=== PATIENT | male | born 1950 | race Caucasian/White ===

== ENCOUNTER 2017-02-17 08:54 | Inpatient (IN) | payer MEDICARE, OTHER ==
[2017-02-17] MEDS ORDERED: HYDROcodone/ACETAMIN 5-325 MG* 1 TAB PO ONE (09:23)
[2017-02-17 09:28] LABS: Hematocrit 36 % (42-52); Hemoglobin 11.5 g/dl (14.0-18.0); Mean Corpuscular HGB Conc 32 g/dl (31-36); Mean Corpuscular Hemoglobin 27 pg (27-31); Mean Corpuscular Volume 85 fL (80-94); Mean Platelet Volume 8 um3 (7.4-10.4); Red Blood Count 4.23 10^6/ul (4.0-5.4); Red Cell Distribution Width 16 % (10.5-15); White Blood Count 6.7 10^3/ul (3.5-10.8)
[2017-02-17] MEDS ORDERED: cefTRIAXone(*) 1 GM in NS 0.9% 50 ML* 50 ML IVPB ONE (09:39)
[2017-02-17] MEDS ORDERED: NS 0.9% 1000 ML* 1,000 ML IV ONE (09:41)
[2017-02-17 09:48] LABS: Albumin 3.3 g/dL (3.2-5.2); BUN/Creatinine Ratio 15.3 (8-20); Calcium 8.6 mg/dL (8.6-10.3); EGFR African American 13.1 (>60); EGFR Non-African American 10.2 (>60); Globulin 3.8 g/dL (2-4); HDL Cholesterol 31.5 mg/dL; Total Bilirubin 0.3 mg/dL (0.2-1.0); Total Protein 7.1 g/dL (6.4-8.9)
[2017-02-17 09:49] LABS: Troponin I 0.01 ng/mL (<0.04)
[2017-02-17 10:00] LABS: Urine Bacteria Absent (Absent); Urine Bilirubin Negative (Negative); Urine Glucose Negative (Negative); Urine Nitrite Negative (Negative)
--- NOTE | 2017-02-17 10:03 | RAD ---
Indication: CVA. History of cardiac and respiratory disease. Morbid obesity. Comparison: September 06, 2016 chest radiograph and May 11, 2016 CT. Technique: Semiupright AP chest 0912 hours Report: Leftward rotation. Cardiomegaly. Moderate LEFT pleural effusion and significant atelectasis of the LEFT lung similar to the prior exams. Moderate prominence of interstitial markings in the RIGHT lung without change. No pneumothorax evident. Prominent ill-defined central pulmonary vasculature. IMPRESSION: Interstitial pulmonary edema not excluded. Chronic LEFT pleural effusion and significant atelectasis of the LEFT lung.
--- NOTE | 2017-02-17 10:46 | RAD ---
INDICATION: RIGHT flank pain, hematuria. Morbid obesity. COMPARISON: August 13, 2013 CT. TECHNIQUE: Multidetector CT images were obtained from the lung bases to the ischial tuberosities. Evaluation of the viscera is limited without IV contrast. Multiplanar reformation. REPORT: Morbid obesity limits image quality. Cardiomegaly with associated partial atelectasis of the LEFT lung without change. Small calcified granuloma at the unenhanced liver. The gallbladder is not visualized. Moderately severe fatty replacement of the pancreas. Unremarkable spleen. No CT abnormality of the upper GI or small bowel. Unremarkable infra cecal appendix. Mild colonic diverticulosis without findings of diverticulitis. Negative for ascites or free air. Laxity of the ventral abdominal wall. No discrete hernia evident. Normal adrenal glands. Postsurgical change of probable prostatectomy. Mildly prominent urinary bladder wall and surrounding fat reticulation/inflammation. Severe LEFT and moderate RIGHT hydroureter. Moderate RIGHT and moderately severe LEFT renal cortical atrophy. Negative for dilatation of the calyces. No obstructing ureteral stones. A few punctate nonobstructing LEFT renal stones. Coarse calcification at the normal volume prostate. Unremarkable seminal vesicles. Negative for lymphadenopathy. Mild peripheral atherosclerotic plaque without aneurysm of the abdominal aorta or iliac arteries. Physiologic distention of the IVC. No significant change in ring and arc pattern matrix calcification lesion at the RIGHT femoral neck to intratrochanteric region compared with the August 13, 2013 CT consistent with a benign enchondroma. Negative for suspicious focal osseous lesions. Negative for fracture. Lumbar sacral spine degenerative spondylosis and facet joint osteoarthritis. IMPRESSION: 1.Cardiomegaly with associated partial atelectasis of the LEFT lung without change. 2. Mild colonic diverticulosis without findings of diverticulitis. Normal appendix documented. 3. Mild bladder wall thickening and reticulation of the fat surrounding the urinary bladder; correlate for potential cystitis. And bilateral hydroureter without dilatation of the renal calyces. Moderate RIGHT and moderately severe LEFT renal cortical atrophy.
[2017-02-17 10:57] LABS: Potassium 4.8 mmol/L (3.5-5.0)
--- NOTE | 2017-02-17 11:06 | RAD ---
Indication: Acute RIGHT hemiplegia. Comparison: September 07, 2016 CT Technique: Noncontrast CT vertex of skull through foramen magnum. Report: Obliquity and motion artifact degrades image quality. Mild prominence of the cerebral sulci reflecting atrophy. Unremarkable ventricles and basal cisterns. Negative for romero matter white matter obscuration, intra or extra-axial hemorrhage, or mass effect. Unremarkable orbital contents. No suspicious calvarial or skull base lesion. Mucous retention cyst or polyp at the floor of the LEFT maxillary sinus. Negative for paranasal sinus fluid levels. Partial opacification of the mastoid air spaces. Cerumen in the external auditory canals. Negative for scalp hematoma. IMPRESSION: No evidence for intracranial hemorrhage or gross stigmata of ischemic infarct. Mild involutional change. Results discussed with Dr. Franco 02/17/2017 9:32 AM EDT
[2017-02-17] MEDS ORDERED: NS 0.9% 1000 ML* 1,000 ML IV SCH ×2 (11:45→13:30)
[2017-02-17] MEDS ORDERED: Heparin VIAL(*) 5000 UNITS/ML VIAL (FIVE THOUSAND) SUBCUT SCH (14:00)
[2017-02-17] MEDS ORDERED: Ipratropium 0.5MG/2.5ML NEB* 0.5 MG/2.5 ML NEB.SOLN INH SCH (14:00)
[2017-02-17] MEDS ORDERED: Albuterol 2.5 MG/3 ML NEB.SOL* (0.083%) INH SCH (14:00)
--- NOTE | 2017-02-17 15:33 | HP ---
HISTORY AND PHYSICAL: DATE OF ADMISSION: 02/17/17 CHIEF COMPLAINT: Right-sided weakness. HISTORY OF PRESENT ILLNESS: The patient is a 66-year-old gentleman who resides at [facility], who said last night his whole right side felt swollen. Then, this morning when he woke up at 7:30, he could not lift up his right leg or his right arm. He thinks he had some slurred speech as well. He denied any facial droop, but he said he had some trouble finding words. Currently, he said the symptoms have resolved. He had no associated headache or blurry vision. He does ambulate with a walker, but says he did not notice any difference in ambulation. He had no chest pain, no shortness of breath, and no palpitations. He said he noticed a week ago, he has an episode where he felt like his right arm was superglued to his chest. He also notes that his blood pressure normally runs low, but today it was 148/70, which is actually quite high for him. He had a workup for slurred speech back this August in 2015. PAST MEDICAL HISTORY: Significant for obstructive sleep apnea with noncompliance, cerebrovascular accident, atrial fibrillation, hypertension, MRSA , BPH, morbid obesity, history of congestive heart failure. PAST SURGICAL HISTORY: Significant for defibrillator/pacemaker placement and hernia repair. CURRENT MEDICATIONS: Are as follows: 1. Dulera 200/5 two puffs inhaled twice daily. 2. Furosemide 40 mg twice daily. 3. Ventolin nebulizer 2.5 mg inhaled 3 times a day. 4. Atrovent nebulizer 0.5 mg 3 times a day. 5. Cholecalciferol 2000 units daily. 6. Flomax 0.4 mg at bedtime. 7. Coumadin 3.5 mg daily. 8. Tylenol 650 mg every 6 hours as needed. ALLERGIES: He has no known drug allergies. FAMILY HISTORY: Mother and father had colon cancer. Father had lung cancer. SOCIAL HISTORY: Ex-tobacco, quit . Surrogate decision maker is his brother, David Terry. REVIEW OF SYSTEMS: A 14-point review of systems was completed with the patient. All pertinent positives and negatives are in the history of present illness, otherwise it is negative. PHYSICAL EXAMINATION GENERAL: Pleasant gentleman, lying in bed, in no acute distress. VITAL SIGNS: Temperature 97.9 degrees, heart rate 70 beats per minute, respiratory rate 20 breaths per minute, pulse ox 97%, blood pressure 125/45. HEENT: Normocephalic, atraumatic. Pupils are equal, round, and reactive to light. Moist mucous membranes. NECK: Supple. No JVD, bruits, palpable thyroid, or lymphadenopathy. CHEST: Clear to auscultation and percussion bilaterally. CARDIOVASCULAR: S1, S2 appreciated. ABDOMEN: Morbidly obese. Positive bowel sounds in all 4 quadrants except some erythema on his left side of his abdomen, but no warmth or tenderness. EXTREMITIES: No cyanosis or clubbing. He has got bilateral edema. NEURO: Alert and oriented x3. Moves all extremities. SKIN: Other than the aforementioned erythema, no other distinct rashes or abnormalities. DIAGNOSTIC STUDIES/LAB DATA: White count 6.7, hemoglobin 11.5, hematocrit 36, his platelets are 223. Sodium is 139, potassium 4.8, chloride 105, CO2 27, BUN 86, creatinine 5.61, glucose 84. His INR is 3.26. Urinalysis has +[address] was interpreted by Radiology as no evidence for intracranial hemorrhage or gross stigmata of ischemic infarct, mild involutional change. Chest x-ray was interpreted by Radiology as interstitial pulmonary edema not excluded. Chronic left pleural effusion and significant atelectasis of the left lung. Abdominal pelvic CT: Cardiomegaly with associated partial atelectasis of the left lung without change. Mild colonic diverticulosis without findings of diverticulitis. Normal appendix documented. Mild bladder wall thickening and reticulation of the fat surrounding the urinary bladder cystitis and bilateral hydroureter without dilatation of the renal calyces. Moderate right and severe left renal cortical atrophy. EKG shows V-paced rhythm. ASSESSMENT AND PLAN: 1. Transient ischemic attack. It is possible from his symptoms. I did notice on the neurologic exam, he may have a slight pronator drift, but otherwise was intact. I will order an MRI of his head and neck and a transthoracic echocardiogram with bubble study and do neurological checks q.4 hours. He is already on Coumadin and he is actually supratherapeutic, but I will add an aspirin a day to his regimen. I will check a lipid profile in the morning. I will hold off on a neurological evaluation unless he rules out for a cerebrovascular accident. 2. Acute kidney injury. Creatinine is normally elevated, but this is unusually high. He seems to be dehydrated. We will hold his furosemide and place him on IV fluids and recheck in the a.m. 3. Atrial fibrillation. Hold Coumadin with an elevated INR. He has a pacemaker and his heart rate is adequately controlled. 4. Chronic obstructive pulmonary disease. Continue inhaler. 5. Hydroureter, etc., on CT. The patient should follow up with Urology. Does not need to be seen by them through this admission. 6. Benign prostatic hyperplasia. Continue Flomax. 7. FEN. N.p.o. awaiting swallow evaluation. 8. DVT prophylaxis. He is on Coumadin. 9. The patient is a full code. TIME SPENT: Over 80 minutes was spent on this H and P, more than 45 minutes of which was spent in direct [id number] contact with the patient in evaluation, physical exam, counseling, and coordination of care. CC: Dr. Hill* [id number]/CPS #: [id number] GRETEL
[2017-02-17] MEDS: Aspirin EC Low Dose* 81 MG TAB.EC PO SCH (15:56)
[2017-02-17] MEDS ORDERED: Morphine INJ* 4 MG/ML 1 ML SYRINGE IV PRN (16:22)
[2017-02-17] MEDS: Albuterol/Ipratropium NEB.SOL* Albuterol 2.5 MG/Ipratropium 0.5 MG 3 ML INH SCH (20:21)
[2017-02-17] MEDS: Mometasone/Formoter 200/5 MDI INH SCH (20:24)
[2017-02-17] MEDS ORDERED: Furosemide TAB* 40 MG PO SCH (21:00)
[2017-02-17] MEDS: Tamsulosin CAP* 0.4 MG PO SCH (22:41)
[2017-02-18 07:13] LABS: BUN/Creatinine Ratio 15.4 (8-20); Calcium 8.3 mg/dL (8.6-10.3); EGFR African American 12.8 (>60); EGFR Non-African American 9.9 (>60); HDL Cholesterol 24.5 mg/dL; Potassium 4.3 mmol/L (3.5-5.0)
[2017-02-18] MEDS: Cholecalciferol TAB* 1000 UNITS PO SCH (08:52)
[2017-02-18] MEDS: Aspirin EC Low Dose* 81 MG TAB.EC PO SCH (08:53)
[2017-02-18] MEDS: Albuterol/Ipratropium NEB.SOL* Albuterol 2.5 MG/Ipratropium 0.5 MG 3 ML INH SCH ×3 (08:59→20:12)
[2017-02-18] MEDS: Mometasone/Formoter 200/5 MDI INH SCH ×2 (08:59→20:17)
[2017-02-18] MEDS ORDERED: Warfarin TAB(*) 5 MG PO SCH (09:00)
--- NOTE | 2017-02-18 10:35 | PN ---
Subjective Date of Service: 02/18/17 Interval History: Patient seen this morning. Says he has had recurrent symptoms over the past week or two. Says he previously had RUE weakness and could not move his arm for 1-2 minutes, this occurred 1.5 weeks ago. His current symptoms began two nights ago, feels that he is not back to baseline, still feels like he is having persistent weakness, worse than his baseline from prior CVA. Reports non- compliance with his nightly BiPAP, was not wearing it the night his symptoms began Family History: Unchanged from Admission Social History: Unchanged from Admission Past Medical History: Unchanged from Admission Objective Active Medications: Albuterol/Ipratropium (Duoneb (Albuterol 2.5 Mg/Ipratropium 0.5 Mg)) 1 neb INH TID SOLE Aspirin (Aspirin Ec Low Dose*) 81 mg PO DAILY SOLE Cholecalciferol (Vitamin D Tab*) 2,000 units PO DAILY SOLE Sodium Chloride (Ns 0.9% 1000 Ml*) 1,000 mls @ 100 mls/hr IV PER RATE SOLE Mometasone Furoate/Formoterol Fumar (Dulera 200/5 Mdi*) 2 puff INH BID SOLE Morphine Sulfate (Morphine Inj (Syringe)*) 4 mg IV Q4H PRN Pharmacy Profile Note (Coumadin Daily Reminder*) 0 note FOLLOW UP 1700 SOLE Tamsulosin HCl (Flomax Cap*) 0.4 mg PO BEDTIME SOLE Vital Signs 02/17/17 02/17/17 02/17/17 11:30 13:14 16:11 Temperature 97.9 F 97.5 F 97.7 F Pulse Rate 70 68 69 Respiratory 20 26 26 Rate Blood Pressure 125/45 131/62 122/55 (mmHg) O2 Sat by Pulse 97 93 95 Oximetry 02/17/17 02/17/17 02/18/17 19:33 20:25 00:20 Temperature 98.6 F 97.8 F Pulse Rate 71 72 72 Respiratory 22 20 Rate Blood Pressure 141/64 114/56 (mmHg) O2 Sat by Pulse 91 98 92 Oximetry 02/18/17 02/18/17 02/18/17 04:28 07:48 08:00 Temperature 97.4 F 97.5 F Pulse Rate 70 70 Respiratory 28 24 Rate Blood Pressure 104/49 116/53 (mmHg) O2 Sat by Pulse 96 90 90 Oximetry 02/18/17 09:34 Temperature Pulse Rate 79 Respiratory 18 Rate Blood Pressure (mmHg) O2 Sat by Pulse 98 Oximetry Oxygen Devices in Use Now: Nasal Cannula Appearance: Super-morbidly obese, M, laying in bed in NAD Eyes: No Scleral Icterus Ears/Nose/Mouth/Throat: Mucous Membranes Moist Neck: NL Appearance and Movements; NL JVP Respiratory: Symmetrical Chest Expansion and Respiratory Effort, Clear to Auscultation Cardiovascular: NL Sounds; No Murmurs; No JVD, - - IRIR Abdominal: - - Obese, soft, NTND, BS+ Lymphatic: No Cervical Adenopathy Extremities: No Edema Skin: No Rash or Ulcers Neurological: Alert and Oriented x 3, - - 4/5 strength in RLE, 4+/5 strength in RUE, diminished sensation on R side Result Diagrams: 02/17/17 09:20 02/18/17 05:34 Microbiology and Other Data: Microbiology 02/17/17 13:00 Nasal Screen MRSA (PCR)(DAPHNEY) - Final Nasal Mrsa Negative Assess/Plan/Problems-Billing Assessment: R sided weakness, GARRET on CKD, hydroureter in a 66 yo M with hx of CVA, AFib on coumadin, TORY, BPH, chronic systolic CHF (EF 35-40%) - Patient Problems (1) Weakness Current Visit: Yes Comment: R sided weakness. ?TIA/CVA. Has had these symptoms in the past with other medical problems, ?related to renal failure. MRI unable to be done, CTA contraindicated with renal failure. Will get carotid US. Echo pending. Continue ASA for now. LDL at goal. Coumadin supratherapeutic. Will ask Neurology to evaluate. (2) GARRET (acute kidney injury) Current Visit: Yes Comment: on CKD. BUN/Creatinine elevated, ?due to malfunctioning parekh which has been replaced. Hydroureter noted on CT scan. Patient did not get IVF overnight, will start now and monitor renal function. Get renal US. Continue flomax for BPH. Holding Lasix. (3) Atrial fibrillation Current Visit: No Comment: Heart rate adequately controlled. 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 Monitor INR (4) TORY (obstructive sleep apnea) Current Visit: No Comment: BiPAP 16/8 when asleep, needs to be more compliant at [facility] with this therapy (5) DVT prophylaxis Current Visit: No Comment: On coumadin
[2017-02-18] MEDS: NS 0.9% 1000 ML* 1,000 ML IV SCH ×2 (11:09→21:11)
[2017-02-18] MEDS ORDERED: Acetaminophen TAB* 325 MG PO PRN (11:31)
--- NOTE | 2017-02-18 13:04 | RAD ---
INDICATION: Hydroureter, follow-up. COMPARISON: Comparison is made with a prior CT of the abdomen and pelvis from February 17, 2017. TECHNIQUE: Multiple real-time images of the kidneys and urinary bladder were obtained. The exam is limited due to the patient's body habitus. FINDINGS: The left kidney was not visualized. The right kidney measured 10.8 x 5.4 x 5.6 cm. No focal abnormality or hydronephrosis is seen. The urinary bladder was not visualized. IMPRESSION: LIMITED STUDY, THE LEFT KIDNEY AND URINARY BLADDER WERE NOT VISUALIZED. THE RIGHT KIDNEY APPEARS TO BE WITHIN NORMAL LIMITS.
--- NOTE | 2017-02-18 13:55 | RAD ---
HISTORY: Stroke workup COMPARISONS: September 07, 2016 The study is limited by patient body habitus. TECHNIQUE: Multiple transverse and longitudinal ultrasound images were obtained of the carotid and vertebral arteries bilaterally, using grayscale, color Doppler, and spectral Doppler imaging. FINDINGS: Measurement of carotid stenosis is based on flow velocity parameters that correlate the residual internal carotid artery diameter with [place] Symptomatic Carotid Endarterectomy Trial (NASCET)-based stenosis levels. RIGHT: Intima: There is diffuse intimal thickening. Velocities: Right internal carotid artery maximum peak systolic velocity: 148 cm/s Right common carotid artery maximum peak systolic velocity: 138 cm/s Right internal carotid artery/common carotid artery ratio: 1.6 Waveforms: There is no spectral broadening. Right Vertebral: The right vertebral artery flow is antegrade. LEFT: Intima: There is diffuse intimal thickening. Velocities: Left internal carotid artery maximum peak systolic velocity: 139 cm/s Left common carotid artery maximum peak systolic velocity: 161 cm/s Left internal carotid artery/common carotid artery ratio: 1 Waveforms: There is no spectral broadening. Left Vertebral: The left vertebral artery flow is antegrade. OTHER FINDINGS: None. IMPRESSION: 1. LIMITED STUDY. 2. MILDLY ELEVATED PEAK SYSTOLIC VELOCITIES OF THE INTERNAL CAROTID ARTERIES BILATERALLY, CONSISTENT WITH BILATERAL INTERNAL CAROTID ARTERY STENOSIS BETWEEN 50% AND 69% BY NASCET CRITERIA. 3. GIVEN THE LIMITATIONS OF STUDY, AND THE FINDINGS OF BILATERAL INTERNAL CAROTID ARTERY STENOSIS, CONSIDER CORRELATION WITH CROSS SECTIONAL IMAGING, INCLUDING CT ANGIOGRAPHY OR MR ANGIOGRAPHY OF THE NECK CPT II Codes: 3100F
[2017-02-18] MEDS ORDERED: Perflutren Lipid Microsphere* 3 ML VIAL ONE (13:59)
[2017-02-18] MEDS ORDERED: Perflutren Lipid Microsphere* 3 ML VIAL IV ONE (14:00)
--- NOTE | 2017-02-18 16:31 | ECHO ---
Patient: JONAH RUSSELL [facility] Rec#: [id number] : 1950 Date: 02/18/2017 Age: 66y Height: 187.96 cm / 74.0 in Weight: 198.67 kg / 437.9 lbs Sex: M BSA: 3.03 Room#: 439 Admit Date#: 02/17/2017 Type: Inpatient Referring: Yonis Noriega MD Reading: Chester Do MD CC: Pippa Zepeda MD Transthoracic Echocardiogram Indication: TIA BP: 104/49 HR: 82 Rhythm: Paced Findings History: Morbid obesity,TORY with noncompliance,prior CVA,a-fib,s/p AICD ,CHF. Technical Comments: The study is technically limited due to patient body habitus. The study was technically limited due to the patient's inability to lay in the left lateral decubitus position. Left Ventricle: The left ventricle is not well visualized. There is diffuse global hypokinesis of the left ventricle. There is mildly decreased left ventricular systolic function. The estimated ejection fraction is 45-50%. Left Atrium: The left atrium is not well visualized. Right Ventricle: A pacemaker wire is visualized in the right ventricle. Right Atrium: The right atrium is not well visualized. Transesophageal echo of 2016 included an agiatated saline study which was negative. A pacemaker wire is visualized in the right atrium. Aortic Valve: The aortic valve structure is not well visualized. There is no evidence of aortic regurgitation. There is no evidence of aortic stenosis. Mitral Valve: The mitral valve leaflets are mildly thickened. There is moderate to severe mitral regurgitation. The mitral regurgitant jet is laterally directed. There is no evidence of mitral stenosis. Tricuspid Valve: The tricuspid valve structure is not well visualized. There is mild to moderate tricuspid regurgitation. There is evidence of moderate to severe pulmonary hypertension. There is no tricuspid stenosis. Pulmonic Valve: The pulmonic valve structure is not well visualized. Pericardium: A pericardial fat pad is visualized. Aorta: There is moderate dilatation of the ascending aorta. There is moderate dilatation of the aortic arch. There is moderate dilatation of the aortic root. Pulmonary Artery: The main pulmonary artery is not well visualized. Venous: The venous system is not well visualized. Contrast: Definity was used to optimize study. 6 ml. Definity used for endocardial border definition. Intravenous contrast was used to enhance endocardial border definition. Conclusions The study is technically limited due to patient body habitus. There is diffuse global hypokinesis of the left ventricle. There is mildly decreased left ventricular systolic function. The estimated ejection fraction is 45-50%. A pacemaker wire is visualized in the right atrium. The right atrium is not well visualized. Transesophageal echo of 2016 included an agiatated saline study which was negative. There is no evidence of aortic regurgitation. There is moderate to severe mitral regurgitation. The mitral regurgitant jet is laterally directed. There is mild to moderate tricuspid regurgitation. There is mild to moderate tricuspid regurgitation. There is evidence of moderate to severe pulmonary hypertension. There is moderate dilatation of the ascending aorta. Measurements Name Value Normal Range Aortic Annulus 2.7 cm (1.4 - 2.6) Ao root diameter (2D) 4 cm (2.1 - 3.5) Ascending Ao 4.2 cm (2.1 - 3.4) Aortic arch 4 cm (1.8 - 3.4) Name Value Normal Range MV E-wave Vmax 1.3 m/sec - MV deceleration time 168 msec - MV E:A ratio 1 ratio - Name Value Normal Range AV Vmax 1.4 m/sec - AV VTI 35.9 cm - AV peak gradient 7.97 mmHg - AV mean gradient 3.81 mmHg - LVOT Vmax 1 m/sec - LVOT VTI 16.8 cm - LVOT peak gradient 3.85 mmHg - LVOT mean gradient 1.77 mmHg - Name Value Normal Range MR Vmax 5.4 m/sec - MR VTI 160 cm - Name Value Normal Range TR Vmax 3.6 m/sec - TR peak gradient 52 mmHg - RAP 8 mmHg - RVSP 60 mmHg -
[2017-02-18] MEDS ORDERED: Warfarin TAB(*) 2.5 MG PO SCH (17:00)
[2017-02-18] MEDS ORDERED: Warfarin TAB(*) 1 MG PO SCH (17:00)
[2017-02-18] MEDS: Tamsulosin CAP* 0.4 MG PO SCH (21:08)
--- NOTE | 2017-02-18 22:19 | CONS ---
NEUROLOGY CONSULTATION: DATE OF CONSULTATION: 02/18/17 LOCATION: He is an inpatient in room 438. REFERRING PHYSICIAN: Dr. Juan Salomon. CHIEF COMPLAINT: Right-sided weakness. HISTORY OF PRESENT ILLNESS: Zac Terry is a 66-year-old right-handed man who presented the day of admission with recurrent right-sided weakness. He says the night before, he had some weakness in his right side and then the next morning when he woke up, he could not raise his right arm and leg. He has had at least 2 if not multiple episodes of transient right-sided weakness, which would last days to a week. He has had negative CAT scans including the last night when he came in. He does not have any difficulty with language, but feels his right arm and leg are weak and numb. He does not notice any change in his speech. He is on chronic anticoagulation for chronic atrial fibrillation and also has a pacemaker and defibrillator. His INR at presentation yesterday was 3.26. He has a history of hypertension, coronary artery disease, and severe obesity alveolar hypoventilation syndrome. PAST MEDICAL HISTORY: Notable for hospitalization for over a month in [place] , what sounds like aspiration pneumonia after surgery for defibrillator and pacer, sleep apnea with noncompliance, morbid obesity, history of congestive heart failure. MEDICATIONS: At [facility] where he was when he came in are: 1. Furosemide 40 mg p.o. b.i.d. 2. Dulera 2 puffs b.i.d. 3. Ventolin nebulizer 2.5 mg t.i.d. 4. Atrovent nebulizer 0.5 mg t.i.d. 5. Flomax 0.4 mg p.o. daily. 6. Coumadin 3.5 mg p.o. daily. ALLERGIES: He does not have any drug allergies. REVIEW OF SYSTEMS: Notable for severe leg and back pain limiting mobility. He says he uses a walker and can walk about the length of his hospital room and after that has to use a wheelchair. This apparently is chronic. He denies headaches. He had an episode of double vision late last year. He was having chest pain last year doing physical therapy, but nothing recently. No recent faints. No history of seizures. In spite of his obesity, there is no history of diabetes. No recent unusual stressors. He denies abdominal problems. PHYSICAL EXAMINATION: He is morbidly obese. Temperature 98.6 temporarily, blood pressure 127/72, heart rate 70s and regular, respiratory rate 24. Oxygen saturation is 98% on 4 L per nasal canula. Lung reveals diffuse wheezes. Head is atraumatic. Heart tones are very distant. I do not hear murmurs. The carotid pulses are not felt either, but I do not hear any bruits over loud breath sound. Oral mucosa is moist, dentition is poor, there is no oral trauma. Neurologically, pupils react equally from 3.5 to 2 mm. Funduscopic exam reveals sharp discs and silver wiring. Eye movements and visual polk are normal. There is no ptosis. Facial musculature is symmetric. Facial sensation to pin and light touch is reported as diminished on the right side. Speech is mildly dysarthric. Hearing is intact. Motor exam reveals fairly good strength on the left arm, grade 4 left hip flexor weakness. Also has great difficulty positioning in bed due to his severe obesity. He raises the right leg stiffly off the bed and holds it about 5 inches off the bed and says he cannot lift it any higher. He is able to show pretty good strength in the upper extremities bilaterally, but has a lot of myoclonus and tremor. Finger taps are clumsy bilaterally. He has bilateral upper extremity myoclonus. LABORATORY DATA: Includes a CT of the brain, which reveals a lot of artifact, but no evidence of acute or chronic infarctions. Carotid Doppler study reveals bilateral atherosclerotic disease at the carotid bifurcations with estimations of 50% to 69% internal carotid stenosis bilaterally. Laboratory data is notable for CBC notable for hemoglobin of 11.5 and otherwise unremarkable. Guaiacs are notable for INR of 3.77 this morning, it was 3.26 yesterday when he presented in the emergency room. Chemistry is notable for elevation in his creatinine up to 5.72, it was last 3.43 on 02/04/17 and so this was significant increase. BUN is also elevated at 88. IMPRESSION: Is that of a possible left hemisphere stroke. However, his exam looks somewhat functional. He clearly has severe metabolic problems in terms of his pulmonary encephalopathy and major vascular risk factors. However, he is already fully anticoagulated and he does not have carotid disease that would benefit from surgery. Aspirin has been added to his Coumadin, which I think is reasonable at least for the short term. Hopefully, he will just resolve spontaneously and the actual diagnosis will be conversion disorder and I do not recommend any other particular antiplatelet or medical interventions at this point in time as he fairly maxed out in that regard. I will follow him along with you. [id number]/CPS #: [id number] GRETEL
[2017-02-19 06:05] LABS: BUN/Creatinine Ratio 16.3 (8-20); Blood Urea Nitrogen 87 mg/dL (6-24); CO2 Carbon Dioxide 25 mmol/L (22-32); Calcium 8.3 mg/dL (8.6-10.3); Chloride 104 mmol/L (101-111); EGFR African American 13.9 (>60); EGFR Non-African American 10.8 (>60); Glucose 91 mg/dL (70-100); Sodium 135 mmol/L (133-145)
--- NOTE | 2017-02-19 08:59 | PN ---
Subjective Date of Service: 02/19/17 Interval History: Patient seen this morning. Feels maybe his RLE is a bit stronger. Says he did have some urinary retention in days leading up to admission in addition to some blood in the urine and what he reports was positive UCx. Used home BiPAP overnight. Family History: Unchanged from Admission Social History: Unchanged from Admission Past Medical History: Unchanged from Admission Objective Active Medications: Acetaminophen (Tylenol Tab*) 650 mg PO Q6H PRN Albuterol/Ipratropium (Duoneb (Albuterol 2.5 Mg/Ipratropium 0.5 Mg)) 1 neb INH TID SOLE Aspirin (Aspirin Ec Low Dose*) 81 mg PO DAILY SOLE Cholecalciferol (Vitamin D Tab*) 2,000 units PO DAILY SOLE Sodium Chloride (Ns 0.9% 1000 Ml*) 1,000 mls @ 100 mls/hr IV PER RATE SOLE Ceftriaxone Sodium 1,000 mg/ (Sodium Chloride) 50 mls @ 200 mls/hr IVPB Q24H [facility] Mometasone Furoate/Formoterol Fumar (Dulera 200/5 Mdi*) 2 puff INH BID SOLE Pharmacy Profile Note (Coumadin Daily Reminder*) 0 note FOLLOW UP 1700 [facility] Tamsulosin HCl (Flomax Cap*) 0.4 mg PO BEDTIME [facility] Vital Signs 02/18/17 02/18/17 02/18/17 13:43 15:23 19:11 Temperature 98.6 F 98.0 F Pulse Rate 78 70 72 Respiratory 18 24 24 Rate Blood Pressure 127/72 126/59 (mmHg) O2 Sat by Pulse 97 98 92 Oximetry 02/18/17 02/19/17 02/19/17 23:52 04:15 07:25 Temperature 97.6 F 97.4 F 98.1 F Pulse Rate 72 77 72 Respiratory 20 20 20 Rate Blood Pressure 124/75 96/76 113/52 (mmHg) O2 Sat by Pulse 96 93 88 Oximetry Oxygen Devices in Use Now: Nasal Cannula Appearance: Elderly, obese, M, laying in bed in NAD Eyes: No Scleral Icterus Ears/Nose/Mouth/Throat: Mucous Membranes Moist Neck: NL Appearance and Movements; NL JVP Respiratory: Symmetrical Chest Expansion and Respiratory Effort, Clear to Auscultation Cardiovascular: NL Sounds; No Murmurs; No JVD, RRR Abdominal: - - Obese, soft, NTND, BS+ Lymphatic: No Cervical Adenopathy Extremities: No Edema Skin: No Rash or Ulcers Neurological: Alert and Oriented x 3, - - Some R sided weakness, RLE>RUE Lines/Tubes/Other Access: Clean, Dry and Intact Parekh Result Diagrams: 02/17/17 09:20 02/19/17 06:40 Microbiology and Other Data: Assess/Plan/Problems-Billing Assessment: R sided weakness, GARRET on CKD, hydroureter in a 66 yo M with hx of CVA, AFib on coumadin, TORY, BPH, chronic systolic CHF (EF 35-40%) - Patient Problems (1) Weakness Current Visit: Yes Comment: Appreciate Neurology assistance. R sided weakness. ?TIA/CVA. Has had these symptoms in the past with other medical problems, ?related to renal failure, UTI, conversion. MRI unable to be done, CTA contraindicated with renal failure. Carotid US and Echo done. Continue ASA for now. LDL at goal. Coumadin supratherapeutic. (2) GARRET (acute kidney injury) Current Visit: Yes Comment: on CKD. Slight improvement from yesterday. BUN/ Creatinine elevated, ?due to UTI. With urinary retention, hematuria and now positive UCx will go ahead and treat for UTI. May be some contribution from malfunctioning parekh which has been replaced. Hydroureter noted on initial CT scan. Repeat renal US not helpful due to habitus. Continue IVF, check FeNa. Continue flomax for BPH. Holding Lasix. (3) Atrial fibrillation Current Visit: No Comment: Heart rate adequately controlled. 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 Monitor INR (4) TORY (obstructive sleep apnea) Current Visit: No Comment: BiPAP 16/ when asleep, needs to be more compliant at [facility] with this therapy (5) DVT prophylaxis Current Visit: No Comment: On coumadin Status and Disposition: Inpatient for continued IVF, renal monitoring. Potential discharge 02/20
[2017-02-19] MEDS: Cholecalciferol TAB* 1000 UNITS PO SCH (09:20)
[2017-02-19] MEDS: Aspirin EC Low Dose* 81 MG TAB.EC PO SCH (09:20)
[2017-02-19] MEDS: NS 0.9% 1000 ML* 1,000 ML IV SCH ×2 (09:22→21:17)
[2017-02-19] MEDS: Mometasone/Formoter 200/5 MDI INH SCH ×2 (09:24→20:22)
[2017-02-19] MEDS: Albuterol/Ipratropium NEB.SOL* Albuterol 2.5 MG/Ipratropium 0.5 MG 3 ML INH SCH ×3 (09:24→20:22)
[2017-02-19] MEDS: cefTRIAXone VIAL(*) 1,000 MG in NS 0.9% 50 ML* 50 ML IVPB SCH (09:28)
--- NOTE | 2017-02-19 20:06 | CONS ---
NEUROLOGY FOLLOWUP NOTE: DATE OF FOLLOWUP: 02/19/17 LOCATION: He is an inpatient in room 439. HOSPITALIST: Dr. Juan Salomon. CHIEF COMPLAINT: Right-sided weakness. INTERVAL HISTORY: Since yesterday, Mr. Terry feels there has been some improvement. He can lift his right leg up better. His right arm is still heavy , but he can move it better as well. He has not noticed any new symptoms. No headache or facial numbness or difficulty with speech. MEDICATIONS: Reviewed and he remains on Coumadin, but it is being held as his INR remains elevated. He is on: 1. Flomax 0.4 mg p.o. q.h.s. 2. Ceftriaxone 1000 mg IV q.24 hours. 3. Aspirin 81 mg p.o. q. day. PHYSICAL EXAM: He is morbidly obese. Temperature 97.6 orally, blood pressure 118/59, heart rate 70. Neurologic Exam: Facial musculature is symmetric. Eye movements are normal and visual polk are full to confrontation. He has variable strength in the right upper extremity with at least resistive strength in all muscle groups. He has a downward drift of the right arm without pronation. He can move the right leg up off the bed and offers variable resistance. He has bilateral myoclonus and asterixes in the limbs. LABORATORY DATA: Reviewed and his chemistries today notable for creatinine remaining elevated at 5.33, down slightly from yesterday when it was 5.72. BUN remains elevated at 87; it was 88 yesterday. IMPRESSION: Possible left hemisphere stroke. He shows some improvement. He is already anticoagulated and does not have surgical carotid disease. His lipid profile is excellent. His blood pressure control is acceptable. I do not recommend any changes at this point, which is continued physical therapies and re- anticoagulating him once his INR gets under 3. [id number]/[facility] #: [id number] [facility] HOSPITALMandi
[2017-02-19] MEDS: Tamsulosin CAP* 0.4 MG PO SCH (20:53)
[2017-02-20 04:58] LABS: Hematocrit 30 % (42-52); Hemoglobin 9.7 g/dl (14.0-18.0); Mean Platelet Volume 7 um3 (7.4-10.4)
[2017-02-20 05:14] LABS: BUN/Creatinine Ratio 15.4 (8-20); Calcium 8.2 mg/dL (8.6-10.3); EGFR African American 14.3 (>60); EGFR Non-African American 11.1 (>60); Potassium 4.4 mmol/L (3.5-5.0)
[2017-02-20] MEDS ORDERED: Albuterol/Ipratropium NEB.SOL* Albuterol 2.5 MG/Ipratropium 0.5 MG 3 ML INH PRN (08:41)
[2017-02-20] MEDS: Aspirin EC Low Dose* 81 MG TAB.EC PO SCH (09:01)
[2017-02-20] MEDS: Cholecalciferol TAB* 1000 UNITS PO SCH (09:01)
[2017-02-20] MEDS: cefTRIAXone VIAL(*) 1,000 MG in NS 0.9% 50 ML* 50 ML IVPB SCH (09:02)
[2017-02-20] MEDS: NS 0.9% 1000 ML* 1,000 ML IV SCH (09:02)
[2017-02-20] MEDS: Mometasone/Formoter 200/5 MDI INH SCH ×2 (09:23→20:23)
--- NOTE | 2017-02-20 15:38 | PN ---
Subjective Date of Service: 02/20/17 Interval History: HOSPITALIST PROGRESS NOTE Patient seen and examined at bedside. He offers no new complaints today. Denies chest pain, dyspnea. Feels his weakness is improving. Family History: Unchanged from Admission Social History: Unchanged from Admission Past Medical History: Unchanged from Admission Objective Active Medications: Acetaminophen (Tylenol Tab*) 650 mg PO Q6H PRN PRN Reason: PAIN Last Admin: 02/18/17 12:52 Dose: 650 mg Albuterol/Ipratropium (Duoneb (Albuterol 2.5 Mg/Ipratropium 0.5 Mg)) 1 neb INH Q4H PRN PRN Reason: SOB/WHEEZING Aspirin (Aspirin Ec Low Dose*) 81 mg PO DAILY [facility] Last Admin: 02/20/17 09:01 Dose: 81 mg Cholecalciferol (Vitamin D Tab*) 2,000 units PO DAILY [facility] Last Admin: 02/20/17 09:01 Dose: 2,000 units Sodium Chloride (Ns 0.9% 1000 Ml*) 1,000 mls @ 100 mls/hr IV PER RATE [facility] Last Admin: 02/20/17 09:02 Dose: 100 mls/hr Ceftriaxone Sodium 1,000 mg/ (Sodium Chloride) 50 mls @ 200 mls/hr IVPB Q24H [facility] Last Admin: 02/20/17 09:02 Dose: 200 mls/hr Mometasone Furoate/Formoterol Fumar (Dulera 200/5 Mdi*) 2 puff INH BID [facility] Last Admin: 02/20/17 09:23 Dose: 2 puff Tamsulosin HCl (Flomax Cap*) 0.4 mg PO BEDTIME [facility] Last Admin: 02/19/17 20:53 Dose: 0.4 mg Warfarin Sodium (Coumadin Tab(*)) 3 mg PO DAILY@1700 [facility] PRN Reason: Protocol Vital Signs 02/20/17 02/20/17 02/20/17 09:25 11:10 13:40 Temperature 97.6 F 97.8 F Pulse Rate 22 70 73 Respiratory 77 20 22 Rate Blood Pressure 109/60 121/49 (mmHg) O2 Sat by Pulse 96 96 94 Oximetry Oxygen Devices in Use Now: Nasal Cannula Appearance: Elderly morbid obese male lying in bed in NAD. Eyes: No Scleral Icterus Ears/Nose/Mouth/Throat: Mucous Membranes Moist Neck: Trachea Midline Respiratory: Symmetrical Chest Expansion and Respiratory Effort, Clear to Auscultation Cardiovascular: RRR - Normal S1 and S2 Abdominal: NL Sounds; No Tenderness; No Distention - obese Neurological: Alert and Oriented x 3, - - Mild right hemiparesis Lines/Tubes/Other Access: Clean, Dry and Intact Peripheral IV Nutrition: Taking PO's Result Diagrams: 02/20/17 04:51 02/20/17 04:51 Assess/Plan/Problems-Billing Assessment: Mr. Terry is a 66yo M with PMH of TORY (non-compliant with CPAP), prior CVA, Afib , HTN, BPH, morbid obesity with BMI 54, CHF, who presented with R sided weakness , GARRET on CKD, and hydroureter. - Patient Problems (1) Left sided cerebral hemisphere cerebrovascular accident (CVA) Comment: - Neurology input appreciated - possible left hemisphere stroke - recommended no new changes to his regimen - continue anticoagulation. - Echo and carotid doppler reviewed. - Continue Aspirin. (2) GARRET (acute kidney injury) Comment: - on CKD. - Creatinine continues to trend down. - With urinary retention, hematuria and UCx growing Proteus and decision was made to start Ceftriaxone. - May be some contribution from malfunctioning parekh which has been replaced on 02/17. - Hydroureter noted on initial CT scan. Repeat renal US not helpful due to habitus. Will repeat CT without contrast. (3) Atrial fibrillation Comment: - Heart rate adequately controlled. - Chronic AF with previous cardioembolic stroke in 09/04/2016. - Continue Warfarin and monitor INR. (4) TORY (obstructive sleep apnea) Comment: - BiPAP 05/06. (5) DVT prophylaxis Comment: - Warfarin. (6) Full code status Status and Disposition: Anticipate d/c on 02/21 if renal function continues to improve and CT shows resolution of hydro.
--- NOTE | 2017-02-20 16:44 | RAD ---
INDICATION: Hydronephrosis. COMPARISON: Comparison is made with a prior CT of the abdomen and pelvis from February 17, 2017. TECHNIQUE: A CT scan of the abdomen and pelvis was performed without intravenous or oral contrast. Contiguous axial sections were obtained from the lung bases through the symphysis pubis. Images were reconstructed in the coronal and sagittal planes. The exam is extremely limited due to the patient's body habitus. FINDINGS: There is mild dependent bilateral lower lobe subsegmental atelectasis. No pleural effusion is present. The liver and spleen are moderately enlarged without significant focal abnormality on this noncontrast study. The gallbladder and pancreas are not well-defined. The kidneys are small in size with bilateral cortical atrophy. There has been interval resolution of right hydronephrosis and interval decrease in left hydronephrosis. There is a catheter within the urinary bladder. The aorta is normal in caliber with mild calcific plaque present. No significant enlarged retroperitoneal lymph nodes are seen. The bowel is not well-defined. The stomach, small and large bowel appear nondistended. There are diverticuli scattered throughout the colon. No free intraperitoneal air or fluid is seen. No fracture is seen. IMPRESSION: 1. EXTREMELY LIMITED STUDY. 2. BILATERAL RENAL CORTICAL ATROPHY. INTERVAL RESOLUTION OF RIGHT HYDRONEPHROSIS AND INTERVAL IMPROVEMENT IN LEFT HYDRONEPHROSIS. THE RESIDUAL LEFT URETERAL DILATATION MAY REPRESENT A CHRONIC FINDING. 3. MODERATE HEPATOSPLENOMEGALY.
[2017-02-20] MEDS ORDERED: Warfarin TAB(*) 3 MG PO ONE (17:00)
[2017-02-20] MEDS ORDERED: Warfarin TAB(*) 3 MG PO SCH (17:00)
--- NOTE | 2017-02-20 18:29 | ED ---
Aniyah Laughlin Claudia, scribed for Juan Luis Franco MD on 02/17/17 at 0902 . Neurological HPI - HPI Summary HPI Summary: 66 year old male presents to the ED via EMS from [facility]. Per EMS pt has right arm weakness/numbness, facial droop, slurred speech since 0730 this am. Pt notes this am at 7:30 he had difficulty lifting his right arm and right leg as well as having impaired speech. Pt denies VILLATORO,CP, respiratory distress, numbness/tingling. Pt does note shoe clerk sensation to his right arm in comparison to the left. Pt does not that the Sx are beginning to resolve. Pt does not think he received his am medications but he is unsure. Pt also admits to right lower back pain since a week or so. He also admits to hematuria 1 week ago spontaneously resolved. No PMHx of kidney stones. PMHx of TIA - History of Current Complaint Stated Complaint: STROKE Hx Obtained From: Patient Onset/Duration: Started minutes ago - SUDDEN ONSET 7:30AM TODAY, Still Present Timing: Constant Neurological Deficit Location: RUE, RLE Character: Motor Weakness - RIGHT ARM WEAKNESS, Impaired Speech Aggravating: Nothing Alleviating: Nothing Associated Signs and Symptoms: Positive: Weakness - RIGHT ARM NUMBNESS/WEAKNESS , Impaired Speech. Negative: Headache - Additional Pertinent History Primary Care Physician: [id number] - Allergy/Home Medications Allergies/Adverse Reactions: Allergies Allergy/AdvReac Type Severity Reaction Status Date / Time No Known Allergies Allergy Verified 09/09/15 08:23 PMH/Surg Hx/FS Hx/Imm Hx Previously Healthy: Yes Cardiovascular History: Reports: Hx Congestive Heart Failure, Hx Hypertension, Hx Pacemaker/ICD Respiratory History: Reports: Hx Sleep Apnea History: Reports: Hx Benign Prostatic Hyperplasia, Hx Chronic Renal Failure, Hx Kidney Infection, Other Problems/Disorders - history MRSA in urine Musculoskeletal History: Reports: Hx Arthritis, Other Musculoskeletal History - morbid obesity Sensory History: Reports: Hx Contacts or Glasses - for reading Denies: Hx Hearing Aid Opthamlomology History: Reports: Hx Contacts or Glasses - for reading Neurological History: Reports: Hx CVA Psychiatric History: Denies: Hx Panic Disorder - Surgical History Surgery Procedure, Year, and Place: HERNIA REPAIR, AICD/PACER Hx Anesthesia Reactions: No - Immunization History Date of Tetanus Vaccine: up to date Date of Influenza Vaccine: 2016 Infectious Disease History: Reports: Hx of Known/Suspected MRSA Denies: Hx Clostridium Difficile - Family History Family History: FHx of CA. No FHx of CVA - Social History Occupation: Retired Lives: Assisted Living Alcohol Use: None Hx Substance Use: No Substance Use Type: Reports: None Hx Tobacco Use: No Smoking Status (MU): Former Smoker Type: Cigarettes Amount Used/How Often: 1 pack per week Length of Time of Smoking/Using Tobacco: 1 year Have You Smoked in the Last Year: No Review of Systems Constitutional: Negative Negative: Fever, Chills Eyes: Negative Negative: Erythema ENT: Negative Negative: Sore Throat Cardiovascular: Negative Negative: Chest Pain Respiratory: Negative Negative: Shortness Of Breath, Cough Gastrointestinal: Negative Negative: Abdominal Pain, Vomiting, Nausea Genitourinary: Negative Negative: dysuria, hematuria Musculoskeletal: Negative - NO LEG SWELLING Negative: Myalgia Skin: Negative Negative: Rash Neurological: Negative - NO DIZZINESS Psychological: Normal All Other Systems Reviewed And Are Negative: No Physical Exam - Summary Physical Exam Summary: Constitutional: Well-developed, Well-nourished, Alert. (-) Distressed Skin: Warm, Dry HENT: Eyes: Conjunctiva normal Neck: Musculoskeletal ROM normal neck. (-) JVD, (-) Stridor, (-) Tracheal deviation Cardio: Rhythm regular, rate normal, Heart sounds normal; Intact distal pulses; The pedal pulses are 2+ and symmetric. Radial pulses are 2+ and symmetric. (-) Murmur Pulmonary/Chest wall: Effort normal. (-) Respiratory distress, (-) Wheezes, (-) Rales Abd: Soft. (-) Tenderness, (-) Distension, (-) Guarding, (-) Rebound Musculoskeletal: (-) Edema Lymph: (-) Cervical adenopathy Neuro: Alert, Oriented x3, Strength normal, Cranial nerves II-XII are grossly intact. (-) Dysmetria, (-) Nystagmus, (- Ataxia by finger to nose testing, (-) Sensory deficit. 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 - Radiology CXR Xray Interpretation: No Acute Changes - SEVERE CARDIOMEGALY Radiology Interpretation Completed By: ED Physician - CT BRAIN CT CT Interpretation: No Acute Changes - NO OBVIOUS BLEED, MOTION ARTIFACT CT Interpretation Completed By: ED Physician ABD/PELVIS CT Interpretation: Positive (See Comments) - 1.Cardiomegaly with associated partial atelectasis of the LEFT lung without change. 2. Mild colonic diverticulosis without findings of diverticulitis. Normal appendix documented. 3. Mild bladder wall thickening and reticulation of the fat surrounding the urinary bladder; correlate for potential cystitis. And bilateral hydroureter without dilatation of the renal calyces. Moderate RIGHT and moderately severe LEFT renal cortical atrophy. CT Interpretation Completed By: Radiologist - EKG 10:11 Cardiac Rate: NL - 76 beats/min EKG Interpretation: Ventricular Paced Rhythm, No STEMI NIH Scale - NIH Scale Level of Consciousness: Alert/Keenly Responsive Ask Patient the Month and His/Her Age: Both Correct Ask Pt to Open/Close Eyes and Keypunch Operators Supervisor/Release Non-Paretic Hand: Both Correctly Best Gaze (Only Horizontal Eye Movement): Normal Visual Field Testing: No Visual Loss Facial Paresis-Pt to Smile & Close Eyes or Grimace Symmetry: Normal/Symmetrical Motor Function - Right Arm: Drifts LT 10 seconds Motor Function - Left Arm: No Drift-Holds 10 Seconds Motor Function - Right Leg: Effort Against Brawley Motor Function - Left Leg: No Drift-Holds 10 Seconds Limb Ataxia-Must be out of Proportion to Weakness Present: Absent Sensory (Use Pinprick to Test Arms/Legs/Trunk/Face): Normal Best Language (Describe Picture, Name Items): No Aphasia Dysarthria (Read Several Words): Slurs Some Words Extinction and Inattention: No Abnormality Total Score: 4 Course/Dx - Course Assessment/Plan: Pt will be admitted with TIA, urinary retention, renal failure and pyelonephritis. - Diagnoses Provider Diagnoses: Renal failure, Urinary retention, TIA (transient ischemic attack), Pyelonephritis During the Visit The Following Alert/Code Occurred: Code Gutierres - 8:49am - Physician Notifications Discussed Care of Patient With: Discussed care of pt with Dr. Solis. 9:15. Discussed care of pt with Dr. Noriega. Time Discussed With Above Provider: 10:29 Instructed by Provider To: Admit As Inpatient Discharge - Discharge Plan Condition: Stable Disposition: ADMITTED TO [facility] Patient Education Materials: Transient Ischemic Attack (ED), Urinary Retention in Men (ED) Referrals: Pippa Zepeda MD [Primary Care Provider] - The documentation as recorded by the Aniyah telles Claudia accurately reflects the service I personally performed and the decisions made by me, Juan Luis Franco MD.
[2017-02-20] MEDS: Tamsulosin CAP* 0.4 MG PO SCH (20:10)
[2017-02-21 05:05] LABS: Hematocrit 31 % (42-52); Hemoglobin 9.6 g/dl (14.0-18.0); Mean Corpuscular HGB Conc 32 g/dl (31-36); Mean Corpuscular Hemoglobin 27 pg (27-31); Mean Corpuscular Volume 85 fL (80-94); Mean Platelet Volume 7 um3 (7.4-10.4); Red Blood Count 3.59 10^6/ul (4.0-5.4); Red Cell Distribution Width 16 % (10.5-15); White Blood Count 6.7 10^3/ul (3.5-10.8)
[2017-02-21 05:20] LABS: BUN/Creatinine Ratio 15.4 (8-20); Calcium 8.3 mg/dL (8.6-10.3); EGFR African American 15.3 (>60); EGFR Non-African American 11.9 (>60); Potassium 4.3 mmol/L (3.5-5.0)
[2017-02-21 08:06] VITALS: BP 109/53
[2017-02-21] MEDS: Mometasone/Formoter 200/5 MDI INH SCH (08:15)
[2017-02-21] MEDS: Aspirin EC Low Dose* 81 MG TAB.EC PO SCH (09:33)
[2017-02-21] MEDS: Cholecalciferol TAB* 1000 UNITS PO SCH (09:33)
[2017-02-21] MEDS: cefTRIAXone VIAL(*) 1,000 MG in NS 0.9% 50 ML* 50 ML IVPB SCH (09:33)
--- NOTE | 2017-02-21 11:34 | DS ---
CC: Dr. Sujatha Hill, [facility] DATE OF ADMISSION: 02/17/2017. DATE OF DISCHARGE: 02/21/2017. DISCHARGE DIAGNOSES: 1. 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 2. Acute kidney injury, likely postrenal. 3. Urinary retention, likely secondary to benign prostatic hypertrophy. 4. Proteus/klebsiella urinary tract injection, not Hilario catheter related, present on admission. 5. Chronic anemia, suspect anemia of renal disease. SECONDARY DIAGNOSES: 1. Morbid obesity with a BMI of 54. 2. Obstructive sleep apnea, noncompliant with CPAP. 3. History of prior CVA. 4. Atrial fibrillation, on anticoagulation with Warfarin. 5. Hypertension. 6. History of prior MRSA infection. 7. Benign prostatic hypertrophy. 8. Diastolic congestive heart failure. MEDICATIONS: 1. Acetaminophen 650 mg p.o. q.6 hours prn pain or fever. 2. Albuterol 2.5 mg nebulized t.i.d. 3. Vitamin D 2000 units p.o. daily. 4. Atrovent 0.5 mg nebulized t.i.d. 5. Dulera 200/5 two puffs inhaled b.i.d. 6. Tamsulosin 0.4 mg p.o. at bedtime. Medication change: Warfarin dose was changed to 3 mg p.o. daily. New medications: 1. Aspirin 81 mg p.o. daily. 2. Augmentin 375 mg p.o. b.i.d. for 14 days. HOSPITAL COURSE: Mr. Terry is a 66-year-old male with a past medical history stated above who was referred from [facility] on February 17 with complaints of right side weakness. It was described that when he woke up he could not lift up his right leg or arm, and the patient also felt that he had some slurred speech. The patient was admitted under the impression of a possible transient ischemic attack for further work-up. He was also found to be in acute renal failure with a creatinine of 5.6 from a baseline around 3. For more details about his presentation, I refer you to his history and physical. An initial CT of the brain showed no evidence for intracranial hemorrhage or gross stigmata of ischemic infarct. Chest x-ray showed interstitial pulmonary edema with chronic left pleural effusion and significant atelectasis at the left lung. The patient was seen in consultation by Neurology (Dr. Hui) and his impression was that the patient had a possible left hemisphere stroke. However , he felt that his exam looked somewhat functional. The patient clearly has severe metabolic problems in terms of his major vascular risk factors; however, he is already fully anticoagulated. He felt that aspirin in addition to his Warfarin was reasonable, at least for the short term. He recommended a carotid ultrasound that showed mildly elevated peak systolic velocities of the ICA bilaterally consistent with bilateral internal carotid artery stenosis between 50 and 69 percent. This was a limited study and Radiology suggested considering CTA or MRA of the neck, but the patient's renal function precluded those studies and Dr. Hui felt that he did not have carotid disease that would benefit from surgery. Transthoracic echocardiogram was performed and it showed diffuse global hypokinesis of the left ventricle with an ejection fraction of 45 to 50 percent, pacemaker wire visualized in the right atrium, moderate to severe MR, moderate to severe pulmonary hypertension. A transesophageal echo done in 2015 included an agitated saline study which was negative. Dr. Hui felt that it was possible the patient had a left hemisphere stroke or that his symptoms could be associated with conversion disorder. I also think that maybe the patient's urinary tract infection exacerbated deficits from a prior CVA. Dr. Hui's recommendation was to continue the management with aspirin and Warfarin. The patient's lipid profile was excellent with an LDL of 63, so statins are not indicated. The patient's blood pressure control is acceptable and the final recommendation was to continue physical therapy and anticoagulation with Warfarin. The patient was found to have urinary retention. A CT of the abdomen and pelvis was performed without contrast and it showed cardiomegaly with partial left atelectasis, mild colonic diverticulosis, mild bladder wall thickening and reticulation of the fat surrounding the urinary bladder, correlate for potential cystitis. There was bilateral hydroureter without dilatation of the renal calyces. Moderate right and moderate severe left renal cortical atrophy. A Hilario catheter was placed. After the Hilario catheter was placed, the patient' s creatinine continued to trend down and on the day of discharge it is down to 4.8. Urine culture grew proteus mirabilis and klebsiella pneumoniae, and the patient was treated with IV Ceftriaxone and he is being switched to Augmentin on discharge. I believe his urinary retention is likely secondary to BPH and the patient is already on Tamsulosin. He is being discharged with the Hilario catheter, but I believe after his UTI is treated he should follow-up with Urology before having the catheter removed to decide what is going to be the next management. As it is possible he had a CVA at this time, surgical procedures are contraindicated for at least 90 days. The patient had improvement of his symptoms. He feels that his right hemiparesis is close to his baseline and he was thought to be stable for discharge. A follow- up abdomen and pelvis CT was performed. It was an extremely limited study with bilateral renal cortical atrophy, but it showed interval resolution of the right hydronephrosis and interval improvement in the left hydronephrosis. The residual left ureteral dilatation may represent a chronic finding. The patient is medically stable to be discharged back to [facility] today to continue rehabilitation with Physical Therapy and Occupational Therapy. He should have his BMP and INR checked tomorrow and then they should be monitored accordingly to his PCP routine. As stated above, he should follow-up with Urology after he completes his UTI treatment before the Hilario catheter is removed as I am afraid he can develop urinary retention again. PHYSICAL EXAMINATION: General: The patient is a morbidly obese, elderly male, lying in bed in no acute distress. Vital Signs: Temperature 98.5, heart rate 70, respiratory rate 20, oxygen saturation 97 percent on 4 liters, blood pressure 109/53. CVS: Normal S1, S2. Regular rate and rhythm. Chest: Breath sounds bilaterally decreased in bases. Abdomen: Obese, soft. Bowel sounds are present. Neuro: He is alert, awake and oriented times three with mild right hemiparesis. DIET: Heart-healthy diet. ACTIVITY: As tolerated. DISPOSITION: To home. STATUS WHILE IN THE HOSPITAL: Inpatient. Please keep in mind this is a summarized version of this patient's hospital stay. If you need more information, please feel free to call me at [phone] or please obtain the full medical records. Approximately 50 minutes were spent to complete this discharge. [id number]/CPS #: [id number] GRETEL
== END 2017-02-21 17:15 | DRG 65 ==
LOC: ED 08:54 → MEDTELE 10:37 → OBSVTOIN 02-18 11:34
PROVIDERS: ADMIT Internal Medicine; ATTEND Internal Medicine
PROC: 5A09357 Assistance with Respiratory Ventilation, Less than 24 Consecutive Hours, Continuous Positive Airway Pressure (ICD-10-PCS; principal; 2017-02-18)
DX: I63.9 Cerebral infarction, unspecified (principal); I13.0 Hypertensive heart and chronic kidney disease with heart failure and stage 1 through stage 4 chronic kidney disease, or unspecified chronic kidney disease; J90 Pleural effusion, not elsewhere classified; G81.91 Hemiplegia, unspecified affecting right dominant side; I27.2 Other secondary pulmonary hypertension; N13.30 Unspecified hydronephrosis; E66.2 Morbid (severe) obesity with alveolar hypoventilation; I50.42 Chronic combined systolic (congestive) and diastolic (congestive) heart failure; N39.0 Urinary tract infection, site not specified; Z68.43 Body mass index [BMI] 50.0-59.9, adult; J98.11 Atelectasis; N13.4 Hydroureter; R20.0 Anesthesia of skin; R29.810 Facial weakness; R47.81 Slurred speech; Z86.73 Personal history of transient ischemic attack (TIA), and cerebral infarction without residual deficits; Z95.810 Presence of automatic (implantable) cardiac defibrillator; N18.9 Chronic kidney disease, unspecified; Z86.14 Personal history of Methicillin resistant Staphylococcus aureus infection; M19.90 Unspecified osteoarthritis, unspecified site; Z80.9 Family history of malignant neoplasm, unspecified; Z87.891 Personal history of nicotine dependence; R29.704 NIHSS score 4; N40.1 Benign prostatic hyperplasia with lower urinary tract symptoms; R33.8 Other retention of urine; B96.4 Proteus (mirabilis) (morganii) as the cause of diseases classified elsewhere; B96.1 Klebsiella pneumoniae [K. pneumoniae] as the cause of diseases classified elsewhere; D63.1 Anemia in chronic kidney disease; G47.33 Obstructive sleep apnea (adult) (pediatric); Z91.14 Patient's other noncompliance with medication regimen; Z79.82 Long term (current) use of aspirin; Z79.01 Long term (current) use of anticoagulants; I65.23 Occlusion and stenosis of bilateral carotid arteries; I34.0 Nonrheumatic mitral (valve) insufficiency; K57.90 Diverticulosis of intestine, part unspecified, without perforation or abscess without bleeding; N26.1 Atrophy of kidney (terminal); I48.2 Chronic atrial fibrillation; R79.1 Abnormal coagulation profile; T45.515A Adverse effect of anticoagulants, initial encounter
CPT/HCPCS: 36415; 70450; 71010; 74176; 76770; 80048; 80053; 80061; 81003; 81015; 82570; 83605; 84300; 84484; 85014; 85018; 85025; 85049; 85610; 85730; 86803; 86850; 86900; 86901; 87077; 87086; 87186; 87641; 93005; 93306; 93880; 94640; 94660; 94760; A9270-GY; C8929; G0378; J0696; J1644; J2270

== ENCOUNTER 2017-04-10 11:20 | Inpatient (IN) | payer MEDICARE ==
[2017-04-10] MEDS ORDERED: NS 0.9% 1000 ML* 1,000 ML IV ONE (12:00)
[2017-04-10] MEDS ORDERED: Albuterol/Ipratropium NEB.SOL* Albuterol 2.5 MG/Ipratropium 0.5 MG 3 ML INH ONE (12:00)
[2017-04-10 13:11] LABS: Hematocrit 37 % (42-52); Hemoglobin 11.7 g/dl (14.0-18.0); Mean Corpuscular HGB Conc 31 g/dl (31-36); Mean Corpuscular Hemoglobin 25 pg (27-31); Mean Corpuscular Volume 81 fL (80-94); Mean Platelet Volume 8 um3 (7.4-10.4); Red Blood Count 4.62 10^6/ul (4.0-5.4); Red Cell Distribution Width 15 % (10.5-15); White Blood Count 6.5 10^3/ul (3.5-10.8)
--- NOTE | 2017-04-10 13:19 | RAD ---
Indication: Shortness of breath, pneumonia, CHF. Comparison: February 20, 2017 CT abdomen. February 17, 2017 chest radiograph. Technique: Semiupright AP portable chest 1245 hours Report: Morbid obesity and leftward rotation limits image quality. Suggestion of cardiomegaly without change. Pacemaker lead extends the level of the RIGHT ventricle. Probable associated LEFT basilar atelectasis. Prominent ill-defined central pulmonary vasculature. Diffuse prominence of the interstitial markings. Small LEFT pleural effusion not excluded. Negative for pneumothorax. IMPRESSION: Limited exam with suggestion of pulmonary vascular congestion and interstitial edema.
[2017-04-10 13:26] LABS: Troponin I 0.01 ng/mL (<0.04)
[2017-04-10 13:27] LABS: Albumin 3.4 g/dL (3.2-5.2); BUN/Creatinine Ratio 13.3 (8-20); EGFR African American 28.5 (>60); EGFR Non-African American 22.2 (>60); Globulin 3.7 g/dL (2-4); Potassium 4.2 mmol/L (3.5-5.0); Total Bilirubin 0.7 mg/dL (0.2-1.0); Total Protein 7.1 g/dL (6.4-8.9)
[2017-04-10] MEDS ORDERED: Bumetanide IV* 0.25 MG/ML 4 ML VIAL SLOW PUSH ONE (14:16)
[2017-04-10 14:24] LABS: C Reactive Protein 25.97 mg/L (< 5.00)
[2017-04-10] MEDS ORDERED: Acetaminophen TAB* 325 MG PO PRN (15:08)
[2017-04-10] MEDS ORDERED: Albuterol 2.5 MG/3 ML NEB.SOL* (0.083%) INH PRN (15:08)
[2017-04-10] MEDS ORDERED: Furosemide IV* 10 MG/ML VIAL (40 MG) IV SLOW PU ONE (15:08)
[2017-04-10] MEDS ORDERED: Ondansetron INJ* 2 MG/ML VIAL IV PRN (15:08)
--- NOTE | 2017-04-10 15:58 | ED ---
Tyler Laughlin [place], scribed for Rinku Manley MD on 04/10/17 at 1248 . Shortness of Breath - HPI Summary HPI Summary: Patient is a 66 y/o M who presents to the ED with sudden onset SOB since 0500 this morning. He reports a mild cough, but denies pedal edema, CP, fever, or chills. He states that he received two breathing treatments at his halfway [employer]. Pt states that he has a hx of SOB, A Fib, CVA, and PNA, but denies cardiomegaly or COPD. Pt takes Coumadin, and has a pacemaker and defibrillator. NKDA. - History of Current Complaint Chief Complaint: EDRespiratoryDistress Time Seen by Provider: 04/10/17 11:47 Hx Obtained From: Patient Onset/Duration: Sudden Onset, Lasting Hours, Still Present Timing: Constant Current Severity: Moderate Dyspnea At: Rest Aggrevating Factors: Nothing Alleviating Factors: Nothing Associated Signs & Symptoms: Cough (Productive) Related History: Obesity - Allergy/Home Medications Allergies/Adverse Reactions: Allergies Allergy/AdvReac Type Severity Reaction Status Date / Time No Known Allergies Allergy Verified 09/09/15 08:23 Home Medications: Home Medications Furosemide TAB* [Lasix TAB*] 20 mg PO DAILY PRN 04/10/17 [History Confirmed ] Levofloxacin TAB* [Levaquin TAB*] 500 mg PO BEDTIME 04/10/17 [History Confirmed 04/10/17] Magnesium Hydroxide LIQ* [Milk of Magnesia LIQ*] 30 ml PO DAILY PRN 04/10/17 [ History Confirmed 04/10/17] Senna/Docusate (NF) [Sennokot-S] 1 tab PO DAILY 04/10/17 [History Confirmed ] Warfarin TAB(*) [Coumadin TAB(*)] 4 mg PO 1700 04/10/17 [History Confirmed 04/10] PMH/Surg Hx/FS Hx/Imm Hx Cardiovascular History: Reports: Hx Congestive Heart Failure, Hx Hypertension, Hx Pacemaker/ICD Respiratory History: Reports: Hx Sleep Apnea Denies: Hx Asthma, Hx Chronic Obstructive Pulmonary Disease (COPD) History: Reports: Hx Benign Prostatic Hyperplasia, Hx Chronic Renal Failure, Hx Kidney Infection, Other Problems/Disorders - history MRSA in urine Musculoskeletal History: Reports: Hx Arthritis, Other Musculoskeletal History - morbid obesity Sensory History: Reports: Hx Contacts or Glasses - for reading Denies: Hx Hearing Aid Opthamlomology History: Reports: Hx Contacts or Glasses - for reading Neurological History: Reports: Hx CVA Psychiatric History: Denies: Hx Panic Disorder - Surgical History Surgery Procedure, Year, and Place: HERNIA REPAIR, AICD/PACER Hx Anesthesia Reactions: No - Immunization History Date of Tetanus Vaccine: up to date Date of Influenza Vaccine: 2016 Infectious Disease History: No Infectious Disease History: Reports: Hx of Known/Suspected MRSA Denies: Hx Clostridium Difficile, Traveled Outside the [place] in Last 30 Days - Family History Family History: FHx of CA. No FHx of CVA - Social History Alcohol Use: None Hx Substance Use: No Substance Use Type: Reports: None Hx Tobacco Use: No Smoking Status (MU): Former Smoker Type: Cigarettes Amount Used/How Often: 1 pack per week Length of Time of Smoking/Using Tobacco: 1 year Have You Smoked in the Last Year: No Review of Systems Negative: Fever, Chills Negative: Chest Pain Positive: Shortness Of Breath, Cough Negative: Edema All Other Systems Reviewed And Are Negative: Yes Physical Exam - Summary Physical Exam Summary: The patient is well-nourished and in no acute pain. Mild respiratory distress. Morbidly obese. Alert. Pleasant. The skin is warm and dry and skin color reflects adequate perfusion. Decreased skin turgor. HEENT: The head is normocephalic and atraumatic. The pupils are equal and reactive. Injection in left eye with possible drainage. DMM. Neck is supple with full range of motion and non-tender. There are no carotid bruits. There is no neck vein distension. Respiratory: Chest is non-tender. Crackles in bases and inspiratory wheezing. Cardiovascular: Hear is regular rate and rhythm. There is no murmur or rub auscultated. There is no peripheral edema and pulses are symmetrical and equal. Abdomen: The abdomen is soft and non-tender. There are normal bowel sounds heard in all four quadrants and there is no organomegaly palpated. Musculoskeletal: There is no back pain noted. Extremities are non-tender with full range of motion. There is good capillary refill. Limited mobility. Neurological: Patient is alert and oriented to person, place and time. The patient has symmetrical motor strength in all four extremities. Psychiatric: The patient has an appropriate affect and does not exhibit any anxiety or depression. Triage Information Reviewed: Yes Vital Signs On Initial Exam: Initial Vitals BP 97/29 04/10/17 11:45 Vital Signs Reviewed: Yes - [place] Coma Scale Coma Scale Total: 15 Diagnostics - Vital Signs Vital Signs Temp Pulse Resp BP Pulse Ox 04/10/17 12:28 75 18 100 04/10/17 12:14 100 04/10/17 12:00 70 18 100 04/10/17 11:53 71 19 132/68 99 04/10/17 11:46 97.6 F 70 15 132/68 100 04/10/17 11:45 97/29 - Laboratory Lab Results: Lab Results 04/10/17 04/10/17 04/10/17 Range/Units 12:58 12:58 12:58 WBC 6.5 (3.5-10.8) 10^3/ul RBC 4.62 (4.0-5.4) 10^6/ul Hgb 11.7 L (14.0-18.0) g/dl Hct 37 L (42-52) % MCV 81 (80-94) fL MCH 25 L (27-31) pg MCHC 31 (31-36) g/dl RDW 15 (10.5-15) % Plt Count 205 (150-450) 10^3/ul MPV 8 (7.4-10.4) um3 Neut % (Auto) 80.8 (38-83) % Lymph % (Auto) 11.3 L (25-47) % [place] % (Auto) 4.0 (1-9) % Eos % (Auto) 2.5 (0-6) % Baso % (Auto) 1.4 (0-2) % Absolute Neuts (auto) 5.3 (1.5-7.7) 10^3/ul Absolute Lymphs (auto) 0.7 L (1.0-4.8) 10^3/ul Absolute Monos (auto) 0.3 (0-0.8) 10^3/ul Absolute Eos (auto) 0.2 (0-0.6) 10^3/ul Absolute Basos (auto) 0.1 (0-0.2) 10^3/ul Absolute Nucleated RBC 0.02 10^3/ul Nucleated RBC % 0.3 INR (Anticoag Therapy) (0.89-1.11) Sodium 138 (133-145) mmol/L Potassium 4.2 (3.5-5.0) mmol/L Chloride 104 (101-111) mmol/L Carbon Dioxide 29 (22-32) mmol/L Anion Gap 5 (2-11) mmol/L BUN 38 H (6-24) mg/dL Creatinine 2.85 H (0.67-1.17) mg/dL Est GFR ( Amer) 28.5 (>60) Est GFR (Non-Af Amer) 22.2 (>60) BUN/Creatinine Ratio 13.3 (8-20) Glucose 90 (70-100) mg/dL Lactic Acid 1.1 (0.5-2.0) mmol/L Calcium 9.0 (8.6-10.3) mg/dL Total Bilirubin 0.70 (0.2-1.0) mg/dL AST 12 L (13-39) U/L ALT 7 (7-52) U/L Alkaline Phosphatase 87 (34-104) U/L Troponin I 0.01 (<0.04) ng/mL C-Reactive Protein 25.97 H (< 5.00) mg/L B-Natriuretic Peptide ( - 100) pg/mL Total Protein 7.1 (6.4-8.9) g/dL Albumin 3.4 (3.2-5.2) g/dL Globulin 3.7 (2-4) g/dL Albumin/Globulin Ratio 0.9 L (1-3) Procalcitonin (<0.6) ng/mL 04/10/17 04/10/17 04/10/17 Range/Units 12:58 12:58 12:58 WBC (3.5-10.8) 10^3/ul RBC (4.0-5.4) 10^6/ul Hgb (14.0-18.0) g/dl Hct (42-52) % MCV (80-94) fL MCH (27-31) pg MCHC (31-36) g/dl RDW (10.5-15) % Plt Count (150-450) 10^3/ul MPV (7.4-10.4) um3 Neut % (Auto) (38-83) % Lymph % (Auto) (25-47) % [place] % (Auto) (1-9) % Eos % (Auto) (0-6) % Baso % (Auto) (0-2) % Absolute Neuts (auto) (1.5-7.7) 10^3/ul Absolute Lymphs (auto) (1.0-4.8) 10^3/ul Absolute Monos (auto) (0-0.8) 10^3/ul Absolute Eos (auto) (0-0.6) 10^3/ul Absolute Basos (auto) (0-0.2) 10^3/ul Absolute Nucleated RBC 10^3/ul Nucleated RBC % INR (Anticoag Therapy) 3.13 H (0.89-1.11) Sodium (133-145) mmol/L Potassium (3.5-5.0) mmol/L Chloride (101-111) mmol/L Carbon Dioxide (22-32) mmol/L Anion Gap (2-11) mmol/L BUN (6-24) mg/dL Creatinine (0.67-1.17) mg/dL Est GFR ( Amer) (>60) Est GFR (Non-Af Amer) (>60) BUN/Creatinine Ratio (8-20) Glucose (70-100) mg/dL Lactic Acid (0.5-2.0) mmol/L Calcium (8.6-10.3) mg/dL Total Bilirubin (0.2-1.0) mg/dL AST (13-39) U/L ALT (7-52) U/L Alkaline Phosphatase (34-104) U/L Troponin I (<0.04) ng/mL C-Reactive Protein (< 5.00) mg/L B-Natriuretic Peptide 84 ( - 100) pg/mL Total Protein (6.4-8.9) g/dL Albumin (3.2-5.2) g/dL Globulin (2-4) g/dL Albumin/Globulin Ratio (1-3) Procalcitonin 0.1 (<0.6) ng/mL Result Diagrams: 04/10/17 12:58 04/10/17 12:58 Lab Statement: Any lab studies that have been ordered have been reviewed, and results considered in the medical decision making process. - Radiology CXR Radiology Interpretation Completed By: Radiologist - IMPRESSION: Limited exam with suggestion of pulmonary vascular congestion and interstitial edema. - EKG 1222 EKG Interpretation: Paced rhythm @ 70 bpm. Course/Dx - Course Course Of Treatment: 66 y/o M presents with sudden onset SOB since 0500 this morning. He reports a mild cough, but denies pedal edema, CP, fever, or chills. He states that he received two breathing treatments at his halfway [employer]. He received fluids and Duoneb in ED course. EKG is paced. CXR shows, per radiology , Limited exam with suggestion of pulmonary vascular congestion and interstitial edema. Discussed case with Dr. Adler. Will admit. - Diagnoses Differential Diagnosis/HQI/PQRI: Positive: Bronchitis, CHF, NH, Pneumonia, Pulmonary Edema Provider Diagnoses: CHF (congestive heart failure), Acute dyspnea, A-fib, Renal failure - Physician Notifications Discussed Care of Patient With: Blessing Adler Time Discussed With Above Provider: 14:24 Instructed by Provider To: Admit As Inpatient Admit/Transition Orders Completed By ED Provider: Yes - Critical Care Time Critical Care Time: 30-74 min - 30 minutes Discharge - Discharge Plan Condition: Stable Disposition: ADMITTED TO [facility] The documentation as recorded by the Tyler telles [place] accurately reflects the service I personally performed and the decisions made by , Rinku Manley MD.
--- NOTE | 2017-04-10 18:04 | HP ---
CC: Dr. Hill, [facility] * HISTORY AND PHYSICAL: DATE OF ADMISSION: 04/10/17 PRIMARY CARE PROVIDER: Dr. Hill. ATTENDING PHYSICIAN WHILE IN THE HOSPITAL: Dr. Lundberg * (report dictated by Alexandra Lara NP). CHIEF COMPLAINT: Shortness of breath. HISTORY OF PRESENT ILLNESS: Mr. Terry is a 66-year-old male patient who carries a history of TIA, CVA, AFib, TORY, CHF which is diastolic. The last documented EF from November of this year is noted to be 45% to 50%. He also has a history of hypertension, MRSA, and BPH. He comes in to the ER today stating that over the last week he was recently treated with pneumonia. He just finished his last dose yesterday. He was feeling better. He denied having anymore cough, fevers, or chills. He says he had an x-ray done at [facility], which was concerning for a pneumonia. I do not have that report here. He finished his Levaquin; however, today, he woke up, he took his CPAP off this morning and he felt like he could not get his air out, he said, that was making him short of breath. He denied having any chest pain. He denied having any pain with inspiration. He denied having any recent swelling of the legs or calf pain. He does state that he has gained 20 to 30 pounds in the last 2 to 3 months. He says that he cannot lie flat. He noticed that he was really short of breath first thing this morning. He alerted nursing staff at [facility]. They tried giving him 2 nebulizers with no help, and after this, because he was not improving, they sent him over to the ER to be evaluated. He denied any fevers, denied any chills. Denies having any throat pain or neck pain. Denies any recent choking. He says that he again has no calf or leg pain or leg tenderness. He was evaluated here by Dr. Manley. Chest x-ray showed possible pulmonary edema and hospitalist service was asked to evaluate for admission. He says he has been taking his medications as prescribed and he had been sticking to a low-salt diet. PAST MEDICAL HISTORY: Significant for: 1. TIA. 2. CVA. 3. AFib. 4. TORY. 5. CHF. 6. Hypertension. 7. MRSA. 8. BPH. PAST SURGICAL HISTORY: 1. He has had a defibrillator pacemaker placement. 2. He has had a hernia repair. HOME MEDICATIONS: According to the list provided include: 1. Warfarin 4 mg p.o. daily. 2. Flomax 0.4 mg p.o. at bedtime. 3. Senna 1 tablet p.o. daily. 4. Dulera 2 puffs inhaled b.i.d. 5. Milk of magnesia 30 cc p.o. daily. 6. Levaquin 500 mg at bedtime but he just finished the last dose. 7. Atrovent 0.5 mg inhaled t.i.d. 8. Lasix 20 mg daily as needed. 9. Vitamin D 2000 units p.o. daily. 10. Aspirin 81 mg daily. 11. Tylenol 650 mg every 6 hours as needed. ALLERGIES TO MEDICATIONS: Include no known drug allergies. FAMILY HISTORY: His mother had a history of colon cancer. Father had a history of lung cancer. SOCIAL HISTORY: He is a former smoker. He lives at [facility]. Surrogate decision maker is his brother. REVIEW OF SYSTEMS: There is no documented fever. He does admit to having a 20 - to 30-pound weight gain. He denies having any double vision. There was no ear discharge. He denies having any rhinorrhea. No sore throat. No thyroid enlargement. He denies having any chest pain. There was some orthopnea. No nocturnal dyspnea. No lightheadedness. No dysuria. No frequency. There was no loss of consciousness. Review of 14 systems completed, all others negative. PHYSICAL EXAMINATION GENERAL: At this time, Mr. Terry is a 66-year-old male patient. He is chronically ill appearing. He does appear to be morbidly obese. He does not appear to be in any acute respiratory distress. He is talking full sentences. He is awake and he is alert. VITAL SIGNS: Blood pressure 121/61 with a pulse of 68, respirations were noted to be 24, O2 sat was 100%. When I count the respirations now, he appears to be right around 20 breaths a minute. He was on 6 L. I did titrate him down to 4 L of oxygen, and he is satting around 100%. He normally wears between 2 and 3 L of oxygen a day, 4 L at night. HEENT: Head atraumatic. Eyes: EOMs intact. Sclerae anicteric. Throat: Oral mucosa appears to be moist. No oropharyngeal erythema. NECK: Supple. LUNGS: He did have some expiratory wheeze noted in the lower lobes bilaterally. No rhonchi or rales noted. HEART: Sounds S1, S2. Regular rate and rhythm. No murmurs, rubs, or gallops. ABDOMEN: Soft, flat, nontender. Bowel sounds present. EXTREMITIES: Pulses were 2+ throughout. He is able to move all 4 extremities with 5/5 strength. NEUROLOGIC: He is awake, he is alert, and he is oriented x3. His tongue is midline. His junior java developer are equal. He had no gross focal neurological deficits. SKIN: Intact. DIAGNOSTIC STUDIES/LAB DATA: The labs today revealed a WBC of 6.5, RBC of 4.62 , hemoglobin 11.7, hematocrit of 37, platelet count of 205. INR was 3.13. The sodium was 138, potassium was 4.2, chloride of 104, bicarb 29, BUN 38, creatinine of 2.85, glucose 90, lactic 1.1, calcium 9.0. Total bili 0.7, AST 12 , ALT 7, alk phos 87. Troponin 0.01. CRP of 25. Albumin of 3.4. He did have a chest x-ray obtained today which revealed a limited exam suggestive of pulmonary vascular congestion and interstitial edema. When I looked at the film again, to me very limited exam. I do not see any pleural effusions or infiltrates. Certainly, I do see some vascular congestion on this film possibly, it is reviewed to with a previous x-ray. Again, today's film is of poor quality. He did have an EKG obtained today which showed a ventricular paced rhythm, no other analysis at this point. Last EF from January showed an EF of 45% to 50%. Old medical records reviewed. ASSESSMENT AND PLAN: Mr. Terry is a 66-year-old male patient with multiple medical problems, coming into the ER today with complaints of shortness of breath particularly when he tries to exhale. He will be admitted under observation status for: 1. Shortness of breath: Etiology is unclear. Certainly, he does have a wheeze on exam and certainly his x-ray does point towards some interstitial edema. The BNP is the lowest it has ever been, however. My plan at this point is to go ahead and give him some Bumex to see how he responds at this point. I will get a chest CT to better define his lungs. I do not think he has any active pneumonia. Now, he is not coughing. He has no fever. The white count is stable. Likely monitor him. I am going to give him nebs around the clock. I am going to hold off on steroids. Continue Dulera as he normally takes and we will see how he responds. We will place him on telemetry. We will monitor his troponins and check daily weights. 2. History of cerebrovascular accident and transient ischemic attack: Continue with secondary prevention. He is on an aspirin. We will continue his warfarin. 3. Atrial fibrillation: Continue his warfarin and he is paced and is rate controlled. 4. Obstructive sleep apnea: I did order a CPAP. 5. History of congestive heart failure: Again, we are going to diurese him. We will check weights and monitor him closely. 6. Hypertension: Continue current medical regimen. 7. History of methicillin-resistant Staphylococcus aureus: I will order isolation and contact precautions. 8. DVT prophylaxis: INR is 3.13. So, we will skip tonight's Coumadin dose. Repeat the INR tomorrow and we will continue Coumadin when able. 9. Benign prostatic hypertrophy: Continue with current medical regimen. 10. Code status: Full code. 11. Fluids, electrolytes, and nutrition: He can have a heart healthy diet. TIME SPENT: Time spent on the admission was 60 minutes, greater than half the time was spent [id number] with the patient obtaining my history and physical, other half time spent going over the plan of care with the patient and implementing plan of care. I did discuss the plan of care with my attending, Dr. Lundberg; she is in agreement. ALEXANDRA LARA NP [id number]/[facility] #: [id number] GRETEL
[2017-04-10] MEDS: Senna TAB PO SCH (19:00)
[2017-04-10] MEDS: Docusate CAP* 100 MG PO SCH (19:00)
[2017-04-10] MEDS: Magnesium Hydroxide LIQ* 30 ML UDC PO PRN (19:00)
[2017-04-10] MEDS: Mometasone/Formoter 200/5 MDI INH SCH (19:17)
[2017-04-10] MEDS: Albuterol/Ipratropium NEB.SOL* Albuterol 2.5 MG/Ipratropium 0.5 MG 3 ML INH SCH ×2 (19:17→23:03)
[2017-04-10] MEDS: Tamsulosin CAP* 0.4 MG PO SCH (20:40)
[2017-04-11] MEDS: Albuterol/Ipratropium NEB.SOL* Albuterol 2.5 MG/Ipratropium 0.5 MG 3 ML INH SCH ×2 (03:20→09:00)
[2017-04-11 07:15] LABS: Hematocrit 34 % (42-52); Hemoglobin 10.7 g/dl (14.0-18.0); Mean Corpuscular HGB Conc 32 g/dl (31-36); Mean Corpuscular Hemoglobin 26 pg (27-31); Mean Corpuscular Volume 80 fL (80-94); Mean Platelet Volume 8 um3 (7.4-10.4); Red Blood Count 4.21 10^6/ul (4.0-5.4); Red Cell Distribution Width 15 % (10.5-15); White Blood Count 6.2 10^3/ul (3.5-10.8)
[2017-04-11 07:27] LABS: BUN/Creatinine Ratio 13.9 (8-20); Calcium 8.7 mg/dL (8.6-10.3); EGFR African American 27.5 (>60); EGFR Non-African American 21.4 (>60); Potassium 4.2 mmol/L (3.5-5.0)
[2017-04-11] MEDS ORDERED: Furosemide IV* 10 MG/ML VIAL (40 MG) IV ONE (08:15)
[2017-04-11] MEDS: Senna TAB PO SCH (08:39)
[2017-04-11] MEDS: Aspirin EC Low Dose* 81 MG TAB.EC PO SCH (08:39)
[2017-04-11] MEDS: Docusate CAP* 100 MG PO SCH (08:39)
[2017-04-11] MEDS ORDERED: Furosemide IV* 10 MG/ML VIAL (40 MG) IV SLOW PU SCH (09:00)
[2017-04-11] MEDS: Mometasone/Formoter 200/5 MDI INH SCH ×2 (09:07→20:26)
--- NOTE | 2017-04-11 12:22 | PN ---
Subjective Date of Service: 04/11/17 Interval History: pt feels a little better today. Still SOB. Objective Active Medications: Acetaminophen (Tylenol Tab*) 650 mg PO Q4H PRN PRN Reason: FEVER/PAIN Albuterol (Ventolin 2.5 Mg/3 Ml Neb.Maggie*) 2.5 mg INH Q2H PRN PRN Reason: SOB/WHEEZING Last Admin: 04/11/17 10:10 Dose: 2.5 mg Aspirin (Aspirin Ec Low Dose*) 81 mg PO DAILY [facility] Last Admin: 04/11/17 08:39 Dose: 81 mg Docusate Sodium (Colace Cap*) 100 mg PO DAILY [facility] Last Admin: 04/11/17 08:39 Dose: 100 mg Furosemide (Lasix Iv*) 40 mg IV SLOW PU 0800,1700 [facility] Magnesium Hydroxide (Milk Of Magnesia Liq*) 30 ml PO DAILY PRN PRN Reason: CONSTIPATION Last Admin: 04/10/17 19:00 Dose: 30 ml Mometasone Furoate/Formoterol Fumar (Dulera 200/5 Mdi*) 2 puff INH BID [facility] Last Admin: 04/11/17 09:07 Dose: Not Given Ondansetron HCl (Zofran Inj*) 4 mg IV Q6H PRN PRN Reason: NAUSEA Senna (Senokot Tab*) 2 tab PO DAILY [facility] Last Admin: 04/11/17 08:39 Dose: 2 tab Tamsulosin HCl (Flomax Cap*) 0.4 mg PO BEDTIME [facility] Last Admin: 04/10/17 20:40 Dose: 0.4 mg Warfarin Sodium (Coumadin Tab(*)) 4 mg PO 1700 [facility] PRN Reason: Protocol Vital Signs 04/10/17 04/10/17 04/10/17 15:00 15:30 15:46 Temperature 97.6 F Pulse Rate 70 70 76 Respiratory 19 21 18 Rate Blood Pressure 123/79 121/73 142/110 (mmHg) O2 Sat by Pulse 100 100 98 Oximetry 04/10/17 04/10/17 04/10/17 19:17 19:23 19:47 Temperature 97.8 F Pulse Rate 78 73 Respiratory 24 Rate Blood Pressure 119/61 (mmHg) O2 Sat by Pulse 96 97 97 Oximetry 04/10/17 04/10/17 04/11/17 19:50 23:35 03:09 Temperature 97.8 F 98.3 F 97.1 F Pulse Rate 73 69 69 Respiratory 24 20 20 Rate Blood Pressure 119/61 110/51 92/46 (mmHg) O2 Sat by Pulse 97 97 98 Oximetry 04/11/17 07:55 Temperature 97.8 F Pulse Rate 70 Respiratory 18 Rate Blood Pressure 106/62 (mmHg) O2 Sat by Pulse 97 Oximetry Oxygen Devices in Use Now: Nasal Cannula - at 3 L Appearance: 66 yo M in nAD, aAOx3 Eyes: No Scleral Icterus, PERRLA Ears/Nose/Mouth/Throat: NL Teeth, Lips, Gums, Mucous Membranes Moist Neck: NL Appearance and Movements; NL JVP, Trachea Midline Respiratory: Symmetrical Chest Expansion and Respiratory Effort, Clear to Auscultation Cardiovascular: NL Sounds; No Murmurs; No JVD, RRR Abdominal: NL Sounds; No Tenderness; No Distention Lymphatic: No Cervical Adenopathy Extremities: No Clubbing, Cyanosis, - - trace pedal edema b/l Skin: No Rash or Ulcers, No Nodules or Sclerosis Neurological: Alert and Oriented x 3, NL Muscle Strength and Tone Result Diagrams: 04/11/17 06:29 04/11/17 06:29 Additional Lab and Data: Lab Results 04/10/17 04/10/17 04/10/17 Range/Units 12:58 12:58 12:58 WBC 6.5 (3.5-10.8) 10^3/ul RBC 4.62 (4.0-5.4) 10^6/ul Hgb 11.7 L (14.0-18.0) g/dl Hct 37 L (42-52) % MCV 81 (80-94) fL MCH 25 L (27-31) pg MCHC 31 (31-36) g/dl RDW 15 (10.5-15) % Plt Count 205 (150-450) 10^3/ul MPV 8 (7.4-10.4) um3 Neut % (Auto) 80.8 (38-83) % Lymph % (Auto) 11.3 L (25-47) % [place] % (Auto) 4.0 (1-9) % Eos % (Auto) 2.5 (0-6) % Baso % (Auto) 1.4 (0-2) % Absolute Neuts (auto) 5.3 (1.5-7.7) 10^3/ul Absolute Lymphs (auto) 0.7 L (1.0-4.8) 10^3/ul Absolute Monos (auto) 0.3 (0-0.8) 10^3/ul Absolute Eos (auto) 0.2 (0-0.6) 10^3/ul Absolute Basos (auto) 0.1 (0-0.2) 10^3/ul Absolute Nucleated RBC 0.02 10^3/ul Nucleated RBC % 0.3 INR (Anticoag Therapy) (0.89-1.11) Sodium 138 (133-145) mmol/L Potassium 4.2 (3.5-5.0) mmol/L Chloride 104 (101-111) mmol/L Carbon Dioxide 29 (22-32) mmol/L Anion Gap 5 (2-11) mmol/L BUN 38 H (6-24) mg/dL Creatinine 2.85 H (0.67-1.17) mg/dL Est GFR ( Amer) 28.5 (>60) Est GFR (Non-Af Amer) 22.2 (>60) BUN/Creatinine Ratio 13.3 (8-20) Glucose 90 (70-100) mg/dL Lactic Acid 1.1 (0.5-2.0) mmol/L Calcium 9.0 (8.6-10.3) mg/dL Total Bilirubin 0.70 (0.2-1.0) mg/dL AST 12 L (13-39) U/L ALT 7 (7-52) U/L Alkaline Phosphatase 87 (34-104) U/L Troponin I 0.01 (<0.04) ng/mL C-Reactive Protein 25.97 H (< 5.00) mg/L B-Natriuretic Peptide ( - 100) pg/mL Total Protein 7.1 (6.4-8.9) g/dL Albumin 3.4 (3.2-5.2) g/dL Globulin 3.7 (2-4) g/dL Albumin/Globulin Ratio 0.9 L (1-3) Procalcitonin (<0.6) ng/mL 04/10/17 04/10/17 04/10/17 Range/Units 12:58 12:58 12:58 WBC (3.5-10.8) 10^3/ul RBC (4.0-5.4) 10^6/ul Hgb (14.0-18.0) g/dl Hct (42-52) % MCV (80-94) fL MCH (27-31) pg MCHC (31-36) g/dl RDW (10.5-15) % Plt Count (150-450) 10^3/ul MPV (7.4-10.4) um3 Neut % (Auto) (38-83) % Lymph % (Auto) (25-47) % [place] % (Auto) (1-9) % Eos % (Auto) (0-6) % Baso % (Auto) (0-2) % Absolute Neuts (auto) (1.5-7.7) 10^3/ul Absolute Lymphs (auto) (1.0-4.8) 10^3/ul Absolute Monos (auto) (0-0.8) 10^3/ul Absolute Eos (auto) (0-0.6) 10^3/ul Absolute Basos (auto) (0-0.2) 10^3/ul Absolute Nucleated RBC 10^3/ul Nucleated RBC % INR (Anticoag Therapy) 3.13 H (0.89-1.11) Sodium (133-145) mmol/L Potassium (3.5-5.0) mmol/L Chloride (101-111) mmol/L Carbon Dioxide (22-32) mmol/L Anion Gap (2-11) mmol/L BUN (6-24) mg/dL Creatinine (0.67-1.17) mg/dL Est GFR ( Amer) (>60) Est GFR (Non-Af Amer) (>60) BUN/Creatinine Ratio (8-20) Glucose (70-100) mg/dL Lactic Acid (0.5-2.0) mmol/L Calcium (8.6-10.3) mg/dL Total Bilirubin (0.2-1.0) mg/dL AST (13-39) U/L ALT (7-52) U/L Alkaline Phosphatase (34-104) U/L Troponin I (<0.04) ng/mL C-Reactive Protein (< 5.00) mg/L B-Natriuretic Peptide 84 ( - 100) pg/mL Total Protein (6.4-8.9) g/dL Albumin (3.2-5.2) g/dL Globulin (2-4) g/dL Albumin/Globulin Ratio (1-3) Procalcitonin 0.1 (<0.6) ng/mL Assess/Plan/Problems-Billing Assessment: 66 yo M with h/o obesity, TORY, COPD, a. fib, pacer, CVA ( on BIPAP at night, 2 L 02 Nc during the day) was tx with Cipro and then with Levaquin ( from 04/05 to 04/11), also on Lasix prn SOB,(but got only a couple of doses on ) - Patient Problems (1) Acute on chronic systolic (congestive) heart failure Comment: Echo 05/05 = EF was 45% Continue lasix Oxygen continuously (2) Chronic respiratory failure Comment: on at 2 L at NH, today still on 3 L (3) CKD (chronic kidney disease) stage 3, GFR 30-59 ml/min Comment: Creatinine stable. Continue to monitor. (4) TORY (obstructive sleep apnea) Comment: - BiPAP 05/06. (5) Atrial fibrillation Comment: Heart rate adequately controlled. In a paced rhythm on tlem Chronic AF with previous cardioembolic stroke in 09/04/2016. (6) DVT prophylaxis Comment: INR at 3.4, coumadin held on Status and Disposition: OBV placed on inpatient due to need for further diuresis
[2017-04-11] MEDS: Furosemide IV* 10 MG/ML VIAL (40 MG) IV SLOW PU SCH (16:38)
[2017-04-11] MEDS ORDERED: Warfarin TAB(*) 4 MG PO SCH (17:00)
[2017-04-11] MEDS: Magnesium Hydroxide LIQ* 30 ML UDC PO PRN (20:47)
[2017-04-11] MEDS: Tamsulosin CAP* 0.4 MG PO SCH (20:47)
[2017-04-12 05:16] LABS: BUN/Creatinine Ratio 14.3 (8-20); Calcium 8.6 mg/dL (8.6-10.3); EGFR African American 25.5 (>60); EGFR Non-African American 19.8 (>60); Potassium 3.9 mmol/L (3.5-5.0)
[2017-04-12] MEDS: Mometasone/Formoter 200/5 MDI INH SCH (07:55)
[2017-04-12] MEDS: Docusate CAP* 100 MG PO SCH (09:50)
[2017-04-12] MEDS: Furosemide IV* 10 MG/ML VIAL (40 MG) IV SLOW PU SCH (09:50)
[2017-04-12] MEDS: Aspirin EC Low Dose* 81 MG TAB.EC PO SCH (09:50)
[2017-04-12] MEDS: Senna TAB PO SCH (09:50)
[2017-04-12 11:41] VITALS: BP 137/61
--- NOTE | 2017-04-12 13:27 | DS ---
DATE OF ADMISSION: 04/10/2017. DATE OF DISCHARGE: 04/12/2017. PRIMARY DIAGNOSIS: Acute systolic heart failure exacerbation. SECONDARY DIAGNOSES: 1. History of CVA. 2. Atrial fibrillation. 3. Obstructive sleep apnea. 4. Hypertension. 5. Benign prostatic hypertrophy. 6. Recent history of urinary retention. MEDICATIONS ON DISCHARGE: 1. Milk of Magnesia 30 ml daily as needed. 2. Acetaminophen 650 mg four times daily as needed for pain or fever. 3. Senna/Docusate one tab daily. 4. Coumadin 4 mg in the evening. 5. Flomax 0.4 mg at bedtime. 6. Dulera 200/5 MDI two puffs twice daily. 7. Cholecalciferol 2000 units daily. 8. Ipratropium nebulizer inhaled three times a day as needed for shortness of breath or wheeze. 9. Aspirin 81 mg daily. 10. Potassium Chloride 20 mEq daily. 11. Furosemide 20 mEq daily. PERTINENT IMAGING PERFORMED DURING HOSPITAL STAY: Chest x-ray: Impression: Limited exam with suggestion of pulmonary vasculature congestion and interstitial edema. PERTINENT LABORATORY DATA: Creatinine on presentation 2.8, on discharge 3.1. INR on the day of discharge 2.1. HISTORY OF PRESENT ILLNESS AND HOSPITAL COURSE: This is a 66-year-old man with a past medical history as outlined in the history of present illness on the day of admission, recently hospital stay in February after a TIA or stroke, known systolic ejection fraction of 45 to 50 percent, who presented to the hospital after waking up early in the morning acutely short of breath. It sounded very similar to paroxysmal nocturnal dyspnea. He received two nebulizers at [facility] [place] and was transferred to [facility]. The patient reports he has gained 20 to 30 pounds over the course of the last two to three months. Review of weights from [facility] dating back to the end of January indicated a discharge weight of 192 kg on February 17. His presentation weight to [facility] on the 10 of April was 208 kg, however decreased to 199 on April 11. On the day of discharge he was 201.4 kg. Suspect his dry weight is around 200 kg and the 208 was an outlier. Additionally, the patient had a weight on February 17 that was 198 kg, which may indicate that 192 was also an outlier. In either case, history for CHF exacerbation with IV Lasix with vigorous diuresis. No postvoid residual checked on the day of discharge. The patient was taking Lasix prn and not taken for several prior to discharge. He will be discharged on standing Lasix 40 mg daily. On the day of discharge, he was on his home oxygen 2 liters with saturation in the high 90s, 97 to 98. He had no shortness of breath. AT FOLLOW-UP, PLEASE: 1. Follow-up BMP for continued stability of creatinine on increased dose of Lasix. 2. Follow INR as you do usually. 3. Adjust Lasix up or down based on volume status. 4. No other specific labs or vitals that need follow-up. REASONS TO RETURN TO THE HOSPITAL: Including, but not limited to recurrent or worsening symptoms, chest pain, shortness of breath, nausea, vomiting, lightheadedness, loss of consciousness, near loss of consciousness, inability to obtain or tolerate his medications, or bleeding from any source were discussed with the patient, he acknowledged understanding. Greater than 45 minutes were spent on the discharge of this patient, greater than half were spent [id number] with the patient. [id number]/[facility] #: [id number] GRETEL
== END 2017-04-12 14:46 | DRG 291 ==
LOC: ED 11:20 → MEDTELE 14:38 → OBSVTOIN 04-11 12:08
PROVIDERS: ADMIT Internal Medicine; ATTEND Internal Medicine
PROC: 5A09357 Assistance with Respiratory Ventilation, Less than 24 Consecutive Hours, Continuous Positive Airway Pressure (ICD-10-PCS; principal; 2017-04-10)
DX: I13.0 Hypertensive heart and chronic kidney disease with heart failure and stage 1 through stage 4 chronic kidney disease, or unspecified chronic kidney disease (principal); I50.43 Acute on chronic combined systolic (congestive) and diastolic (congestive) heart failure; J96.10 Chronic respiratory failure, unspecified whether with hypoxia or hypercapnia; I48.91 Unspecified atrial fibrillation; Z68.43 Body mass index [BMI] 50.0-59.9, adult; N40.0 Benign prostatic hyperplasia without lower urinary tract symptoms; E66.01 Morbid (severe) obesity due to excess calories; M19.90 Unspecified osteoarthritis, unspecified site; G47.33 Obstructive sleep apnea (adult) (pediatric); J44.9 Chronic obstructive pulmonary disease, unspecified; N18.3 Chronic kidney disease, stage 3 (moderate); Z79.82 Long term (current) use of aspirin; Z95.810 Presence of automatic (implantable) cardiac defibrillator; Z82.3 Family history of stroke; Z87.891 Personal history of nicotine dependence; Z86.14 Personal history of Methicillin resistant Staphylococcus aureus infection; Z80.0 Family history of malignant neoplasm of digestive organs; Z80.1 Family history of malignant neoplasm of trachea, bronchus and lung; Z86.73 Personal history of transient ischemic attack (TIA), and cerebral infarction without residual deficits; Z79.01 Long term (current) use of anticoagulants
CPT/HCPCS: 36415; 71010; 80048; 80053; 83605; 83880; 84145; 84484; 85025; 85610; 86140; 87040; 93005; 94640; 94660; 94760; A9270-GY; G0378; G8978-GP-CI; G8979-GP-CJ; J1940

== ENCOUNTER 2017-12-17 02:36 | Emergency (ER) | payer MEDICARE, MEDICAID ==
[2017-12-17] MEDS ORDERED: NS 0.9% 1000 ML* 1,000 ML IV ONE (02:37)
[2017-12-17] MEDS ORDERED: Piperacillin/Tazobac ADVAN(*) 3.375 GM in NS 0.9% 100 ML* 100 ML IVPB ONE (03:50)
--- NOTE | 2017-12-17 03:52 | ED ---
Erik Laughlin Rebecca, scribed for Rod Rush MD on 12/17/17 at 0302 . Neurological HPI - HPI Summary HPI Summary: Pt is a 67 y/o M BIBA who presents to ED due to R-sided weakness. EMS report that his last seen normal is unknown, as last shift change at his group home was at 2200 and he was not checked on during the change. At 0130 during rounds, staff noticed that while talking to the pt, he was not responding, prompting the EMS call. EMS report his baseline is talkative, alert, oriented, non- ambulatory and bed-bound. Per EMS, [place] [facility] able to squeeze their fingers though his right hand senior trial attorney was weaker than the left and he was unable to lift his right arm. Additionally note R-sided facial droop. Sx aggravated and alleviated by nothing. When asked, pt is unsure of onset of symptoms, though he states he has eaten in the last few hours. States his right side has been week for "a couple days." - History of Current Complaint Chief Complaint: EDNeurologicalDeficit Stated Complaint: STROKE LIKE SYMPTOMS Time Seen by Provider: 12/17/17 02:38 Hx Obtained From: Patient, EMS Hx From Patient Unobtainable Due To: Other - Decreased responsiveness Onset/Duration: Still Present Character: Weak, Responsiveness - decreased Aggravating: Nothing Alleviating: Nothing Associated Signs and Symptoms: Positive: Weakness - Additional Pertinent History Primary Care Physician: [id number] - Allergy/Home Medications Allergies/Adverse Reactions: Allergies Allergy/AdvReac Type Severity Reaction Status Date / Time No Known Allergies Allergy Verified 09/09/15 08:23 PMH/Surg Hx/FS Hx/Imm Hx Cardiovascular History: Reports: Hx Congestive Heart Failure, Hx Hypertension, Hx Pacemaker/ICD Respiratory History: Reports: Hx Sleep Apnea Denies: Hx Asthma, Hx Chronic Obstructive Pulmonary Disease (COPD) History: Reports: Hx Benign Prostatic Hyperplasia, Hx Chronic Renal Failure, Hx Kidney Infection, Other Problems/Disorders - history MRSA in urine Musculoskeletal History: Reports: Hx Arthritis, Other Musculoskeletal History - morbid obesity Sensory History: Denies: Hx Contacts or Glasses, Hx Hearing Aid Opthamlomology History: Denies: Hx Contacts or Glasses Neurological History: Reports: Hx CVA Psychiatric History: Denies: Hx Panic Disorder - Surgical History Surgery Procedure, Year, and Place: HERNIA REPAIR, AICD/PACER Hx Anesthesia Reactions: No - Immunization History Date of Tetanus Vaccine: up to date Date of Influenza Vaccine: 2016 Infectious Disease History: Reports: Hx of Known/Suspected MRSA - mrsa neg as of 02/17/17 Denies: Hx Clostridium Difficile - Family History Family History: FHx of CA. No FHx of CVA - Social History Alcohol Use: None Hx Substance Use: No Substance Use Type: Reports: None Hx Tobacco Use: No Smoking Status (MU): Former Smoker Type: Cigarettes Amount Used/How Often: 1 pack per week Length of Time of Smoking/Using Tobacco: 1 year Have You Smoked in the Last Year: No Review of Systems Positive: Other - decreased responsiveness Neurological: Other - R-sided facial droop Positive: Weakness - R-sided All Other Systems Reviewed And Are Negative: Yes Physical Exam - Summary Physical Exam Summary: VITAL SIGNS: Reviewed. GENERAL: ~Patient is a morbidly obese male who is lying comfortable in the stretcher. Patient is not in any acute respiratory distress. HEAD AND FACE: No signs of trauma. No ecchymosis, hematomas or skull depressions. No sinus tenderness. Right facial droop. EYES: PERRLA, EOMI x 2, No injected conjunctiva, no nystagmus. EARS: Hearing grossly intact. Ear canals and tympanic membranes are within normal limits. MOUTH: Oropharynx within normal limits. NECK: Supple, trachea is midline, no adenopathy, no JVD, no carotid bruit, no c- spine tenderness, neck with full ROM. CHEST: Heart sounds are distant, no tenderness at palpation LUNGS: Clear to auscultation bilaterally. No wheezing or crackles. CVS: Regular rate and rhythm, heart sounds are distant, no murmurs or gallops appreciated. ABDOMEN: Soft, non-tender. No signs of distention. No rebound no guarding, and no masses palpated. Bowel sounds are normal. EXTREMITIES: FROM in all major joints, no edema, no cyanosis or clubbing. RUE is 1/5, RLE is 1-2/5. NEURO: Alert and oriented x 3. Slurred speech. Does not remember when he last felt normal. Right facial droop. SKIN: Dry and warm GCS: 15 Triage Information Reviewed: Yes Vital Signs Reviewed: Yes Diagnostics - Laboratory Lab Statement: Any lab studies that have been ordered have been reviewed, and results considered in the medical decision making process. - Radiology CXR Xray Interpretation: Positive (See Comments) - Poor quality CXR, possible right lower lobe infiltrate Radiology Interpretation Completed By: ED Physician - CT Brain CT CT Interpretation Completed By: Radiologist - Fluid in the left mastoid air cells suggests inflammation. ED physician reviewed this radiology report. - EKG 0308 Cardiac Rate: NL - 75 bpm EKG Interpretation: Paced rhythm at 75 bpm with an underlying rhythm of A Fib NIH Scale - NIH Scale Level of Consciousness: Alert/Keenly Responsive Ask Patient the Month and His/Her Age: Both Correct Ask Pt to Open/Close Eyes and Local Telephone Operator/Release Non-Paretic Hand: Both Correctly Best Gaze (Only Horizontal Eye Movement): Normal Visual Field Testing: No Visual Loss Facial Paresis-Pt to Smile & Close Eyes or Grimace Symmetry: Complete Paralysis Motor Function - Right Arm: No Effort Against [place] Motor Function - Left Arm: No Drift-Holds 10 Seconds Motor Function - Right Leg: No Effort Against [place] Motor Function - Left Leg: No Drift-Holds 10 Seconds Limb Ataxia-Must be out of Proportion to Weakness Present: Absent Sensory (Use Pinprick to Test Arms/Legs/Trunk/Face): Normal Best Language (Describe Picture, Name Items): No Aphasia Dysarthria (Read Several Words): Slurs Some Words Extinction and Inattention: No Abnormality Total Score: 10 Course/Dx - Course Assessment/Plan: Pt is a 67 y/o M BIBA who presents to ED due to R-sided weakness. EMS report that his last seen normal is unknown, as last shift change at his group home was at 2200 and he was not checked on during the change. At 0130 during rounds, staff noticed that while talking to the pt, he was not responding, prompting the EMS call. EMS report his baseline is talkative, alert , oriented, non-ambulatory and bed-bound. Per EMS, while [place] [facility] [place] was able to squeeze their fingers though his right hand senior trial attorney was weaker than the left and he was unable to lift his right arm. Additionally note R-sided facial droop. Sx aggravated and alleviated by nothing. When asked, pt is unsure of onset of symptoms, though he states he has eaten in the last few hours. States his right side has been week for "a couple days." Code jazmín called at 0236. Brain CT reveals fluid in the left mastoid air cells suggests inflammation. EKG is paced rhythm. CXR reveals possible right lower lobe infiltrate. Discussed care with [facility], requesting to speak with the neurologist child nutrition director. Transfer center states that they will call back. Discussed with the radiologists child nutrition director at 0324, disclosing the Brain CT results.Discussed care of pt with Dr. Mar from [place] at 0335 who recommended he get to [place] ED for a possible embelectomy via helicopter if possible. Pt will be transferred to [place] with Dx of left CVA, PNA and morbid obesity. - Diagnoses Provider Diagnoses: Left-sided cerebrovascular accident (CVA), PNA (pneumonia), Morbid obesity During the Visit The Following Alert/Code Occurred: Code Jazmín - 0236 - Physician Notifications Discussed Care Of Patient With: [facility] Time Discussed With Above Provider: 03:11 Instructed by Provider To: Other - Requesting to speak with the neurologist child nutrition director. Transfer center states that they will call back. Discussed with the radiologists child nutrition director at 0324, disclosing the Brain CT results.Discussed care of pt with Dr. Mar from [place] at 0335 who recommended he get to [place] ED for a possible embelectomy a.s.a.p. - Critical Care Time Critical Care Time: 30-74 min - 45 minutes Discharge - Discharge Plan Condition: Critical Disposition: TRANS HIGHER LVL OF CARE FAC Referrals: Pippa Zepeda MD [Primary Care Provider] - The documentation as recorded by the Erik telles Rebecca accurately reflects the service I personally performed and the decisions made by , Rod Rush MD.
[2017-12-17 04:32] LABS: ABS Basophils 0.1 10^3/ul (0-0.2); ABS Eosinophils 0.2 10^3/ul (0-0.6); ABS Lymphocytes 0.7 10^3/ul (1.0-4.8); ABS Monocytes 0.4 10^3/ul (0-0.8); ABS Neutrophils 4.5 10^3/ul (1.5-7.7); ABS Nucleated RBC 0 10^3/ul; Eosinophil % 3.8 % (0-6); Hematocrit 38 % (42-52); Hemoglobin 11.7 g/dl (14.0-18.0); Lymphocyte % 11.3 % (25-47); Mean Corpuscular HGB Conc 31 g/dl (31-36); Mean Corpuscular Hemoglobin 26 pg (27-31); Mean Corpuscular Volume 82 fL (80-94); Mean Platelet Volume 8 um3 (7.4-10.4); Nucleated Red Blood Cells % 0.1; Platelet Count 177 10^3/ul (150-450); Red Blood Count 4.57 10^6/ul (4.0-5.4); Red Cell Distribution Width 16 % (10.5-15); White Blood Count 5.8 10^3/ul (3.5-10.8)
[2017-12-17 04:35] VITALS: BP 139/82
[2017-12-17 04:39] LABS: INR 2.15 (0.77-1.02)
[2017-12-17 04:42] LABS: EGFR Non-African American 29.2 (>60)
--- NOTE | 2017-12-17 07:45 | RAD ---
HISTORY: Neurological changes COMPARISONS: February 17, 2017 TECHNIQUE: Multiple contiguous axial CT scans were obtained of the head without intravenous contrast. FINDINGS: The study is technically limited secondary patient body habitus and is also limited by patient motion artifact. HEMORRHAGE/INFARCT: There is no hemorrhage or acute infarct. MASSES/SHIFT: There is no mass or shift. EXTRA-AXIAL SPACES: There are no extra-axial fluid collections. SULCI AND VENTRICLES: The sulci and ventricles are normal in size and position for the patient's stated age. CEREBRUM: There are no focal parenchymal abnormalities. BRAINSTEM: There are no focal parenchymal abnormalities. CEREBELLUM: There are no focal parenchymal abnormalities. VESSELS: The vessels are grossly normal. PARANASAL SINUSES: The paranasal sinuses are clear. There is left mastoid effusion. ORBITS: The orbits are unremarkable. BONES AND SOFT TISSUE: No bone or soft tissue abnormalities are noted. OTHER: None IMPRESSION: LIMITED STUDY. WITHIN THE LIMITATIONS OF STUDY, THERE IS NO ACUTE INTRACRANIAL PATHOLOGY. LEFT MASTOID EFFUSION. PRELIMINARY FINDINGS WERE DISCUSSED WITH DR. VALDOVINOS BY DR. AGRAWAL AT APPROXIMATELY 3:24 AM ON DECEMBER 17, 2017..
--- NOTE | 2017-12-17 07:51 | RAD ---
HISTORY: Neurological changes, code noyola COMPARISONS: April 10, 2017 VIEWS: 2: frontal portable view of the chest at 3:31 AM. The study is technically limited. The left costophrenic angle is not well visualized. The patient is obliqued to the left. FINDINGS: LINES AND TUBES: A left-sided pacemaker is noted. CARDIOMEDIASTINAL SILHOUETTE: The cardiac silhouette is enlarged. The cardiomediastinal silhouette is otherwise normal for portable technique. PLEURA: There is a moderate left pleural effusion. LUNG PARENCHYMA: There is a diffuse reticular pattern with indistinct pulmonary vessels. ABDOMEN: The upper abdomen is clear. There is no subphrenic gas. BONES AND SOFT TISSUES: No bone or soft tissue abnormalities are noted. IMPRESSION: 1. LIMITED STUDY. 2. CARDIOMEGALY. 3. PULMONARY INTERSTITIAL EDEMA. 4. LEFT PLEURAL EFFUSION.
== END 2017-12-17 04:32 | disposition short-term general hospital (02) ==
LOC: ED 02:36
DX: G81.91 Hemiplegia, unspecified affecting right dominant side (principal); I63.9 Cerebral infarction, unspecified; R29.810 Facial weakness; R47.81 Slurred speech; R29.710 NIHSS score 10; J18.9 Pneumonia, unspecified organism; E66.01 Morbid (severe) obesity due to excess calories; Z87.891 Personal history of nicotine dependence
CPT/HCPCS: 36415; 70450; 71045; 80053; 80061; 83605; 84484; 85025; 85610; 85730; 93005; 96365; 99285; J2543

== ENCOUNTER 2018-01-15 13:12 | Inpatient (IN) | payer MEDICARE, MEDICAID ==
[2018-01-15] MEDS ORDERED: Furosemide IV* 10 MG/ML 10 ML VIAL (100 MG) ONE (13:41)
[2018-01-15] MEDS ORDERED: Furosemide IV* 10 MG/ML 10 ML VIAL (100 MG) IV ONE (13:49)
--- NOTE | 2018-01-15 14:49 | RAD ---
HISTORY: Shortness of breath COMPARISONS: December 17, 2017 VIEWS: 5: frontal portable view of the chest at of the chest. Evaluation is limited secondary patient body habitus and positioning. FINDINGS: LINES AND TUBES: A left-sided pacemaker is noted. CARDIOMEDIASTINAL SILHOUETTE: The cardiac silhouette is enlarged. The cardiomediastinal silhouette is otherwise normal for portable technique. PLEURA: The costophrenic angles are sharp. No pleural abnormalities are noted. LUNG PARENCHYMA: There is a diffuse reticular pattern with indistinct pulmonary vessels. ABDOMEN: The upper abdomen is clear. There is no subphrenic gas. BONES AND SOFT TISSUES: No bone or soft tissue abnormalities are noted. IMPRESSION: 1. LIMITED STUDY. 2. CARDIOMEGALY. 3. PULMONARY INTERSTITIAL EDEMA
[2018-01-15] MEDS ORDERED: Albuterol/Ipratropium NEB.SOL* Albuterol 2.5 MG/Ipratropium 0.5 MG 3 ML INH ONE (15:11)
[2018-01-15] MEDS ORDERED: methylPREDNISolone 125 MG* 2 ML VIAL IV ONE (15:12)
[2018-01-15 16:15] LABS: ABS Basophils 0 10^3/ul (0-0.2); ABS Eosinophils 0.1 10^3/ul (0-0.6); ABS Lymphocytes 0.6 10^3/ul (1.0-4.8); ABS Monocytes 0.4 10^3/ul (0-0.8); ABS Neutrophils 6.2 10^3/ul (1.5-7.7); ABS Nucleated RBC 0 10^3/ul; Eosinophil % 1.4 % (0-6); Hematocrit 34 % (42-52); Hemoglobin 10.4 g/dl (14.0-18.0); Lymphocyte % 7.5 % (25-47); Mean Corpuscular HGB Conc 31 g/dl (31-36); Mean Corpuscular Hemoglobin 26 pg (27-31); Mean Corpuscular Volume 83 fL (80-94); Mean Platelet Volume 8.1 um3 (7.4-10.4); Nucleated Red Blood Cells % 0.3; Platelet Count 148 10^3/ul (150-450); Red Blood Count 4.06 10^6/ul (4.0-5.4); Red Cell Distribution Width 17 % (10.5-15); White Blood Count 7.3 10^3/ul (3.5-10.8)
[2018-01-15 16:27] LABS: INR 3.81 (0.77-1.02)
[2018-01-15 16:44] LABS: EGFR Non-African American 19.4 (>60)
[2018-01-15] MEDS ORDERED: Acetaminophen TAB* 325 MG PO PRN (17:43)
[2018-01-15] MEDS ORDERED: Ondansetron INJ* 2 MG/ML VIAL IV PRN (17:43)
[2018-01-15] MEDS ORDERED: Albuterol 2.5 MG/3 ML NEB.SOL* (0.083%) INH PRN (17:43)
[2018-01-15] MEDS ORDERED: FUROSEMIDE IV SCH (18:30)
[2018-01-15] MEDS ORDERED: NS 0.9% IV SCH (18:30)
[2018-01-15] MEDS ORDERED: Albuterol/Ipratropium NEB.SOL* Albuterol 2.5 MG/Ipratropium 0.5 MG 3 ML INH SCH (19:00)
[2018-01-15 19:01] LABS: Urine Appearance Cloudy; Urine Blood 3+ (Negative); Urine Color Yellow; Urine Ketones Negative (Negative); Urine Protein 2+(100 mg/dL) (Negative); Urine Specific Gravity 1.006 (1.010-1.030); Urine Urobilinogen Negative (Negative)
[2018-01-15] MEDS: Mometasone/Formoter 200/5 MDI INH SCH (19:34)
[2018-01-15 20:12] LABS: EGFR Non-African American 19.7 (>60)
[2018-01-15] MEDS ORDERED: Heparin VIAL(*) 5000 UNITS/ML VIAL (FIVE THOUSAND) SUBCUT SCH (22:00)
[2018-01-15] MEDS: Tamsulosin CAP* 0.4 MG PO SCH (22:23)
--- NOTE | 2018-01-15 23:24 | HP ---
CC: Dr. Zepeda; Dr. Brown; [facility] * HISTORY AND PHYSICAL: DATE OF ADMISSION: 01/15/18 PRIMARY CARE PROVIDER: [facility]. ATTENDING PHYSICIAN WHILE IN THE HOSPITAL: Johana Christopher DO * (report dictated by Fortunato Lara NP). CHIEF COMPLAINT: 1. Shortness of breath. 2. "My BiPAP mask won't fit." HISTORY OF PRESENT ILLNESS: Mr. Terry is a 67-year-old male patient with multiple medical problems. He has a history of TIA, CVA, AFib, TORY, CHF, hypertension, MRSA, and history of BPH. He comes into our ER today stating that the last couple of days, he has had progressive worsening shortness of breath. He has also noted that he has been having difficulty with urination, particularly having inability to relieve himself. He does admit to having progressive worsening shortness of breath. He noticed that his BiPAP was getting tighter. He noticed that over the last several days, he needed to use his BiPAP more frequently. He denies having any cough. He denies bringing up any mucopurulent type sputum. He denies having any fevers or chills. He states he has gained about 15 pounds in the last week to week and a half. He states that he has not had any chest pain or abdominal discomfort. There has been no nausea or vomiting. He denies having any recent change in his medications, but there was concern because today it was noted that he was appearing more sleepy, he was more short of breath, he was having trouble maintaining conversation according to the patient. He states that [facility] staff was concerned because they only brought him over for physical therapy, but he really was not interacting, so he came over to the hospital today, it was noted that he appeared to be in heart failure, he was requiring BiPAP and we were asked to evaluate for admission. PAST MEDICAL HISTORY: Significant for: 1. TIA. 2. CVA. 3. AFib. 4. TORY. 5. CHF. 6. Hypertension. 7. History of MRSA. 8. History of BPH. PAST SURGICAL HISTORY: 1. He has had a defibrillator pacemaker placement. 2. He has had a hernia repair. MEDICATIONS: Home meds according to [facility] notes include: 1. Oxycodone 5 mg every 6 hours as needed. 2. Atrovent 0.5 mg inhaled every 6 hours as needed. 3. Acetaminophen 650 mg every 8 hours as needed. 4. Tylenol 650 mg at bedtime. 5. Afrin 2 sprays both nares daily. 6. Flomax 0.4 mg p.o. daily. 7. Senna 1 tablet p.o. daily. 8. Advair 1 puff inhaled b.i.d. 9. Vitamin D 2000 units p.o. daily. 10. Aspirin 81 mg daily. 11. Oxycodone 5 mg daily in the morning. 12. Demadex 10 mg p.o. daily. 13. The patient was on Coumadin 4 mg p.o. daily, but this has been held in the care home, his INR today is 3.8. ALLERGIES TO MEDICATIONS: Include no known drug allergies. FAMILY HISTORY: Mother had colon cancer. Father had lung cancer. SOCIAL HISTORY: He is a former smoker. He lives at [facility]. He does not drink alcohol. Surrogate decision maker is his brother. REVIEW OF SYSTEMS: There is no documented fever. He does admit there was significant weight change. He denies having any double vision. There is no ear discharge. He denies having any rhinorrhea. There is no sore throat, no thyroid enlargement. He denied having any chest pain. He does admit to having orthopnea. He does admit to weight gain. He does admit to dyspnea. Denies having any nausea or vomiting. No dysuria. No frequency. There was no seizure. Denies having any loss of consciousness, no pruritus and no skin ulcerations. Review of 14 systems was completed, all others negative. PHYSICAL EXAMINATION GENERAL: At this time, Mr. Terry is a 67-year-old male patient. He is morbidly obese. He is sitting in the ED stretcher. He does not appear to be in any acute respiratory distress now. He says he is feeling better. VITAL SIGNS: Blood pressure 107/51, pulse 70, respirations 15, O2 saturation is 100%, temperature 97.9. HEENT: Head: Atraumatic, normocephalic. Eyes: EOMs are intact. Sclerae anicteric and not pale. Throat: Oral mucosa appears to be moist. No oropharyngeal erythema. NECK: Supple. LUNGS: He did have crackle in the bases. He had wheezing as well in the bases. He had equal diaphragmatic expansion. HEART: Sounds S1, S2. Regular rate and rhythm. ABDOMEN: Obese. It was soft, flat, nontender. Bowel sounds were present. EXTREMITIES: Pulses were 2+ throughout. He is able to move all 4 extremities with 5/5 strength. NEUROLOGIC: He is awake. He is alert. He is now oriented x3. His tongue is midline. Icing And Glaze Maker are equal. He had no gross focal deficits. SKIN: Intact. DIAGNOSTIC STUDIES/LAB DATA: WBC of 7.3, RBC of 4.06, hemoglobin 10.4, hematocrit of 34, platelet count of 148. His INR was 3.81, PTT of 44.2. PH was 7.26, repeat was 7.24; pCO2 was 83, repeat was 90. His bicarb was 31 and then it was 31 again. Sodium was 144, potassium of 4.4, chloride 103, bicarb 34 , BUN 64, his creatinine was 3.19. Looks like his previous creatinines were read around 2.3 to 2.2. His calcium is 8.3, lactate 0.5. AST was 11, ALT 13, albumin of 0.5. Alk phos 113, CK 23, CK-MB 4.2. Troponin 0.03. BNP at 286. Albumin is 3.2. The patient did have a chest x-ray obtained today, which showed limited study, cardiomegaly, pulmonary interstitial edema. He did have an EKG obtained today, which showed a ventricular paced rhythm at rate of 70. Old medical records were reviewed. ASSESSMENT AND PLAN: Mr. Terry is a 67-year-old male patient who is morbidly obese, coming into the ED today for progressive worsening shortness of breath, having a tighter fitting BiPAP mask, weight gain. We were asked to evaluate for admission. He will be admitted under inpatient status for: 1. Acute hypercarbic respiratory failure. Again I suspect this is probably from a congestive heart failure exacerbation. My plan would be to go ahead and put him on Lasix drip. We will continue BiPAP now at 18/8. We will go ahead and check weights daily, repeat the echo, cycle his troponins. I will get BMPs every 4 hours and we will continue to follow him closely in the ICU. I do note that the gas got slightly worse in the BiPAP; however, clinically he appears to be improving. He states he is feeling better. I would like to give the Lasix some time to work. This patient would be extremely difficult to intubate. In addition to this, I do not think he quite needed just that he is again mentating well. I did touch base with Dr. Brown on this, he was in agreement. We will reserve intubation when absolutely needed. 2. Urinary retention. This is probably multifactorial. I will place a consult in to Urology, but at this point there is a catheter in. When I placed the catheter, he had almost 3 L of fluid out. We will continue to follow him. 3. Acute renal failure, on chronic renal failure. This is probably secondary to urinary retention. I will send out for FENa and we will continue to monitor. His BNP is particularly in the setting of Lasix drip. 4. History of atrial fibrillation. We will continue his medications as prescribed. He is rate controlled. We will restart warfarin when his INR just below 3. 5. Obstructive sleep apnea. Continue with again on his BiPAP. 6. Hypertension. Continue with current meds. 7. History of cerebrovascular accident. Continue with secondary prevention. 8. Benign prostatic hypertrophy. Continue Flomax. 9. DVT prophylaxis: Again, INR is 3.8. We will restart Coumadin when his INR drifts back down to normal. 10. Code status: Full code. 11. Fluids, electrolytes, and nutrition. At this point, he can have a clear liquid diet only. TIME SPENT: On the admission 60 minutes, greater than half the time was spent face- to-face with the patient obtaining my history and physical, other half the time was spent going over the plan of care with the patient and implementing plan of care. I did discuss the plan of care with my attending, Dr. Christopher; she is in agreement. FORTUNATO LARA, DANI [id number]/[facility] #: [id number] GRETEL
[2018-01-15] MEDS: oxyCODONE TAB* 5 MG TAB PO PRN (23:42)
[2018-01-16 00:48] LABS: EGFR Non-African American 19.1 (>60)
[2018-01-16] MEDS: Albuterol/Ipratropium NEB.SOL* Albuterol 2.5 MG/Ipratropium 0.5 MG 3 ML INH SCH ×3 (01:54→13:27)
[2018-01-16] MEDS: oxyCODONE TAB* 5 MG TAB PO PRN ×2 (05:20→21:11)
[2018-01-16 05:44] LABS: ABS Basophils 0 10^3/ul (0-0.2); ABS Eosinophils 0 10^3/ul (0-0.6); ABS Lymphocytes 0.2 10^3/ul (1.0-4.8); ABS Monocytes 0.1 10^3/ul (0-0.8); ABS Neutrophils 4.9 10^3/ul (1.5-7.7); ABS Nucleated RBC 0 10^3/ul; Eosinophil % 0.1 % (0-6); Hematocrit 32 % (42-52); Hemoglobin 10.3 g/dl (14.0-18.0); Lymphocyte % 4.1 % (25-47); Mean Corpuscular HGB Conc 32 g/dl (31-36); Mean Corpuscular Hemoglobin 26 pg (27-31); Mean Corpuscular Volume 81 fL (80-94); Mean Platelet Volume 8.2 um3 (7.4-10.4); Nucleated Red Blood Cells % 0.2; Platelet Count 149 10^3/ul (150-450); Red Blood Count 3.96 10^6/ul (4.0-5.4); Red Cell Distribution Width 17 % (10.5-15); White Blood Count 5.2 10^3/ul (3.5-10.8)
[2018-01-16 05:52] LABS: INR 4.08 (0.77-1.02)
[2018-01-16 06:01] LABS: EGFR Non-African American 19.3 (>60)
[2018-01-16] MEDS: Mometasone/Formoter 200/5 MDI INH SCH ×2 (07:59→20:56)
[2018-01-16] MEDS ORDERED: Magnesium Oxide TAB* 400 MG PO SCH (09:00)
[2018-01-16] MEDS ORDERED: Influenza VAC *QUAD* 2017-18* 0.5 ML SYRINGE IM ONE (09:00)
[2018-01-16] MEDS: Furosemide TAB* 40 MG PO SCH (09:27)
[2018-01-16] MEDS: Aspirin EC TAB* 81 MG TAB.EC PO SCH (09:27)
--- NOTE | 2018-01-16 12:46 | PN ---
Date of Service: 01/16/18 Critical Care Services: Morbidly obese male with Hx of hypertension, CHF, Afib, cardiac pacemaker, CVA vs TIA, admitted last night with respiratory distress and worsening peripheral edema. Started on a furosemide drip and has diuresed about 9 liters since admission! No longer complains SOB Vital Signs: Temp Pulse Resp BP SpO2 FiO2 98.1 F 71 20 97/66 96 50 Physical Exam: Gen:Up in bed and breathing comfortably Lungs:BS distant. No crackles or wheezes heard. Cardiac: No murmurs Extremities: Trace edema both legs. No cyanosis/ Fluid Balance (Past 24 Hours): 01/16/18 06:59 Intake Total 1929 Output Total 6400 Balance -4471 Weight 434 lb Intake: Medicated IV 189 GEN - Furosemide/Lasix 189 Oral 1740 Output: Hilario 6400 Other: # Bowel Movements 1 Estimated Stool Amount Large Labs: 01/15/18 01/16/18 01/16/18 19:35 00:15 05:05 Sodium 144 142 145 Potassium 4.6 4.5 4.2 Chloride 103 102 101 Carbon Dioxide 33 H 33 H 35 H BUN 65 65 69 Creatinine 3.15 3.23 3.21 Est GFR (Non-Af Amer) 19.7 19.1 19.3 Glucose 110 H 218 H 132 H Calcium 8.4 L 8.2 L 8.4 L Troponin I 0.02 0.03 01/16/18 05:05 WBC 5.2 Hgb 10.3 L Hct 32 L Plt Count 149 L INR (Anticoag Therapy) 4.08 NOTE: Patient on coumadin. Studies: ECG from admission - ventricular paced beats at 70/min Nutrition: Oral diet (low sodium) Impression: Diuresis has resulted in marked clinical improvement since admission. Is overanticoagulated with coumadin, but no evidence of abnormal bleeding. Plan: 1. D/C furosemide infusion and start oral furosemide at 40 mg daily (has not been on furosemide as outpatient) 2. Cardiac ECHO 3. Monitor INR and restart coumadin when indicated. Critical Care Time: 40 minutes
[2018-01-16] MEDS ORDERED: Perflutren Lipid Microsphere* 3 ML VIAL ONE (14:59)
[2018-01-16 16:49] LABS: EGFR Non-African American 19.6 (>60)
--- NOTE | 2018-01-16 18:55 | ECHO ---
Patient: JONAH RUSSELL [facility] Rec#: [id number] : 1950 Date: 01/16/2018 Age: 67y Height: 188 cm / 74.0 in Weight: 199 kg / 438.6 lbs Sex: M BSA: 3 Room#: 438 Admit Date#: 01/15/2018 Type: Inpatient Referring: Regan Brown MD Reading: Song Brown DO Executive Compensation Analyst: Zina Wyatt RN RDCS Transthoracic Echocardiogram Indication: Edema BP: 97/66 HR: 70 Rhythm: Paced Findings History: HTN, CHF, A. fib, AICD implant, TIA/CVA, TORY, super morbid obesity Technical Comments: The study quality is poor. The study is technically limited due to poor acoustic windows. The study is technically limited due to patient body habitus. The study was technically limited due to the patient's inability to lay in the left lateral decubitus position. Left Ventricle: The left ventricular chamber size is mildly dilated. Mild concentric left ventricular hypertrophy is observed. There is mildly decreased left ventricular systolic function. The estimated ejection fraction is 45-50%. There is septal flattening of the interventricular septum consistent with right ventricular volume or pressure overload. and/or ventricular pacemaker The assessment of diastolic function is non-diagnostic. Left Atrium: The left atrium is not well visualized., it appears dilated. The left atrium is mild to moderately dilated. Right Ventricle: The right ventricle is not well visualized. The right ventricle is moderately dilated. The right ventricular global systolic function is moderately reduced. Right Atrium: The right atrium is not well visualized. A pacemaker wire is visualized in the right atrium. Aortic Valve: The aortic valve leaflets are mildly thickened. There is no evidence of aortic regurgitation. There is no evidence of aortic stenosis. Mitral Valve: The mitral valve structure is not well visualized. There is mitral annular calcification. The mitral valve leaflets are mildly thickened. Mild subvalvular thickening of the mitral valve is visualized. There is mild mitral regurgitation. Tricuspid Valve: The tricuspid valve structure is not well visualized. Pulmonic Valve: The pulmonic valve structure is not well visualized. Pericardium: There is no significant pericardial effusion. Aorta: There is mild dilatation of the ascending aorta. The aortic arch is not well visualized. There is mild dilatation of the aortic root. Pulmonary Artery: The main pulmonary artery is not well visualized. Venous: The venous system is not well visualized. The inferior vena cava is not visualized. Contrast: Definity was used to optimize study. A total of 5 ml of diluted Definity was given IV. Conclusions The left ventricular chamber size is mildly dilated. Mild concentric left ventricular hypertrophy is observed. There is mildly decreased left ventricular systolic function. The estimated ejection fraction is 45-50%. Even with use of definity wall motion is not well evaluated for. There is septal flattening of the interventricular septum consistent with right ventricular volume and/or pressure overload and/or ventricular pacemaker The left atrium is not well visualized., it appears dilated. The right ventricle is not well visualized. The right ventricle is moderately dilated. The right ventricular global systolic function is moderately reduced. The right atrium is not well visualized. A pacemaker wire is visualized in the right atrium. There is mild mitral regurgitation that may be underestimated in severity. The tricuspid valve structure is not well visualized. Unable to estimate PASP There is no significant pericardial effusion. Definity was used to optimize study although it remained a technically difficult study. Compared to prior study report from 02/2017, MR previously moderate to severe (now mild may be underestimated in severity), prior mild-mod TR with mod-severe pulm HTN now TR not well visualized. The right ventricle size and function was not previously commented on. Measurements Name Value Normal Range RVIDd (AP) 2D 4.5 cm (0.9 - 2.6) RVDdMajor (2D) 5.7 cm (2.2 - 4.4) IVSd (2D) 1.3 cm (0.6 - 1) LVPWd (2D) 1.2 cm (0.6 - 1) LVIDd (2D) 6.1 cm (3.6 - 5.4) LVIDs (2D) 4.9 cm - LV FS (2D) 21 % (25 - 45) Aortic Annulus 2.3 cm (1.4 - 2.6) Ao root diameter (2D) 3.8 cm (2.1 - 3.5) Ascending Ao 4 cm (2.1 - 3.4) LA dimension (AP) 2D 5.7 cm (2.3 - 3.8) LAd ISD 4CH 5.3 cm (2.9 - 5.3) LA ISD 4CH W 6 cm (2.5 - 4.5) Name Value Normal Range MV E-wave Vmax 0.66 m/sec - MV deceleration time 260 msec - MV A-wave Vmax 0.72 m/sec - MV E:A ratio 0.9 ratio - Name Value Normal Range AV Vmax 0.94 m/sec - AV VTI 18.8 cm - AV peak gradient 3.6 mmHg - AV mean gradient 2.1 mmHg - LVOT Vmax 0.65 m/sec - LVOT VTI 13 cm - LVOT peak gradient 1.7 mmHg - LVOT mean gradient 1.2 mmHg - Name Value Normal Range PV Vmax 0.85 m/sec -
[2018-01-16] MEDS: Tamsulosin CAP* 0.4 MG PO SCH (21:11)
[2018-01-17 07:00] LABS: INR 3.77 (0.77-1.02)
[2018-01-17 07:13] LABS: EGFR Non-African American 19.8 (>60)
[2018-01-17] MEDS: Mometasone/Formoter 200/5 MDI INH SCH (07:52)
[2018-01-17] MEDS: Aspirin EC TAB* 81 MG TAB.EC PO SCH (09:39)
[2018-01-17] MEDS: Furosemide TAB* 40 MG PO SCH (09:39)
--- NOTE | 2018-01-17 13:01 | PN ---
Progress Note - Progress Note Date of Service: 01/17/18 Note: Time spent on discharge 50 minutes.
[2018-01-17 16:01] VITALS: BP 116/64
--- NOTE | 2018-01-17 19:02 | DS ---
TRANSFER SUMMARY: DATE OF ADMISSION: 01/15/18 DATE OF TRANSFER: 01/17/18 HISTORY: This is a 67-year-old man who was transferred from [facility] for shortness of breath. He also complained his BiPAP mask would not fit; however, he told me he was using his CPAP or BiPAP every night without any problem all night long. He uses oxygen with it and as well as during the day when he uses a nasal cannula. The patient was found to be in congestive heart failure. The patient stated he had gained 15 pounds in 3 days. He could not really explain this. He said he has weighed weekly. He did not contradict me when I said I thought he probably drank quite a bit of liquids. The patient received intravenous furosemide. His fluid balance in the course of 2 days was over negative 9 L. On the day of discharge, he got furosemide 40 mg in the morning. I am going to change him to torsemide, which is the same drug he took at home, but at a higher dose of 40 mg. The patient, I think, has returned to his baseline status. He was quite comfortable. He had no pedal edema. His lungs were clear. I recommend he be weighed 3 times a week. He should have a basic metabolic profile every Saturday for the next 3 weeks. His warfarin was held while he was here. His INR seemed to not change very much overall, it was 3.77 on the day of discharge. He could have an INR done this coming January 20, as well. I would restart his warfarin when his INR is less than 3. FINAL DIAGNOSES: 1. Yffje-jz-yyrpmyj systolic congestive heart failure. 2. Morbid obesity. 3. Chronic obstructive pulmonary disease. DISCHARGE MEDICATIONS: 1. Albuterol via nebulizer 2.5 mg every 2 hours p.r.n. 2. Torsemide 40 mg daily. 3. Tamsulosin 0.4 mg h.s. 4. Acetaminophen 650 mg h.s. 5. Ipratropium 0.5 mg every 6 hours p.r.n. 6. Aspirin 81 mg daily. 7. Senna/docusate 1 tablet daily. 8. Oxycodone 5 mg every 6 hours p.r.n. 9. Miconazole 2% topical p.r.n. 10. Oxymetazoline 0.5% nasal spray, 2 sprays to both nares daily. 11. Fluticasone/salmeterol 250/50 one puff b.i.d. 12. Vitamin D 2000 units daily. 13. Oxycodone 5 mg daily. The patient is transferred and returned to [facility]. [id number]/[facility] #: [id number] MTDD
[2018-01-18] MEDS ORDERED: Torsemide TAB* 20 MG PO SCH (09:00)
--- NOTE | 2018-01-21 23:08 | ED ---
Dominick Laughlin Julia, scribed for Destin Kim on 01/15/18 at 1344 . Shortness of Breath - HPI Summary HPI Summary: This patient is a 67 year old M BIBA to [facility] with a chief complaint of SOB and chest pain beginning earlier today. Patient reports increase in fluid retention and fatigue. He is typically on 3L of 02 via nasal cannula, but EMS increased to 5L. Patient has no relief from CPAP machine. Pt has hx of CVA with residual right sided weakness. Pt does not ambulate. - History of Current Complaint Chief Complaint: EDShortnessOfBreath Time Seen by Provider: 01/15/18 13:25 Hx Obtained From: Patient, EMS Onset/Duration: Sudden Onset, Lasting Hours Timing: Constant Dyspnea At: Rest Alleviating Factors: Nothing Associated Signs & Symptoms: Edema - fluid retention and fatigue Related History: Obesity - Allergy/Home Medications Allergies/Adverse Reactions: Allergies Allergy/AdvReac Type Severity Reaction Status Date / Time No Known Allergies Allergy Verified 01/15/18 13:25 Home Medications: Home Medications Acetaminophen TAB* [Tylenol TAB*] 650 mg PO Q8HR PRN 01/15/18 [History Confirmed 01/15/18] Cholecalciferol TAB* [Vitamin D TAB*] 2,000 units PO QAM 01/15/18 [History Confirmed 01/15/18] Fluticasone-Salmeterol 250-50* [Advair Diskus 250-50*] 1 puff INH BID 01/15/18 [ History Confirmed 01/15/18] Miconazole Nitrate [Athlete's Foot] 2 % TOPICAL BID PRN 01/15/18 [History Confirmed 01/15/18] Oxymetazoline 0.05% NASAL SPR* [Afrin 0.05% NASAL SPRAY*] 2 spray BOTH NARES DAILY 01/15/18 [History Confirmed 01/15/18] oxyCODONE TAB* [Roxycodone TAB 5 mg*] 5 mg PO Q6H PRN 01/15/18 [History Confirmed 01/15/18] oxyCODONE TAB* [Roxycodone TAB 5 mg*] 5 mg PO QAM 01/15/18 [History Confirmed ] PMH/Surg Hx/FS Hx/Imm Hx Cardiovascular History: Reports: Hx Congestive Heart Failure, Hx Hypertension, Hx Pacemaker/ICD Respiratory History: Reports: Hx Sleep Apnea Denies: Hx Asthma, Hx Chronic Obstructive Pulmonary Disease (COPD) History: Reports: Hx Benign Prostatic Hyperplasia, Hx Chronic Renal Failure, Hx Kidney Infection, Other Problems/Disorders - history MRSA in urine Musculoskeletal History: Reports: Hx Arthritis, Other Musculoskeletal History - morbid obesity Sensory History: Denies: Hx Contacts or Glasses, Hx Hearing Aid Opthamlomology History: Denies: Hx Contacts or Glasses Neurological History: Reports: Hx CVA Psychiatric History: Denies: Hx Panic Disorder - Surgical History Surgery Procedure, Year, and Place: HERNIA REPAIR, AICD/PACER Hx Anesthesia Reactions: No - Immunization History Date of Tetanus Vaccine: up to date Date of Influenza Vaccine: 2015 Infectious Disease History: Yes Infectious Disease History: Reports: Hx of Known/Suspected MRSA - mrsa neg as of 02/17/17 Denies: Hx Clostridium Difficile, Traveled Outside the [place] in Last 30 Days - Family History Family History: FHx of CA. No FHx of CVA - Social History Alcohol Use: None Hx Substance Use: No Substance Use Type: Reports: None Hx Tobacco Use: No Smoking Status (MU): Former Smoker Type: Cigarettes Amount Used/How Often: 1 pack per week Length of Time of Smoking/Using Tobacco: 1 year Have You Smoked in the Last Year: No Review of Systems Positive: Fatigue Positive: Chest Pain Positive: Shortness Of Breath Positive: Edema - generalized fluid retention All Other Systems Reviewed And Are Negative: Yes Physical Exam - Summary Physical Exam Summary: Appearance: Well appearing, no pain distress, obese Skin: warm, dry, reflects adequate perfusion Head/face: normal Eyes: EOMI, KASEY ENT: normal Neck: supple, non-tender Respiratory: Mild respiratory failure, poor air entry Cardiovascular: RRR, pulses symmetrical Abdomen: non-tender, soft Bowel: present Musculoskeletal: strength/ROM intact, mild pitting edema Neuro: normal, sensory motor intact, A&Ox3 Triage Information Reviewed: Yes Vital Signs On Initial Exam: Initial Vitals Temp Pulse Resp BP Pulse Ox 98.1 F 73 36 162/121 88 01/15/18 13:19 01/15/18 13:19 01/15/18 13:19 01/15/18 13:19 01/15/18 13:19 Vital Signs Reviewed: Yes Diagnostics - Vital Signs Vital Signs Temp Pulse Resp BP Pulse Ox 01/15/18 13:19 98.1 F 73 36 162/121 88 - Laboratory Result Diagrams: 01/16/18 05:05 01/17/18 06:34 Lab Statement: Any lab studies that have been ordered have been reviewed, and results considered in the medical decision making process. - Radiology CXR Radiology Interpretation Completed By: Radiologist - 1. LIMITED STUDY. 2. CARDIOMEGALY. 3. PULMONARY INTERSTITIAL EDEMA ED Physician has reviewed this report. - EKG 1356 Cardiac Rate: NL - at 70BPM EKG Rhythm: Sinus Rhythm EKG Interpretation: paced Course/Dx - Course Course Of Treatment: Pt is brought to the ED c/o SOB and chest pain beginning earlier today. EKG is unremarkable. CXR reveal cardiomegaly and pulmonary edema. ABG reveals elevated CO2. Patient is given 60mg of Lasix prior to CXR and 100mg post CXR. Pt is given nebulizer tx and is put on BiPAP. Dr. Christopher agrees to admit pt. - Diagnoses Differential Diagnosis/HQI/PQRI: Positive: Asthma, Bronchitis, CHF, COPD Exacerbation, [place], Pneumonia, Pulmonary Edema, SARS, Other - resp failure Provider Diagnoses: COPD exacerbation, CHF (congestive heart failure), Renal failure, Respiratory failure - Physician Notifications Discussed Care of Patient With: Johana Christopher - hospitalist Time Discussed With Above Provider: 17:00 Instructed by Provider To: Admit As Inpatient - Critical Care Time Critical Care Time: 30-74 min - 60 minutes Discharge - Sign-Out/Discharge Documenting (check all that apply): Discharge - admit - Discharge Plan Condition: Improved Disposition: ADMITTED TO [facility] - Billing Disposition and Condition Condition: IMPROVED Disposition: [facility] [place] The documentation as recorded by the Dominick telles Julia accurately reflects the service I personally performed and the decisions made by , Destin Kim.
== END 2018-01-17 17:21 | DRG 291 ==
LOC: ED 13:12 → ICU 17:30 → MEDTELE 01-16 15:24
PROVIDERS: ADMIT Hospitalist; ATTEND Internal Medicine
DX: I50.23 Acute on chronic systolic (congestive) heart failure (principal); J96.02 Acute respiratory failure with hypercapnia; Z68.43 Body mass index [BMI] 50.0-59.9, adult; N17.9 Acute kidney failure, unspecified; I13.0 Hypertensive heart and chronic kidney disease with heart failure and stage 1 through stage 4 chronic kidney disease, or unspecified chronic kidney disease; J44.9 Chronic obstructive pulmonary disease, unspecified; Z99.81 Dependence on supplemental oxygen; E66.01 Morbid (severe) obesity due to excess calories; N18.9 Chronic kidney disease, unspecified; I48.91 Unspecified atrial fibrillation; R33.8 Other retention of urine; G47.33 Obstructive sleep apnea (adult) (pediatric); Z86.73 Personal history of transient ischemic attack (TIA), and cerebral infarction without residual deficits; Z95.810 Presence of automatic (implantable) cardiac defibrillator; Z79.01 Long term (current) use of anticoagulants; Z79.1 Long term (current) use of non-steroidal anti-inflammatories (NSAID); Z79.82 Long term (current) use of aspirin; Z79.891 Long term (current) use of opiate analgesic; Z79.899 Other long term (current) drug therapy; Z80.0 Family history of malignant neoplasm of digestive organs; Z80.1 Family history of malignant neoplasm of trachea, bronchus and lung; Z87.891 Personal history of nicotine dependence
CPT/HCPCS: 36415; 36600; 71045; 80048; 80053; 81003; 81015; 82550; 82553; 82570; 82803; 83605; 83880; 84300; 84484; 85025; 85610; 85730; 87040; 87086; 87502; 87641; 93005; 93306; 94002; 94640; 94660; 94760; 99285; A9270-GY; C8929; G8978-GP-CN; G8979-GP-CJ; J1940; J2930

== ENCOUNTER 2018-05-18 11:54 | Inpatient (IN) | payer MEDICARE, MEDICAID ==
[2018-05-18] MEDS ORDERED: NS 0.9% 1000 ML* 1,000 ML IV ONE (11:59)
--- NOTE | 2018-05-18 12:20 | RAD ---
INDICATION: Neurologic change. Code romero COMPARISON: CT brain December 17, 2017 TECHNIQUE: Noncontrast axial source images were acquired from the skull base to the vertex. Imaging is mildly limited due to patient cooperation and positioning FINDINGS: Ventricles/sulci: There is cortical atrophy with compensatory dilatation of the CSF spaces. Brain parenchyma: There is no acute appearing focal parenchymal finding, evidence of intracranial mass, or intracranial mass effect. Intracranial hemorrhage:None. Extra-axial spaces: There are no abnormal extra axial fluid collections or evidence of extra-axial mass. Calvarium: There is no calvarial fracture or other calvarial abnormality. Scalp: There is no evidence of scalp or extracalvarial soft tissue abnormality. Paranasal sinuses/mastoid: The paranasal sinuses and mastoid air cells are clear. Other: None. IMPRESSION: NO ACUTE INTRACRANIAL FINDINGS. Findings called to ED at 1210 hours
[2018-05-18 12:49] LABS: ABS Basophils 0 10^3/ul (0-0.2); ABS Eosinophils 0.2 10^3/ul (0-0.6); ABS Lymphocytes 0.5 10^3/ul (1.0-4.8); ABS Monocytes 0.4 10^3/ul (0-0.8); ABS Neutrophils 5.8 10^3/ul (1.5-7.7); ABS Nucleated RBC 0 10^3/ul; Eosinophil % 2.6 % (0-6); Hematocrit 38 % (42-52); Hemoglobin 12.4 g/dl (14.0-18.0); Lymphocyte % 7.2 % (25-47); Mean Corpuscular HGB Conc 33 g/dl (31-36); Mean Corpuscular Hemoglobin 26 pg (27-31); Mean Corpuscular Volume 80 fL (80-94); Mean Platelet Volume 7.7 um3 (7.4-10.4); Nucleated Red Blood Cells % 0.1; Platelet Count 199 10^3/ul (150-450); Red Blood Count 4.77 10^6/ul (4.00-5.40); Red Cell Distribution Width 16 % (10.5-15); White Blood Count 6.9 10^3/ul (3.5-10.8)
[2018-05-18 13:00] LABS: Urine Appearance Cloudy; Urine Blood 1+ (Negative); Urine Color Yellow; Urine Ketones Negative (Negative); Urine Protein 1+(30 mg/dL) (Negative); Urine Red Blood Cell 1+(3-5/hpf) (Absent); Urine Urobilinogen Negative (Negative); Urine White Blood Cell 2+(11-20/hpf) (Absent)
[2018-05-18 13:01] LABS: INR 2.18 (0.77-1.02)
[2018-05-18 13:03] LABS: EGFR Non-African American 23.2 (>60)
--- NOTE | 2018-05-18 13:19 | RAD ---
INDICATION: Neurologic change. Code romero. COMPARISON: Chest x-ray January 15, 2018 TECHNIQUE: An AP supine portable view obtained at 1250 hours is submitted. This is a very limited examination due to difficulty positioning the patient FINDINGS: Bones/Soft Tissues: There are no acute bony findings. There is left-sided cardiac pacemaker Cardiomediastinal: The cardiac silhouette is enlarged. Interstitium is prominent suggestive of interstitial edema Lungs: The right lung is grossly clear. There is infiltrate, atelectasis, pleural fluid in the left lung base. Pleura: Suspect left-sided effusion is noted above. Other: None IMPRESSION: NEGATIVE EXAMINATION. CARDIOMEGALY WITH SUSPECTED INTERSTITIAL EDEMA AND LEFT-SIDED INFILTRATE, ATELECTASIS AND/OR PLEURAL FLUID.
--- NOTE | 2018-05-18 13:44 | ED ---
Upper Extremity Pain - HPI Summary HPI Summary: This is elfego Delgado documenting for attending Dr. Juan Luis Franco MD. This patient is a 67 year old M presenting to [facility] with a chief complaint of numbness in his right arm since earlier this morning. The patient rates the pain 6/10 in severity. Patient reports slurred speech, SOB with air tube, numbness in his legs and arms, difficulty moving right arm and hand, chest tightness, weakness in right side, and increased urinary frequency (every 15 mins). Pt was feeling normal this morning before he started having symptoms. Pt tried CPAP but this made his breathing worse. Pt is always on oxygen while in bed. A parekh catheter was put in place in the [facility]. Pt was feeling better during the physical exam than he did upon initial arrival to [facility]. PMHx CVA. No PMHx dialysis. SHx lives in [place]. - History of Current Complaint Chief Complaint: EDNeurologicalDeficit Stated Complaint: POSS CVA Time Seen by Provider: 05/18/18 11:59 Hx Obtained From: Patient Mechanism Of Injury: Other - numbness Onset/Duration: Started Hours Ago - this morning Timing: Constant Severity Initially: Severe Severity Currently: Severe Pain Location: Arm - right Character: Unable to Describe - numb - Allergies/Home Medications Allergies/Adverse Reactions: Allergies Allergy/AdvReac Type Severity Reaction Status Date / Time No Known Allergies Allergy Verified 01/15/18 13:25 Home Medications: Home Medications Nitrofurantoin Macrocrystal [Nitrofurantoin] 100 mg PO BID 05/18/18 [History Confirmed 05/18/18] Spironolactone TAB* [Aldactone TAB*] 12.5 mg PO DAILY 05/18/18 [History Confirmed 05/18/18] Warfarin TAB(*) [Coumadin TAB(*)] 2.5 mg PO 1700 05/18/18 [History Confirmed ] PMH/Surg Hx/FS Hx/Imm Hx Cardiovascular History: Reports: Hx Congestive Heart Failure, Hx Hypertension, Hx Pacemaker/ICD Respiratory History: Reports: Hx Pneumonia, Hx Pulmonary Edema, Hx Sleep Apnea Denies: Hx Asthma, Hx Chronic Obstructive Pulmonary Disease (COPD) History: Reports: Hx Benign Prostatic Hyperplasia, Hx Chronic Renal Failure, Hx Kidney Infection, Other Problems/Disorders - history MRSA in urine Musculoskeletal History: Reports: Hx Arthritis - knee, Other Musculoskeletal History - morbid obesity Sensory History: Reports: Hx Hearing Problem - mild [place] Denies: Hx Contacts or Glasses, Hx Hearing Aid Opthamlomology History: Denies: Hx Contacts or Glasses Neurological History: Reports: Hx CVA Psychiatric History: Denies: Hx Panic Disorder - Surgical History Surgery Procedure, Year, and Place: HERNIA REPAIR, AICD/PACER Hx Anesthesia Reactions: No - Immunization History Date of Tetanus Vaccine: up to date Date of Influenza Vaccine: 2016 Infectious Disease History: No Infectious Disease History: Reports: 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 No FHx of CVA - Social History Alcohol Use: None Hx Substance Use: No Substance Use Type: Reports: None Hx Tobacco Use: No Smoking Status (MU): Former Smoker Type: Cigarettes Amount Used/How Often: 1 pack per week Length of Time of Smoking/Using Tobacco: 1 year Have You Smoked in the Last Year: No Review of Systems Positive: Other - Chest tightness Positive: Shortness Of Breath Positive: frequency Positive: Weakness, Numbness - right arm and leg, Slurred Speech All Other Systems Reviewed And Are Negative: Yes Physical Exam - Summary Physical Exam Summary: Constitutional: Well-developed, Well-nourished, Alert. Pt is morbidly obese. Skin: Warm, Dry HENT: Normocephalic; Atraumatic. Speech is mildly slurred. Eyes: Conjunctiva normal Neck: Musculoskeletal ROM normal neck. Cardio: Rhythm regular, rate normal, Heart sounds normal; Intact distal pulses; The pedal pulses are 2+ and symmetric. Radial pulses are 2+ and symmetric. Pulmonary/Chest wall: Effort normal. Abd: Soft. Musculoskeletal: Residency Program Coordinator is weak. Can just elevate his arm a few degrees off the bed. Cannot reach 30 degrees of arm flexion in his right shoulder. RLE effort is weak. Neuro: Alert, Oriented x3 Psych: Mood and affect Normal GCS: 15 Triage Information Reviewed: Yes Vital Signs On Initial Exam: Initial Vitals Pulse Ox 96 05/18/18 11:59 Vital Signs Reviewed: Yes Diagnostics - Vital Signs Vital Signs Temp Pulse Resp BP Pulse Ox 05/18/18 13:00 71 17 96 07/29/18 12:25 97.6 F 76 26 115/73 96 05/18/18 12:16 80 25 115/73 94 05/18/18 12:15 84 6 95 05/18/18 11:59 96 - Laboratory Lab Results: Lab Results 05/18/18 05/18/18 05/18/18 Range/Units 12:23 12:31 12:31 WBC 6.9 (3.5-10.8) 10^3/ul RBC 4.77 (4.00-5.40) 10^6/ul Hgb 12.4 L (14.0-18.0) g/dl Hct 38 L (42-52) % MCV 80 (80-94) fL MCH 26 L (27-31) pg MCHC 33 (31-36) g/dl RDW 16 H (10.5-15) % Plt Count 199 (150-450) 10^3/ul MPV 7.7 (7.4-10.4) um3 Neut % (Auto) 84.5 H (38-83) % Lymph % (Auto) 7.2 L (25-47) % [place] % (Auto) 5.1 (0-7) % Eos % (Auto) 2.6 (0-6) % Baso % (Auto) 0.6 (0-2) % Absolute Neuts (auto) 5.8 (1.5-7.7) 10^3/ul Absolute Lymphs (auto) 0.5 L (1.0-4.8) 10^3/ul Absolute Monos (auto) 0.4 (0-0.8) 10^3/ul Absolute Eos (auto) 0.2 (0-0.6) 10^3/ul Absolute Basos (auto) 0 (0-0.2) 10^3/ul Absolute Nucleated RBC 0 10^3/ul Nucleated RBC % 0.1 INR (Anticoag Therapy) 2.18 H (0.77-1.02) APTT 36.4 H (26.0-36.3) seconds Sodium (135-145) mmol/L Potassium (3.5-5.0) mmol/L Chloride (101-111) mmol/L Carbon Dioxide (22-32) mmol/L Anion Gap (2-11) mmol/L BUN (6-24) mg/dL Creatinine (0.67-1.17) mg/dL Est GFR ( Amer) (>60) Est GFR (Non-Af Amer) (>60) BUN/Creatinine Ratio (8-20) Glucose (70-100) mg/dL POC Glucose (mg/dL) 117 H (70-100) mg/dL Lactic Acid (0.5-2.0) mmol/L Calcium (8.6-10.3) mg/dL Total Bilirubin (0.2-1.0) mg/dL AST (13-39) U/L ALT (7-52) U/L Alkaline Phosphatase (34-104) U/L Troponin I (<0.04) ng/mL Total Protein (6.4-8.9) g/dL Albumin (3.2-5.2) g/dL Globulin (2-4) g/dL Albumin/Globulin Ratio (1-3) Triglycerides mg/dL Cholesterol mg/dL LDL Cholesterol mg/dL HDL Cholesterol mg/dL Urine Color Urine Appearance Urine pH (5-9) Ur Specific Olive (1.010-1.030) Urine Protein (Negative) Urine Ketones (Negative) Urine Blood (Negative) Urine Nitrate (Negative) Urine Bilirubin (Negative) Urine Urobilinogen (Negative) Ur Leukocyte Esterase (Negative) Urine WBC (Auto) (Absent) Urine RBC (Auto) (Absent) Ur Squamous Epith Cells (Absent) Urine Bacteria (Absent) Urine Glucose (Negative) Blood Type Antibody Screen 05/18/18 05/18/18 05/18/18 Range/Units 12:31 12:31 12:31 WBC (3.5-10.8) 10^3/ul RBC (4.00-5.40) 10^6/ul Hgb (14.0-18.0) g/dl Hct (42-52) % MCV (80-94) fL MCH (27-31) pg MCHC (31-36) g/dl RDW (10.5-15) % Plt Count (150-450) 10^3/ul MPV (7.4-10.4) um3 Neut % (Auto) (38-83) % Lymph % (Auto) (25-47) % [place] % (Auto) (0-7) % Eos % (Auto) (0-6) % Baso % (Auto) (0-2) % Absolute Neuts (auto) (1.5-7.7) 10^3/ul Absolute Lymphs (auto) (1.0-4.8) 10^3/ul Absolute Monos (auto) (0-0.8) 10^3/ul Absolute Eos (auto) (0-0.6) 10^3/ul Absolute Basos (auto) (0-0.2) 10^3/ul Absolute Nucleated RBC 10^3/ul Nucleated RBC % INR (Anticoag Therapy) (0.77-1.02) APTT (26.0-36.3) seconds Sodium 141 (135-145) mmol/L Potassium 4.0 (3.5-5.0) mmol/L Chloride 98 L (101-111) mmol/L Carbon Dioxide 39 H (22-32) mmol/L Anion Gap 4 (2-11) mmol/L BUN 60 H (6-24) mg/dL Creatinine 2.73 H (0.67-1.17) mg/dL Est GFR ( Amer) 28.1 (>60) Est GFR (Non-Af Amer) 23.2 (>60) BUN/Creatinine Ratio 22.0 H (8-20) Glucose 107 H (70-100) mg/dL POC Glucose (mg/dL) (70-100) mg/dL Lactic Acid 1.0 (0.5-2.0) mmol/L Calcium 8.7 (8.6-10.3) mg/dL Total Bilirubin 0.40 (0.2-1.0) mg/dL AST 9 L (13-39) U/L ALT 6 L (7-52) U/L Alkaline Phosphatase 84 (34-104) U/L Troponin I 0.01 (<0.04) ng/mL Total Protein 6.8 (6.4-8.9) g/dL Albumin 3.2 (3.2-5.2) g/dL Globulin 3.6 (2-4) g/dL Albumin/Globulin Ratio 0.9 L (1-3) Triglycerides 107 mg/dL Cholesterol 115 mg/dL LDL Cholesterol 67 mg/dL HDL Cholesterol 27.1 mg/dL Urine Color Urine Appearance Urine pH (5-9) Ur Specific [place] (1.010-1.030) Urine Protein (Negative) Urine Ketones (Negative) Urine Blood (Negative) Urine Nitrate (Negative) Urine Bilirubin (Negative) Urine Urobilinogen (Negative) Ur Leukocyte Esterase (Negative) Urine WBC (Auto) (Absent) Urine RBC (Auto) (Absent) Ur Squamous Epith Cells (Absent) Urine Bacteria (Absent) Urine Glucose (Negative) Blood Type O Negative Antibody Screen Negative 05/18/18 Range/Units 12:43 WBC (3.5-10.8) 10^3/ul RBC (4.00-5.40) 10^6/ul Hgb (14.0-18.0) g/dl Hct (42-52) % MCV (80-94) fL MCH (27-31) pg MCHC (31-36) g/dl RDW (10.5-15) % Plt Count (150-450) 10^3/ul MPV (7.4-10.4) um3 Neut % (Auto) (38-83) % Lymph % (Auto) (25-47) % [place] % (Auto) (0-7) % Eos % (Auto) (0-6) % Baso % (Auto) (0-2) % Absolute Neuts (auto) (1.5-7.7) 10^3/ul Absolute Lymphs (auto) (1.0-4.8) 10^3/ul Absolute Monos (auto) (0-0.8) 10^3/ul Absolute Eos (auto) (0-0.6) 10^3/ul Absolute Basos (auto) (0-0.2) 10^3/ul Absolute Nucleated RBC 10^3/ul Nucleated RBC % INR (Anticoag Therapy) (0.77-1.02) APTT (26.0-36.3) seconds Sodium (135-145) mmol/L Potassium (3.5-5.0) mmol/L Chloride (101-111) mmol/L Carbon Dioxide (22-32) mmol/L Anion Gap (2-11) mmol/L BUN (6-24) mg/dL Creatinine (0.67-1.17) mg/dL Est GFR ( Amer) (>60) Est GFR (Non-Af Amer) (>60) BUN/Creatinine Ratio (8-20) Glucose (70-100) mg/dL POC Glucose (mg/dL) (70-100) mg/dL Lactic Acid (0.5-2.0) mmol/L Calcium (8.6-10.3) mg/dL Total Bilirubin (0.2-1.0) mg/dL AST (13-39) U/L ALT (7-52) U/L Alkaline Phosphatase (34-104) U/L Troponin I (<0.04) ng/mL Total Protein (6.4-8.9) g/dL Albumin (3.2-5.2) g/dL Globulin (2-4) g/dL Albumin/Globulin Ratio (1-3) Triglycerides mg/dL Cholesterol mg/dL LDL Cholesterol mg/dL HDL Cholesterol mg/dL Urine Color Yellow Urine Appearance Cloudy Urine pH 7.0 (5-9) Ur Specific [place] 1.010 (1.010-1.030) Urine Protein 1+(30 mg/dl) A (Negative) Urine Ketones Negative (Negative) Urine Blood 1+ A (Negative) Urine Nitrate Negative (Negative) Urine Bilirubin Negative (Negative) Urine Urobilinogen Negative (Negative) Ur Leukocyte Esterase 2+ A (Negative) Urine WBC (Auto) 2+(11-20/hpf) A (Absent) Urine RBC (Auto) 1+(3-5/hpf) A (Absent) Ur Squamous Epith Cells Present A (Absent) Urine Bacteria Absent (Absent) Urine Glucose Negative (Negative) Blood Type Antibody Screen Result Diagrams: 05/18/18 12:31 05/18/18 12:31 Lab Statement: Any lab studies that have been ordered have been reviewed, and results considered in the medical decision making process. - Radiology CXR Radiology Interpretation Completed By: Radiologist - IMPRESSION: NEGATIVE EXAMINATION. CARDIOMEGALY WITH SUSPECTED INTERSTITIAL EDEMA AND LEFT-SIDED INFILTRATE, ATELECTASIS AND/OR PLEURAL FLUID. ER Physician has reviewed this report. - CT Brain CT Interpretation Completed By: Radiologist - IMPRESSION: NO ACUTE INTRACRANIAL FINDINGS. ER Physician reviewed this report - EKG 12:28 Cardiac Rate: NL - 74 bpm EKG Rhythm: Sinus Rhythm EKG Interpretation: Chronic ST elevation. Paced rhythm. National Institutes Of Health - NIH Scale Level of Consciousness: Alert/Keenly Responsive Ask Patient the Month and His/Her Age: Both Correct Ask Pt to Open/Close Eyes and Residency Program Coordinator/Release Non-Paretic Hand: Both Correctly Best Gaze (Only Horizontal Eye Movement): Normal Visual Field Testing: No Visual Loss Facial Paresis-Pt to Smile & Close Eyes or Grimace Symmetry: Normal/Symmetrical Motor Function - Right Arm: Effort Against [place] Motor Function - Left Arm: No Drift-Holds 10 Seconds Motor Function - Right Leg: Effort Against [place] Motor Function - Left Leg: No Drift-Holds 10 Seconds Limb Ataxia-Must be out of Proportion to Weakness Present: Absent Sensory (Use Pinprick to Test Arms/Legs/Trunk/Face): Pinprick Less on Affected Best Language (Describe Picture, Name Items): No Aphasia Dysarthria (Read Several Words): Slurs Some Words Extinction and Inattention: No Abnormality Total Score: 6 Re-Evaluation - Re-Evaluation First Eval Re-Evaluation Time: 14:35 Comment: Pt's brother reports that every time the pt has a kidney infection he ends up with stroke symptoms Course/Dx - Course Course Of Treatment: This is scribe Marito Delgado documenting for attending Dr. Juan Luis Franco MD. This patient is a 67 year old M presenting to [facility] with a chief complaint of numbness in his right arm since earlier this morning. The patient rates the pain 6/10 in severity. Patient reports slurred speech, SOB with air tube, numbness in his legs and arms, difficulty moving right arm and hand, chest tightness, weakness in right side, and increased urinary frequency ( every 15 mins). Pt was feeling normal this morning before he started having symptoms. Pt tried CPAP but this made his breathing worse. Pt is always on oxygen while in bed. A parekh catheter was put in place in the [facility]. Pt was feeling better during the physical exam than he did upon initial arrival to [facility]. PMHx CVA. No PMHx dialysis. SHx lives in [place]. An EKG reveals NSR 74 bpm , paced rhythm, chronic ST elevation. CXR reveals, per radiologist, NEGATIVE EXAMINATION. CARDIOMEGALY WITH SUSPECTED INTERSTITIAL EDEMA AND. LEFT-SIDED INFILTRATE, ATELECTASIS AND/OR PLEURAL FLUID. Brain CT reveals IMPRESSION: NO ACUTE INTRACRANIAL FINDINGS. ED physician has reviewed this radiology report. In the ED course the pt was given IV fluids, Rocephin, and a parekh catheter. We discussed patient care with Dr. Mar and they recommended no CTA due to renal insufficiency, no TPA due to anti-coagulants, and no MRI due to pacemaker. NIH 7, per Dr. Mar. We will admit him to [facility]. The patient is agreeable with this plan. - Diagnoses Provider Diagnoses: UTI (urinary tract infection), CVA (cerebral vascular accident) - Physician Notifications Discussed Care of Patient With: Juan Maunel Mar Time Discussed With Above Provider: 14:25 Instructed by Provider To: Admit As Inpatient - Reccomends no CTA due to renal failure, no TPA due to anti-coagulants, no MRI due to pacemaker. Pt is morbidly obese. NIH score of [address] Mar. Discharge - Sign-Out/Discharge Documenting (check all that apply): Patient Departure - Admit - Discharge Plan Condition: Fair Disposition: ADMITTED TO [facility] Patient Education Materials: Urinary Tract Infection in Men (ED) Referrals: Pippa Zepeda MD [Primary Care Provider] -
[2018-05-18] MEDS ORDERED: cefTRIAXone(*) 1 GM in NS 0.9% 50 ML* 50 ML IVPB ONE (14:36)
[2018-05-18] MEDS ORDERED: cefTRIAXone(*) 1 GM ADVAN/BAG ONE (14:48)
[2018-05-18] MEDS ORDERED: Ondansetron INJ* 2 MG/ML VIAL IV PRN (15:40)
[2018-05-18] MEDS ORDERED: Acetaminophen TAB* 325 MG PO PRN (15:40)
[2018-05-18] MEDS ORDERED: Albuterol 2.5 MG/3 ML NEB.SOL* (0.083%) INH PRN (15:54)
[2018-05-18] MEDS ORDERED: Ipratropium 0.5MG/2.5ML NEB* 0.5 MG/2.5 ML NEB.SOLN INH PRN (15:54)
[2018-05-18] MEDS ORDERED: oxyCODONE TAB* 5 MG TAB PO PRN (15:54)
[2018-05-18] MEDS: Furosemide IV* 10 MG/ML VIAL (40 MG) IV SLOW PU SCH (16:00)
[2018-05-18] MEDS ORDERED: LORazepam INJ* 2 MG/ML 1 ML VIAL IV PUSH ONE (16:37)
[2018-05-18] MEDS ORDERED: LORazepam INJ* 2 MG/ML 1 ML VIAL ONE (16:40)
[2018-05-18] MEDS: Warfarin TAB(*) 2.5 MG PO SCH (20:06)
[2018-05-18] MEDS: Tamsulosin CAP* 0.4 MG PO SCH (20:07)
--- NOTE | 2018-05-18 20:59 | HP ---
CC: [facility] * ADMISSION HISTORY AND PHYSICAL: DATE OF ADMISSION: 05/18/18 PRIMARY CARE PROVIDER: [facility]. MY ATTENDING WHILE IN THE HOSPITAL: Dr. Johana Christopher.* (DICTATED BY TRESSA BURCIAGA) CHIEF COMPLAINT: Right-sided weakness times several hours. HISTORY OF PRESENT ILLNESS: Mr. 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 The patient states that he was unable to abduct his right arm, which is new for him. The patient also states that he had some slurred speech. The patient was brought to the emergency department, called as a Code Garcia, and [facility] The patient was recommended against tPA due to chronic anticoagulation. The patient was deemed to have an NIH Stroke Score of 7. The patient states this is worse than it has been before; however, documentation from both previous admissions to this hospital as well as recent admission to [facility] where he had sepsis related to MRSA and VRE, he had similar complaints of dysarthria and right- sided weakness including with the upper arm, which is where he states the primary difference is. The patient also states that he has numbness in his right leg and arm, which had also been previously documented. The patient has been unable to walk for the last 7 months due to physical deconditioning. The patient has recently been having severely increased urinary frequency with a feeling of having to go every 15 minutes, pain with going and urinating only small amounts at a time. The patient also has been having a feeling of a full bladder. The patient has a history of urinary retention previously with severe obstructive uropathy. The patient is weighted frequently at [facility], [place] and states that he has been gaining a lot of weight. Per documentation, the patient has gained 25 pounds since he has been in the hospital last. The patient was diuresed over 9 L at that time. The patient does not have indwelling Hilario catheter, though he did as of December of this year. The patient is on tamsulosin. The patient does not follow up with urologist. The patient has a known history of heart failure with reduced ejection fraction, though recent transesophageal echocardiogram from [place] showed a normal ejection fraction, but transthoracic echocardiogram from this institution in December showed a reduced ejection fraction. The patient had a recent urinary culture on 05/09/18, which had no growth of clinically significant organisms. The patient has documentation from the correction that he was to be treated empirically for UTI on 05/15/18, though this was discontinued for some unknown reason. It looks as though the patient received ciprofloxacin and Bactrim at that time. The patient's lab work is all at baseline. Due to concern for urinary tract infection as well as possible new CVA, we were asked to evaluate for admission. PAST MEDICAL HISTORY: Chronic kidney disease; heart failure with reduced ejection fraction; CVA; AFib; obstructive sleep apnea; hypertension; BPH; urinary retention; anemia; morbid obesity; history of MRSA UTI and VRE bacteremia; chronic respiratory failure, on 3 L of oxygen. PAST SURGICAL HISTORY: Pacemaker implantation, hernia repair. MEDICATIONS: 1. Tamsulosin 0.4 mg p.o. at bedtime. 2. Tylenol 650 mg p.o. at bedtime. 3. Ipratropium 0.5 mg inhalation q.6 hours as needed. 4. Aspirin 81 mg p.o. daily. 5. Senna-S 1 tab p.o. q.a.m. 6. Oxycodone 5 mg p.o. q.6 hours as needed. 7. Tylenol 650 mg p.o. q.8 hours as needed. 8. Advair Diskus 1 puff inhalation b.i.d. 9. Vitamin D 2000 units p.o. q.a.m. 10. Roxicodone 5 mg p.o. q.a.m. 11. Albuterol nebulizer 2.5 mg inhalation q.2 hours as needed. 12. Torsemide 40 mg p.o. daily. 13. Warfarin 2.5 mg p.o. daily. 14. Spironolactone 12.5 mg p.o. daily. ALLERGIES: No known drug allergies. FAMILY HISTORY: The patient's mother of colon cancer. The patient's father of lung cancer. The patient has 3 brothers and 2 sisters, all of whom are healthy. SOCIAL HISTORY: The patient has a very remote history of smoking, not a large amount. The patient has no history of alcohol abuse and has a very remote history of illicit drug use. 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 The patient was never and does not have any children. REVIEW OF SYSTEMS: A 14-point review of systems was reviewed and is negative except as above. PHYSICAL EXAMINATION GENERAL: The patient is a 67-year-old male, who appears older than stated age and sitting comfortably in bed with intermittent movements, which he attributes to pain. VITAL SIGNS: At the time of evaluation, temperature 97.6, pulse rate 70, respiratory rate 27, oxygen saturation 98% on 4 L, blood pressure 122/59. HEENT: Head: Normocephalic, atraumatic. Sclerae anicteric. No conjunctival injection. Nasal mucosa moist. Oral mucosa moist. No pharyngeal erythema, discharge, or exudate. NECK: Obese, supple, nontender. No lymphadenopathy. No carotid bruits auscultated. No JVD. RESPIRATORY: Severely diminished throughout due to body habitus. No adventitious lung sounds. CARDIAC: Regular rate and rhythm. No clicks, murmurs, gallops, or rubs. Pulses are 2+ in the bilateral dorsalis pedis, posterior tibial, and radial areas. Trace bilateral lower extremity edema noted. No calf tenderness bilaterally. ABDOMEN: Obese, soft, nontender, nondistended. No hepatosplenomegaly. Again, limited by body habitus. GENITOURINARY: Suprapubic tenderness. No CVA tenderness. Hilario catheter draining orange urine with clots and cloudy material. NEURO: Cranial nerves II through XII intact. The patient has 3/5 strength with abduction, flexion, and box car loader strength in the right arm; 4/5 strength in the left arm. 3/5 strength in all muscle groups in the right lower extremity, 4 /5 strength in all muscle groups in the left lower extremity. Reflexes 1+ in bilateral biceps, patellar, and Achilles areas. Downgoing Babinski's bilaterally. Decreased sensation in the right lower extremity. Alert and oriented x3. PSYCHIATRIC: Pleasant and cooperative. SKIN: Clean, dry, intact. A yeasty rash on his groin. DIAGNOSTIC STUDIES/LAB DATA: White blood cell count 6.9, hemoglobin 14.2, hematocrit 38, platelet count 199. INR 2.18. Sodium 141, potassium 4.0, chloride 98, carbon dioxide 39, anion gap 4, BUN 60, creatinine 2.73, glucose 107, lactic acid 1.0, calcium 8.7. Bilirubin 0.4, AST 9, ALT 6, alk phos 54. Troponin I of 0.01. Protein 6.8, albumin 3.2, globulin 3.6. Triglycerides 107 , cholesterol 115, LDL cholesterol 67, HDL cholesterol 27.1. Urine shows 1+ protein, 1+ blood, 2+ leukocyte esterase, 2+ white blood cells, 1+ red blood cells, positive squamous epithelial cells, negative bacteria. Brain CT read as no acute intracranial findings. Chest x-ray read as negative examination, cardiomegaly, suspect interstitial edema, left-sided infiltrate, atelectasis, and/or pleural fluid. These are consistent with previous examination. Electrocardiogram shows paced rhythm, rate 74, right bundle branch morphology consistent with previous exam. ASSESSMENT AND PLAN/IMPRESSION: Mr. Terry is a 67-year-old male with a complex past medical history including cerebrovascular accident with multiple recurrences of right-sided weakness associated with particularly infections as well as heart failure with reduced ejection fraction, chronic respiratory failure, morbid obesity, and benign prostatic hyperplasia, who presents to the hospital with sudden onset right-sided weakness consistent with his previous deficits as well as dysphasia, which is also part of his recurrent neurologic dysfunction. The patient was not a candidate for tPA due to anticoagulation and has limited ability to have further neurologic workup. The patient's episode usually resolves on its own. The patient was found to be retaining urine over 1 L. The patient has symptoms consistent with dysuria. He will be admitted to the hospital with concern for new stroke versus recurrence or worsening of recurrent neurologic deficit and will be started on ceftriaxone and seen in consultation by Neurology and continued secondary prevention for cerebrovascular accident. 1. Weakness, previous cerebrovascular accident, concern for new cerebrovascular accident. The patient has neurologic deficits, which are consistent with multiple documented episodes of weakness usually associated with episodes of infection. The patient will be continued on warfarin, aspirin. The patient had a negative CT of the brain. The patient is unable to have a CTA or MRI due to pacemaker and chronic kidney disease respectively. We will defer to Neurology for utility of repeat carotid ultrasound. The patient will have physical therapy to help restore functional capacity. There is a chance this is related to conversion syndrome or recrudescence of previous neurological deficits. The patient was unable to pass his swallow evaluation. This will be repeated on the floor and if needed, he will be seen by Speech Therapy. 2. Urinary tract infection, urinary retention. The patient has a known history of recurrent urinary tract infection and urinary retention related to benign prostatic hyperplasia. The patient recently had a negative urine culture. This will be repeated at this time. The patient was retaining up to a liter of urine. The patient has a Hilario catheter inserted. This will be left in place. The patient should follow up outpatient with Urology as was previously recommended for urodynamic testing and consideration for therapy for his benign prostatic hyperplasia. The patient will be continued on tamsulosin and started on Proscar. The patient will be started on ceftriaxone pending culture and sensitivities. The patient has blood cultures pending. The patient is not septic. 3. Shortness of breath. The patient had quick onset of shortness of breath this morning. The patient has interstitial edema on chest x-ray. The patient has gained 25 pounds since his most recent admission. The patient will be started on increased dose of IV Lasix to facilitate diuresis and hopefully help with his shortness of breath. The patient is saturating well on his home dose of oxygen. 4. Heart failure with reduced ejection fraction. The patient will be continued on spironolactone. The patient is not on an ROMINA or an ARB. These will not be started due to the patient's borderline kidney function. The patient is also not on a beta mahad for unknown reason. Consideration for starting this medication should be made during this hospitalization after the acute phase of the patient's stroke has passed and if the patient continues to improve. 5. Chronic kidney disease. The patient's kidney disease is at baseline. We will avoid nephrotoxic medications. It is possible this may be elevated due to chronic obstruction and for this, we would recommend consideration for long- term indwelling Hilario catheter. 6. Atrial fibrillation. Continue anticoagulation. The patient has a pacemaker and is rate controlled. 7. Obstructive sleep apnea. Continue the patient's home CPAP. 8. Chronic respiratory failure. This is likely due to pulmonary hypertension related to obesity hypoventilation syndrome and obstructive sleep apnea. Continue oxygen. 9. Anemia. This is baseline, likely due to the patient's chronic kidney disease. 10. DVT prophylaxis: The patient will be continued on Coumadin. 11. FEN: The patient will be n.p.o. until he passes a swallow evaluation. The patient will not have fluids as he is fluid overloaded. 12. Code status: The patient would like to be a full code. The patient's surrogate decision maker will be his brother, David Terry. TIME SPENT: Approximately 90 minutes was spent on this admission, 45 of which was spent [id number] with the patient obtaining history and physical and discussing treatment plan. The plan was discussed with my attending, Dr. Johana Christopher, and she is in agreement. TRESSA BURCIAGA [id number]/CPS #: [id number] MTDD
[2018-05-18] MEDS: Mometasone/Formoter 200/5 MDI INH SCH (22:27)
[2018-05-19 07:01] LABS: ABS Basophils 0.1 10^3/ul (0-0.2); ABS Eosinophils 0.2 10^3/ul (0-0.6); ABS Lymphocytes 0.5 10^3/ul (1.0-4.8); ABS Monocytes 0.4 10^3/ul (0-0.8); ABS Neutrophils 6.7 10^3/ul (1.5-7.7); ABS Nucleated RBC 0 10^3/ul; Eosinophil % 2.1 % (0-6); Hematocrit 38 % (42-52); Hemoglobin 12.3 g/dl (14.0-18.0); Lymphocyte % 6.6 % (25-47); Mean Corpuscular HGB Conc 33 g/dl (31-36); Mean Corpuscular Hemoglobin 26 pg (27-31); Mean Corpuscular Volume 80 fL (80-94); Mean Platelet Volume 7.7 um3 (7.4-10.4); Nucleated Red Blood Cells % 0.1; Platelet Count 218 10^3/ul (150-450); Red Blood Count 4.76 10^6/ul (4.00-5.40); Red Cell Distribution Width 16 % (10.5-15); White Blood Count 7.8 10^3/ul (3.5-10.8)
[2018-05-19 07:05] LABS: INR 2.23 (0.77-1.02)
[2018-05-19 07:11] LABS: EGFR Non-African American 22.4 (>60)
[2018-05-19] MEDS: Cholecalciferol TAB* 1000 UNITS PO SCH (08:10)
[2018-05-19] MEDS: oxyCODONE TAB* 5 MG TAB PO SCH (08:10)
[2018-05-19] MEDS: Aspirin EC TAB* 81 MG TAB.EC PO SCH (08:11)
[2018-05-19] MEDS: Furosemide IV* 10 MG/ML VIAL (40 MG) IV SLOW PU SCH (08:11)
[2018-05-19] MEDS: Docusate CAP* 100 MG PO SCH (08:11)
[2018-05-19] MEDS: Finasteride TAB* 5 MG PO SCH (08:11)
[2018-05-19] MEDS: Senna TAB PO SCH (08:12)
[2018-05-19] MEDS ORDERED: NS 0.9% 1000 ML* 1,000 ML IV SCH (08:15)
[2018-05-19] MEDS: Mometasone/Formoter 200/5 MDI INH SCH ×2 (09:10→20:06)
[2018-05-19] MEDS ORDERED: Perflutren Lipid Microsphere* 3 ML VIAL ONE (09:34)
[2018-05-19] MEDS: Spironolactone TAB* 25 MG PO SCH (11:43)
--- NOTE | 2018-05-19 13:14 | ECHO ---
Patient: JONAH RUSSELL [facility] Rec#: [id number] : 1950 Date: 05/19/2018 Age: 67y Height: 188 cm / 74.0 in Weight: 209 kg / 460.6 lbs Sex: M BSA: 3.1 Room#: 446 Admit Date#: 05/18/2018 Type: Inpatient Referring: Ruslan Gil Reading: Chester Do MD [employer]visor [employer]: Tasha Mota RDCS,RDMS Transthoracic Echocardiogram Indication: CVA BP: 120/61 HR: 72 Rhythm: NSR Findings History: CVA, CHF, AFIB, AICD, CHF, HTN, morbid obesity Technical Comments: The study is technically difficult. The study is technically limited due to poor acoustic windows. Images poor even with Definity contrast Left Ventricle: The left ventricular chamber size is moderately dilated. Moderate concentric left ventricular hypertrophy is observed. Unable to estimate left ventricular ejection fraction. The assessment of diastolic function is non-diagnostic. Left Atrium: The left atrium is moderate to severely dilated. Right Ventricle: The right ventricular chamber size and systolic function are within normal limits. The right ventricle wall thickness is mildly increased. A pacemaker wire is visualized in the right ventricle. Right Atrium: The right atrium is not well visualized. Negative bubble study on previous Transesophageal echo (2016). Aortic Valve: The aortic valve is trileaflet. The aortic valve leaflets are mildly thickened. There is no evidence of aortic regurgitation. There is no evidence of aortic stenosis. Mitral Valve: The mitral valve structure is not well visualized. The mitral valve leaflets are mildly thickened. There is no evidence of mitral stenosis. Tricuspid Valve: The tricuspid valve structure is not well visualized. The tricuspid valve leaflets are not thickened. There is trace tricuspid regurgitation. Unable to estimate the right ventricular systolic pressure. Pulmonic Valve: There is no evidence of pulmonic valve thickening. There is no evidence of pulmonic regurgitation. Pericardium: There is no significant pericardial effusion. Aorta: There is mild dilatation of the ascending aorta. The aortic arch is not well visualized. There is mild dilatation of the aortic root. Pulmonary Artery: The main pulmonary artery is not well visualized. Venous: The inferior vena cava is not visualized. Contrast: Definity was used to optimize study. Conclusions The study is technically limited due to poor acoustic windows. Images poor even with Definity contrast Moderate concentric left ventricular hypertrophy is observed. Unable to estimate left ventricular ejection fraction. The right atrium is not well visualized. Negative bubble study on previous Transesophageal echo (2016). There is no evidence of aortic stenosis. Unable to evaluate Mitral regurgitation Unable to estimate the right ventricular systolic pressure. There is no significant pericardial effusion. Unable to compare to previous studies Measurements Name Value Normal Range RVIDd (AP) 2D 3.8 cm (0.9 - 2.6) IVSd (2D) 1.5 cm (0.6 - 1) LVPWd (2D) 1.7 cm (0.6 - 1) LVIDd (2D) 6.4 cm (3.6 - 5.4) LVIDs (2D) 4.3 cm - LV FS (2D) 33 % (25 - 45) Aortic Annulus 2.5 cm (1.4 - 2.6) Ao root diameter (2D) 3.9 cm (2.1 - 3.5) Ascending Ao 3.8 cm (2.1 - 3.4) LA dimension (AP) 2D 6.5 cm (2.3 - 3.8) Name Value Normal Range MV E-wave Vmax 0.9 m/sec - MV deceleration time 161 msec - MV A-wave Vmax 0.3 m/sec - MV E:A ratio 3.5 ratio - Name Value Normal Range AV Vmax 1 m/sec - AV VTI 16 cm - AV peak gradient 4 mmHg - AV mean gradient 2 mmHg - LVOT Vmax 0.8 m/sec - LVOT VTI 14 cm - LVOT peak gradient 2.6 mmHg - LVOT mean gradient 1 mmHg - Name Value Normal Range MV Vmax 0.9 m/sec - MV VTI 17 cm - MV peak gradient 3.2 mmHg - MV mean gradient 1 mmHg - Name Value Normal Range RAP 8 mmHg - Name Value Normal Range PV Vmax 0.8 m/sec - PV peak gradient 2.6 mmHg -
--- NOTE | 2018-05-19 13:18 | PN ---
Subjective Date of Service: 05/19/18 Interval History: HOSPITALIST PROGRESS NOTE Patient seen and examined at bedside. Care reviewed and d/w Zainab Lara RN. He offers no new complaints today. States his right side weakness is improving. Family History: Unchanged from Admission Social History: Unchanged from Admission Past Medical History: Unchanged from Admission Objective Active Medications: Acetaminophen (Tylenol Tab*) 650 mg PO Q6H PRN PRN Reason: FEVER/PAIN Albuterol (Ventolin 2.5 Mg/3 Ml Neb.Maggie*) 2.5 mg INH Q2H PRN PRN Reason: SOB/WHEEZING Aspirin (Aspirin Ec Tab*) 81 mg PO DAILY [facility] Last Admin: 05/19/18 08:11 Dose: 81 mg Cholecalciferol (Vitamin D Tab*) 2,000 units PO QAM [facility] Last Admin: 05/19/18 08:10 Dose: 2,000 units Docusate Sodium (Colace Cap*) 100 mg PO QAM [facility] Last Admin: 05/19/18 08:11 Dose: 100 mg Finasteride (Proscar Tab*) 5 mg PO DAILY [facility] Last Admin: 05/19/18 08:11 Dose: 5 mg Furosemide (Lasix Iv*) 40 mg IV SLOW PU 0800,1700 [facility] Last Admin: 05/19/18 08:11 Dose: 40 mg Ceftriaxone Sodium 1 gm/ (Sodium Chloride) 50 mls @ 200 mls/hr IVPB Q24H [facility] Sodium Chloride (Ns 0.9% 1000 Ml*) 1,000 mls @ 75 mls/hr IV PER RATE [facility] Last Admin: 05/19/18 09:08 Dose: 75 mls/hr Ipratropium [place] (Atrovent 0.5 Mg Neb.Maggie*) 0.5 mg INH Q6HR PRN PRN Reason: SHORTNESS OF BREATH Mometasone Furoate/Formoterol Fumar (Dulera 200/5 Mdi*) 2 puff INH BID [facility] Last Admin: 05/19/18 09:10 Dose: 2 puff Ondansetron HCl (Zofran Inj*) 4 mg IV Q6H PRN PRN Reason: NAUSEA Oxycodone HCl (Roxycodone Tab*) 5 mg PO Q6H PRN PRN Reason: PAIN - UNRELIEVED Oxycodone HCl (Roxycodone Tab*) 5 mg PO QAM [facility] Last Admin: 05/19/18 08:10 Dose: 5 mg Senna (Senokot Tab*) 1 tab PO QAM [facility] Last Admin: 05/19/18 08:12 Dose: 1 tab Spironolactone (Aldactone Tab*) 12.5 mg PO DAILY [facility] Last Admin: 05/19/18 11:43 Dose: Not Given Tamsulosin HCl (Flomax Cap*) 0.4 mg PO BEDTIME [facility] Last Admin: 05/18/18 20:07 Dose: 0.4 mg Warfarin Sodium (Coumadin Tab(*)) 2.5 mg PO 1700 [facility]; Protocol Last Admin: 05/18/18 20:06 Dose: 2.5 mg Vital Signs - 8 hr 05/19/18 05/19/18 05/19/18 07:51 08:10 09:15 Temperature 98.9 F Pulse Rate 76 70 Respiratory 20 20 20 Rate Blood Pressure 95/70 (mmHg) O2 Sat by Pulse 95 92 Oximetry 05/19/18 10:42 Temperature Pulse Rate Respiratory 20 Rate Blood Pressure (mmHg) O2 Sat by Pulse Oximetry Oxygen Devices in Use Now: Nasal Cannula Appearance: Elderly, super morbid obese male lying in bed in [facility]. Eyes: No Scleral Icterus Ears/Nose/Mouth/Throat: Mucous Membranes Moist Neck: Trachea Midline Respiratory: Symmetrical Chest Expansion and Respiratory Effort, Clear to Auscultation, - - Exam limited due to body habitus Cardiovascular: RRR - Normal S1 and S2 Abdominal: NL Sounds; No Tenderness; No Distention - Morbid obese Neurological: Alert and Oriented x 3, - - Right hemiparesis Result Diagrams: 05/19/18 06:34 05/19/18 06:33 Assess/Plan/Problems-Billing Assessment: Mr. Terry is a 67yo M with PMH of super morbid obesity with BMI 59, CKD stage 4 , systolic CHF with EF 45%, Afib, prior CVA with residual right sided hemiparesis, TORY, HTN, BPH, urinary retention, chronic hypoxemic respiratory failure on home O2, MRSA UTI, VRE bacteremia, SNF resident, who presented to ED with c/o worsening of baseline right sided weakness. - Patient Problems (1) UTI (urinary tract infection) Comment: - Found to have urinary retention in the ED - Hilario placed and urine described as "cloudy yellow urine with clots, mucous threads and foul smell". - UA shows 2+ LE 2+ WBC - continue Ceftriaxone and follow urine culture. (2) Urinary retention Comment: - Hilario placed in ED with drainage of 900ml. - Continue Finasteride and Tamsulosin. (3) Hemiparesis of right dominant side as late effect of cerebral infarction Comment: - D/w Neurology (Dr Hui) - his presentation is compatible with exacerbation of his chronic neurological deficits secondary to UTI. - Dr Hui doesn't feel any further testing or change in his medication is indicated at this time. - Continue Aspirin and Warfarin. (4) CKD (chronic kidney disease) stage 4, GFR 15-29 ml/min Comment: - Renal function is stable. (5) Acute on chronic systolic (congestive) heart failure Comment: - Echo was a limited study due to body habitus, unable to estimate EF. - Unclear how far he is from his baseline. - Continue Furosemide IV. (6) Atrial fibrillation Comment: - Heart rate is controlled. - Chronic AF with previous cardioembolic stroke 09/04/2016. - Continue Warfarin. (7) TORY (obstructive sleep apnea) Comment: - Continue CPAP. (8) DVT prophylaxis Comment: - Warfarin. (9) Full code status Status and Disposition: Inpatient.
[2018-05-19] MEDS: cefTRIAXone(*) 1 GM in NS 0.9% 50 ML* 50 ML IVPB SCH (13:31)
--- NOTE | 2018-05-19 16:09 | CONS ---
CC: [facility] * NEUROLOGY CONSULTATION REPORT: DATE OF CONSULT: 05/19/18 LOCATION: He is an inpatient in room 446. REFERRING PROVIDER: TRESSA Perez. CHIEF COMPLAINT: Right-sided weakness. HISTORY OF PRESENT ILLNESS: Zac Terry is a 67-year-old right-handed man, who presented to the emergency room late yesterday with worsened right-sided weakness. He said that after breakfast, he was lying in his bed and noted he could not raise his right arm up like he normally can. He has a recurrent urinary tract infections and apparently had some antibiotics for couple of days prior to admission, which were stopped. His urinalysis yesterday upon presentation revealed 2+ leukocyte esterase and 2+ white blood cells. A telestroke consultation was carried out by verbal report and because of the anticoagulation and inability to do a CT angiogram because of chronic renal insufficiency, he was not considered a t-PA or endovascular candidate. In looking through the records, this was at least his 5th if not 6th hospital presentation for right-sided weakness. Last November, he was transferred to the [facility] because of right-sided weakness for possible endovascular therapy. He was found to have a urinary tract infection and was simply treated for that. He has had multiple other emergency room presentations and hospitalizations for right-sided weakness. I saw him in February of 2017 for right-sided weakness, which I thought was chronic and perhaps slightly functional. He has had numerous CAT scans, which have not revealed a clear cerebrovascular accident and are often contaminated by movement artifact. He has not been able to get an MRI scan. I have recollection of possibly seeing him many years ago for the same thing. There is no history of epilepsy. PAST MEDICAL HISTORY: Notable for chronic kidney disease; atrial fibrillation; possible remote stroke; obstructive sleep apnea, not on CPAP; morbid obesity; recurrent urinary tract infections including vancomycin-resistant E. coli and methicillin-resistant Staph aureus; chronic respiratory failure, on oxygen; history of congestive heart failure; history of benign prostatic hypertrophy. MEDICATIONS: At his senior living include: 1. Tamsulosin. 2. Aspirin 81 mg p.o. q. day. 3. Oxycodone 5 mg p.o. q.6 hours p.r.n. 4. Roxicodone 5 mg p.o. q.a.m. 5. Torsemide 40 mg p.o. q. day. 6. Warfarin 2.5 mg p.o. q. day. 7. Spironolactone 12.5 mg p.o. q. day. ALLERGIES: He does not have any drug allergies. FAMILY HISTORY: Negative for epilepsy. Both of his parents of complications of cancer. SOCIAL HISTORY: The patient used to smoke, but not for many years. No history of alcohol abuse. He was injured in [place]. REVIEW OF SYSTEMS: Notable for recent weight gain, ongoing shortness of breath , intermittent abdominal pain. He has not been able to ambulate for more than 6 months. He denies fevers or chills. PHYSICAL EXAM: He is morbidly obese. He has been afebrile throughout his hospital stay. Most recent temperature 98.9, blood pressure 95/70, heart rate in the 70s and paced, respiratory rate is 12 and oxygen saturation is 95% on 3 L of oxygen nasal cannula. Lungs are clear anterolaterally, but poorly heard respiratory sounds. Distant heart tone and sound normal. I do not hear murmurs. I do not hear any cervical bruits and I cannot feel his cervical pulses due to his thick neck. Oral mucosa is moist and atraumatic. Dentition is poor. Neurologic Exam: Pupils react equally from 3 to 2 mm. Eye movements are normal. Facial musculature is symmetric. Facial sensation is reported as diminished to light touch in the right cheek relative to the left. Tongue protrudes in the midline and palate rises symmetrically. Motor exam reveals normal tone in the limbs. He has antigravity strength of all limbs, but feels that his right arm is heavier. He has diminished pin discrimination in the feet , but otherwise symmetrical sensation to pin and light touch. Reflexes are trace, ankle reflexes are absent, plantar responses are flexor. He is alert and oriented to person, place, and time. He is a poor historian forgetting that he has had problems with right-sided weakness or thinking it might have started 6 months ago. Language is generally fluent. DIAGNOSTIC STUDIES/LAB DATA: Includes urinalysis as mentioned above. His BUN at presentation was 60 and creatinine 2.7. Carbon dioxide elevated at 39. Glucose 107. Cholesterol 115, LDL 67. CBC on presentation unremarkable other than borderline anemia with a hematocrit of 38. He had an EEG earlier today, which revealed some mild left hemisphere slowing, but no epileptiform discharges. Multiple CTs of the brain reviewed going back several years. There is usually artifact present, but there are no focal abnormalities. IMPRESSION AND PLAN: Impression is that of multiple episodes of recurrent right -sided weakness. He may have had a remote stroke, but there is no good documentation of it. He is not able to get an MRI scan and he is already anticoagulated for atrial fibrillation. His carotid ultrasound from last year did not reveal significant stenosis. I suspect there may be a functional component or perhaps just worsening of chronic right-sided weakness when he gets an infection. I do not see need for further cerebrovascular workup. He cannot get an MRI scan or receive contrast. I do not think he needs repeat carotid ultrasound as it was unremarkable a year ago as it was 2 years prior to that. [id number]/[facility] #: [id number] GRETEL
[2018-05-19] MEDS: Warfarin TAB(*) 2.5 MG PO SCH (19:24)
[2018-05-19] MEDS: Tamsulosin CAP* 0.4 MG PO SCH (21:29)
[2018-05-20 05:57] LABS: INR 2.36 (0.77-1.02)
[2018-05-20] MEDS: Mometasone/Formoter 200/5 MDI INH SCH ×2 (08:55→20:36)
--- NOTE | 2018-05-20 09:39 | EEG ---
ELECTROENCEPHALOGRAM REPORT: DATE OF STUDY: 05/19/18. REFERRING PROVIDER: TRESSA Perez. LOCATION: He is an inpatient, in room 446. CLINICAL PROBLEM: Transient episode of right-sided weakness for several hours the day prior to this recording. The patient has a prior history of a stroke affecting his right side. MEDICATIONS: Include: 1. Tamsulosin. 2. Warfarin. 3. Ceftriaxone. 4. Oxycodone. 5. Dulera. 6. Furosemide. REPORT: This 16-channel EEG is remarkable for background rhythms at the onset of the tracing consisting of a borderline alpha rhythm in the occipital derivations on the right at about 7 to 7.5 cycles per second. Slower rhythms are seen from the left posterior hemisphere in the theta and delta range. The patient is drowsy and intermittently sleeps through portions of the recording with vertex slowing and sleep spindles seen parasagittally. Slow rhythms continued to predominate from the left hemisphere. There is an occasional movement artifact and one episode of arm jerking, which only resulted in movement artifact. Activation procedures are not attempted. There are no focal or epileptiform abnormalities. CLINICAL IMPRESSION: Abnormal EEG due to diffuse slowing in the left hemisphere consistent with focal pathology in that distribution. There are no epileptiform discharges during this recording. [id number]/[facility] #: [id number] [facility]
[2018-05-20] MEDS: Docusate CAP* 100 MG PO SCH (10:05)
[2018-05-20] MEDS: Spironolactone TAB* 25 MG PO SCH (10:05)
[2018-05-20] MEDS: Aspirin EC TAB* 81 MG TAB.EC PO SCH (10:06)
[2018-05-20] MEDS: Senna TAB PO SCH (10:06)
[2018-05-20] MEDS: oxyCODONE TAB* 5 MG TAB PO SCH (10:06)
[2018-05-20] MEDS: Finasteride TAB* 5 MG PO SCH (10:07)
[2018-05-20] MEDS: Cholecalciferol TAB* 1000 UNITS PO SCH (10:07)
[2018-05-20] MEDS: Furosemide IV* 10 MG/ML VIAL (40 MG) IV SLOW PU SCH (10:10)
[2018-05-20] MEDS: cefTRIAXone(*) 1 GM in NS 0.9% 50 ML* 50 ML IVPB SCH (14:58)
--- NOTE | 2018-05-20 17:09 | PN ---
Subjective Date of Service: 05/20/18 Interval History: No overnight events. He feels okay today but is unsure if he is still short of breath. His right arm is getting better. No pain. Urine is still cloudy and he says he sometimes gets the urge to pee even though the parekh is in place. Family History: Unchanged from Admission Social History: Unchanged from Admission Past Medical History: Unchanged from Admission Objective Active Medications: Acetaminophen (Tylenol Tab*) 650 mg PO Q6H PRN PRN Reason: FEVER/PAIN Albuterol (Ventolin 2.5 Mg/3 Ml Neb.Maggie*) 2.5 mg INH Q2H PRN PRN Reason: SOB/WHEEZING Aspirin (Aspirin Ec Tab*) 81 mg PO DAILY [facility] Last Admin: 05/20/18 10:06 Dose: 81 mg Cholecalciferol (Vitamin D Tab*) 2,000 units PO QAM [facility] Last Admin: 05/20/18 10:07 Dose: 2,000 units Docusate Sodium (Colace Cap*) 100 mg PO QAM [facility] Last Admin: 05/20/18 10:05 Dose: 100 mg Finasteride (Proscar Tab*) 5 mg PO DAILY [facility] Last Admin: 05/20/18 10:07 Dose: 5 mg Furosemide (Lasix Iv*) 40 mg IV SLOW PU DAILY [facility] Last Admin: 05/20/18 10:10 Dose: 40 mg Ceftriaxone Sodium 1 gm/ (Sodium Chloride) 50 mls @ 200 mls/hr IVPB Q24H [facility] Last Admin: 05/20/18 14:58 Dose: 200 mls/hr Ipratropium Bowen (Atrovent 0.5 Mg Neb.Maggie*) 0.5 mg INH Q6HR PRN PRN Reason: SHORTNESS OF BREATH Mometasone Furoate/Formoterol Fumar (Dulera 200/5 Mdi*) 2 puff INH BID [facility] Last Admin: 05/20/18 08:55 Dose: 2 puff Ondansetron HCl (Zofran Inj*) 4 mg IV Q6H PRN PRN Reason: NAUSEA Oxycodone HCl (Roxycodone Tab*) 5 mg PO Q6H PRN PRN Reason: PAIN - UNRELIEVED Oxycodone HCl (Roxycodone Tab*) 5 mg PO QAM [facility] Last Admin: 05/20/18 10:06 Dose: 5 mg Senna (Senokot Tab*) 1 tab PO QAM [facility] Last Admin: 05/20/18 10:06 Dose: 1 tab Spironolactone (Aldactone Tab*) 12.5 mg PO DAILY [facility] Last Admin: 05/20/18 10:05 Dose: 12.5 mg Tamsulosin HCl (Flomax Cap*) 0.4 mg PO BEDTIME [facility] Last Admin: 05/19/18 21:29 Dose: 0.4 mg Warfarin Sodium (Coumadin Tab(*)) 2.5 mg PO 1700 [facility]; Protocol Last Admin: 05/19/18 19:24 Dose: 2.5 mg Vital Signs - 8 hr 05/20/18 05/20/18 05/20/18 10:06 15:31 15:42 Temperature 98.0 F Pulse Rate 71 Respiratory 20 18 20 Rate Blood Pressure 108/52 (mmHg) O2 Sat by Pulse 97 Oximetry Oxygen Devices in Use Now: Nasal Cannula Appearance: morbidly obese man lying in bed in no distress, slightly tachypneic with talking Eyes: No Scleral Icterus Ears/Nose/Mouth/Throat: NL Teeth, Lips, Gums Neck: - - I cannot see his jugular vein Respiratory: Symmetrical Chest Expansion and Respiratory Effort Cardiovascular: RRR Abdominal: NL Sounds; No Tenderness; No Distention, - Lymphatic: No Cervical Adenopathy Extremities: No Edema Skin: No Rash or Ulcers Neurological: - - right upper extremity 4/5 Result Diagrams: 05/19/18 06:34 05/19/18 06:33 Additional Lab and Data: Lab Results 05/18/18 05/18/18 05/18/18 Range/Units 12:23 12:31 12:31 WBC 6.9 (3.5-10.8) 10^3/ul RBC 4.77 (4.00-5.40) 10^6/ul Hgb 12.4 L (14.0-18.0) g/dl Hct 38 L (42-52) % MCV 80 (80-94) fL MCH 26 L (27-31) pg MCHC 33 (31-36) g/dl RDW 16 H (10.5-15) % Plt Count 199 (150-450) 10^3/ul MPV 7.7 (7.4-10.4) um3 Neut % (Auto) 84.5 H (38-83) % Lymph % (Auto) 7.2 L (25-47) % [place] % (Auto) 5.1 (0-7) % Eos % (Auto) 2.6 (0-6) % Baso % (Auto) 0.6 (0-2) % Absolute Neuts (auto) 5.8 (1.5-7.7) 10^3/ul Absolute Lymphs (auto) 0.5 L (1.0-4.8) 10^3/ul Absolute Monos (auto) 0.4 (0-0.8) 10^3/ul Absolute Eos (auto) 0.2 (0-0.6) 10^3/ul Absolute Basos (auto) 0 (0-0.2) 10^3/ul Absolute Nucleated RBC 0 10^3/ul Nucleated RBC % 0.1 INR (Anticoag Therapy) 2.18 H (0.77-1.02) APTT 36.4 H (26.0-36.3) seconds Sodium (135-145) mmol/L Potassium (3.5-5.0) mmol/L Chloride (101-111) mmol/L Carbon Dioxide (22-32) mmol/L Anion Gap (2-11) mmol/L BUN (6-24) mg/dL Creatinine (0.67-1.17) mg/dL Est GFR ( Amer) (>60) Est GFR (Non-Af Amer) (>60) BUN/Creatinine Ratio (8-20) Glucose (70-100) mg/dL POC Glucose (mg/dL) 117 H (70-100) mg/dL Lactic Acid (0.5-2.0) mmol/L Calcium (8.6-10.3) mg/dL Total Bilirubin (0.2-1.0) mg/dL AST (13-39) U/L ALT (7-52) U/L Alkaline Phosphatase (34-104) U/L Troponin I (<0.04) ng/mL Total Protein (6.4-8.9) g/dL Albumin (3.2-5.2) g/dL Globulin (2-4) g/dL Albumin/Globulin Ratio (1-3) Triglycerides mg/dL Cholesterol mg/dL LDL Cholesterol mg/dL HDL Cholesterol mg/dL Urine Color Urine Appearance Urine pH (5-9) Ur Specific [place] (1.010-1.030) Urine Protein (Negative) Urine Ketones (Negative) Urine Blood (Negative) Urine Nitrate (Negative) Urine Bilirubin (Negative) Urine Urobilinogen (Negative) Ur Leukocyte Esterase (Negative) Urine WBC (Auto) (Absent) Urine RBC (Auto) (Absent) Ur Squamous Epith Cells (Absent) Urine Bacteria (Absent) Urine Glucose (Negative) Blood Type Antibody Screen 05/18/18 05/18/18 05/18/18 Range/Units 12:31 12:31 12:31 WBC (3.5-10.8) 10^3/ul RBC (4.00-5.40) 10^6/ul Hgb (14.0-18.0) g/dl Hct (42-52) % MCV (80-94) fL MCH (27-31) pg MCHC (31-36) g/dl RDW (10.5-15) % Plt Count (150-450) 10^3/ul MPV (7.4-10.4) um3 Neut % (Auto) (38-83) % Lymph % (Auto) (25-47) % [place] % (Auto) (0-7) % Eos % (Auto) (0-6) % Baso % (Auto) (0-2) % Absolute Neuts (auto) (1.5-7.7) 10^3/ul Absolute Lymphs (auto) (1.0-4.8) 10^3/ul Absolute Monos (auto) (0-0.8) 10^3/ul Absolute Eos (auto) (0-0.6) 10^3/ul Absolute Basos (auto) (0-0.2) 10^3/ul Absolute Nucleated RBC 10^3/ul Nucleated RBC % INR (Anticoag Therapy) (0.77-1.02) APTT (26.0-36.3) seconds Sodium 141 (135-145) mmol/L Potassium 4.0 (3.5-5.0) mmol/L Chloride 98 L (101-111) mmol/L Carbon Dioxide 39 H (22-32) mmol/L Anion Gap 4 (2-11) mmol/L BUN 60 H (6-24) mg/dL Creatinine 2.73 H (0.67-1.17) mg/dL Est GFR ( Amer) 28.1 (>60) Est GFR (Non-Af Amer) 23.2 (>60) BUN/Creatinine Ratio 22.0 H (8-20) Glucose 107 H (70-100) mg/dL POC Glucose (mg/dL) (70-100) mg/dL Lactic Acid 1.0 (0.5-2.0) mmol/L Calcium 8.7 (8.6-10.3) mg/dL Total Bilirubin 0.40 (0.2-1.0) mg/dL AST 9 L (13-39) U/L ALT 6 L (7-52) U/L Alkaline Phosphatase 84 (34-104) U/L Troponin I 0.01 (<0.04) ng/mL Total Protein 6.8 (6.4-8.9) g/dL Albumin 3.2 (3.2-5.2) g/dL Globulin 3.6 (2-4) g/dL Albumin/Globulin Ratio 0.9 L (1-3) Triglycerides 107 mg/dL Cholesterol 115 mg/dL LDL Cholesterol 67 mg/dL HDL Cholesterol 27.1 mg/dL Urine Color Urine Appearance Urine pH (5-9) Ur Specific [place] (1.010-1.030) Urine Protein (Negative) Urine Ketones (Negative) Urine Blood (Negative) Urine Nitrate (Negative) Urine Bilirubin (Negative) Urine Urobilinogen (Negative) Ur Leukocyte Esterase (Negative) Urine WBC (Auto) (Absent) Urine RBC (Auto) (Absent) Ur Squamous Epith Cells (Absent) Urine Bacteria (Absent) Urine Glucose (Negative) Blood Type O Negative Antibody Screen Negative 05/18/18 Range/Units 12:43 WBC (3.5-10.8) 10^3/ul RBC (4.00-5.40) 10^6/ul Hgb (14.0-18.0) g/dl Hct (42-52) % MCV (80-94) fL MCH (27-31) pg MCHC (31-36) g/dl RDW (10.5-15) % Plt Count (150-450) 10^3/ul MPV (7.4-10.4) um3 Neut % (Auto) (38-83) % Lymph % (Auto) (25-47) % [place] % (Auto) (0-7) % Eos % (Auto) (0-6) % Baso % (Auto) (0-2) % Absolute Neuts (auto) (1.5-7.7) 10^3/ul Absolute Lymphs (auto) (1.0-4.8) 10^3/ul Absolute Monos (auto) (0-0.8) 10^3/ul Absolute Eos (auto) (0-0.6) 10^3/ul Absolute Basos (auto) (0-0.2) 10^3/ul Absolute Nucleated RBC 10^3/ul Nucleated RBC % INR (Anticoag Therapy) (0.77-1.02) APTT (26.0-36.3) seconds Sodium (135-145) mmol/L Potassium (3.5-5.0) mmol/L Chloride (101-111) mmol/L Carbon Dioxide (22-32) mmol/L Anion Gap (2-11) mmol/L BUN (6-24) mg/dL Creatinine (0.67-1.17) mg/dL Est GFR ( Amer) (>60) Est GFR (Non-Af Amer) (>60) BUN/Creatinine Ratio (8-20) Glucose (70-100) mg/dL POC Glucose (mg/dL) (70-100) mg/dL Lactic Acid (0.5-2.0) mmol/L Calcium (8.6-10.3) mg/dL Total Bilirubin (0.2-1.0) mg/dL AST (13-39) U/L ALT (7-52) U/L Alkaline Phosphatase (34-104) U/L Troponin I (<0.04) ng/mL Total Protein (6.4-8.9) g/dL Albumin (3.2-5.2) g/dL Globulin (2-4) g/dL Albumin/Globulin Ratio (1-3) Triglycerides mg/dL Cholesterol mg/dL LDL Cholesterol mg/dL HDL Cholesterol mg/dL Urine Color Yellow Urine Appearance Cloudy Urine pH 7.0 (5-9) Ur Specific [place] 1.010 (1.010-1.030) Urine Protein 1+(30 mg/dl) A (Negative) Urine Ketones Negative (Negative) Urine Blood 1+ A (Negative) Urine Nitrate Negative (Negative) Urine Bilirubin Negative (Negative) Urine Urobilinogen Negative (Negative) Ur Leukocyte Esterase 2+ A (Negative) Urine WBC (Auto) 2+(11-20/hpf) A (Absent) Urine RBC (Auto) 1+(3-5/hpf) A (Absent) Ur Squamous Epith Cells Present A (Absent) Urine Bacteria Absent (Absent) Urine Glucose Negative (Negative) Blood Type Antibody Screen Microbiology and Other Data: Microbiology 05/18/18 16:34 Aerobic Blood Culture - Preliminary Blood Venous No Growth Day 2 Anaerobic Blood Culture - Preliminary No Growth Day 2 05/18/18 12:43 Urine Culture - Final Urine 05/19/18 11:09 Nasal Screen MRSA (PCR) - Final Nasal Mrsa Not Detected Assess/Plan/Problems-Billing Assessment: Mr. Terry is a 67yo M with PMH of super morbid obesity with BMI 59, CKD stage 4 , systolic CHF with EF 45%, Afib, prior CVA with residual right sided hemiparesis, TORY, HTN, BPH, urinary retention, chronic hypoxemic respiratory failure on home O2, MRSA UTI, VRE bacteremia, SNF resident, who presented to ED with c/o worsening of baseline right sided weakness. - Patient Problems (1) Acute on chronic systolic (congestive) heart failure Current Visit: Yes Status: Acute Priority: Medium Code(s): I50.23 - ACUTE ON CHRONIC SYSTOLIC (CONGESTIVE) HEART FAILURE SNOMED Code(s): 601508868 Comment: - Echo was a limited study due to body habitus, unable to estimate EF. - Continue Furosemide IV today for goal >1L negative today. (2) Atrial fibrillation Current Visit: Yes Status: Acute Priority: Medium Code(s): I48.91 - UNSPECIFIED ATRIAL FIBRILLATION SNOMED Code(s): 54606477 Comment: rate controlled history of cardioembolic stroke 09/04/2016 Continue Warfarin, therapeutic (3) CKD (chronic kidney disease) stage 4, GFR 15-29 ml/min Current Visit: Yes Status: Acute Code(s): N18.4 - CHRONIC KIDNEY DISEASE, STAGE 4 (SEVERE) SNOMED Code(s): 481035395 Comment: at baseline (4) Hemiparesis of right dominant side as late effect of cerebral infarction Current Visit: Yes Status: Acute Code(s): I69.351 - HEMIPLGA FOLLOWING CEREBRAL INFRC AFF RIGHT DOMINANT SIDE SNOMED Code(s): 061654586 Comment: improving likely recrudescence of prior CVA in setting of UTI Continue Aspirin and Warfarin. (5) TORY (obstructive sleep apnea) Current Visit: Yes Status: Acute Priority: Medium Code(s): G47.33 - OBSTRUCTIVE SLEEP APNEA (ADULT) (PEDIATRIC) SNOMED Code(s): 11504174 Comment: - Continue CPAP. (6) Obesity hypoventilation syndrome Current Visit: Yes Status: Acute Priority: High Code(s): E66.2 - MORBID ( SEVERE) OBESITY WITH ALVEOLAR HYPOVENTILATION SNOMED Code(s): 509102271 Comment: BiPAP restrictive lung disease (7) Urinary tract infection with hematuria Current Visit: No Status: Acute Priority: High Code(s): N39.0 - URINARY TRACT INFECTION, SITE NOT SPECIFIED; R31.9 - HEMATURIA, UNSPECIFIED SNOMED Code(s): 50868618 Comment: urine culture showed no growth repeat (8) BPH (benign prostatic hyperplasia) Current Visit: No Status: Chronic Priority: Medium Code(s): N40.0 - BENIGN PROSTATIC HYPERPLASIA WITHOUT LOWER URINRY TRACT SYMP SNOMED Code(s): 978123641 Comment: Continue tamsulosin (9) Acute urinary retention Current Visit: Yes Status: Acute Code(s): R33.8 - OTHER RETENTION OF URINE SNOMED Code(s): 795939400 Comment: will need to be discharged with a parekh continue flomax and will arrange urology follow up Status and Disposition: Inpatient.
[2018-05-20] MEDS: Warfarin TAB(*) 2.5 MG PO SCH (17:26)
[2018-05-20] MEDS: Tamsulosin CAP* 0.4 MG PO SCH (21:41)
[2018-05-21 06:25] LABS: INR 1.98 (0.77-1.02)
[2018-05-21] MEDS: oxyCODONE TAB* 5 MG TAB PO SCH (07:43)
[2018-05-21] MEDS: Senna TAB PO SCH (07:43)
[2018-05-21] MEDS: Furosemide IV* 10 MG/ML VIAL (40 MG) IV SLOW PU SCH (07:43)
[2018-05-21] MEDS: Aspirin EC TAB* 81 MG TAB.EC PO SCH (07:44)
[2018-05-21] MEDS: Spironolactone TAB* 25 MG PO SCH (07:44)
[2018-05-21] MEDS: Cholecalciferol TAB* 1000 UNITS PO SCH (07:44)
[2018-05-21] MEDS: Docusate CAP* 100 MG PO SCH (07:44)
[2018-05-21] MEDS: Finasteride TAB* 5 MG PO SCH (07:44)
[2018-05-21] MEDS: Mometasone/Formoter 200/5 MDI INH SCH ×2 (08:19→20:56)
[2018-05-21] MEDS: cefTRIAXone(*) 1 GM in NS 0.9% 50 ML* 50 ML IVPB SCH (14:03)
--- NOTE | 2018-05-21 15:21 | PN ---
Subjective Date of Service: 05/21/18 Interval History: Patient seen and examined at bedside. Denies fever, chills, shortness of breath , chest discomfort, N/V/D. Pt states that feeling like he has to urinate with the parekh has resolved. He also feels like the weakness in his right arm is improving. He reports right shoulder pain for a few weeks. He states that he is on oxygen at home and is on his baseline level. Pt states that according to [facility] he has gained 30 pounds in the last week prior to admission. Tele: Paced, rate 70's Family History: Unchanged from Admission Social History: Unchanged from Admission Past Medical History: Unchanged from Admission Objective Active Medications: Acetaminophen (Tylenol Tab*) 650 mg PO Q6H PRN Reason: FEVER/PAIN Albuterol (Ventolin 2.5 Mg/3 Ml Neb.Maggie*) 2.5 mg INH Q2H PRN Reason: SOB/ WHEEZING Aspirin (Aspirin Ec Tab*) 81 mg PO DAILY [facility] Cholecalciferol (Vitamin D Tab*) 2,000 units PO QAM [facility] Docusate Sodium (Colace Cap*) 100 mg PO QAM SOLE Finasteride (Proscar Tab*) 5 mg PO DAILY [facility]LE Furosemide (Lasix Iv*) 40 mg IV SLOW PU DAILY [facility] Ceftriaxone Sodium 1 gm/ (Sodium Chloride) 50 mls @ 200 mls/hr IVPB Q24H SOLE Ipratropium [place] (Atrovent 0.5 Mg Neb.Maggie*) 0.5 mg INH Q6HR PRN Reason: SHORTNESS OF BREATH Mometasone Furoate/Formoterol Fumar (Dulera 200/5 Mdi*) 2 puff INH BID SOLE Ondansetron HCl (Zofran Inj*) 4 mg IV Q6H PRN Reason: NAUSEA Oxycodone HCl (Roxycodone Tab*) 5 mg PO Q6H PRN Reason: PAIN - UNRELIEVED Oxycodone HCl (Roxycodone Tab*) 5 mg PO QAM [facility] Senna (Senokot Tab*) 1 tab PO QAM [facility] Spironolactone (Aldactone Tab*) 12.5 mg PO DAILY [facility] Tamsulosin HCl (Flomax Cap*) 0.4 mg PO BEDTIME [facility] Warfarin Sodium (Coumadin Tab(*)) 2.5 mg PO 1700 SOLE; Protocol Vital Signs - 8 hr 08/01/18 08/01/18 08/01/18 07:43 08:01 08:16 Temperature 98.5 F Pulse Rate 74 Respiratory 20 20 20 Rate Blood Pressure 123/45 (mmHg) O2 Sat by Pulse 96 Oximetry 05/21/18 08:21 Temperature Pulse Rate 78 Respiratory 19 Rate Blood Pressure (mmHg) O2 Sat by Pulse 96 Oximetry Oxygen Devices in Use Now: Nasal Cannula - 3L Appearance: NAD, laying in bed Ears/Nose/Mouth/Throat: Mucous Membranes Moist Respiratory: Symmetrical Chest Expansion and Respiratory Effort, Clear to Auscultation Cardiovascular: NL Sounds; No Murmurs; No JVD, RRR Abdominal: NL Sounds; No Tenderness; No Distention - , Abdomen large Extremities: No Edema Skin: No Rash or Ulcers Neurological: Alert and Oriented x 3, NL Muscle Strength and Tone Lines/Tubes/Other Access: Clean, Dry and Intact Peripheral IV - site benign Nutrition: Taking PO's Result Diagrams: 05/19/18 06:34 05/19/18 06:33 Additional Lab and Data: . Microbiology and Other Data: Microbiology 05/18/18 16:34 Aerobic Blood Culture - Preliminary Blood Venous No Growth Day 2 Anaerobic Blood Culture - Preliminary No Growth Day 2 05/18/18 12:43 Urine Culture - Final Urine 05/19/18 11:09 Nasal Screen MRSA (PCR) - Final Nasal Mrsa Not Detected Assess/Plan/Problems-Billing Assessment: Mr. Terry is a 67yo M with PMH of super morbid obesity with BMI 59, CKD stage 4 , systolic CHF with EF 45%, Afib, prior CVA with residual right sided hemiparesis, TORY, HTN, BPH, urinary retention, chronic hypoxemic respiratory failure on home O2, MRSA UTI, VRE bacteremia, SNF resident, who presented to ED with c/o worsening of baseline right sided weakness. - Patient Problems (1) Acute on chronic systolic (congestive) heart failure Code(s): I50.23 - ACUTE ON CHRONIC SYSTOLIC (CONGESTIVE) HEART FAILURE SNOMED Code(s): 138913144 Comment: - Echo was a limited study due to body habitus, unable to estimate EF - Last EF in 2017 was 45% - Continue strict I+O's and daily weight - Continue Furosemide IV, may be able to change to PO Lasix in the AM (2) Acute urinary retention Code(s): R33.8 - OTHER RETENTION OF URINE SNOMED Code(s): 667258807 Comment: - Plan to discharge with a parekh - Continue flomax - Will need urology follow up at discharge (3) Urinary tract infection with hematuria Code(s): N39.0 - URINARY TRACT INFECTION, SITE NOT SPECIFIED; R31.9 - HEMATURIA , UNSPECIFIED SNOMED Code(s): 29800493 Comment: - No leukocytosis and afebrile - Urine culture showed no growth - Will discontinue ceftriaxone (4) Atrial fibrillation Code(s): I48.91 - UNSPECIFIED ATRIAL FIBRILLATION SNOMED Code(s): 52981502 Comment: - Rate controlled - History of cardioembolic stroke 08/2016 - Continue Warfarin, therapeutic (5) CKD (chronic kidney disease) stage 4, GFR 15-29 ml/min Code(s): N18.4 - CHRONIC KIDNEY DISEASE, STAGE 4 (SEVERE) SNOMED Code(s): 520000994 Comment: - At baseline (6) Hemiparesis of right dominant side as late effect of cerebral infarction Code(s): I69.351 - HEMIPLGA FOLLOWING CEREBRAL INFRC AFF RIGHT DOMINANT SIDE SNOMED Code(s): 677938022 Comment: - Improving - Likely recrudescence of prior CVA in setting of UTI - Neurology consult, input appreciated - Continue Aspirin and Warfarin (7) TORY (obstructive sleep apnea) Code(s): G47.33 - OBSTRUCTIVE SLEEP APNEA (ADULT) (PEDIATRIC) SNOMED Code(s): 66921446 Comment: - Continue CPAP (8) Obesity hypoventilation syndrome Code(s): E66.2 - MORBID (SEVERE) OBESITY WITH ALVEOLAR HYPOVENTILATION SNOMED Code(s): 205432640 Comment: - Restrictive lung disease - CPAP (9) BPH (benign prostatic hyperplasia) Code(s): N40.0 - BENIGN PROSTATIC HYPERPLASIA WITHOUT LOWER URINRY TRACT SYMP SNOMED Code(s): 300542445 Comment: - Continue tamsulosin (10) DVT prophylaxis Code(s): LCU5414 - SNOMED Code(s): 216528268 Comment: - Warfarin (11) Full code status Code(s): Z78.9 - OTHER SPECIFIED HEALTH STATUS SNOMED Code(s): 602615954 Status and Disposition: Inpatient. Discharge to [facility] [place] when medically stable. Attending: Johana Christopher
[2018-05-21] MEDS: Warfarin TAB(*) 2.5 MG PO SCH (17:17)
[2018-05-21] MEDS: Tamsulosin CAP* 0.4 MG PO SCH (21:54)
[2018-05-22] MEDS: Aspirin EC TAB* 81 MG TAB.EC PO SCH (09:00)
[2018-05-22] MEDS: oxyCODONE TAB* 5 MG TAB PO SCH (09:00)
[2018-05-22] MEDS: Spironolactone TAB* 25 MG PO SCH (09:01)
[2018-05-22] MEDS: Cholecalciferol TAB* 1000 UNITS PO SCH (09:02)
[2018-05-22] MEDS: Docusate CAP* 100 MG PO SCH (09:02)
[2018-05-22] MEDS: Finasteride TAB* 5 MG PO SCH (09:02)
[2018-05-22] MEDS: Furosemide IV* 10 MG/ML VIAL (40 MG) IV SLOW PU SCH (09:02)
[2018-05-22] MEDS: Senna TAB PO SCH (09:02)
[2018-05-22] MEDS: Mometasone/Formoter 200/5 MDI INH SCH (09:39)
--- NOTE | 2018-05-22 10:38 | PN ---
Subjective Date of Service: 05/22/18 Interval History: Mr. Terry denies complaint this morning and is eager for discharge back to [facility]. He does have some continued pain in his right shoulder but he reports this has been a problem for a while and has planned follow up outpatient. He reports that the weakness in his right shoulder has improved. He denies chest pain, SOB, nausea, or abdominal pain. Family History: Unchanged from Admission Social History: Unchanged from Admission Past Medical History: Unchanged from Admission Objective Active Medications: Acetaminophen (Tylenol Tab*) 650 mg PO Q6H PRN Albuterol (Ventolin 2.5 Mg/3 Ml Neb.Maggie*) 2.5 mg INH Q2H PRN Aspirin (Aspirin Ec Tab*) 81 mg PO DAILY SOLE Cholecalciferol (Vitamin D Tab*) 2,000 units PO QAM SOLE Docusate Sodium (Colace Cap*) 100 mg PO QAM SOLE Finasteride (Proscar Tab*) 5 mg PO DAILY SOLE Furosemide (Lasix Iv*) 40 mg IV SLOW PU DAILY SOLE Ipratropium [place] (Atrovent 0.5 Mg Neb.Maggie*) 0.5 mg INH Q6HR PRN Mometasone Furoate/Formoterol Fumar (Dulera 200/5 Mdi*) 2 puff INH BID SOLE Ondansetron HCl (Zofran Inj*) 4 mg IV Q6H PRN Oxycodone HCl (Roxycodone Tab*) 5 mg PO Q6H PRN Oxycodone HCl (Roxycodone Tab*) 5 mg PO QAM [facility] Senna (Senokot Tab*) 1 tab PO QAM [facility] Spironolactone (Aldactone Tab*) 12.5 mg PO DAILY SOLE Tamsulosin HCl (Flomax Cap*) 0.4 mg PO BEDTIME SOLE Warfarin Sodium (Coumadin Tab(*)) 2.5 mg PO 1700 SOLE; Protocol Vital Signs: Temp Pulse Resp BP Pulse Ox 98.1 F 70 14 97/52 95 05/22/18 07:17 05/22/18 09:40 05/22/18 09:40 05/22/18 07:17 05/22/18 09:40 Oxygen Devices in Use Now: Nasal Cannula Appearance: Male lying in bed in NAD Eyes: No Scleral Icterus Ears/Nose/Mouth/Throat: Mucous Membranes Moist Neck: Trachea Midline Respiratory: Symmetrical Chest Expansion and Respiratory Effort, Clear to Auscultation Cardiovascular: NL Sounds; No Murmurs; No JVD, No Edema Abdominal: NL Sounds; No Tenderness; No Distention Lymphatic: No Cervical Adenopathy Extremities: No Edema Skin: No Rash or Ulcers Neurological: Alert and Oriented x 3, - - Decreased ROM at right shoulder, otherwise +4 strength Nutrition: Taking PO's Result Diagrams: 05/19/18 06:34 05/19/18 06:33 Assess/Plan/Problems-Billing Assessment: Mr. Terry is a 67yo M with PMH of super morbid obesity with BMI 59, CKD stage 4 , systolic CHF with EF 45%, Afib, prior CVA with residual right sided hemiparesis, TORY, HTN, BPH, urinary retention, chronic hypoxemic respiratory failure on home O2, MRSA UTI, VRE bacteremia, and SNF resident who presented to ED with c/o worsening of baseline right sided weakness. - Patient Problems (1) Hemiparesis of right dominant side as late effect of cerebral infarction Comment: - Improving - Likely recrudescence of prior CVA in setting of UTI - Neurology consult, input appreciated - Continue Aspirin and Warfarin (2) Acute on chronic systolic (congestive) heart failure Comment: - Currently on 3 L NC, at baseline. - Echo was a limited study due to body habitus, unable to estimate EF - Last EF in 2017 was 45% - Switch back to home torsemide. (3) Acute urinary retention Comment: - Plan to discharge with a parekh - Continue flomax - Will need urology follow up at discharge (4) Urinary tract infection with hematuria Comment: - Patient on treatment outpatient for UTI which may skew results of culture. He had yulia urinary retention in ED, with copious foul urine. - Despite, urine culture showing no growth will continue antibiotic treatment with 3rd generation cephalosporin based on review of previous urine micro results. (5) CKD (chronic kidney disease) stage 4, GFR 15-29 ml/min Comment: - At baseline (6) TORY (obstructive sleep apnea) Comment: - With chronic hypoxic/hypercarbic respiratory failure, on 3L O2 routinely. - With obesity hypoventilation syndrome. - Continue CPAP (7) Hypertension Comment: - BP 90-100. - Continue spironolactone and torsemide. (8) Afib Comment: - Pacemaker for tachy-bea syndrome. - Hx of cardioembolix stroke, 2016. - Continue coumdin. (9) DVT prophylaxis Comment: - Warfarin, INR 1.98 (10) Full code status Comment: Status and Disposition: Discharge to [facility].
[2018-05-22 11:58] VITALS: BP 127/48
--- NOTE | 2018-05-22 12:32 | DS ---
CC: Corey * DATE OF ADMISSION: 05/18/2018. DATE OF DISCHARGE: 05/22/2018. ATTENDING PHYSICIAN: Dr. Jules Swanson * (dictation provided by Hope Ervin NP ). PRIMARY DIAGNOSES: 1. Urinary tract infection with associated urinary retention, now with Hilario catheter. 2. Right upper extremity weakness, likely reflective of recrudescence of prior CVA in the setting of UTI. 3. Acute on chronic systolic congestive heart failure, resolved. SECONDARY DIAGNOSES: 1. Chronic kidney disease, stage 4. 2. Chronic systolic congestive heart failure. 3. CVA. 4. A-fib. 5. Obstructive sleep apnea. 6. Obesity hypoventilation syndrome. 7. Hypertension. 8. BPH. 9. History of urinary retention. 10. Anemia. 11. Morbid obesity. 12. History of MRSA UTI and VRE bacteremia. 13. Chronic hypoxic respiratory failure on 3 liters oxygen. MEDICATIONS: 1. Warfarin 2.5 mg p.o. daily. 2. Spironolactone 12.5 mg p.o. daily. 3. Oxycodone 5 mg p.o. q.6 hours prn. 4. Albuterol 2.5 mg inhaled q.2 hours prn. 5. Ipratropium 0.5 mg inhaled q.6 hours prn. 6. Tylenol 650 mg p.o. q.8 hours prn. 7. Advair 250/50 one puff inhaled b.i.d. 8. Tamsulosin 0.4 mg p.o. at bedtime. 9. Senna with Docusate one tab p.o. q.a.m. 10. Aspirin 81 mg p.o. daily. 11. Tylenol 650 mg p.o. at bedtime. 12. Oxycodone 5 mg p.o. q.a.m. 13. Torsemide 40 mg p.o. daily. 14. Cholecalciferol 2,000 units p.o. q.a.m. 15. Finasteride 5 mg p.o. daily. 16. Cefpodoxime 200 mg p.o. q.12 hours times 10 days. HOSPITAL COURSE: Mr. Terry is a 67-year-old male with a past medical history as outlined above who presented to the emergency room on 05/18/2018 with concern for right-sided weakness. Please see the dictated history and physical from TRESSA Perez for complete details. In brief, the patient had a history of a previous CVA with residual deficit of right-sided weakness. The patient intermittently had worsening of his right-sided weakness in the setting of infectious or stress. The patient had noted worsening of the right upper arm weakness and therefore came to the emergency room for evaluation. The patient was not deemed to be a TPA candidate in consultation with the Tel[facility] provider from [place]. In the emergency room, the patient was found to have urinary retention and a Hilario was placed for 700 ml of foul smelling purulent urine. The patient had been on Nitrofurantoin outpatient for suspected urinary tract infection. The urine culture showed no growth, but I will note that this was in the setting of outpatient treatment with antibiotics. The patient has a history of frequent previous urinary tract infections. The remainder of Mr. Velarde work-up was negative. He was seen in consultation by Dr. Hui from Neurology for his worsening right-sided weakness in the setting of infection. The patient was not able to obtain an MRI due to his body habitus and he is already anticoagulated for his atrial fibrillation, so any further work-up was not required. He had a CT brain which was read as "no acute intracranial finding." He did have a chest x-ray was read as follows: "Negative examination, cardiomegaly with suspected interstitial edema and left sided infiltrate versus atelectasis versus pleural fluid. He also had a transthoracic echocardiogram which was technically limited due to poor acoustic windows and therefore was unable to provide any meaningful results. He had an EEG which showed an "abnormal EEG due to diffuse slowing in the left hemisphere consistent with focal pathology in that distribution, there are no epileptiform discharges during the recording." Mr. Velarde treatment included Ceftriaxone for treatment of urinary tract infection. I am switching him over to Vantin 200 p.o. b.i.d. times ten days for treatment of a complicated urinary tract infection causing urinary retention. If the patient is interested, he can consider follow-up with Urology, although his chronic medical conditions make intervention difficult. The patient was treated for the concern of pulmonary edema on his chest x-ray with Lasix IV. Now he is currently on this 3 liters baseline oxygen and his vitals are stable. He is now being transitioned back over the home Torsemide. The patient's weakness in his right arm is resolved. He does have weakness and pain in his right shoulder which [facility] is aware of and with plans for a follow-up. It appears from the record that this was considered follow-up for a possible hematology/oncology. I question whether follow- up with Orthopedics may be more valuable. Mr. Terry is medically stable for discharge back to [facility]. He will complete a course of antibiotics for UTI and consider follow-up as per above. DISPOSITION: To [facility]. DIET: Low fat, low salt. ACTIVITY: As tolerated. FOLLOW-UP: 1. Please consider follow-up with Urology based on patient's preference for urinary retention and BPH. 2. Please consider follow-up with Orthopedics regarding right shoulder pain. Approximately 60 minutes were spent in the discharge of this patient, more than half that time was spent with the patient at the bedside reviewing the events leading up to this hospitalization, performing the physical examination, and reviewing my plan of care. HOPE ERVIN NP [id number]/CPS #: [id number] GRETEL
[2018-05-23] MEDS ORDERED: Torsemide TAB* 20 MG PO SCH (09:00)
== END 2018-05-22 14:25 | DRG 291 ==
LOC: ED 11:54 → MEDTELE 15:40 → OBSVTOIN 05-19 13:46
PROVIDERS: ADMIT Hospitalist; ATTEND Internal Medicine
PROC: 0T9B70Z Drainage of Bladder with Drainage Device, Via Natural or Artificial Opening (ICD-10-PCS; principal; 2018-05-19)
PROC: 5A09357 Assistance with Respiratory Ventilation, Less than 24 Consecutive Hours, Continuous Positive Airway Pressure (ICD-10-PCS; 2018-05-19)
PROC: 4A10X4Z Monitoring of Central Nervous Electrical Activity, External Approach (ICD-10-PCS; 2018-05-19)
DX: I13.0 Hypertensive heart and chronic kidney disease with heart failure and stage 1 through stage 4 chronic kidney disease, or unspecified chronic kidney disease (principal); I50.23 Acute on chronic systolic (congestive) heart failure; N39.0 Urinary tract infection, site not specified; N18.4 Chronic kidney disease, stage 4 (severe); E66.2 Morbid (severe) obesity with alveolar hypoventilation; J96.12 Chronic respiratory failure with hypercapnia; J96.11 Chronic respiratory failure with hypoxia; Z68.43 Body mass index [BMI] 50.0-59.9, adult; I69.351 Hemiplegia and hemiparesis following cerebral infarction affecting right dominant side; R33.9 Retention of urine, unspecified; R31.9 Hematuria, unspecified; D63.1 Anemia in chronic kidney disease; M17.10 Unilateral primary osteoarthritis, unspecified knee; M25.511 Pain in right shoulder; H91.90 Unspecified hearing loss, unspecified ear; R29.706 NIHSS score 6; N40.0 Benign prostatic hyperplasia without lower urinary tract symptoms; R47.81 Slurred speech; R20.0 Anesthesia of skin; I48.91 Unspecified atrial fibrillation; Z99.81 Dependence on supplemental oxygen; Z80.0 Family history of malignant neoplasm of digestive organs; Z80.1 Family history of malignant neoplasm of trachea, bronchus and lung; I69.321 Dysphasia following cerebral infarction; Z95.0 Presence of cardiac pacemaker; Z87.01 Personal history of pneumonia (recurrent); Z86.14 Personal history of Methicillin resistant Staphylococcus aureus infection; Z82.3 Family history of stroke; Z87.891 Personal history of nicotine dependence; Z87.440 Personal history of urinary (tract) infections; Z79.01 Long term (current) use of anticoagulants; Z79.82 Long term (current) use of aspirin
CPT/HCPCS: 36415; 70450; 71045; 80048; 80053; 80061; 81003; 81015; 83605; 83735; 84484; 85025; 85610; 85730; 86850; 86900; 86901; 87040; 87086; 87641; 93005; 93306; 94640; 94660; 95819; 99283; A9270-GY; C8929; G8978-GP-CM; G8979-GP-CM; G8980-GP-CM; G8987-GO-CM; G8988-GO-CM; G8989-GO-CM; J0696; J1940; J2060

== ENCOUNTER 2018-07-22 21:11 | Inpatient (IN) | payer MEDICARE, MEDICAID ==
--- NOTE | 2018-07-22 21:21 | ED ---
Shortness of Breath - HPI Summary HPI Summary: This patient is a 67 year old M BIBA to [facility] from [facility] for respiratory distress and what they call lethargy. Pt is non responsive and only grunts intermittently. Level 5 caveat due to AMS. Hx CHF - History of Current Complaint Onset/Duration: Still Present Current Severity: Severe Dyspnea At: Rest - Allergy/Home Medications Allergies/Adverse Reactions: Allergies Allergy/AdvReac Type Severity Reaction Status Date / Time No Known Allergies Allergy Verified 01/15/18 13:25 PMH/Surg Hx/FS Hx/Imm Hx Cardiovascular History: Reports: Hx Congestive Heart Failure, Hx Hypertension, Hx Pacemaker/ICD Respiratory History: Reports: Hx Pneumonia, Hx Pulmonary Edema, Hx Sleep Apnea Denies: Hx Asthma, Hx Chronic Obstructive Pulmonary Disease (COPD) History: Reports: Hx Benign Prostatic Hyperplasia, Hx Chronic Renal Failure, Hx Kidney Infection, Other Problems/Disorders - history MRSA in urine Musculoskeletal History: Reports: Hx Arthritis - knee, Other Musculoskeletal History - morbid obesity Sensory History: Reports: Hx Hearing Problem - mild TOGIAK Denies: Hx Contacts or Glasses, Hx Hearing Aid Opthamlomology History: Denies: Hx Contacts or Glasses Neurological History: Reports: Hx CVA Psychiatric History: Denies: Hx Panic Disorder - Surgical History Surgery Procedure, Year, and Place: HERNIA REPAIR, AICD/PACER Hx Anesthesia Reactions: No - Immunization History Date of Tetanus Vaccine: up to date Date of Influenza Vaccine: 2015 Infectious Disease History: Reports: Hx of Known/Suspected MRSA - mrsa neg as of 02/17/17 Denies: Hx Clostridium Difficile - Family History Known Family History: Positive: Other - Stroke Family History: FHx of CA. No FHx of CVA - Social History Alcohol Use: None Hx Substance Use: No Substance Use Type: Reports: None Hx Tobacco Use: No Smoking Status (MU): Former Smoker Type: Cigarettes Amount Used/How Often: 1 pack per week Length of Time of Smoking/Using Tobacco: 1 year Have You Smoked in the Last Year: No Review of Systems - ROS Summary Review of Systems Summary: Level 5 caveat due to AMS. Positive: Other - "lethargic" Positive: Shortness Of Breath Positive: Other - AMS All Other Systems Reviewed And Are Negative: No - Comments Additional Review of Systems Comments: Level 5 caveat due to AMS. Physical Exam - Summary Physical Exam Summary: Appearance: obese lethargic male who is in moderate respiratory distress Skin: Warm, dry, no obvious rash Eyes: sclera anicteric, no conjunctival pallor ENT: mucous membranes moist, pharynx appears normal Neck: Supple, nontender Respiratory: unable to auscultate due to the patients habitus Cardiovascular: Normal Abdomen: Soft, obese Musculoskeletal: Normal, Neurological: AMS, patient does not follow commands and only grunts to questions Triage Information Reviewed: Yes Vital Signs Reviewed: Yes Completion Of Physical Exam Limited Due To: Level 5 Diagnostics - Laboratory Result Diagrams: 07/24/18 04:25 07/24/18 04:25 Lab Statement: Any lab studies that have been ordered have been reviewed, and results considered in the medical decision making process. Re-Evaluation - Re-Evaluation First Eval Re-Evaluation Time: 21:21 Change: Unchanged Comment: Patients family arrived in the ED and states the pt has a hx UTI that has caused similar sx in the past. He states thats why he recently had a catheter placed. Course/Dx - Course Assessment/Plan: This patient is a 67 year old M BIBA to [facility] from [facility] for respiratory distress and what they call lethargy. Pt is non responsive and only grunts intermittently. Level 5 caveat due to AMS. Hx CHF. Patients family arrived in the ED and states the pt has a hx UTI that has caused similar sx in the past. He states thats why he recently had a catheter placed. The patient will be signed out to Dr. Rush awaiting CXR and admission - Diagnoses Provider Diagnoses: Acute respiratory failure, PNA (pneumonia), UTI (urinary tract infection) - Physician Notifications Discussed Care of Patient With: Meme Faulkner Time Discussed With Above Provider: 21:53 Instructed by Provider To: Other - I discussed patient care with Dr. Faulkner and I informed her of the patients case. Discharge - Sign-Out/Discharge Documenting (check all that apply): Sign-Out Patient Signing out patient TO: Rod Rush Receiving patient FROM: Rodrigo Diamond - Discharge Plan Condition: Guarded Disposition: ADMITTED TO [facility] - Billing Disposition and Condition Condition: GUARDED Disposition: Admitted to [facility] - Attestation Statements Document Initiated by Scribe: Yes Documenting Scribe: Eliud Aggarwal Provider For Whom Scribe is Documenting (Include Credential): Rodrigo Diamond MD Scribe Attestation: I, Eliud Aggarwal , scribed for Rodrigo Diamond MD on 07/24/18 at 1436. Scribe Documentation Reviewed: Yes Provider Attestation: The documentation as recorded by the friedaibeEliud accurately reflects the service I personally performed and the decisions made by me, Rodrigo Diamond MD
[2018-07-22] MEDS: Nitroglycerin 2% OINT* 1 GM PAK TOPICAL ONE ×2 (21:56→22:26)
[2018-07-22 22:16] LABS: ABS Basophils 0 10^3/ul (0-0.2); ABS Eosinophils 0.1 10^3/ul (0-0.6); ABS Lymphocytes 0.4 10^3/ul (1.0-4.8); ABS Monocytes 0.5 10^3/ul (0-0.8); ABS Neutrophils 11.3 10^3/ul (1.5-7.7); ABS Nucleated RBC 0 10^3/ul; Eosinophil % 0.5 % (0-6); Hematocrit 39 % (42-52); Hemoglobin 11.8 g/dl (14.0-18.0); Lymphocyte % 3.2 % (25-47); Mean Corpuscular HGB Conc 31 g/dl (31-36); Mean Corpuscular Hemoglobin 25 pg (27-31); Mean Corpuscular Volume 82 fL (80-94); Mean Platelet Volume 7.7 um3 (7.4-10.4); Nucleated Red Blood Cells % 0.2; Platelet Count 242 10^3/ul (150-450); Red Cell Distribution Width 17 % (10.5-15); White Blood Count 12.3 10^3/ul (3.5-10.8)
[2018-07-22] MEDS ORDERED: cefTRIAXone(*) 1 GM in NS 0.9% 50 ML* 50 ML IVPB ONE (22:21)
[2018-07-22] MEDS ORDERED: NS 0.9% 1000 ML* 2,000 ML IV ONE (22:21)
[2018-07-22] MEDS ORDERED: NS 0.9% 1000 ML* 1,000 ML IV ONE ×2 (22:22→22:57)
[2018-07-22 22:31] LABS: EGFR Non-African American 17.3 (>60)
[2018-07-22] MEDS ORDERED: Etomidate* 2 MG/ML 20 ML VIAL (40 MG) ONE (22:34)
[2018-07-22] MEDS ORDERED: Albuterol/Ipratropium NEB.SOL* Albuterol 2.5 MG/Ipratropium 0.5 MG 3 ML INH PRN (22:54)
[2018-07-22] MEDS ORDERED: Albuterol 2.5 MG/3 ML NEB.SOL* (0.083%) INH PRN (22:54)
[2018-07-22] MEDS ORDERED: Midazolam* 1 MG/ML 5 ML VIAL (5 MG) ONE (22:54)
[2018-07-22] MEDS ORDERED: fentaNYL* 50 MCG/ML 2 ML VIAL (100 MCG VIAL) ONE (22:54)
--- NOTE | 2018-07-22 22:54 | ED ---
Progress - Results/Orders Results/Orders: CXR post-intubation: Poor quality. ET tube 4 cm above gabriella, OG tube in stomach. Left lung is opaque and there is diffuse infiltrate in the right. Re-Evaluation - Re-Evaluation First Eval Re-Evaluation Time: 21:21 Change: Unchanged Comment: Patients family arrived in the ED and states the pt has a hx UTI that has caused similar sx in the past. He states thats why he recently had a catheter placed. Course/Dx - Course Course Of Treatment: Pt intubated. ABG pH 7.18. ABG pCO2 104. A CXR s/p intubation was of poor quality, and revealed ET 4 cm above gabriella, OG tube in stomach. Left lung is opaque and there is diffuse infiltrate in the right. Pt moved to room 14 due to extreme sx and diagnostics. - Diagnoses Provider Diagnoses: Acute respiratory failure, PNA (pneumonia), UTI (urinary tract infection) - Provider Notifications Discussed Care Of Patient With: Meme Faulkner Time Discussed With Above Provider: 21:53 Instructed by Provider To: Other - I discussed patient care with Dr. Faulkner and I informed her of the patients case. She accepts admission. - Critical Care Time Critical Care Time: 30-74 min - 50 Discharge - Sign-Out/Discharge Documenting (check all that apply): Patient Departure - admit, Receiving Sign- Out Receiving patient FROM: Rodrigo Diamond - Discharge Plan Condition: Guarded Disposition: ADMITTED TO [facility] Referrals: Pippa Zepeda MD [Primary Care Provider] - - Attestation Statements Document Initiated by Scribe: Yes Documenting Scribe: Marin Clinton Provider For Whom Scribe is Documenting (Include Credential): Dr. Rod Rush MD Scribe Attestation: Marin Laughlin, scribed for Dr. Rod Ruhs MD on 07/22/18 at 0210. Procedures - Intubation Time of Intubation: 22:45 Tube Size (cm): 7.5 Post Intubation Xray: Yes
[2018-07-22] MEDS ORDERED: Vancomycin(*) 1,000 MG in NS 0.9% 250 ML* 250 ML IVPB ONE (22:56)
[2018-07-22] MEDS ORDERED: Midazolam* 1 MG/ML 10 ML VIAL (10 MG) ONE (22:58)
[2018-07-22] MEDS ORDERED: Fentanyl PCA (Continuous Infusion)* 20 ML PCA SCH (23:00)
[2018-07-22] MEDS ORDERED: Midazolam DRIP 100 MG (1 mg/ml)* - ED ONCE IV SCH ×2 (23:00)
[2018-07-22] MEDS ORDERED: Docusate CAP* 100 MG PO PRN (23:17)
[2018-07-22] MEDS ORDERED: NS 0.9% 250 ML* 250 ML ONE (23:17)
[2018-07-22] MEDS ORDERED: Al Hydrox/Mg Hydrox/Simet LIQ* 30 ML UDC PO PRN (23:17)
[2018-07-22] MEDS ORDERED: Senna TAB PO PRN (23:17)
[2018-07-22] MEDS ORDERED: Ondansetron INJ* 2 MG/ML VIAL IV PRN (23:17)
[2018-07-22] MEDS ORDERED: LORazepam INJ* 2 MG/ML 1 ML VIAL IV PUSH PRN (23:21)
[2018-07-23] MEDS ORDERED: LORazepam INJ* 2 MG/ML 1 ML VIAL ONE (00:36)
[2018-07-23] MEDS ORDERED: Propofol* 100 ML ONE (00:51)
[2018-07-23] MEDS: Propofol* 100 ML IV SCH ×8 (01:00→21:59)
[2018-07-23] MEDS ORDERED: Cefepime 2 GM in Dextrose(*) 2 GM/50 ML BAG IV SCH (01:15)
[2018-07-23] MEDS ORDERED: NS 0.9% 500 ML* 500 ML IV ONE (01:24)
[2018-07-23 02:00] LABS: Urine Appearance Turbid; Urine Blood 2+ (Negative); Urine Color Yellow; Urine Ketones Negative (Negative); Urine Protein 2+(100 mg/dL) (Negative); Urine Red Blood Cell 2+(6-10/hpf) (Absent); Urine Specific Gravity 1.011 (1.010-1.030); Urine Urobilinogen Negative (Negative); Urine White Blood Cell 3+(>20/hpf) (Absent)
[2018-07-23] MEDS ORDERED: Warfarin TAB(*) 2.5 MG G TUBE ONE (02:00)
[2018-07-23 02:07] LABS: INR 1.74 (0.77-1.02)
[2018-07-23] MEDS ORDERED: Vancomycin(*) 1,000 MG in NS 0.9% 250 ML* 250 ML IVPB ONE (02:30)
[2018-07-23] MEDS: Chlorhexidine MOUTHWASH 0.12%* 15 ML UDC TOPICAL SCH ×7 (03:04→23:06)
[2018-07-23] MEDS ORDERED: Vancomycin per Pharmacy* NOTE FOLLOW UP PRN (04:11)
[2018-07-23] MEDS ORDERED: NS 0.9% 1000 ML* 1,000 ML IV SCH (04:15)
--- NOTE | 2018-07-23 05:37 | HP ---
CC: [facility] HISTORY AND PHYSICAL: DATE OF ADMISSION: 07/22/18 TIME OF EVALUATION: 2300. PRIMARY CARE PROVIDER: [facility]. CHIEF COMPLAINT: Altered mental status, respiratory distress. HISTORY OF PRESENT ILLNESS: History was obtained by the medical records and the staff as patient is intubated and sedated. Per [facility] notes patient has been lying in bed for the past 7 days. Today appeared to be complaining of shortness of breath. He was hypoxic that improved with a nebulizer treatment. He was also noted to have gained weight and an extra torsemide was given. This evening he was found somnolent and in respiratory distress. The patient was brought to the ER via EMS for respiratory distress and altered mental status. He was found to be in hypercapnic respiratory failure and promptly intubated and sedated. The patient recently had an indwelling Hilario catheter placed. He is morbidly obese and appears to be bedbound due to CVA with hemiplegia. In the emergency room, the patient had labs, imaging. He was given a liter of fluid, ceftriaxone, vancomycin and referred to the hospitalist service for further evaluation. PAST MEDICAL HISTORY: 1. Chronic atrial fibrillation, on anticoagulation. 2. Urinary retention now with indwelling Hilario. 3. Morbid obesity with alveolar hypoventilation. 4. Cardiomegaly. 5. Chronic systolic congestive heart failure. 6. Constipation. 7. Dysarthria following nontraumatic intracranial hemorrhage. 8. Chronic kidney disease. 9. 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 10. COPD on continuous oxygen. 11. History of MRSA. 12. Hypertension. 13. BPH with indwelling Hilario catheter. 14. History of VRE bacteremia. 15. Obstructive sleep apnea, on BiPAP. 16. History of pacemaker/AICD placement MEDICATIONS: 1. Spironolactone 12.5 mg p.o. daily. 2. Advair 250/50 one puff b.i.d. 3. Flomax 0.4 mg daily. 4. Aspirin 81 mg daily. 5. Tylenol 325 two tabs at bedtime. 6. Oxycodone 5 mg as needed. 7. Torsemide 20 mg daily. It appears patient was given additional torsemide 40 mg. 8. Cholecalciferol 2000 units daily. 9. Finasteride 5 mg daily. 10. Senna docusate 2 tabs daily in the a.m. 11. Warfarin 2.5 mg daily. 12. Oxycodone 5 mg q. 6 hours as needed. 13. Albuterol nebulizer as needed. 14. DuoNeb as needed. ALLERGIES: No known drug allergies. FAMILY HISTORY: Mother from colon cancer. Father from lung cancer. SOCIAL HISTORY: The patient resides at [facility]. He appears to be bedbound. His brother, David Terry, is his healthcare proxy who is here in the waiting room, did confirm that he is a full code. Very remote history of smoking. No history of alcohol abuse. Retired . He has never been . No children. Confirmed that he remains full code with trial intubation. REVIEW OF SYSTEMS: Unable to obtain due to patient's intubation and sedation. PHYSICAL EXAMINATION GENERAL: The patient is intubated and sedated. He is morbidly obese with limited exam due to his obesity. VITAL SIGNS: Temp is 96.3, pulse rate is 71, respiratory rate is 17, oxygen saturation is 98% on mechanical ventilation, blood pressure is 78/48. HEENT: Head, normocephalic. Pupils are pinpoint and sluggish. His conjunctivae are injected. Mouth, he has an ET tube in place. NECK: Supple. RESPIRATORY: Diminished breath sounds, unable to appreciate any adventitious lung sounds. CARDIAC: Distant heart sounds, tachycardic. ABDOMEN: Morbidly obese. EXTREMITIES: Trace, +1 pretibial edema. Distant pulses. NEUROLOGIC: The patient is sedated. DERM: He has various skin tears on his left and right lower extremities. LABORATORY DATA: White count 12.3, hemoglobin 11.8, hematocrit 39, platelets 242. Blood gases: PH 7.18, pCO2 of 104, O2 is 202. Sodium 137, potassium pending, chloride 97, bicarb 33, BUN 78, creatinine 3.53, glucose 150. Lactic acid 0.5. BNP 356. Troponin 0.02. RADIOGRAPHIC DATA: Chest x-ray is limited visualization of underexposed film likely secondary to his morbid obesity. EKG shows left ventricular paced rhythm. ASSESSMENT: This is a 67-year-old male who is morbidly obese, weighing 490 pounds with past medical history of obesity hypoventilation syndrome, cerebrovascular accident with hemiparesis, chronic kidney disease, chronic indwelling Hilario who presented from a [facility] with altered mental status and respiratory distress. 1. Respiratory distress. Assessment: The patient with acute hypercapnic respiratory failure requiring intubation. I suspect this is secondary to his sepsis. It is hard to determine volume overload due to his poor film due to his morbid obesity. He did have an echo in April which was unable to visualize very much at all. Plan: He will remain intubated and sedated with fentanyl drip, p.r.n. Ativan. We will repeat a blood gas to show correction of his acidosis. Continue his inhaler regimen and follow up with the manager wellness in the morning. 2. Acute on chronic kidney injury. Assessment: I suspect this is secondary to his sepsis. Plan: I am going to hold his diuretics, renally dose his meds. Repeat his labs in the morning. 3. Sepsis. Assessment: The patient with high white count. He is hypothermic. I suspect he has a urinary tract infection as a source. Plan: We will obtain blood cultures. Check urine change on his Hilario bag. He has a history of MRSA in his urine in the past, but his repeat MRSA cultures have been negative. Plan: We will start him on cefepime and continue him on the vancomycin and followup his cultures. 4. Chronic medical problems: We will place an OG and resume his home medication with the exception of his diuretics as he needs volume replacement in the setting of his sepsis. 5. FEN: Keep him n.p.o. We will continue to fluid resuscitate him. 6. DVT prophylaxis: The patient scores high risk. He is on Coumadin. We will check an INR. 7. Code status: Confirmed he is a full code. TIME SPENT: Greater than 60 minutes spent doing history and physical, more than half time spent in direct patient contact and critical care time. I did sign out to Dr. Carlos. He is notified of the admission. [id number]/CPS #: [id number] [facility]ITAL[facility]
[2018-07-23 06:19] LABS: ABS Basophils 0.1 10^3/ul (0-0.2); ABS Eosinophils 0.1 10^3/ul (0-0.6); ABS Lymphocytes 0.6 10^3/ul (1.0-4.8); ABS Monocytes 0.4 10^3/ul (0-0.8); ABS Neutrophils 6.5 10^3/ul (1.5-7.7); ABS Nucleated RBC 0 10^3/ul; Eosinophil % 1.1 % (0-6); Hematocrit 32 % (42-52); Lymphocyte % 8.2 % (25-47); Mean Corpuscular HGB Conc 32 g/dl (31-36); Mean Corpuscular Hemoglobin 26 pg (27-31); Mean Corpuscular Volume 81 fL (80-94); Mean Platelet Volume 7.8 um3 (7.4-10.4); Nucleated Red Blood Cells % 0.2; Platelet Count 202 10^3/ul (150-450); Red Blood Count 3.91 10^6/ul (4.00-5.40); Red Cell Distribution Width 17 % (10.5-15); White Blood Count 7.6 10^3/ul (3.5-10.8)
[2018-07-23 06:28] LABS: INR 1.72 (0.77-1.02)
[2018-07-23] MEDS: Mometasone/Formoter 200/5 MDI INH SCH ×2 (07:02→19:23)
--- NOTE | 2018-07-23 07:54 | RAD ---
HISTORY: sob COMPARISONS: June 03, 2018 VIEWS: 2 : frontal AP view of the chest at 9:55 PM. The patient is obliqued to the left. The study is markedly technically limited. FINDINGS: LINES AND TUBES: A left-sided AICD is noted. CARDIOMEDIASTINAL SILHOUETTE: The cardiac silhouette is enlarged. The cardiomediastinal silhouette is otherwise normal for portable technique. PLEURA: There is a probable left pleural effusion. LUNG PARENCHYMA: There is a diffuse reticular pattern with indistinct pulmonary vessels. Evaluation of the left lower lobe is limited. ABDOMEN: The upper abdomen is clear. There is no subphrenic gas. BONES AND SOFT TISSUES: No bone or soft tissue abnormalities are noted. IMPRESSION: 1. TECHNICALLY LIMITED STUDY. 2. CARDIOMEGALY. 3. PULMONARY INTERSTITIAL EDEMA. 4. PROBABLE LEFT PLEURAL EFFUSION R1
--- NOTE | 2018-07-23 07:55 | RAD ---
HISTORY: post intubation COMPARISONS: July 22, 2018 at 9:48 PM VIEWS: 2 : frontal AP view of the chest at 11:43 PM. The patient is obliqued to the left. The study is markedly technically limited. FINDINGS: LINES AND TUBES: An endotracheal tube is noted with the tip overlying the trachea at the level of the clavicles.. A gastric tube is noted. The tip is is not well visualized of the current examination secondary to technique, but is below the diaphragm. An AICD is noted. CARDIOMEDIASTINAL SILHOUETTE: The cardiac silhouette is enlarged. The cardiomediastinal silhouette is otherwise normal for portable technique. PLEURA: There is a probable left pleural effusion. There is a small right pleural effusion. LUNG PARENCHYMA: There is a diffuse reticular pattern with indistinct pulmonary vessels. ABDOMEN: The upper abdomen is clear. There is no subphrenic gas. BONES AND SOFT TISSUES: No bone or soft tissue abnormalities are noted. IMPRESSION: 1. LIMITED STUDY. 2. LINES AND TUBES ABOVE. 3. CARDIOMEGALY 4. PULMONARY INTERSTITIAL EDEMA. 5. PROBABLE LEFT PLEURAL EFFUSION WITH SMALL RIGHT PLEURAL EFFUSION. R1
[2018-07-23] MEDS ORDERED: Piperacillin/Tazobac ADVAN(*) 3.375 GM in NS 0.9% 100 ML* 100 ML IVPB ONE (08:24)
--- NOTE | 2018-07-23 08:49 | RAD ---
HISTORY: centeral line placement in Right side of neck COMPARISONS: July 22, 2018 at 11:18 PM VIEWS: 1: frontal AP view of the chest at 8:19 AM. The patient is obliqued to the left. The study is technically limited. FINDINGS: LINES AND TUBES: An endotracheal tube is noted with the tip overlying the trachea between the clavicles and the ryan. A gastric tube is noted, with the tip in the left upper quadrant in a prepyloric position.. A left-sided AICD is noted. A right internal jugular venous catheter is noted with the tip overlying the expected location of the superior vena cava. CARDIOMEDIASTINAL SILHOUETTE: The cardiomediastinal silhouette is obscured. PLEURA: There is a probable large left pleural effusion. There is a small left pleural effusion. LUNG PARENCHYMA: There is a diffuse reticular pattern with indistinct pulmonary vessels. There has been interval development of complete opacification of the left hemithorax. ABDOMEN: The upper abdomen is clear. There is no subphrenic gas. BONES AND SOFT TISSUES: No bone or soft tissue abnormalities are noted. IMPRESSION: 1. LIMITED STUDY. 2. LINES AND TUBES ABOVE. 3. THERE HAS BEEN INTERVAL DEVELOPMENT OF COMPLETE OPACIFICATION OF LEFT HEMITHORAX WHICH LIKELY REPRESENTS COMBINATION OF LARGE LEFT PLEURAL EFFUSION AND LEFT LUNG ATELECTASIS VERSUS CONSOLIDATION. 4. PULMONARY INTERSTITIAL EDEMA.
[2018-07-23] MEDS ORDERED: Zosyn per Pharmacy* NOTE FOLLOW UP SCH (09:00)
[2018-07-23 09:02] LABS: EGFR Non-African American 18.7 (>60)
--- NOTE | 2018-07-23 09:30 | OP ---
Operative Report - Blank - Operative Report Date of Operation: 07/23/18 Note: Central Venous Catheter (CVC, Central Line) Placement Date: 07/23/18 Time: 8:30am Indication: Hemodynamic monitoring/Intravenous access Attending: Breanna Segura time-out was completed verifying correct patient, procedure, site, positioning , and special equipment if applicable. The patient was placed in a dependent position appropriate for central line placement based on the vein to be cannulated. The patients right neck was prepped and draped in sterile fashion. 1% Lidocaine was used to anesthetize the surrounding skin area. A triple lumen 7 -[place] catheter was introduced into the internal jugular vein using the Seldinger technique and under ultrasound guidance. The catheter was threaded smoothly over the guide wire and appropriate blood return was obtained. Each lumen of the catheter was evacuated of air and flushed with sterile saline. The catheter was then sutured in place to the skin and a sterile dressing applied. Perfusion to the extremity distal to the point of catheter insertion was checked and found to be adequate. \ Estimated Blood Loss: None The patient tolerated the procedure well and there were no complications.
[2018-07-23] MEDS: Vancomycin(*) 1,250 MG in NS 0.9% 250 ML* 250 ML IVPB SCH ×2 (09:33→20:45)
[2018-07-23] MEDS ORDERED: Acetylcysteine INHALATION SOL* 200 MG/ML NEB.SOLN 10 ML INH PRN (09:35)
[2018-07-23] MEDS: Finasteride TAB* 5 MG PO SCH (09:36)
[2018-07-23] MEDS: Aspirin 81 mg CHEW TAB* 81 MG TAB.CHEW PO SCH (09:36)
--- NOTE | 2018-07-23 09:36 | PN ---
Date of Service: 07/23/18 Critical Care Services: 67M with htn, chf, afib s/p ppm on coumadin, ckd, bud/ohs, h/o cva, recurrent uti, bph, morbid obesity presents with AMS and dyspnea. Intubated for hypercapnic respiratory failure. Septic Shock 2/2 uti. 07/23: TLC placed. Levophed ordered. CXR with complete white of left lung. Family called for consent for bronchoscopy. Vital Signs: Temp Pulse Resp BP SpO2 FiO2 97.5 F 73 16 88/61 94 65 07/23/18 08:31 07/23/18 08:31 07/23/18 08:00 07/23/18 08:31 07/23/18 08:31 07/23 08:25 Physical Exam: Gen - intubated and sedated. morbidly obese Heent - ncat, perrl neck - +rij tlc cv - s1/s2, distant heart sounds lungs - dec bs bilaterally abd - soft, nt, nd ext - trace edema neuro - unresponsive Fluid Balance (Past 24 Hours): I= O= Net Intake & Output 07/21/18 07/22/18 07/23/18 07/24/18 06:59 06:59 06:59 06:59 Intake Total 1622 0 Output Total 465 950 Balance 1157 -950 Weight 267.846 kg Intake: IV Fluids 665 NS (0.9%) 665 IVPB 791 ABX - CEFEPIME 50 ABX - VANCOMYCIN 499 NS (0.9%) 242 Medicated IV 166 CC - Propofol/Diprivan 166 Oral 0 Output: Hilario 465 950 Labs: Laboratory Results - last 24 hr 07/22/18 07/22/18 07/22/18 22:00 22:00 22:00 WBC 12.3 H RBC 4.70 Hgb 11.8 L Hct 39 L MCV 82 MCH 25 L MCHC 31 RDW 17 H Plt Count 242 MPV 7.7 Neut % (Auto) 92.2 H Lymph % (Auto) 3.2 L Phelps % (Auto) 3.8 Eos % (Auto) 0.5 Baso % (Auto) 0.3 Absolute Neuts (auto) 11.3 H Absolute Lymphs (auto) 0.4 L Absolute Monos (auto) 0.5 Absolute Eos (auto) 0.1 Absolute Basos (auto) 0 Absolute Nucleated RBC 0 Nucleated RBC % 0.2 INR (Anticoag Therapy) Patient Temperature ABG pH ABG pH (Temp Correct) ABG pCO2 ABG pCO2 (Temp Corrct ABG pO2 ABG pO2 (Temp Correct ABG HCO3 ABG O2 Saturation ABG Base Excess Respiration Rate O2 Delivery Device Ventilator Type Vent Mode FiO2 Inspiratory Time PEEP Pressure Support Pressure Control EPAP IPAP BiPAP Sodium 137 Potassium 4.4 Chloride 97 L Carbon Dioxide 33 H Anion Gap 7 BUN 78 H Creatinine 3.53 H Est GFR ( Amer) 20.9 Est GFR (Non-Af Amer) 17.3 BUN/Creatinine Ratio 22.1 H Glucose 150 H Lactic Acid 0.5 Calcium 8.6 Total Bilirubin 0.30 AST 16 ALT 21 Alkaline Phosphatase 134 H Troponin I 0.02 B-Natriuretic Peptide Total Protein 6.7 Albumin 3.2 Globulin 3.5 Albumin/Globulin Ratio 0.9 L Urine Color Urine Appearance Urine pH Ur Specific Beryl Urine Protein Urine Ketones Urine Blood Urine Nitrate Urine Bilirubin Urine Urobilinogen Ur Leukocyte Esterase Urine WBC (Auto) Urine RBC (Auto) Urine Bacteria Urine Glucose 07/22/18 07/22/18 07/23/18 22:00 22:18 00:50 WBC RBC Hgb Hct MCV MCH MCHC RDW Plt Count MPV Neut % (Auto) Lymph % (Auto) Phelps % (Auto) Eos % (Auto) Baso % (Auto) Absolute Neuts (auto) Absolute Lymphs (auto) Absolute Monos (auto) Absolute Eos (auto) Absolute Basos (auto) Absolute Nucleated RBC Nucleated RBC % INR (Anticoag Therapy) Patient Temperature Not Reportable ABG pH 7.18 L* 7.25 L ABG pH (Temp Correct) Not Reportable ABG pCO2 104 H* 78 H* ABG pCO2 (Temp Corrct Not Reportable ABG pO2 202 H 208 H ABG pO2 (Temp Correct Not Reportable ABG HCO3 30.4 28.6 ABG O2 Saturation 99.3 H 98.7 H ABG Base Excess 7.1 H 4.8 H Respiration Rate 16 O2 Delivery Device ventilator Ventilator Type 600 Vent Mode cmv FiO2 100 Inspiratory Time 1.0 PEEP 5 Pressure Support Not Reportable Pressure Control Not Reportable EPAP Not Reportable IPAP Not Reportable BiPAP Not Reportable Sodium Potassium Chloride Carbon Dioxide Anion Gap BUN Creatinine Est GFR ( Amer) Est GFR (Non-Af Amer) BUN/Creatinine Ratio Glucose Lactic Acid Calcium Total Bilirubin AST ALT Alkaline Phosphatase Troponin I B-Natriuretic Peptide 356 H Total Protein Albumin Globulin Albumin/Globulin Ratio Urine Color Urine Appearance Urine pH Ur Specific Beryl Urine Protein Urine Ketones Urine Blood Urine Nitrate Urine Bilirubin Urine Urobilinogen Ur Leukocyte Esterase Urine WBC (Auto) Urine RBC (Auto) Urine Bacteria Urine Glucose 07/23/18 07/23/18 07/23/18 01:37 01:50 01:50 WBC RBC Hgb Hct MCV MCH MCHC RDW Plt Count MPV Neut % (Auto) Lymph % (Auto) Phelps % (Auto) Eos % (Auto) Baso % (Auto) Absolute Neuts (auto) Absolute Lymphs (auto) Absolute Monos (auto) Absolute Eos (auto) Absolute Basos (auto) Absolute Nucleated RBC Nucleated RBC % INR (Anticoag Therapy) 1.74 H Patient Temperature ABG pH ABG pH (Temp Correct) ABG pCO2 ABG pCO2 (Temp Corrct ABG pO2 ABG pO2 (Temp Correct ABG HCO3 ABG O2 Saturation ABG Base Excess Respiration Rate O2 Delivery Device Ventilator Type Vent Mode FiO2 Inspiratory Time PEEP Pressure Support Pressure Control EPAP IPAP BiPAP Sodium Potassium Chloride Carbon Dioxide Anion Gap BUN Creatinine Est GFR ( Amer) Est GFR (Non-Af Amer) BUN/Creatinine Ratio Glucose Lactic Acid Calcium Total Bilirubin AST ALT Alkaline Phosphatase Troponin I 0.02 B-Natriuretic Peptide Total Protein Albumin Globulin Albumin/Globulin Ratio Urine Color Yellow Urine Appearance Turbid Urine pH 8.0 Ur Specific Beryl 1.011 Urine Protein 2+(100 mg/dl) A Urine Ketones Negative Urine Blood 2+ A Urine Nitrate Negative Urine Bilirubin Negative Urine Urobilinogen Negative Ur Leukocyte Esterase 2+ A Urine WBC (Auto) 3+(>20/hpf) A Urine RBC (Auto) 2+(6-10/hpf) A Urine Bacteria Absent Urine Glucose Negative 07/23/18 07/23/18 07/23/18 05:55 05:55 05:55 WBC 7.6 RBC 3.91 L Hgb 10.0 L Hct 32 L MCV 81 MCH 26 L MCHC 32 RDW 17 H Plt Count 202 MPV 7.8 Neut % (Auto) 84.9 H Lymph % (Auto) 8.2 L Phelps % (Auto) 4.9 Eos % (Auto) 1.1 Baso % (Auto) 0.9 Absolute Neuts (auto) 6.5 Absolute Lymphs (auto) 0.6 L Absolute Monos (auto) 0.4 Absolute Eos (auto) 0.1 Absolute Basos (auto) 0.1 Absolute Nucleated RBC 0 Nucleated RBC % 0.2 INR (Anticoag Therapy) 1.72 H Patient Temperature ABG pH ABG pH (Temp Correct) ABG pCO2 ABG pCO2 (Temp Corrct ABG pO2 ABG pO2 (Temp Correct ABG HCO3 ABG O2 Saturation ABG Base Excess Respiration Rate O2 Delivery Device Ventilator Type Vent Mode FiO2 Inspiratory Time PEEP Pressure Support Pressure Control EPAP IPAP BiPAP Sodium 140 Potassium 4.2 Chloride 102 Carbon Dioxide 27 Anion Gap 11 BUN 78 H Creatinine 3.29 H Est GFR ( Amer) 22.7 Est GFR (Non-Af Amer) 18.7 BUN/Creatinine Ratio 23.7 H Glucose 82 Lactic Acid Calcium 7.9 L Total Bilirubin 0.30 AST 15 ALT 16 Alkaline Phosphatase 108 H Troponin I B-Natriuretic Peptide Total Protein 5.6 L Albumin 2.7 L Globulin 2.9 Albumin/Globulin Ratio 0.9 L Urine Color Urine Appearance Urine pH Ur Specific Beryl Urine Protein Urine Ketones Urine Blood Urine Nitrate Urine Bilirubin Urine Urobilinogen Ur Leukocyte Esterase Urine WBC (Auto) Urine RBC (Auto) Urine Bacteria Urine Glucose Studies: CXR 07/23 1. LIMITED STUDY. 2. LINES AND TUBES ABOVE. 3. THERE HAS BEEN INTERVAL DEVELOPMENT OF COMPLETE OPACIFICATION OF LEFT HEMITHORAX WHICH LIKELY REPRESENTS COMBINATION OF LARGE LEFT PLEURAL EFFUSION AND LEFT LUNG ATELECTASIS VERSUS CONSOLIDATION. 4. PULMONARY INTERSTITIAL EDEMA. Impression: 67M with htn, chf, afib s/p ppm on coumadin, ckd, bud/ohs, h/o cva, recurrent uti, bph, morbid obesity presents with AMS and dyspnea. Intubated for hypercapnic respiratory failure. Septic Shock 2/2 uti. Plan: Neuro - AMS - 2/2 hypercapnea and sepsis CV - htn, afib, chf, shock - shock 2/2 sepsis - levophed for bp support - hold antihypertensives - prior tte with poor windows - monitor on tele - c/w coumadin for ac Pulm - hypercapnic respiratory failure, mucus plug - 2/2 bud/ohs - plan for bronchoscopy today - wean vent as tolerated - allow for higher PEEP given body habitus ID - septic shock - 2/2 uti vs pna - empiric vanc/zosyn - f/u cultures - serial lactates GI - tube feeds Renal - ckd - monitor i/o - monitor lytes Heme - monitor cbc Endo - check fs, niss Lines - RIJ TLC (07/23/18) PPx - gi/dvt Full Code Critical Care Time: 90 mins
--- NOTE | 2018-07-23 10:15 | OP ---
Operative Report - Blank - Operative Report Date of Operation: 07/23/18 Note: Bronchoscopy Report Date: 07/23/18 Time: 945AM Indication: Mucus plug Consent: obtained from brother Description: Bronchoscope was introduced via the ETT and advanced into the trachea. The ryan was visualized and was sharp. The scope was passed into the left mainstem, left upper lobe, linguala, and left lower lobe bronchi. BAL was performed in the Lingula. The scope was then passed to the right mainstem bronchus, then to the RUL, RML, and RLL. There was a moderate amount of mucus through out both lungs. No endobronchial lesions were visualized. The patient tolerated the procedure well will out immediate complications.
--- NOTE | 2018-07-23 10:52 | RAD ---
HISTORY: s/p bronchoscopy eval for pnx COMPARISONS: July 23, 2018 at 8:05 AM VIEWS: 1: frontal AP view of the chest at 10:30 AM . The study is markedly technically limited. FINDINGS: LINES AND TUBES: An endotracheal tube is noted with the tip overlying the trachea between the clavicles and the ryan. A gastric tube is noted. The tip is not visualized secondary to limitations of technique. A right internal jugular venous catheter is noted with the tip overlying the expected location of the superior vena cava. A left-sided AICD is noted. CARDIOMEDIASTINAL SILHOUETTE: The cardiac silhouette is enlarged. The cardiomediastinal silhouette is otherwise normal for portable technique. PLEURA: There is moderate left pleural effusion. There is no appreciable pneumothorax. LUNG PARENCHYMA: There is a diffuse reticular pattern with indistinct pulmonary vessels. There is persistent opacification of the left mid and lower lung reina, with improved aeration of the left lung apex. ABDOMEN: The upper abdomen is clear. There is no subphrenic gas. BONES AND SOFT TISSUES: No bone or soft tissue abnormalities are noted. IMPRESSION: 1. MARKEDLY LIMITED STUDY. WITHIN THE LIMITATIONS OF STUDY: 2. CARDIOMEGALY. 3. PULMONARY EDEMA. 4. IMPROVED AERATION OF THE LEFT LUNG APEX WITH PERSISTENT AIRSPACE DISEASE OF THE LEFT MID AND LOWER LUNG REINA. 5. NO APPRECIABLE PNEUMOTHORAX. 6. LINES AND TUBES ABOVE.
--- NOTE | 2018-07-23 11:37 | PN ---
Sepsis Event Evaluation Date of Evaluation: 07/23/18 Current Stage of Sepsis: Septic Shock Vital Signs - Last 12 Hours: Vital Signs - 12 hr Temp Pulse Resp BP Pulse Ox 07/23/18 11:19 16 07/23/18 11:00 97.5 F 70 16 133/76 97 07/23/18 10:45 97.5 F 70 126/81 96 07/23/18 10:31 97.5 F 74 114/80 94 07/23/18 10:15 97.5 F 70 86/63 96 07/23/18 10:01 97.5 F 80/57 07/23/18 10:00 97.5 F 70 16 95 07/23/18 09:45 97.5 F 70 92/59 96 07/23/18 09:31 97.5 F 69 87/57 97 07/23/18 09:15 97.5 F 76 102/67 97 07/23/18 09:00 97.5 F 70 16 85/61 96 07/23/18 08:45 97.5 F 63 86/62 94 07/23/18 08:31 97.5 F 73 88/61 94 07/23/18 08:16 97.5 F 69 101/60 98 07/23/18 08:00 97.3 F 69 16 106/57 98 07/23/18 07:46 97.3 F 70 91/61 98 07/23/18 07:31 97.2 F 64 99/59 100 07/23/18 07:15 97.0 F 70 117/81 99 07/23/18 07:00 97.2 F 69 16 99/63 99 07/23/18 06:45 97.2 F 70 101/65 99 07/23/18 06:31 97.0 F 70 105/63 100 07/23/18 06:15 97.0 F 69 102/61 100 07/23/18 06:00 97.0 F 74 96/53 100 07/23/18 05:55 16 07/23/18 05:46 96.8 F 92 94/70 99 07/23/18 05:31 96.8 F 70 95/62 99 07/23/18 05:15 96.8 F 70 98/68 100 07/23/18 05:00 96.6 F 70 16 90/70 100 07/23/18 04:46 96.6 F 70 101/63 98 07/23/18 04:31 96.6 F 70 98/58 99 07/23/18 04:16 96.6 F 70 98/52 100 07/23/18 04:01 96.6 F 70 87/64 99 07/23/18 04:00 96.6 F 70 16 100 07/23/18 03:46 96.4 F 70 88/61 99 07/23/18 03:31 96.4 F 70 90/65 99 07/23/18 03:16 96.4 F 70 95/68 100 07/23/18 03:01 96.3 F 70 95/56 100 07/23/18 03:00 96.3 F 70 16 99 07/23/18 02:54 96.3 F 70 109/57 99 07/23/18 02:46 96.4 F 71 100 07/23/18 02:31 96.4 F 70 82/65 99 07/23/18 02:16 96.4 F 71 87/62 100 07/23/18 02:05 96.4 F 71 94/57 98 07/23/18 02:01 96.4 F 72 82/61 99 07/23/18 02:00 96.4 F 73 16 100 07/23/18 01:46 96.4 F 71 88/58 100 07/23/18 01:31 96.4 F 74 84/65 99 07/23/18 01:26 96.4 F 72 85/54 100 07/23/18 01:16 96.4 F 70 76/51 100 07/23/18 01:01 96.4 F 70 116/78 100 07/23/18 01:00 96.4 F 70 16 98 07/23/18 00:44 95.9 F 70 139/89 100 07/23/18 00:39 97.2 F 71 16 118/68 100 07/23/18 00:37 16 07/23/18 00:35 94.6 F 81 200/136 98 07/23/18 00:15 16 07/23/18 00:09 71 118/68 100 07/23/18 00:00 97.2 F 14 07/22/18 23:40 97.9 F 72 20 105/59 100 Lactic Acid: 10/02/18 22:00 Lactic Acid 0.5 - Cardiopulmonary Exam Capillary Refill: < or = to 5 seconds Respiratory: Symmetrical Chest Expansion and Respiratory Effort, Clear to Auscultation Cardiovascular: NL Sounds; No Murmurs; No JVD - Peripheral Pulse Exam Radial Pulses: Bilateral Normal Pedal Pulses: Bilateral Normal Posterior Tibial Pulse: Bilateral Normal Femoral Pulses: Bilateral Normal Popliteal Pulses: Bilateral Normal - Skin Exam Skin Exam: Pallor - [place] Coma Scale Best Eye Response: 1 - None Best Motor Response: 4 - Withdraws Best Verbal Response: 1 - Intubated Coma Scale Total: 6.0 Assess/Plan/Problems-Billing Assessment:
[2018-07-23] MEDS: ZOSYN 3.375 GM Q8H per EXTENDED INFUSION IVPB SCH ×6 (16:15→23:43)
[2018-07-23] MEDS ORDERED: Warfarin TAB(*) 3 MG PO ONE (17:00)
[2018-07-23] MEDS: Tamsulosin CAP* 0.4 MG PO SCH (20:45)
[2018-07-23] MEDS: Norepinephrine 16MCG/ML IVPRE* 4,000 MCG/250 ML BAG IV SCH (23:47)
[2018-07-24] MEDS: Propofol* 100 ML IV SCH ×10 (01:10→22:18)
[2018-07-24] MEDS: Chlorhexidine MOUTHWASH 0.12%* 15 ML UDC TOPICAL SCH ×6 (03:08→23:41)
[2018-07-24 04:38] LABS: Hematocrit 35 % (42-52); Hemoglobin 10.9 g/dl (14.0-18.0)
[2018-07-24 04:40] LABS: INR 2.93 (0.77-1.02)
[2018-07-24 04:50] LABS: EGFR Non-African American 19.6 (>60)
[2018-07-24] MEDS: ZOSYN 3.375 GM Q8H per EXTENDED INFUSION IVPB SCH ×8 (06:10→23:41)
[2018-07-24] MEDS ORDERED: Vancomycin Trough Check NOTE FOLLOW UP ONE (09:00)
[2018-07-24] MEDS ORDERED: Furosemide IV* 10 MG/ML VIAL (40 MG) IV SLOW PU ONE (09:15)
--- NOTE | 2018-07-24 09:21 | PN ---
Date of Service: 07/24/18 Critical Care Services: 67M with htn, chf, afib s/p ppm on coumadin, ckd, bud/ohs, h/o cva, recurrent uti, bph, morbid obesity presents with AMS and dyspnea. Intubated for hypercapnic respiratory failure. Septic Shock 2/2 uti. 07/23: TLC placed. Levophed ordered. CXR with complete white of left lung. Family called for consent for bronchoscopy. 07/24: s/p bronch yesterday with moderate amount of secretions. vent weaned to 40 % fio2. Failed SBT this am. UCx with proteus and e faecalis. Vital Signs: Temp Pulse Resp BP SpO2 FiO2 98.2 F 70 18 106/51 98 55 07/24/18 08:15 07/24/18 08:15 07/24/18 08:00 07/24/18 08:15 07/24/18 08:15 07/24 08:00 Physical Exam: Gen - intubated and sedated. morbidly obese Heent - ncat, perrl neck - +rij tlc cv - s1/s2, distant heart sounds lungs - dec bs bilaterally abd - soft, nt, nd ext - trace edema neuro - unresponsive Fluid Balance (Past 24 Hours): I= O= Net Intake & Output 07/22/18 07/23/18 07/24/18 07/25/18 06:59 06:59 06:59 06:59 Intake Total 1622 2373 Output Total 665 4165 255 Balance 957 -1792 -255 Weight 267.846 kg 264.898 kg Intake: IV Fluids 665 909 ABX - VANCOMYCIN 250 NS (0.9%) 665 659 IVPB 791 511 ABX - CEFEPIME 50 ABX - VANCOMYCIN 499 290 ABX - ZOSYN 221 NS (0.9%) 242 Medicated IV 166 793 CC - Norepinephrine/ 292 Levophed CC - Propofol/Diprivan 166 501 Oral 0 Tube Feeding Flush Amount 60 NG Tube Irrigate Amount 100 Output: NG Tube Drainage Amount 200 550 Hilario 465 0255 255 Labs: Laboratory Results - last 24 hr 07/23/18 07/24/18 07/24/18 10:35 04:25 04:25 Hgb 10.9 L Hct 35 L INR (Anticoag Therapy) VBG pH 7.32 L VBG pCO2 68 H VBG pO2 43 VBG HCO3 30.0 H VBG O2 Saturation 82.1 H VBG Base Excess 7.0 H Sodium 141 Potassium 4.0 Chloride 101 Carbon Dioxide 34 H Anion Gap 6 BUN 75 H Creatinine 3.16 H Est GFR ( Amer) 23.8 Est GFR (Non-Af Amer) 19.6 BUN/Creatinine Ratio 23.7 H Glucose 113 H Calcium 8.4 L Phosphorus 4.1 Magnesium 2.6 07/24/18 04:25 Hgb Hct INR (Anticoag Therapy) 2.93 H VBG pH VBG pCO2 VBG pO2 VBG HCO3 VBG O2 Saturation VBG Base Excess Sodium Potassium Chloride Carbon Dioxide Anion Gap BUN Creatinine Est GFR ( Amer) Est GFR (Non-Af Amer) BUN/Creatinine Ratio Glucose Calcium Phosphorus Magnesium Studies: CXR 07/23 1. LIMITED STUDY. 2. LINES AND TUBES ABOVE. 3. THERE HAS BEEN INTERVAL DEVELOPMENT OF COMPLETE OPACIFICATION OF LEFT HEMITHORAX WHICH LIKELY REPRESENTS COMBINATION OF LARGE LEFT PLEURAL EFFUSION AND LEFT LUNG ATELECTASIS VERSUS CONSOLIDATION. 4. PULMONARY INTERSTITIAL EDEMA. Bronchoscopy 07/23 Description: Bronchoscope was introduced via the ETT and advanced into the trachea. The ryan was visualized and was sharp. The scope was passed into the left mainstem, left upper lobe, linguala, and left lower lobe bronchi. BAL was performed in the Lingula. The scope was then passed to the right mainstem bronchus, then to the RUL, RML, and RLL. There was a moderate amount of mucus through out both lungs. No endobronchial lesions were visualized. The patient tolerated the procedure well will out immediate complications. Impression: 67M with htn, chf, afib s/p ppm on coumadin, ckd, bud/ohs, h/o cva, recurrent uti, bph, morbid obesity presents with AMS and dyspnea. Intubated for hypercapnic respiratory failure. Septic Shock 2/2 uti. Plan: Neuro - AMS - 2/2 hypercapnea and sepsis CV - htn, afib, chf, shock - shock 2/2 sepsis - levophed for bp support - hold antihypertensives - prior tte with poor windows - monitor on tele - c/w coumadin for ac - lasix x 1 today Pulm - hypercapnic respiratory failure, mucus plug - 2/2 bud/ohs - wean vent as tolerated - allow for higher PEEP given body habitus - bronch with moderate amount of secretions ID - septic shock - 2/2 uti vs pna - empiric vanc/zosyn - UCx with proteus and e faecalis - serial lactates GI - tube feeds Renal - ckd - monitor i/o - monitor lytes Heme - monitor cbc Endo - check fs, niss Lines - RIJ TLC (07/23/18) PPx - gi/dvt Full Code Critical Care Time: 60 mins
[2018-07-24] MEDS: Finasteride TAB* 5 MG PO SCH (09:26)
[2018-07-24] MEDS: Aspirin 81 mg CHEW TAB* 81 MG TAB.CHEW PO SCH (09:26)
[2018-07-24 09:29] LABS: Mean Corpuscular HGB Conc 32 g/dl (31-36); Mean Corpuscular Hemoglobin 25 pg (27-31); Mean Corpuscular Volume 80 fL (80-94); Platelet Count 237 10^3/ul (150-450); Red Blood Count 4.36 10^6/ul (4.00-5.40); Red Cell Distribution Width 17 % (10.5-15); White Blood Count 10.8 10^3/ul (3.5-10.8)
[2018-07-24] MEDS: Vancomycin(*) 1,250 MG in NS 0.9% 250 ML* 250 ML IVPB SCH (10:41)
[2018-07-24] MEDS: Mometasone/Formoter 200/5 MDI INH SCH ×2 (10:41→19:53)
[2018-07-24] MEDS: Norepinephrine 16MCG/ML IVPRE* 4,000 MCG/250 ML BAG IV SCH ×2 (11:16→23:42)
--- NOTE | 2018-07-24 13:05 | RAD ---
HISTORY: respiratory failure COMPARISONS: July 23, 2018 VIEWS: 2 : frontal AP view of the chest at 12:30 PM. The patient is obliqued to the left. This study is technically limited. FINDINGS: LINES AND TUBES: An endotracheal tube is noted with the tip overlying the trachea between the clavicles and the ryan. A gastric tube is noted. The tip is is not well visualized secondary to technique. A right internal jugular venous catheter is noted over the expected location of the superior vena cava. An AICD is noted.. CARDIOMEDIASTINAL SILHOUETTE: The cardiac silhouette is enlarged. The cardiomediastinal silhouette is otherwise normal for portable technique. PLEURA: There are small bilateral pleural effusions. LUNG PARENCHYMA: There is a diffuse reticular pattern with indistinct pulmonary vessels. There is confluent alveolar opacification of the retrocardiac left lower lung, with improved aeration compared to the previous examination. ABDOMEN: The upper abdomen is clear. There is no subphrenic gas. BONES AND SOFT TISSUES: No bone or soft tissue abnormalities are noted. IMPRESSION: 1. LIMITED STUDY. 2. LINES AND TUBES ABOVE. 3. CARDIOMEGALY. 4. PULMONARY INTERSTITIAL EDEMA. 5. BILATERAL PLEURAL EFFUSIONS. 6. LEFT LOWER LUNG CONSOLIDATION, WITH IMPROVED AERATION COMPARED TO July 23, 2018
[2018-07-24] MEDS: Tamsulosin CAP* 0.4 MG PO SCH (20:29)
[2018-07-25] MEDS: Propofol* 100 ML IV SCH ×8 (01:07→22:24)
[2018-07-25] MEDS: Chlorhexidine MOUTHWASH 0.12%* 15 ML UDC TOPICAL SCH ×6 (02:35→23:33)
[2018-07-25] MEDS: fentaNYL* 50 MCG/ML 2 ML VIAL (100 MCG VIAL) IV SLOW PU PRN ×3 (04:34→14:28)
[2018-07-25 04:37] LABS: ABS Basophils 0.1 10^3/ul (0-0.2); ABS Eosinophils 0.2 10^3/ul (0-0.6); ABS Lymphocytes 0.6 10^3/ul (1.0-4.8); ABS Monocytes 0.6 10^3/ul (0-0.8); ABS Neutrophils 8.7 10^3/ul (1.5-7.7); ABS Nucleated RBC 0 10^3/ul; Eosinophil % 1.9 % (0-6); Hematocrit 34 % (42-52); Lymphocyte % 5.9 % (25-47); Mean Corpuscular HGB Conc 32 g/dl (31-36); Mean Corpuscular Hemoglobin 26 pg (27-31); Mean Corpuscular Volume 79 fL (80-94); Mean Platelet Volume 7.7 um3 (7.4-10.4); Nucleated Red Blood Cells % 0.1; Platelet Count 261 10^3/ul (150-450); Red Blood Count 4.32 10^6/ul (4.00-5.40); Red Cell Distribution Width 17 % (10.5-15); White Blood Count 10.1 10^3/ul (3.5-10.8)
[2018-07-25 04:44] LABS: INR 3.5 (0.77-1.02)
[2018-07-25 04:52] LABS: EGFR Non-African American 19.2 (>60)
[2018-07-25] MEDS ORDERED: Omeprazole CAP* 20 MG PO SCH (06:00)
[2018-07-25] MEDS: ZOSYN 3.375 GM Q8H per EXTENDED INFUSION IVPB SCH ×4 (08:05→16:16)
[2018-07-25] MEDS: Aspirin 81 mg CHEW TAB* 81 MG TAB.CHEW PO SCH (08:57)
[2018-07-25] MEDS: Finasteride TAB* 5 MG PO SCH (08:57)
[2018-07-25] MEDS: Lansoprazole susp Kit 3 MG/ML (30 MG = 10 ML) G TUBE SCH (08:58)
[2018-07-25] MEDS: Mometasone/Formoter 200/5 MDI INH SCH ×2 (09:20→20:18)
--- NOTE | 2018-07-25 12:19 | PN ---
Date of Service: 07/25/18 Critical Care Services: 67M with htn, chf, afib s/p ppm on coumadin, ckd, bud/ohs, h/o cva, recurrent uti, bph, morbid obesity presents with AMS and dyspnea. Intubated for hypercapnic respiratory failure. Septic Shock 2/2 uti. 07/23: TLC placed. Levophed ordered. CXR with complete white of left lung. Family called for consent for bronchoscopy. 07/24: s/p bronch yesterday with moderate amount of secretions. vent weaned to 40 % fio2. Failed SBT this am. UCx with proteus and e faecalis. 07/25: proteus/enterococcus both sensitive to ampicillin. Tolerated SBT for short period today. Vital Signs: Temp Pulse Resp BP SpO2 FiO2 98.6 F 70 19 87/47 96 40 07/25/18 10:00 07/25/18 10:00 07/25/18 10:00 07/25/18 10:00 07/25/18 10:00 07/25 08:00 Physical Exam: Gen - intubated and sedated. morbidly obese Heent - ncat, perrl neck - +rij tlc cv - s1/s2, distant heart sounds lungs - dec bs bilaterally abd - soft, nt, nd ext - trace edema neuro - unresponsive Fluid Balance (Past 24 Hours): I= O= Net Intake & Output 07/23/18 07/24/18 07/25/18 07/26/18 06:59 06:59 06:59 06:59 Intake Total 1622 2373 2210 0 Output Total 661 4165 3622 240 Balance 957 -1792 -1412 -240 Weight 267.846 kg 264.898 kg 266.304 kg Intake: IV Fluids 665 909 98 ABX - VANCOMYCIN 250 NS (0.9%) 665 659 98 IVPB 791 511 312 ABX - CEFEPIME 50 ABX - VANCOMYCIN 499 290 ABX - ZOSYN 221 312 NS (0.9%) 242 Medicated IV 618 995 9490 CC - Norepinephrine/ 292 472 Levophed CC - Propofol/Diprivan 166 501 822 Oral 0 0 0 Tube Feeding 286 Tube Feeding Flush Amount 60 100 NG Tube Irrigate Amount 100 120 Output: NG Tube Drainage Amount 200 550 100 G Tube 400 Urine 0 Hilario 465 3615 3122 240 Labs: Laboratory Results - last 24 hr 07/25/18 07/25/18 07/25/18 04:15 04:15 04:15 WBC 10.1 RBC 4.32 Hgb 11.0 L Hct 34 L MCV 79 L MCH 26 L MCHC 32 RDW 17 H Plt Count 261 MPV 7.7 Neut % (Auto) 85.6 H Lymph % (Auto) 5.9 L [place] % (Auto) 5.5 Eos % (Auto) 1.9 Baso % (Auto) 1.1 Absolute Neuts (auto) 8.7 H Absolute Lymphs (auto) 0.6 L Absolute Monos (auto) 0.6 Absolute Eos (auto) 0.2 Absolute Basos (auto) 0.1 Absolute Nucleated RBC 0 Nucleated RBC % 0.1 INR (Anticoag Therapy) 3.50 H Sodium 144 Potassium 3.7 Chloride 103 Carbon Dioxide 35 H Anion Gap 6 BUN 76 H Creatinine 3.22 H Est GFR ( Amer) 23.3 Est GFR (Non-Af Amer) 19.2 BUN/Creatinine Ratio 23.6 H Glucose 131 H Calcium 8.4 L Phosphorus 4.2 Magnesium 2.7 Random Vancomycin 07/25/18 09:22 WBC RBC Hgb Hct MCV MCH MCHC RDW Plt Count MPV Neut % (Auto) Lymph % (Auto) [place] % (Auto) Eos % (Auto) Baso % (Auto) Absolute Neuts (auto) Absolute Lymphs (auto) Absolute Monos (auto) Absolute Eos (auto) Absolute Basos (auto) Absolute Nucleated RBC Nucleated RBC % INR (Anticoag Therapy) Sodium Potassium Chloride Carbon Dioxide Anion Gap BUN Creatinine Est GFR ( Amer) Est GFR (Non-Af Amer) BUN/Creatinine Ratio Glucose Calcium Phosphorus Magnesium Random Vancomycin 20.6 Studies: CXR 07/23 1. LIMITED STUDY. 2. LINES AND TUBES ABOVE. 3. THERE HAS BEEN INTERVAL DEVELOPMENT OF COMPLETE OPACIFICATION OF LEFT HEMITHORAX WHICH LIKELY REPRESENTS COMBINATION OF LARGE LEFT PLEURAL EFFUSION AND LEFT LUNG ATELECTASIS VERSUS CONSOLIDATION. 4. PULMONARY INTERSTITIAL EDEMA. Bronchoscopy 07/23 Description: Bronchoscope was introduced via the ETT and advanced into the trachea. The ryan was visualized and was sharp. The scope was passed into the left mainstem, left upper lobe, linguala, and left lower lobe bronchi. BAL was performed in the Lingula. The scope was then passed to the right mainstem bronchus, then to the RUL, RML, and RLL. There was a moderate amount of mucus through out both lungs. No endobronchial lesions were visualized. The patient tolerated the procedure well will out immediate complications. Impression: 67M with htn, chf, afib s/p ppm on coumadin, ckd, bud/ohs, h/o cva, recurrent uti, bph, morbid obesity presents with AMS and dyspnea. Intubated for hypercapnic respiratory failure. Septic Shock 2/2 uti. Plan: Neuro - AMS - 2/2 hypercapnea and sepsis CV - htn, afib, chf, shock - shock 2/2 sepsis - levophed for bp support - hold antihypertensives - prior tte with poor windows - monitor on tele - c/w coumadin for ac Pulm - hypercapnic respiratory failure, mucus plug - 2/2 bud/ohs - wean vent as tolerated - allow for higher PEEP given body habitus - bronch with moderate amount of secretions - toelrated SBT for short period today - repeat SBT tomorrow ID - septic shock - 2/2 uti - UCx with proteus and e faecalis - switch abx to ampicillin GI - tube feeds Renal - ckd - monitor i/o - monitor lytes Heme - monitor cbc Endo - check fs, niss Lines - RIJ TLC (07/23/18) PPx - gi/dvt Full Code Critical Care Time: 70 mins
[2018-07-25] MEDS: Norepinephrine 16MCG/ML IVPRE* 4,000 MCG/250 ML BAG IV SCH (14:00)
[2018-07-25] MEDS: Ampicillin ADVAN(*) 1 GM in NS 0.9% 50 ML* 50 ML IVPB SCH ×2 (14:00→19:54)
[2018-07-25] MEDS: Tamsulosin CAP* 0.4 MG PO SCH (19:54)
[2018-07-26] MEDS: Propofol* 100 ML IV SCH ×4 (00:40→07:25)
[2018-07-26] MEDS: ZOSYN 3.375 GM Q8H per EXTENDED INFUSION IVPB SCH ×6 (02:44→15:11)
[2018-07-26] MEDS: Ampicillin ADVAN(*) 1 GM in NS 0.9% 50 ML* 50 ML IVPB SCH ×4 (02:44→18:17)
[2018-07-26] MEDS: Chlorhexidine MOUTHWASH 0.12%* 15 ML UDC TOPICAL SCH ×2 (04:45→07:37)
[2018-07-26 05:10] LABS: ABS Basophils 0.1 10^3/ul (0-0.2); ABS Eosinophils 0.2 10^3/ul (0-0.6); ABS Lymphocytes 0.5 10^3/ul (1.0-4.8); ABS Monocytes 0.4 10^3/ul (0-0.8); ABS Neutrophils 5.9 10^3/ul (1.5-7.7); ABS Nucleated RBC 0 10^3/ul; Eosinophil % 2.4 % (0-6); Hematocrit 33 % (42-52); Hemoglobin 10.4 g/dl (14.0-18.0); Lymphocyte % 6.8 % (25-47); Mean Corpuscular HGB Conc 32 g/dl (31-36); Mean Corpuscular Hemoglobin 25 pg (27-31); Mean Corpuscular Volume 79 fL (80-94); Mean Platelet Volume 7.4 um3 (7.4-10.4); Nucleated Red Blood Cells % 0; Platelet Count 228 10^3/ul (150-450); Red Blood Count 4.18 10^6/ul (4.00-5.40); Red Cell Distribution Width 17 % (10.5-15)
[2018-07-26] MEDS: Lansoprazole susp Kit 3 MG/ML (30 MG = 10 ML) G TUBE SCH (05:14)
[2018-07-26 05:18] LABS: INR 3.7 (0.77-1.02)
[2018-07-26 05:28] LABS: EGFR Non-African American 21.2 (>60)
[2018-07-26] MEDS: Finasteride TAB* 5 MG PO SCH (07:37)
[2018-07-26] MEDS: Aspirin 81 mg CHEW TAB* 81 MG TAB.CHEW PO SCH (07:37)
[2018-07-26] MEDS: fentaNYL* 50 MCG/ML 2 ML VIAL (100 MCG VIAL) IV SLOW PU PRN (08:12)
--- NOTE | 2018-07-26 09:10 | PN ---
Date of Service: 07/26/18 Critical Care Services: 67M with htn, chf, afib s/p ppm on coumadin, ckd, bud/ohs, h/o cva, recurrent uti, bph, morbid obesity presents with AMS and dyspnea. Intubated for hypercapnic respiratory failure. Septic Shock 2/2 uti. 07/23: TLC placed. Levophed ordered. CXR with complete white of left lung. Family called for consent for bronchoscopy. 07/24: s/p bronch yesterday with moderate amount of secretions. vent weaned to 40 % fio2. Failed SBT this am. UCx with proteus and e faecalis. 07/25: proteus/enterococcus both sensitive to ampicillin. Tolerated SBT for short period today. 07/26: Doing well on spontaenous. Plan for extubation when family arrives. Vital Signs: Temp Pulse Resp BP SpO2 FiO2 97.5 F 70 26 91/54 95 40 07/26/18 08:00 07/26/18 09:01 07/26/18 09:00 07/26/18 09:01 07/26/18 09:01 07/26 08:37 Physical Exam: Gen - intubated. morbidly obese Heent - ncat, perrl neck - +rij tlc cv - s1/s2, distant heart sounds lungs - dec bs bilaterally abd - soft, nt, nd ext - trace edema neuro - awake. following commands. Fluid Balance (Past 24 Hours): I= O= Net Intake & Output 07/24/18 07/25/18 07/26/18 07/27/18 06:59 06:59 06:59 06:59 Intake Total 2373 2210 1822 Output Total 4165 3622 1640 314 Balance -1792 -1412 182 -314 Weight 264.898 kg 266.304 kg 223.6 kg Intake: IV Fluids 909 98 338 ABX - VANCOMYCIN 250 NS (0.9%) 659 98 338 IVPB 511 312 111 ABX - VANCOMYCIN 290 ABX - ZOSYN 221 312 NS (0.9%) 111 Medicated IV 793 1294 723 CC - Norepinephrine/ 292 472 195 Levophed CC - Propofol/Diprivan 501 822 528 Oral 0 0 0 Tube Feeding 286 650 Tube Feeding Flush Amount 60 100 NG Tube Irrigate Amount 100 120 Output: NG Tube Drainage Amount 550 100 G Tube 400 Urine 0 Hilario 3615 3122 1640 314 Labs: Laboratory Results - last 24 hr 07/25/18 07/26/18 07/26/18 09:22 04:55 04:55 WBC 7.0 RBC 4.18 Hgb 10.4 L Hct 33 L MCV 79 L MCH 25 L MCHC 32 RDW 17 H Plt Count 228 MPV 7.4 Neut % (Auto) 83.9 H Lymph % (Auto) 6.8 L [place] % (Auto) 6.1 Eos % (Auto) 2.4 Baso % (Auto) 0.8 Absolute Neuts (auto) 5.9 Absolute Lymphs (auto) 0.5 L Absolute Monos (auto) 0.4 Absolute Eos (auto) 0.2 Absolute Basos (auto) 0.1 Absolute Nucleated RBC 0 Nucleated RBC % 0 INR (Anticoag Therapy) Sodium 146 H Potassium 3.8 Chloride 105 Carbon Dioxide 36 H Anion Gap 5 BUN 74 H Creatinine 2.96 H Est GFR ( Amer) 25.6 Est GFR (Non-Af Amer) 21.2 BUN/Creatinine Ratio 25.0 H Glucose 101 H Calcium 8.4 L Magnesium 2.8 H Total Bilirubin 0.60 AST 48 H ALT 21 Alkaline Phosphatase 130 H Total Protein 5.8 L Albumin 2.6 L Globulin 3.2 Albumin/Globulin Ratio 0.8 L Random Vancomycin 20.6 07/26/18 04:55 WBC RBC Hgb Hct MCV MCH MCHC RDW Plt Count MPV Neut % (Auto) Lymph % (Auto) [place] % (Auto) Eos % (Auto) Baso % (Auto) Absolute Neuts (auto) Absolute Lymphs (auto) Absolute Monos (auto) Absolute Eos (auto) Absolute Basos (auto) Absolute Nucleated RBC Nucleated RBC % INR (Anticoag Therapy) 3.70 H Sodium Potassium Chloride Carbon Dioxide Anion Gap BUN Creatinine Est GFR ( Amer) Est GFR (Non-Af Amer) BUN/Creatinine Ratio Glucose Calcium Magnesium Total Bilirubin AST ALT Alkaline Phosphatase Total Protein Albumin Globulin Albumin/Globulin Ratio Random Vancomycin Studies: CXR 07/23 1. LIMITED STUDY. 2. LINES AND TUBES ABOVE. 3. THERE HAS BEEN INTERVAL DEVELOPMENT OF COMPLETE OPACIFICATION OF LEFT HEMITHORAX WHICH LIKELY REPRESENTS COMBINATION OF LARGE LEFT PLEURAL EFFUSION AND LEFT LUNG ATELECTASIS VERSUS CONSOLIDATION. 4. PULMONARY INTERSTITIAL EDEMA. Bronchoscopy 07/23 Description: Bronchoscope was introduced via the ETT and advanced into the trachea. The ryan was visualized and was sharp. The scope was passed into the left mainstem, left upper lobe, linguala, and left lower lobe bronchi. BAL was performed in the Lingula. The scope was then passed to the right mainstem bronchus, then to the RUL, RML, and RLL. There was a moderate amount of mucus through out both lungs. No endobronchial lesions were visualized. The patient tolerated the procedure well will out immediate complications. Impression: 67M with htn, chf, afib s/p ppm on coumadin, ckd, bud/ohs, h/o cva, recurrent uti, bph, morbid obesity presents with AMS and dyspnea. Intubated for hypercapnic respiratory failure. Septic Shock 2/2 uti. Plan: Neuro - AMS - 2/2 hypercapnea and sepsis CV - htn, afib, chf, shock - shock 2/2 sepsis - improved - off levophed - hold antihypertensives - prior tte with poor windows - monitor on tele - c/w coumadin for ac Pulm - hypercapnic respiratory failure, mucus plug - 2/2 bud/ohs - tolerating sbt today - plan for extubation to bipap when family arrives ID - septic shock - 2/2 uti - improving - UCx with proteus and e faecalis - switch abx to ampicillin GI - hold tube feeds for extubation Renal - ckd - monitor i/o - monitor lytes Heme - monitor cbc Endo - check fs, niss Lines - RIJ TLC (07/23/18) PPx - gi/dvt Full Code Critical Care Time: 60 mins
[2018-07-26] MEDS: Mometasone/Formoter 200/5 MDI INH SCH ×2 (09:30→19:21)
[2018-07-26] MEDS: Tamsulosin CAP* 0.4 MG PO SCH (19:23)
[2018-07-27] MEDS: ZOSYN 3.375 GM Q8H per EXTENDED INFUSION IVPB SCH ×4 (00:43→08:07)
[2018-07-27] MEDS: Ampicillin ADVAN(*) 1 GM in NS 0.9% 50 ML* 50 ML IVPB SCH ×4 (00:43→21:32)
[2018-07-27 05:07] LABS: INR 3.38 (0.77-1.02)
[2018-07-27 05:09] LABS: ABS Basophils 0.1 10^3/ul (0-0.2); ABS Eosinophils 0.2 10^3/ul (0-0.6); ABS Lymphocytes 0.6 10^3/ul (1.0-4.8); ABS Monocytes 0.4 10^3/ul (0-0.8); ABS Neutrophils 5.5 10^3/ul (1.5-7.7); ABS Nucleated RBC 0 10^3/ul; Eosinophil % 3.2 % (0-6); Hematocrit 32 % (42-52); Hemoglobin 10.1 g/dl (14.0-18.0); Lymphocyte % 9.2 % (25-47); Mean Corpuscular HGB Conc 32 g/dl (31-36); Mean Corpuscular Hemoglobin 25 pg (27-31); Mean Corpuscular Volume 80 fL (80-94); Mean Platelet Volume 7.4 um3 (7.4-10.4); Nucleated Red Blood Cells % 0.1; Platelet Count 204 10^3/ul (150-450); Red Blood Count 4.03 10^6/ul (4.00-5.40); Red Cell Distribution Width 17 % (10.5-15); White Blood Count 6.8 10^3/ul (3.5-10.8)
[2018-07-27 05:18] LABS: EGFR Non-African American 20.9 (>60)
[2018-07-27] MEDS: Lansoprazole susp Kit 3 MG/ML (30 MG = 10 ML) G TUBE SCH (05:25)
[2018-07-27] MEDS: Mometasone/Formoter 200/5 MDI INH SCH ×2 (07:34→20:04)
[2018-07-27] MEDS: Finasteride TAB* 5 MG PO SCH (08:08)
[2018-07-27] MEDS: Aspirin 81 mg CHEW TAB* 81 MG TAB.CHEW PO SCH (08:08)
--- NOTE | 2018-07-27 09:28 | PN ---
Date of Service: 07/27/18 Critical Care Services: 67M with htn, chf, afib s/p ppm on coumadin, ckd, bud/ohs, h/o cva, recurrent uti, bph, morbid obesity presents with AMS and dyspnea. Intubated for hypercapnic respiratory failure. Septic Shock 2/2 uti. 07/23: TLC placed. Levophed ordered. CXR with complete white of left lung. Family called for consent for bronchoscopy. 07/24: s/p bronch yesterday with moderate amount of secretions. vent weaned to 40 % fio2. Failed SBT this am. UCx with proteus and e faecalis. 07/25: proteus/enterococcus both sensitive to ampicillin. Tolerated SBT for short period today. 07/26: Doing well on spontaenous. Plan for extubation when family arrives. 07/27: Extubated yesterday. Doing well. Becoming hypernatremic. Vital Signs: Temp Pulse Resp BP SpO2 FiO2 97.2 F 70 21 100/51 98 0.40 07/27/18 07:35 07/27/18 08:01 07/27/18 08:01 07/27/18 08:01 07/27/18 08:01 07/27 04:00 Physical Exam: Gen - morbidly obese Heent - ncat, perrl neck - +rij tlc cv - s1/s2, distant heart sounds lungs - dec bs bilaterally abd - soft, nt, nd ext - trace edema neuro - awake. following commands. Fluid Balance (Past 24 Hours): I= O= Net Intake & Output 07/25/18 07/26/18 07/27/18 07/28/18 06:59 06:59 06:59 06:59 Intake Total 2210 1822 1799 240 Output Total 3622 1640 2169 600 Balance -1412 182 -370 -360 Weight 266.304 kg 223.6 kg 229.2 kg Intake: IV Fluids 98 338 771 Ampicillin 100 KVO 224 NS (0.9%) 98 338 447 IVPB 312 111 100 ABX - ZOSYN 312 100 NS (0.9%) 111 Medicated IV 1294 723 138 CC - Norepinephrine/ 472 195 Levophed CC - Propofol/Diprivan 822 528 138 Oral 0 0 790 240 Tube Feeding 286 650 Tube Feeding Flush Amount 100 NG Tube Irrigate Amount 120 Output: NG Tube Drainage Amount 100 G Tube 400 Urine 0 150 250 Hilario 3122 1640 2018 Labs: Laboratory Results - last 24 hr 07/27/18 07/27/18 07/27/18 04:50 04:50 04:50 WBC 6.8 RBC 4.03 Hgb 10.1 L Hct 32 L MCV 80 MCH 25 L MCHC 32 RDW 17 H Plt Count 204 MPV 7.4 Neut % (Auto) 81.1 Lymph % (Auto) 9.2 L [place] % (Auto) 5.3 Eos % (Auto) 3.2 Baso % (Auto) 1.2 Absolute Neuts (auto) 5.5 Absolute Lymphs (auto) 0.6 L Absolute Monos (auto) 0.4 Absolute Eos (auto) 0.2 Absolute Basos (auto) 0.1 Absolute Nucleated RBC 0 Nucleated RBC % 0.1 INR (Anticoag Therapy) 3.38 H Sodium 152 H Potassium 4.4 Chloride 109 Carbon Dioxide 36 H Anion Gap 7 BUN 73 H Creatinine 3.00 H Est GFR ( Amer) 25.2 Est GFR (Non-Af Amer) 20.9 BUN/Creatinine Ratio 24.3 H Glucose 96 Calcium 8.2 L Magnesium 2.9 H Studies: CXR 07/23 1. LIMITED STUDY. 2. LINES AND TUBES ABOVE. 3. THERE HAS BEEN INTERVAL DEVELOPMENT OF COMPLETE OPACIFICATION OF LEFT HEMITHORAX WHICH LIKELY REPRESENTS COMBINATION OF LARGE LEFT PLEURAL EFFUSION AND LEFT LUNG ATELECTASIS VERSUS CONSOLIDATION. 4. PULMONARY INTERSTITIAL EDEMA. Bronchoscopy 07/23 Description: Bronchoscope was introduced via the ETT and advanced into the trachea. The ryan was visualized and was sharp. The scope was passed into the left mainstem, left upper lobe, linguala, and left lower lobe bronchi. BAL was performed in the Lingula. The scope was then passed to the right mainstem bronchus, then to the RUL, RML, and RLL. There was a moderate amount of mucus through out both lungs. No endobronchial lesions were visualized. The patient tolerated the procedure well will out immediate complications. Impression: 67M with htn, chf, afib s/p ppm on coumadin, ckd, bud/ohs, h/o cva, recurrent uti, bph, morbid obesity presents with AMS and dyspnea. Intubated for hypercapnic respiratory failure. Septic Shock 2/2 uti. Plan: Neuro - AMS - 2/2 hypercapnea and sepsis - resolved CV - htn, afib, chf, shock - shock 2/2 sepsis - resolved - off levophed - hold antihypertensives - prior tte with poor windows - monitor on tele - c/w coumadin for ac Pulm - hypercapnic respiratory failure, mucus plug - 2/2 bud/ohs - extubated yesterday - bipap qhs ID - septic shock - 2/2 uti - resolved - UCx with proteus and e faecalis - switch abx to ampicillin GI - diet as tolerated Renal - ckd, hypernatremia - monitor i/o - monitor lytes - 1L d5 1/2NS at 100/hr Heme - monitor cbc Endo - check fs, niss Lines - RIJ TLC (07/23/18) PPx - gi/dvt Full Code Stable for transfer to floor Critical Care Time: 55 mins
[2018-07-27] MEDS ORDERED: D5W 1/2 NS 1000 ML BAG* 1,000 ML IV SCH (10:00)
[2018-07-27] MEDS: Tamsulosin CAP* 0.4 MG PO SCH (21:31)
[2018-07-27] MEDS: fentaNYL* 50 MCG/ML 2 ML VIAL (100 MCG VIAL) IV SLOW PU PRN (21:33)
[2018-07-28] MEDS: Ampicillin ADVAN(*) 1 GM in NS 0.9% 50 ML* 50 ML IVPB SCH ×4 (03:05→18:49)
[2018-07-28] MEDS: Omeprazole CAP* 20 MG PO SCH (06:10)
[2018-07-28] MEDS: fentaNYL* 50 MCG/ML 2 ML VIAL (100 MCG VIAL) IV SLOW PU PRN ×2 (06:10→21:10)
[2018-07-28 06:21] LABS: INR 3.23 (0.77-1.02)
[2018-07-28 06:25] LABS: ABS Basophils 0.1 10^3/ul (0-0.2); ABS Eosinophils 0.3 10^3/ul (0-0.6); ABS Lymphocytes 0.6 10^3/ul (1.0-4.8); ABS Monocytes 0.4 10^3/ul (0-0.8); ABS Neutrophils 5.8 10^3/ul (1.5-7.7); ABS Nucleated RBC 0 10^3/ul; Eosinophil % 3.5 % (0-6); Hematocrit 34 % (42-52); Hemoglobin 10.4 g/dl (14.0-18.0); Lymphocyte % 9.1 % (25-47); Mean Corpuscular HGB Conc 31 g/dl (31-36); Mean Corpuscular Hemoglobin 25 pg (27-31); Mean Corpuscular Volume 79 fL (80-94); Mean Platelet Volume 7.5 um3 (7.4-10.4); Nucleated Red Blood Cells % 0.2; Platelet Count 205 10^3/ul (150-450); Red Blood Count 4.22 10^6/ul (4.00-5.40); Red Cell Distribution Width 17 % (10.5-15); White Blood Count 7.1 10^3/ul (3.5-10.8)
[2018-07-28 06:34] LABS: EGFR Non-African American 21.8 (>60)
[2018-07-28] MEDS: Mometasone/Formoter 200/5 MDI INH SCH ×2 (08:11→20:32)
[2018-07-28] MEDS ORDERED: Iron Sucrose* 200 MG in NS 0.9% 100 ML* 100 ML IVPB ONE (08:30)
[2018-07-28] MEDS ORDERED: NS 0.9% 100 ML* 100 ML ONE (11:18)
[2018-07-28] MEDS: Aspirin 81 mg CHEW TAB* 81 MG TAB.CHEW PO SCH (11:28)
[2018-07-28] MEDS: Finasteride TAB* 5 MG PO SCH (11:28)
--- NOTE | 2018-07-28 16:23 | PN ---
Subjective Date of Service: 07/28/18 Interval History: Patient is feeling well today. Patient is mainly concerned about the use of his right arm which has been weak since his admission. Patient denies F/C, N/V, abdominal pain, diarrhea, dizziness, or other pain. Family History: Unchanged from Admission Social History: Unchanged from Admission Past Medical History: Unchanged from Admission Objective Active Medications: Acetaminophen (Tylenol Tab*) 650 mg PO Q4H PRN PRN Reason: FEVER/PAIN Albuterol/Ipratropium (Duoneb (Albuterol 2.5 Mg/Ipratropium 0.5 Mg)) 1 neb INH Q4H PRN PRN Reason: SOB/WHEEZING Aspirin (Aspirin 81 Mg Chew Tab*) 81 mg PO DAILY [facility] Last Admin: 07/28/18 11:28 Dose: 81 mg Docusate Sodium (Colace Cap*) 100 mg PO BID PRN PRN Reason: CONSTIPATION Fentanyl Citrate (Fentanyl*) 50 mcg IV SLOW PU Q2HR PRN PRN Reason: PAIN Last Admin: 07/28/18 06:10 Dose: 50 mcg Finasteride (Proscar Tab*) 5 mg PO DAILY [facility] Last Admin: 07/28/18 11:28 Dose: 5 mg Ampicillin Sodium 1 gm/ Sodium (Chloride) 50 mls @ 200 mls/hr IVPB Q6H [facility] Stop: 08/01/18 23:59 Last Admin: 07/28/18 13:20 Dose: 200 mls/hr Mometasone Furoate/Formoterol Fumar (Dulera 200/5 Mdi*) 2 puff INH BID [facility] Last Admin: 07/28/18 08:11 Dose: 2 puff Omeprazole (Prilosec Cap*) 20 mg PO DAILY@0600 [facility] Last Admin: 07/28/18 06:10 Dose: 20 mg Ondansetron HCl (Zofran Inj*) 4 mg IV Q4H PRN PRN Reason: NAUSEA/VOMITING Pharmacy Profile Note (Coumadin Per Pharmacy*) 1 note FOLLOW UP .PER PHARMACY PROTOC [facility]; Protocol Senna (Senokot Tab*) 1 tab PO BID PRN PRN Reason: CONSTIPATION Tamsulosin HCl (Flomax Cap*) 0.4 mg PO BEDTIME [facility] Last Admin: 07/27/18 21:31 Dose: 0.4 mg Warfarin Sodium (Coumadin Tab(*)) 0.5 mg PO ONCE ONE Stop: 07/28/18 17:01 Vital Signs - 8 hr 07/28/18 11:40 Temperature 98.3 F Pulse Rate 69 Respiratory 20 Rate Blood Pressure 109/41 (mmHg) O2 Sat by Pulse 95 Oximetry Oxygen Devices in Use Now: Nasal Cannula Appearance: Patient is a 67yo male who appears stated age and is sitting in the bed in [facility]. Eyes: No Scleral Icterus, PERRLA Ears/Nose/Mouth/Throat: NL Teeth, Lips, Gums, Clear Oropharnyx, Mucous Membranes Moist Neck: NL Appearance and Movements; NL JVP, Trachea Midline Respiratory: Symmetrical Chest Expansion and Respiratory Effort, Clear to Auscultation, - - Diminished throughout. Cardiovascular: NL Sounds; No Murmurs; No JVD, RRR, - - Trace B/L LE edema. Abdominal: NL Sounds; No Tenderness; No Distention, No Hepatosplenomegaly Lymphatic: No Cervical Adenopathy Extremities: No Clubbing, Cyanosis Skin: No Rash or Ulcers, No Nodules or Sclerosis Neurological: Alert and Oriented x 3, NL Sensation, - - Right sided upper and lower extremity weakness. Result Diagrams: 07/28/18 06:00 07/28/18 06:00 Microbiology and Other Data: Microbiology 07/24/18 10:05 Aerobic Blood Culture - Preliminary Blood Venous No Growth Day 4 Anaerobic Blood Culture - Preliminary No Growth Day 4 07/24/18 10:00 Aerobic Blood Culture - Preliminary Blood Venous No Growth Day 4 Anaerobic Blood Culture - Preliminary No Growth Day 4 07/23/18 05:53 Aerobic Blood Culture - Final Blood Venous Not Reportable Anaerobic Blood Culture - Final Not Reportable Blood Culture - Final No Growth Day 5 07/23/18 10:05 Gram Stain - Final Sputum Sputum Culture - Final Normal Tina 07/23/18 01:37 Urine Culture - Final Urine Proteus Mirabilis Enterococcus Faecalis 07/23/18 00:10 Nasal Screen MRSA (PCR) - Final Nasal Mrsa Not Detected Assess/Plan/Problems-Billing Assessment: Patient is a 67yo male with a PMH for CKD, CVA, morbid obesity, COPD, Afib, urinary retention, CHF, Obesity-Hypoventilation who was admitted for acute hypercarbic respiratory failure with intubation and consolidation of the lung along with UTI who is improving slowly on antibiotics and has been transferred out of the ICU. - Patient Problems (1) Acute respiratory failure with hypoxia and hypercarbia Current Visit: No Status: Acute Priority: High Code(s): J96.01 - ACUTE RESPIRATORY FAILURE WITH HYPOXIA; J96.02 - ACUTE RESPIRATORY FAILURE WITH HYPERCAPNIA SNOMED Code(s): 060245897 Comment: - Improving, able to be extubated. Severely increase pCO2 on admission - Possible pneumonia with infiltrate on CXR - Restrictive and obstructive pattern of respiratory failure noted likely due to obesity hypoventilation syndrome and COPD (2) Urinary tract infection with hematuria Current Visit: No Status: Acute Priority: High Code(s): N39.0 - URINARY TRACT INFECTION, SITE NOT SPECIFIED; R31.9 - HEMATURIA, UNSPECIFIED SNOMED Code(s): 57094077 Comment: - Recurrent, Enterococcus and Proteus - Continue Ampicillin for this and Possible pneumonia due to improvement - Will change parekh (3) Hemiparesis of right dominant side as late effect of cerebral infarction Current Visit: No Status: Acute Code(s): I69.351 - HEMIPLGA FOLLOWING CEREBRAL INFRC AFF RIGHT DOMINANT SIDE SNOMED Code(s): 634819039 Comment: - Stable consistent with previous fluctuating deficits - Likely recrudescence of prior CVA in setting of UTI - Continue Aspirin and Warfarin when indicated (4) Afib Current Visit: No Status: Chronic Priority: Medium Code(s): I48.91 - UNSPECIFIED ATRIAL FIBRILLATION SNOMED Code(s): 80827058 Comment: - Pacemaker for tachy-bea syndrome. - History of cardioembolic stroke, 2016. - Continue coumdin PRN, supratherapeutic INR. (5) BPH (benign prostatic hyperplasia) Current Visit: No Status: Chronic Priority: Medium Code(s): N40.0 - BENIGN PROSTATIC HYPERPLASIA WITHOUT LOWER URINRY TRACT SYMP SNOMED Code(s): 857737767 Comment: - Continue tamsulosin - Chronic parekh for urinary retention - Recent change of parekh per patient. - Will change parekh again. (6) TORY (obstructive sleep apnea) Current Visit: No Status: Chronic Priority: Medium Code(s): G47.33 - OBSTRUCTIVE SLEEP APNEA (ADULT) (PEDIATRIC) SNOMED Code(s): 77910059 Comment: - With chronic hypoxic/hypercarbic respiratory failure, on 3L O2 routinely. - With obesity hypoventilation syndrome. - Continue CPAP (7) Obesity hypoventilation syndrome Current Visit: No Status: Chronic Priority: High Code(s): E66.2 - MORBID ( SEVERE) OBESITY WITH ALVEOLAR HYPOVENTILATION SNOMED Code(s): 265718542 Comment: - Restrictive lung disease with chronic hypercarbia - CPAP (8) DVT prophylaxis Current Visit: No Status: Acute Priority: Medium Code(s): JNB1219 - SNOMED Code(s): 830599883 Comment: - Warfarin, INR supratherapeutic (9) Full code status Current Visit: No Status: Acute Code(s): Z78.9 - OTHER SPECIFIED HEALTH STATUS SNOMED Code(s): 362238164 Comment: Status and Disposition: Inpatient, [facility] at discharge
[2018-07-28] MEDS ORDERED: Warfarin TAB(*) 1 MG PO ONE (17:00)
[2018-07-28] MEDS: Tamsulosin CAP* 0.4 MG PO SCH (21:10)
[2018-07-29] MEDS: Ampicillin ADVAN(*) 1 GM in NS 0.9% 50 ML* 50 ML IVPB SCH ×4 (00:49→19:37)
[2018-07-29] MEDS: Omeprazole CAP* 20 MG PO SCH (05:11)
[2018-07-29 05:40] LABS: INR 2.89 (0.77-1.02)
[2018-07-29 05:42] LABS: ABS Basophils 0.1 10^3/ul (0-0.2); ABS Eosinophils 0.2 10^3/ul (0-0.6); ABS Lymphocytes 0.7 10^3/ul (1.0-4.8); ABS Monocytes 0.4 10^3/ul (0-0.8); ABS Neutrophils 5.7 10^3/ul (1.5-7.7); ABS Nucleated RBC 0 10^3/ul; Eosinophil % 3.3 % (0-6); Hematocrit 33 % (42-52); Hemoglobin 10.1 g/dl (14.0-18.0); Mean Corpuscular HGB Conc 31 g/dl (31-36); Mean Corpuscular Hemoglobin 25 pg (27-31); Mean Corpuscular Volume 79 fL (80-94); Mean Platelet Volume 7.6 um3 (7.4-10.4); Nucleated Red Blood Cells % 0.1; Platelet Count 211 10^3/ul (150-450); Red Blood Count 4.13 10^6/ul (4.00-5.40); Red Cell Distribution Width 17 % (10.5-15)
[2018-07-29 05:57] LABS: EGFR Non-African American 23.9 (>60)
[2018-07-29] MEDS: Mometasone/Formoter 200/5 MDI INH SCH ×2 (08:11→20:32)
[2018-07-29] MEDS: Aspirin 81 mg CHEW TAB* 81 MG TAB.CHEW PO SCH (08:19)
[2018-07-29] MEDS: Finasteride TAB* 5 MG PO SCH (08:19)
--- NOTE | 2018-07-29 16:45 | PN ---
Subjective Date of Service: 07/29/18 Interval History: . Patient reports he feels better today. He denies SOB. Occasional cough. No sputum production. No fever or chills. Reports good appetite. Family History: Unchanged from Admission Social History: Unchanged from Admission Past Medical History: Unchanged from Admission Objective Active Medications: Acetaminophen (Tylenol Tab*) 650 mg PO Q4H PRN PRN Reason: FEVER/PAIN Albuterol/Ipratropium (Duoneb (Albuterol 2.5 Mg/Ipratropium 0.5 Mg)) 1 neb INH Q4H PRN PRN Reason: SOB/WHEEZING Aspirin (Aspirin 81 Mg Chew Tab*) 81 mg PO DAILY [facility] Last Admin: 07/29/18 08:19 Dose: 81 mg Docusate Sodium (Colace Cap*) 100 mg PO BID PRN PRN Reason: CONSTIPATION Fentanyl Citrate (Fentanyl*) 50 mcg IV SLOW PU Q2HR PRN PRN Reason: PAIN Last Admin: 07/28/18 21:10 Dose: 50 mcg Finasteride (Proscar Tab*) 5 mg PO DAILY [facility] Last Admin: 07/29/18 08:19 Dose: 5 mg Ampicillin Sodium 1 gm/ Sodium (Chloride) 50 mls @ 200 mls/hr IVPB Q6H [facility] Stop: 08/01/18 23:59 Last Admin: 07/29/18 13:01 Dose: 200 mls/hr Mometasone Furoate/Formoterol Fumar (Dulera 200/5 Mdi*) 2 puff INH BID [facility] Last Admin: 07/29/18 08:11 Dose: 2 puff Omeprazole (Prilosec Cap*) 20 mg PO DAILY@0600 [facility] Last Admin: 07/29/18 05:11 Dose: 20 mg Ondansetron HCl (Zofran Inj*) 4 mg IV Q4H PRN PRN Reason: NAUSEA/VOMITING Pharmacy Profile Note (Coumadin Per Pharmacy*) 1 note FOLLOW UP .PER PHARMACY PROTOC [facility]; Protocol Senna (Senokot Tab*) 1 tab PO BID PRN PRN Reason: CONSTIPATION Tamsulosin HCl (Flomax Cap*) 0.4 mg PO BEDTIME [facility] Last Admin: 07/28/18 21:10 Dose: 0.4 mg Warfarin Sodium (Coumadin Tab(*)) 1 mg PO 1700 [facility] Stop: 07/29/18 17:01 Vital Signs - 8 hr 07/29/18 11:13 Temperature 98.3 F Pulse Rate 72 Respiratory 26 Rate Blood Pressure 144/61 (mmHg) O2 Sat by Pulse 96 Oximetry Oxygen Devices in Use Now: Nasal Cannula Appearance: 67 super morbid obese male A+O x3 in NAD Eyes: No Scleral Icterus, PERRLA Ears/Nose/Mouth/Throat: NL Teeth, Lips, Gums, Mucous Membranes Moist Neck: NL Appearance and Movements; NL JVP Respiratory: Symmetrical Chest Expansion and Respiratory Effort, Clear to Auscultation Cardiovascular: NL Sounds; No Murmurs; No JVD, RRR Abdominal: NL Sounds; No Tenderness; No Distention, - - morbid obese - diffuclt to asculate BS Neurological: Alert and Oriented x 3, - - right arm/leg weaker than right Lines/Tubes/Other Access: Clean, Dry and Intact Peripheral IV Nutrition: Taking PO's Result Diagrams: 07/29/18 05:21 07/29/18 05:21 Microbiology and Other Data: Microbiology 07/24/18 10:05 Aerobic Blood Culture - Preliminary Blood Venous No Growth Day 4 Anaerobic Blood Culture - Preliminary No Growth Day 4 07/24/18 10:00 Aerobic Blood Culture - Preliminary Blood Venous No Growth Day 4 Anaerobic Blood Culture - Preliminary No Growth Day 4 07/23/18 05:53 Aerobic Blood Culture - Final Blood Venous Not Reportable Anaerobic Blood Culture - Final Not Reportable Blood Culture - Final No Growth Day 5 07/23/18 10:05 Gram Stain - Final Sputum Sputum Culture - Final Normal Tina 07/23/18 01:37 Urine Culture - Final Urine Proteus Mirabilis Enterococcus Faecalis 07/23/18 00:10 Nasal Screen MRSA (PCR) - Final Nasal Mrsa Not Detected Assess/Plan/Problems-Billing Assessment: Patient is a 67yo male with a PMH for CKD, CVA, morbid obesity, COPD, Afib, urinary retention, CHF, Obesity-Hypoventilation who was admitted for acute hypercarbic respiratory failure with intubation and consolidation of the lung along with UTI who is improving slowly on antibiotics and has been transferred out of the ICU. - Patient Problems (1) Acute respiratory failure with hypoxia and hypercarbia Comment: - Improving. Severely increase pCO2 on admission - Possible pneumonia with infiltrate on CXR - Restrictive and obstructive pattern of respiratory failure noted likely due to obesity hypoventilation syndrome and COPD (2) Urinary tract infection with hematuria Comment: - Recurrent, Enterococcus and Proteus - Continue Ampicillin for this and Possible pneumonia - parekh changed (3) Hemiparesis of right dominant side as late effect of cerebral infarction Comment: - Stable consistent with previous fluctuating deficits - Likely recrudescence of prior CVA in setting of UTI - Continue Aspirin and Warfarin (4) Afib Comment: - Pacemaker for tachy-bea syndrome. - History of cardioembolic stroke, 2016. - Continue coumdin, therapeutic INR. (5) BPH (benign prostatic hyperplasia) Comment: - Continue tamsulosin - Chronic parekh for urinary retention (6) CKD (chronic kidney disease) stage 4, GFR 15-29 ml/min Comment: - At baseline (7) TORY (obstructive sleep apnea) Comment: - With chronic hypoxic/hypercarbic respiratory failure, on 3L O2 routinely. - With obesity hypoventilation syndrome. - Continue CPAP (8) Obesity hypoventilation syndrome Comment: - Restrictive lung disease with chronic hypercarbia - CPAP (9) Full code status Comment: (10) DVT prophylaxis Comment: - Warfarin, INR therapeutic Status and Disposition: Inpatient, [facility] at discharge
[2018-07-29] MEDS ORDERED: Warfarin TAB(*) 1 MG PO ONE (17:00)
[2018-07-29] MEDS: Tamsulosin CAP* 0.4 MG PO SCH (22:24)
[2018-07-30] MEDS: Ampicillin ADVAN(*) 1 GM in NS 0.9% 50 ML* 50 ML IVPB SCH ×4 (01:30→19:22)
[2018-07-30] MEDS: fentaNYL* 50 MCG/ML 2 ML VIAL (100 MCG VIAL) IV SLOW PU PRN (02:10)
[2018-07-30 06:56] LABS: ABS Basophils 0.1 10^3/ul (0-0.2); ABS Eosinophils 0.2 10^3/ul (0-0.6); ABS Lymphocytes 0.8 10^3/ul (1.0-4.8); ABS Monocytes 0.3 10^3/ul (0-0.8); ABS Neutrophils 6.2 10^3/ul (1.5-7.7); ABS Nucleated RBC 0 10^3/ul; Eosinophil % 3.1 % (0-6); Hematocrit 32 % (42-52); Hemoglobin 10.1 g/dl (14.0-18.0); Lymphocyte % 9.9 % (25-47); Mean Corpuscular HGB Conc 31 g/dl (31-36); Mean Corpuscular Hemoglobin 25 pg (27-31); Mean Corpuscular Volume 80 fL (80-94); Mean Platelet Volume 7.4 um3 (7.4-10.4); Nucleated Red Blood Cells % 0.1; Platelet Count 201 10^3/ul (150-450); Red Blood Count 4.05 10^6/ul (4.00-5.40); Red Cell Distribution Width 17 % (10.5-15); White Blood Count 7.6 10^3/ul (3.5-10.8)
[2018-07-30 07:01] LABS: INR 1.78 (0.77-1.02)
[2018-07-30] MEDS: Omeprazole CAP* 20 MG PO SCH (07:18)
[2018-07-30] MEDS: Finasteride TAB* 5 MG PO SCH (07:52)
[2018-07-30] MEDS: Aspirin 81 mg CHEW TAB* 81 MG TAB.CHEW PO SCH (07:52)
[2018-07-30] MEDS: Mometasone/Formoter 200/5 MDI INH SCH ×2 (08:30→20:19)
--- NOTE | 2018-07-30 12:18 | PN ---
Subjective Date of Service: 07/30/18 Interval History: Patient seen and evaluated at his bedside for complaint of right foot loss of feeling and is unable to flex or extend foot. He is not sure if this started this morning or possibly yesterday or before, he reports "I am not totally clear if this was a problem after I woke up from being intubated but I dont think so". He states he was having increased neuropathy "zaps" in his right foot the last several days which now he hasnt experienced today and now he has "no feeling in my foot". Prior to hospitalization he had full ROM and sensation in his foot. He reports R sided weakness is slightly weaker than his baseline prior to hospitalization. Denies VILLATORO, speech or swallowing changes. He denies back pain or sacral/gluteal pain Family History: Unchanged from Admission Social History: Unchanged from Admission Past Medical History: Unchanged from Admission Objective Active Medications: Acetaminophen (Tylenol Tab*) 650 mg PO Q4H PRN PRN Reason: FEVER/PAIN Albuterol/Ipratropium (Duoneb (Albuterol 2.5 Mg/Ipratropium 0.5 Mg)) 1 neb INH Q4H PRN PRN Reason: SOB/WHEEZING Aspirin (Aspirin 81 Mg Chew Tab*) 81 mg PO DAILY [facility] Last Admin: 07/30/18 07:52 Dose: 81 mg Docusate Sodium (Colace Cap*) 100 mg PO BID PRN PRN Reason: CONSTIPATION Fentanyl Citrate (Fentanyl*) 50 mcg IV SLOW PU Q2HR PRN PRN Reason: PAIN Last Admin: 07/30/18 02:10 Dose: 50 mcg Finasteride (Proscar Tab*) 5 mg PO DAILY [facility] Last Admin: 07/30/18 07:52 Dose: 5 mg Ampicillin Sodium 1 gm/ Sodium (Chloride) 50 mls @ 200 mls/hr IVPB Q6H [facility] Stop: 08/01/18 23:59 Last Admin: 07/30/18 07:52 Dose: 200 mls/hr Mometasone Furoate/Formoterol Fumar (Dulera 200/5 Mdi*) 2 puff INH BID [facility] Last Admin: 07/30/18 08:30 Dose: 2 puff Omeprazole (Prilosec Cap*) 20 mg PO DAILY@0600 [facility] Last Admin: 07/30/18 07:18 Dose: 20 mg Ondansetron HCl (Zofran Inj*) 4 mg IV Q4H PRN PRN Reason: NAUSEA/VOMITING Pharmacy Profile Note (Coumadin Per Pharmacy*) 1 note FOLLOW UP .PER PHARMACY PROTOC [facility]; Protocol Senna (Senokot Tab*) 1 tab PO BID PRN PRN Reason: CONSTIPATION Tamsulosin HCl (Flomax Cap*) 0.4 mg PO BEDTIME [facility] Last Admin: 07/29/18 22:24 Dose: 0.4 mg Warfarin Sodium (Coumadin Tab(*)) 2.5 mg PO ONCE ONE Stop: 07/30/18 17:01 Vital Signs - 8 hr 07/30/18 07/30/18 07/30/18 07:31 08:00 08:32 Temperature 98.0 F Pulse Rate 69 72 Respiratory 22 20 22 Rate Blood Pressure 95/45 (mmHg) O2 Sat by Pulse 94 97 Oximetry Oxygen Devices in Use Now: Nasal Cannula Appearance: super morbid obese male laying in bed in NAD, A+O x3 Eyes: No Scleral Icterus, PERRLA Ears/Nose/Mouth/Throat: - - dry MM Respiratory: Symmetrical Chest Expansion and Respiratory Effort, Clear to Auscultation Cardiovascular: NL Sounds; No Murmurs; No JVD, RRR, No Edema Abdominal: NL Sounds; No Tenderness; No Distention, - - obese - unable to ascultate BS 2nd to obesity - no tenderness on exam Neurological: Alert and Oriented x 3, - - 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 Right foot weakness noted - is able to dorsi flex and plantar flex - note dto be weak. Left foot cannot dorsi flex or plantar flex - he can move hir right leg using hip/knee. No sensation just above ankle through foot - no sensation to pressure or light touch. speech is garbled which is baseline. Lines/Tubes/Other Access: Clean, Dry and Intact Peripheral IV Nutrition: Taking PO's Result Diagrams: 07/30/18 06:30 07/30/18 06:30 Microbiology and Other Data: Microbiology 07/24/18 10:05 Aerobic Blood Culture - Preliminary Blood Venous No Growth Day 4 Anaerobic Blood Culture - Preliminary No Growth Day 4 07/24/18 10:00 Aerobic Blood Culture - Preliminary Blood Venous No Growth Day 4 Anaerobic Blood Culture - Preliminary No Growth Day 4 07/23/18 05:53 Aerobic Blood Culture - Final Blood Venous Not Reportable Anaerobic Blood Culture - Final Not Reportable Blood Culture - Final No Growth Day 5 07/23/18 10:05 Gram Stain - Final Sputum Sputum Culture - Final Normal Tina 07/23/18 01:37 Urine Culture - Final Urine Proteus Mirabilis Enterococcus Faecalis 07/23/18 00:10 Nasal Screen MRSA (PCR) - Final Nasal Mrsa Not Detected Assess/Plan/Problems-Billing Assessment: Patient is a 67yo male with a PMH for CKD, CVA, morbid obesity, COPD, Afib, urinary retention, CHF, Obesity-Hypoventilation who was admitted for acute hypercarbic respiratory failure with intubation and consolidation of the lung along with UTI who is improving slowly on antibiotics and has been transferred out of the ICU. - Patient Problems (1) Paresthesia of left foot Comment: - new onset? difficult to know when he developed this as he is not able to report exact time. Appreciate neurology consult. Concern for CVA with his inability to not be able to plantar or dorsi flex. Extremity is warm and well perfused with + pulses. -CT brain negative. Carotid us pending. Pt cannot undergo an MRI due to weight. check fasting lipids in am and start statin if indicated. Neuro checks. Discussed with neurology low SBP 90's - the patient appears to be trending low. He appears dry on exam. Currently his torsemide and spironlactone is being held - plan to repeat Chest xray - he may need gentle IVFs but will check xray first d/t hx of CHF (2) Acute respiratory failure with hypoxia and hypercarbia Comment: - Improving. Severely increase pCO2 on admission - Possible pneumonia with infiltrate on CXR - continue Ampicillin for 7 day course - Restrictive and obstructive pattern of respiratory failure noted likely due to obesity hypoventilation syndrome and COPD (3) Urinary tract infection with hematuria Comment: - Recurrent, Enterococcus and Proteus - Continue Ampicillin for this and Possible pneumonia - parekh changed (4) Hemiparesis of right dominant side as late effect of cerebral infarction Comment: - Stable consistent with previous fluctuating deficits - Likely recrudescence of prior CVA in setting of illness - Continue Aspirin and Warfarin (5) Afib Comment: - Pacemaker for tachy-bea syndrome. - History of cardioembolic stroke, 2016. - Continue coumdin, therapeutic INR. (6) BPH (benign prostatic hyperplasia) Comment: - Continue tamsulosin - Chronic parekh for urinary retention (7) CKD (chronic kidney disease) stage 4, GFR 15-29 ml/min Comment: - At baseline (8) TORY (obstructive sleep apnea) Comment: - With chronic hypoxic/hypercarbic respiratory failure, on 3L O2 routinely. - With obesity hypoventilation syndrome. - Continue CPAP (9) Obesity hypoventilation syndrome Comment: - Restrictive lung disease with chronic hypercarbia - CPAP (10) Full code status Comment: (11) DVT prophylaxis Comment: - Warfarin, Status and Disposition: Inpatient, [facility] at discharge
--- NOTE | 2018-07-30 14:00 | RAD ---
HISTORY: left foot paralysis - concern for CVA COMPARISONS: May 18, 2018 TECHNIQUE: Multiple contiguous axial CT scans were obtained of the head without intravenous contrast. FINDINGS: Evaluation is limited by positioning and patient motion . HEMORRHAGE/INFARCT: There is no hemorrhage or acute infarct. MASSES/SHIFT: There is no mass or shift. EXTRA-AXIAL SPACES: There are no extra-axial fluid collections. SULCI AND VENTRICLES: There is diffuse and proportional enlargement of the sulci and ventricles. CEREBRUM: There are no focal parenchymal abnormalities. BRAINSTEM: There are no focal parenchymal abnormalities. CEREBELLUM: There are no focal parenchymal abnormalities. VESSELS: The vessels are grossly normal. PARANASAL SINUSES: The paranasal sinuses are clear. ORBITS: The orbits are unremarkable. BONES AND SOFT TISSUE: No bone or soft tissue abnormalities are noted. OTHER: None IMPRESSION: NO ACUTE INTRACRANIAL PATHOLOGY.
--- NOTE | 2018-07-30 14:50 | RAD ---
HISTORY: concern for CVA COMPARISONS: September 09, 2015 TECHNIQUE: Multiple transverse and longitudinal ultrasound images were obtained of the carotid and vertebral arteries bilaterally, using grayscale, color Doppler, and spectral Doppler imaging. FINDINGS: The study is limited by patient body habitus. Measurement of carotid stenosis is based on flow velocity parameters that correlate the residual internal carotid artery diameter with [place] Symptomatic Carotid Endarterectomy Trial (NASCET)-based stenosis levels. RIGHT: Intima: There is mild diffuse intimal thickening. Velocities: Right internal carotid artery maximum peak systolic velocity: 98 cm/s Right common carotid artery maximum peak systolic velocity: 80 cm/s Right internal carotid artery/common carotid artery ratio: 1.4 Waveforms: There is no spectral broadening. Right Vertebral: The right vertebral artery flow is antegrade. LEFT: Intima: There is mild diffuse intimal thickening. Velocities: The left vertebral and internal carotid arteries were not visible secondary to patient body habitus and position. OTHER FINDINGS: None. IMPRESSION: 1. NO RIGHT INTERNAL CAROTID ARTERY STENOSIS BY NASCET CRITERIA. 2. THE LEFT INTERNAL CAROTID ARTERY AND VERTEBRAL ARTERY WERE NOT ABLE TO BE EVALUATED SECONDARY CPT II Codes: 3100F
--- NOTE | 2018-07-30 15:36 | RAD ---
HISTORY: pneumonia COMPARISONS: July 24, 2018 VIEWS: 2 : frontal AP view of the chest at at 3:11 PM. The patient is obliqued to the left. The study is markedly technically limited. FINDINGS: LINES AND TUBES: A left-sided pacemaker is noted. A right internal jugular venous catheter is noted. The tip position is likely of the superior vena cava but is indeterminate on the given projections. CARDIOMEDIASTINAL SILHOUETTE: Enlarged PLEURA: There is a probable moderate left pleural effusion. LUNG PARENCHYMA: There is a diffuse reticular pattern with indistinct pulmonary vessels. ABDOMEN: The upper abdomen is clear. There is no subphrenic gas. BONES AND SOFT TISSUES: No bone or soft tissue abnormalities are noted. IMPRESSION: 1. MARKEDLY LIMITED STUDY. 2. CARDIOMEGALY. 3. PULMONARY INTERSTITIAL EDEMA. 4. PROBABLE LEFT PLEURAL EFFUSION.
[2018-07-30] MEDS ORDERED: NS 0.9% 500 ML* 500 ML IV SCH (16:00)
[2018-07-30] MEDS ORDERED: NS 0.9% 500 ML* 500 ML IV ONE (16:53)
[2018-07-30] MEDS ORDERED: Warfarin TAB(*) 2.5 MG PO ONE (17:00)
--- NOTE | 2018-07-30 18:32 | CONS ---
CONSULTATION REPORT: DATE OF CONSULT: 07/30/18 PATIENT OF: Dr. Luna Renner. PRIMARY CARE PROVIDER: [facility]. HISTORY OF PRESENT ILLNESS: This is a 67-year-old man who I am asked to evaluate for possible stroke. He presented on 07/22/18 with respiratory distress and altered mental status and was in the ICU for several days. He most recently has been doing better. He has noted some numbness in his left foot in the past a day or so with some shooting pain that began recently. Today , for the first time, he noticed that he could not move his left foot either to plantarflex or dorsiflex. He thinks that this is new as of at least yesterday afternoon and morning, but he is not sure he does not walk and he is morbidly obese and so he does not have the cause to move his foot often. Of note, he has had a prior stroke that is left him with a right hemiparesis, which has been a static issue for him. He has had some back pain as well, which is chronic, it is unclear whether it is actually worse or not, he was not sure. 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 He has a history of obstructive sleep apnea, on BiPAP. He has pacemaker and ICD placement. MEDICATIONS: Currently are: 1. Tylenol p.r.n. 2. DuoNeb p.r.n. wheezing. 3. Ampicillin 1 g q.6 hours. 4. Aspirin 81 mg daily. 5. Fentanyl p.r.n. pain. 6. Proscar 5 mg daily. 7. Dulera 2 puffs b.i.d. 8. Prilosec 20 mg daily. 9. Zofran 4 mg p.r.n. nausea. 10. Coumadin 2.5 daily. ALLERGIES: He has no known drug allergies. FAMILY HISTORY: His mother of colon cancer. Father of lung cancer. SOCIAL HISTORY: He has no history of alcohol abuse. He has never been . He is bedbound. REVIEW OF SYSTEMS: Negative in all 14 spheres other than HPI. PHYSICAL EXAM: Temperature 98, pulse 72, respiratory rate 22, blood pressure 95 /45. He is alert and oriented x3. He had some mild dysarthria, but he says this is chronic. He has 5-/5 strength on his right side. His left side is strong other than he had left 0/5 plantarflexion and dorsiflexion of that leg and numbness from his ankle down down. Reflexes were trace and equal. Toes were mute to downgoing on the left, upgoing on the right. Chest: Clear. Cardiovascular: Regular rate and rhythm. He is morbidly obese. DIAGNOSTIC STUDIES/LAB DATA: His CT scan I reviewed has not been read officially yet, but I reviewed and this is of poor quality, but no acute bleed or other changes were noted. Labs include normal CBC other than crit of 32, platelets of 201. INR was 1.78. Normal BNP other than BUN of 51, creatinine 2.56, glucose 116. Vitamin D is 16. IMPRESSION AND PLAN: Zac is hard to evaluate. It is possible with this new finding of left weakness in plantar-flexion and dorsiflexion could be a stroke or it could be more than 1 lumbar nerve root or lumbar stenosis. We have limited access and we cannot get an MRI scan of his brain because of his weight and his pacemaker. Similarly, we cannot get an MRI scan of his lumbar spine to see if there is significant pinched nerve there. In terms of therapeutic options, he is on anticoagulation. He is not a t-PA candidate and he is well outside the t-PA window or even a clot retrieval window since his last known well for his left foot was sometime yesterday. I do not want to do a CTA given his kidney function. He is unlikely to be a candidate for clot retrieval given his timeframe, but we are checking carotid Doppler now. He should have physical therapy for the foot. We could get a CT of his lumbar spine to see if we can see disk disease. With his weight, it is likely he will have findings, but it is likely that even if he found something, we would not be sure what is the cause of this foot drop is and operation has more risks than benefits for him. If the weakness persists, this is something that we can do. Further his INR is a little lower than it had been and I will discuss this with Dr. Renner. The other issue is his blood pressure and he has been a little on the low side. If he has had a stoke, we can liberalize his medicines and make sure his fluid status is optimized. Thank you for sharing his case. [id number]/[facility] #: [id number] GRETEL
[2018-07-30] MEDS: Tamsulosin CAP* 0.4 MG PO SCH (21:19)
[2018-07-30] MEDS: Acetaminophen TAB* 325 MG PO PRN (21:20)
[2018-07-31] MEDS: Ampicillin ADVAN(*) 1 GM in NS 0.9% 50 ML* 50 ML IVPB SCH ×4 (01:12→19:25)
[2018-07-31] MEDS: Acetaminophen TAB* 325 MG PO PRN ×2 (02:50→11:05)
[2018-07-31] MEDS ORDERED: Gabapentin CAP(*) 300 MG PO ONE (04:00)
[2018-07-31 05:22] LABS: ABS Basophils 0.1 10^3/ul (0-0.2); ABS Eosinophils 0.2 10^3/ul (0-0.6); ABS Lymphocytes 0.7 10^3/ul (1.0-4.8); ABS Monocytes 0.3 10^3/ul (0-0.8); ABS Nucleated RBC 0 10^3/ul; Eosinophil % 3.2 % (0-6); Hematocrit 32 % (42-52); Lymphocyte % 9.1 % (25-47); Mean Corpuscular HGB Conc 32 g/dl (31-36); Mean Corpuscular Hemoglobin 25 pg (27-31); Mean Corpuscular Volume 80 fL (80-94); Mean Platelet Volume 7.1 um3 (7.4-10.4); Nucleated Red Blood Cells % 0.1; Platelet Count 207 10^3/ul (150-450); Red Blood Count 3.95 10^6/ul (4.00-5.40); Red Cell Distribution Width 16 % (10.5-15); White Blood Count 7.4 10^3/ul (3.5-10.8)
[2018-07-31 05:25] LABS: INR 1.79 (0.77-1.02)
[2018-07-31 05:41] LABS: EGFR Non-African American 27.5 (>60)
[2018-07-31] MEDS: Omeprazole CAP* 20 MG PO SCH (06:18)
[2018-07-31] MEDS: Mometasone/Formoter 200/5 MDI INH SCH ×2 (07:42→19:44)
[2018-07-31] MEDS: Cholecalciferol TAB* 1000 UNITS PO SCH (09:33)
[2018-07-31] MEDS: Aspirin 81 mg CHEW TAB* 81 MG TAB.CHEW PO SCH (09:33)
[2018-07-31] MEDS: Finasteride TAB* 5 MG PO SCH (09:34)
[2018-07-31] MEDS ORDERED: Gabapentin CAP(*) 100 MG PO ONE (12:52)
[2018-07-31] MEDS ORDERED: Warfarin TAB(*) 2.5 MG PO ONE (17:00)
--- NOTE | 2018-07-31 17:36 | PN ---
Subjective Date of Service: 07/31/18 Interval History: Patient reports his right foot is "still numb" - he reports he is experiencing tingling painful sensation in his right foot. He still reports he can not flex or extend. He denies a lumbar CT. Denies any new symptoms. He reports that he feels that his breathing is improving. Denies cough/SOB. Denies fever/chills. Family History: Unchanged from Admission Social History: Unchanged from Admission Past Medical History: Unchanged from Admission Objective Active Medications: Acetaminophen (Tylenol Tab*) 650 mg PO Q4H PRN PRN Reason: FEVER/PAIN Last Admin: 07/31/18 11:05 Dose: 650 mg Albuterol/Ipratropium (Duoneb (Albuterol 2.5 Mg/Ipratropium 0.5 Mg)) 1 neb INH Q4H PRN PRN Reason: SOB/WHEEZING Aspirin (Aspirin 81 Mg Chew Tab*) 81 mg PO DAILY [facility] Last Admin: 07/31/18 09:33 Dose: 81 mg Atorvastatin Calcium (Lipitor*) 20 mg PO 2100 [facility] Cholecalciferol (Vitamin D Tab*) 2,000 units PO DAILY [facility] Last Admin: 07/31/18 09:33 Dose: 2,000 units Docusate Sodium (Colace Cap*) 100 mg PO BID PRN PRN Reason: CONSTIPATION Finasteride (Proscar Tab*) 5 mg PO DAILY [facility] Last Admin: 07/31/18 09:34 Dose: 5 mg Ampicillin Sodium 1 gm/ Sodium (Chloride) 50 mls @ 200 mls/hr IVPB Q6H [facility] Stop: 08/01/18 23:59 Last Admin: 07/31/18 13:19 Dose: 200 mls/hr Mometasone Furoate/Formoterol Fumar (Dulera 200/5 Mdi*) 2 puff INH BID [facility] Last Admin: 07/31/18 07:42 Dose: 2 puff Omeprazole (Prilosec Cap*) 20 mg PO DAILY@0600 [facility] Last Admin: 07/31/18 06:18 Dose: 20 mg Ondansetron HCl (Zofran Inj*) 4 mg IV Q4H PRN PRN Reason: NAUSEA/VOMITING Pharmacy Profile Note (Coumadin Per Pharmacy*) 1 note FOLLOW UP .PER PHARMACY PROTOC [facility]; Protocol Senna (Senokot Tab*) 1 tab PO BID PRN PRN Reason: CONSTIPATION Tamsulosin HCl (Flomax Cap*) 0.4 mg PO BEDTIME [facility] Last Admin: 07/30/18 21:19 Dose: 0.4 mg Vital Signs - 8 hr 07/31/18 07/31/18 07/31/18 11:15 13:11 14:49 Temperature 98.4 F 99.0 F Pulse Rate 69 69 Respiratory 24 17 22 Rate Blood Pressure 129/62 112/54 (mmHg) O2 Sat by Pulse 91 94 Oximetry Oxygen Devices in Use Now: Nasal Cannula Appearance: super morbid obese male A+O x3 in NAD Eyes: No Scleral Icterus, PERRLA Ears/Nose/Mouth/Throat: NL Teeth, Lips, Gums, Mucous Membranes Moist Neck: NL Appearance and Movements; NL JVP Respiratory: Symmetrical Chest Expansion and Respiratory Effort, Clear to Auscultation Cardiovascular: NL Sounds; No Murmurs; No JVD, RRR, No Edema Abdominal: NL Sounds; No Tenderness; No Distention Extremities: No Edema, No Clubbing, Cyanosis Skin: No Rash or Ulcers, No Nodules or Sclerosis Neurological: Alert and Oriented x 3, - - right hemiparesis. Left foot parasthesia - unable to dorsi or plantar flex , warm to touch Lines/Tubes/Other Access: Clean, Dry and Intact Peripheral IV Nutrition: Taking PO's Result Diagrams: 07/31/18 05:05 07/31/18 05:05 Microbiology and Other Data: Microbiology 07/24/18 10:05 Aerobic Blood Culture - Preliminary Blood Venous No Growth Day 4 Anaerobic Blood Culture - Preliminary No Growth Day 4 07/24/18 10:00 Aerobic Blood Culture - Preliminary Blood Venous No Growth Day 4 Anaerobic Blood Culture - Preliminary No Growth Day 4 07/23/18 05:53 Aerobic Blood Culture - Final Blood Venous Not Reportable Anaerobic Blood Culture - Final Not Reportable Blood Culture - Final No Growth Day 5 07/23/18 10:05 Gram Stain - Final Sputum Sputum Culture - Final Normal Tina 07/23/18 01:37 Urine Culture - Final Urine Proteus Mirabilis Enterococcus Faecalis 07/23/18 00:10 Nasal Screen MRSA (PCR) - Final Nasal Mrsa Not Detected Assess/Plan/Problems-Billing Assessment: Patient is a 67yo male with a PMH for CKD, CVA, morbid obesity, COPD, Afib, urinary retention, CHF, Obesity-Hypoventilation who was admitted for acute hypercarbic respiratory failure with intubation and consolidation of the lung along with UTI who is improving slowly on antibiotics and has been transferred out of the ICU. - Patient Problems (1) Paresthesia of left foot Comment: - Appreciate neurology consult - suspect possible CVA. Pt cannot under go MRI d/ t weight. Lipid profile LDL 90 - recommends starting atorvastatin. Repeat CT brain in am. Continue ASA, coumadin - Differential is pinch nerve? He is not having any back pain. Patient does not want a lumbar CT and is refusing at this time (2) Acute respiratory failure with hypoxia and hypercarbia Comment: - Improving. Severely increase pCO2 on admission - Possible pneumonia with infiltrate on CXR - continue Ampicillin for 7 day course - last day 08/01 - Restrictive and obstructive pattern of respiratory failure noted likely due to obesity hypoventilation syndrome and COPD - continue CPAP (3) Urinary tract infection with hematuria Comment: - Recurrent, Enterococcus and Proteus - Continue Ampicillin for this and Possible pneumonia - parekh changed (4) Hemiparesis of right dominant side as late effect of cerebral infarction Comment: - Stable consistent with previous fluctuating deficits - Likely recrudescence of prior CVA in setting of illness - Continue Aspirin and Warfarin (5) Afib Comment: - Pacemaker for tachy-bea syndrome. - History of cardioembolic stroke, 2016. - Continue coumdin, therapeutic INR. (6) BPH (benign prostatic hyperplasia) Comment: - Continue tamsulosin - Chronic parekh for urinary retention (7) CKD (chronic kidney disease) stage 4, GFR 15-29 ml/min Comment: - At baseline (8) TORY (obstructive sleep apnea) Comment: - With chronic hypoxic/hypercarbic respiratory failure, on 3L O2 routinely. - With obesity hypoventilation syndrome. - Continue CPAP (9) Obesity hypoventilation syndrome Comment: - Restrictive lung disease with chronic hypercarbia - CPAP (10) Full code status Comment: (11) DVT prophylaxis Comment: - Warfarin, Status and Disposition: Inpatient, [facility] at discharge
[2018-07-31] MEDS: Atorvastatin* 20 MG TAB PO SCH (20:08)
[2018-07-31] MEDS: Tamsulosin CAP* 0.4 MG PO SCH (20:08)
[2018-08-01] MEDS: Ampicillin ADVAN(*) 1 GM in NS 0.9% 50 ML* 50 ML IVPB SCH ×4 (02:13→20:16)
[2018-08-01] MEDS: traMADol TAB* 50 MG PO PRN ×2 (04:38→16:15)
[2018-08-01] MEDS: Omeprazole CAP* 20 MG PO SCH (05:31)
[2018-08-01 07:17] LABS: ABS Basophils 0.1 10^3/ul (0-0.2); ABS Eosinophils 0.2 10^3/ul (0-0.6); ABS Lymphocytes 0.6 10^3/ul (1.0-4.8); ABS Monocytes 0.5 10^3/ul (0-0.8); ABS Neutrophils 7.6 10^3/ul (1.5-7.7); ABS Nucleated RBC 0 10^3/ul; Hematocrit 32 % (42-52); Hemoglobin 10.3 g/dl (14.0-18.0); Lymphocyte % 6.7 % (25-47); Mean Corpuscular HGB Conc 32 g/dl (31-36); Mean Corpuscular Hemoglobin 25 pg (27-31); Mean Corpuscular Volume 80 fL (80-94); Mean Platelet Volume 7.5 um3 (7.4-10.4); Nucleated Red Blood Cells % 0.1; Platelet Count 226 10^3/ul (150-450); Red Blood Count 4.04 10^6/ul (4.00-5.40); Red Cell Distribution Width 17 % (10.5-15)
[2018-08-01 07:31] LABS: EGFR Non-African American 26.6 (>60)
[2018-08-01 07:38] LABS: INR 1.49 (0.77-1.02)
[2018-08-01] MEDS: Mometasone/Formoter 200/5 MDI INH SCH ×2 (07:43→19:41)
[2018-08-01] MEDS: Finasteride TAB* 5 MG PO SCH (08:11)
[2018-08-01] MEDS: Aspirin 81 mg CHEW TAB* 81 MG TAB.CHEW PO SCH (08:11)
[2018-08-01] MEDS: Cholecalciferol TAB* 1000 UNITS PO SCH (08:11)
--- NOTE | 2018-08-01 08:58 | PN ---
PROGRESS NOTE: DATE OF VISIT: 07/31/2018. PATIENT OF: Darlin Renner NP HISTORY: Mr. Terry still notes left foot weakness. He occasionally has shooting pains in that left foot but he has no other complaints relevant to his left-sided symptoms. He is on his aspirin 81 mg a day as well as his inhalers, ampicillin, docusate, Proscar, Dulera, Prilosec, Flomax 0.4 mg daily and one dose of Coumadin. PHYSICAL EXAM: Temperature 99, pulse 69, respirations 22, blood pressure 112/ 54. He is alert and oriented with normal speech and comprehension. Cranial nerves II through XII are intact. Motor Exam: He is strong, 5/5 in all extremities other than limited by his morbid obesity other than his left foot. He still cannot plantarflex or dorsiflex but when he brings it up, there appears to be a flicker of movement with dorsiflexion. LABORATORY DATA/DIAGNOSTIC DATA: His CT was read as no acute intracranial pathology , I had looked at it and dictated my note before that was back yesterday, he had no right internal carotid stenosis. His LDL was 90. IMPRESSION: I discussed with Zac that his symptoms in his foot were either from more than 1 pinched nerve in his low back or from a stroke. He cannot get a MRI scan due to his pacemaker and his size. We could check a CT scan of his lumbar spine, which may well be abnormal. It would be hard to prove that the findings we saw on his CT scan related to his footdrop but it is possible the therapeutic outcome would be to have surgery since he is completely bedbound and does not walk. He does not want to pursue surgery for this and therefore, is declining the CT scan of his back. We are going to repeat a CT scan of his head since it is possible that a better quality scan done a couple of days after the acute onset of his symptoms may be able to document a stroke. For now , he should continue on his aspirin. His right carotid is normal, so there is no need for surgical intervention there and I will continue his platelet therapy. It would be reasonable to check a cardiac echo to make sure that he does not have a source of clot that could have caused these symptoms and I have taken the liberty of ordering that as well as the CT scan. Please call me if there are any questions about the results of these tests. Thank you for sharing his case. [id number]/[facility] #: [id number] GRETEL
--- NOTE | 2018-08-01 12:48 | RAD ---
HISTORY: hemiparesis COMPARISONS: July 30, 2018 TECHNIQUE: Multiple contiguous axial CT scans were obtained of the head without intravenous contrast. FINDINGS: The study is markedly limited by positioning and body habitus. HEMORRHAGE/INFARCT: There is no hemorrhage or acute infarct. MASSES/SHIFT: There is no mass or shift. EXTRA-AXIAL SPACES: There are no extra-axial fluid collections. SULCI AND VENTRICLES: The sulci and ventricles are normal in size and position for the patient's stated age. CEREBRUM: There are no focal parenchymal abnormalities. BRAINSTEM: There are no focal parenchymal abnormalities. CEREBELLUM: There are no focal parenchymal abnormalities. VESSELS: The vessels are grossly normal. PARANASAL SINUSES: The paranasal sinuses are clear. ORBITS: The orbits are unremarkable. BONES AND SOFT TISSUE: No bone or soft tissue abnormalities are noted. OTHER: None IMPRESSION: 1. LIMITED STUDY. 2. WITHIN THE LIMITATIONS OF THE STUDY, THERE IS NO ACUTE INTRACRANIAL PATHOLOGY
--- NOTE | 2018-08-01 15:46 | PN ---
Subjective Date of Service: 08/01/18 Interval History: Patient continues to have right foot numbness w/o feeling and or the ability to dorsi or plantar flex. he reports he continues to have sensations of "shooting pins and needles" in his R foot. He denies SOB. No cough. He feels that his breathing has much improved. Denies fever or chills Family History: Unchanged from Admission Social History: Unchanged from Admission Past Medical History: Unchanged from Admission Objective Active Medications: Acetaminophen (Tylenol Tab*) 650 mg PO Q4H PRN PRN Reason: FEVER/PAIN Last Admin: 07/31/18 11:05 Dose: 650 mg Albuterol/Ipratropium (Duoneb (Albuterol 2.5 Mg/Ipratropium 0.5 Mg)) 1 neb INH Q4H PRN PRN Reason: SOB/WHEEZING Aspirin (Aspirin 81 Mg Chew Tab*) 81 mg PO DAILY [facility] Last Admin: 08/01/18 08:11 Dose: 81 mg Atorvastatin Calcium (Lipitor*) 20 mg PO 2100 [facility] Last Admin: 07/31/18 20:08 Dose: 20 mg Cholecalciferol (Vitamin D Tab*) 2,000 units PO DAILY [facility] Last Admin: 08/01/18 08:11 Dose: 2,000 units Docusate Sodium (Colace Cap*) 100 mg PO BID PRN PRN Reason: CONSTIPATION Finasteride (Proscar Tab*) 5 mg PO DAILY [facility] Last Admin: 08/01/18 08:11 Dose: 5 mg Ampicillin Sodium 1 gm/ Sodium (Chloride) 50 mls @ 200 mls/hr IVPB Q6H [facility] Stop: 08/01/18 23:59 Last Admin: 08/01/18 12:12 Dose: 200 mls/hr Mometasone Furoate/Formoterol Fumar (Dulera 200/5 Mdi*) 2 puff INH BID [facility] Last Admin: 08/01/18 07:43 Dose: 2 puff Omeprazole (Prilosec Cap*) 20 mg PO DAILY@0600 [facility] Last Admin: 08/01/18 05:31 Dose: 20 mg Ondansetron HCl (Zofran Inj*) 4 mg IV Q4H PRN PRN Reason: NAUSEA/VOMITING Pharmacy Profile Note (Coumadin Per Pharmacy*) 1 note FOLLOW UP .PER PHARMACY PROTOC [facility]; Protocol Freddie (Farshad Tab*) 1 tab PO BID PRN PRN Reason: CONSTIPATION Tamsulosin HCl (Flomax Cap*) 0.4 mg PO BEDTIME SOLE Last Admin: 07/31/18 20:08 Dose: 0.4 mg Tramadol HCl (Ultram*) 50 mg PO Q12H PRN PRN Reason: PAIN Last Admin: 08/01/18 04:38 Dose: 50 mg Warfarin Sodium (Coumadin Tab(*)) 3 mg PO ONCE ONE Stop: 08/01/18 17:01 Vital Signs - 8 hr 08/01/18 08/01/18 08/01/18 07:43 08:00 08:07 Temperature 97.5 F Pulse Rate 72 72 Respiratory 20 18 20 Rate Blood Pressure 105/57 (mmHg) O2 Sat by Pulse 92 95 Oximetry 08/01/18 08/01/18 08:08 11:30 Temperature 97.5 F Pulse Rate 72 Respiratory 18 20 Rate Blood Pressure 110/50 (mmHg) O2 Sat by Pulse 99 Oximetry Oxygen Devices in Use Now: Nasal Cannula Appearance: super morbid obese male A+O x3 in nad Eyes: No Scleral Icterus, PERRLA Ears/Nose/Mouth/Throat: NL Teeth, Lips, Gums, Mucous Membranes Moist Neck: NL Appearance and Movements; NL JVP Respiratory: Symmetrical Chest Expansion and Respiratory Effort Cardiovascular: RRR, No Edema Abdominal: - - obese - difficult to ascultate d/t obesity Neurological: Alert and Oriented x 3 Lines/Tubes/Other Access: Clean, Dry and Intact Peripheral IV Nutrition: Taking PO's Result Diagrams: 08/01/18 06:55 08/01/18 06:55 Microbiology and Other Data: Microbiology 07/24/18 10:05 Aerobic Blood Culture - Preliminary Blood Venous No Growth Day 4 Anaerobic Blood Culture - Preliminary No Growth Day 4 07/24/18 10:00 Aerobic Blood Culture - Preliminary Blood Venous No Growth Day 4 Anaerobic Blood Culture - Preliminary No Growth Day 4 07/23/18 05:53 Aerobic Blood Culture - Final Blood Venous Not Reportable Anaerobic Blood Culture - Final Not Reportable Blood Culture - Final No Growth Day 5 07/23/18 10:05 Gram Stain - Final Sputum Sputum Culture - Final Normal Tina 07/23/18 01:37 Urine Culture - Final Urine Proteus Mirabilis Enterococcus Faecalis 07/23/18 00:10 Nasal Screen MRSA (PCR) - Final Nasal Mrsa Not Detected Assess/Plan/Problems-Billing Assessment: Patient is a 67yo male with a PMH for CKD, CVA, morbid obesity, COPD, Afib, urinary retention, CHF, Obesity-Hypoventilation who was admitted for acute hypercarbic respiratory failure with intubation and consolidation of the lung along with UTI who is improving slowly on antibiotics and has been transferred out of the ICU. - Patient Problems (1) Paresthesia of left foot Comment: - Appreciate neurology consult - suspect possible CVA. Pt cannot under go MRI d/ t weight. Lipid profile LDL 90 - recommends starting atorvastatin. Repeat CT brain in am. Continue ASA, coumadin - Differential is pinch nerve? He is not having any back pain. Patient does not want a lumbar CT and is refusing at this time (2) Acute respiratory failure with hypoxia and hypercarbia Comment: - Improving. Severely increase pCO2 on admission - Possible pneumonia with infiltrate on CXR - continue Ampicillin for 7 day course - last day 08/01 - Restrictive and obstructive pattern of respiratory failure noted likely due to obesity hypoventilation syndrome and COPD - continue CPAP (3) Urinary tract infection with hematuria Comment: - resolved (4) Hemiparesis of right dominant side as late effect of cerebral infarction Comment: - Stable consistent with previous fluctuating deficits - Likely recrudescence of prior CVA in setting of illness - Continue Aspirin and Warfarin (5) Afib Comment: - Pacemaker for tachy-bea syndrome. - History of cardioembolic stroke, 2016. - Continue coumdin, therapeutic INR. (6) BPH (benign prostatic hyperplasia) Comment: - Continue tamsulosin - Chronic parekh for urinary retention (7) CKD (chronic kidney disease) stage 4, GFR 15-29 ml/min Comment: - At baseline (8) TORY (obstructive sleep apnea) Comment: - With chronic hypoxic/hypercarbic respiratory failure, on 3L O2 routinely. - With obesity hypoventilation syndrome. - Continue CPAP (9) Obesity hypoventilation syndrome Comment: - Restrictive lung disease with chronic hypercarbia - CPAP (10) Full code status Comment: (11) DVT prophylaxis Comment: - Warfarin, Status and Disposition: Inpatient, [facility] at discharge
--- NOTE | 2018-08-01 16:39 | ECHO ---
Patient: JONAH RUSSELL [facility] Rec#: [id number] : 1950 Date: 08/01/2018 Age: 67y Height: 183 cm / 72.0 in Weight: 249.2 kg / 549.2 lbs Sex: M BSA: 3.3 Room#: [facility] Admit Date#: 07/22/2018 Type: Inpatient Referring: Dread Palafox MD Reading: Armando Ramos MD Customs Entry Clerk: Zina Wyatt RN RDCS CC: Pippa Zepeda MD Transthoracic Echocardiogram Indication: CVA BP: 106/49 HR: 70 Rhythm: NSR Findings Technical Comments: The study quality is poor. The study is technically limited due to poor acoustic windows. Definity was used for the study on 05/19/2018 and did not improve image quality. Apical windows were not obtainable today. Left Ventricle: The left ventricle is not well visualized. The left ventricular chamber size is mildly dilated. Moderate concentric left ventricular hypertrophy is observed. Unable to estimate left ventricular ejection fraction. The assessment of diastolic function is non-diagnostic. Left Atrium: The left atrium is not well visualized. Right Ventricle: The right ventricle is not well visualized. Right Atrium: The right atrium is not well visualized. Aortic Valve: The aortic valve structure is not well visualized. Mitral Valve: The mitral valve structure is not well visualized. Tricuspid Valve: The tricuspid valve structure is not well visualized. Pulmonic Valve: The pulmonic valve structure is not well visualized. There is no evidence of pulmonic regurgitation. There is no pulmonic stenosis. Pericardium: There is no significant pericardial effusion. Aorta: The aorta is not well visualized. The ascending aorta is not well visualized. The aortic arch is not well visualized. There is moderate dilatation of the aortic root. Pulmonary Artery: The main pulmonary artery is not well visualized. Venous: The venous system is not well visualized. The inferior vena cava is not visualized. Conclusions This echo study quality is poor and essentially inconclusive. There is moderate dilatation of the aortic root. Compared to the prior echocardiogram completed 05/19/18, prior study essentially inconclusive as well (despite use of echo enhancement agent). Aortic root reported mildly dilated prior. Measurements Name Value Normal Range RVIDd (AP) 2D 4.2 cm (0.9 - 2.6) IVSd (2D) 1.5 cm (0.6 - 1) LVPWd (2D) 1.5 cm (0.6 - 1) LVIDd (2D) 5.8 cm (3.6 - 5.4) Aortic Annulus 2.9 cm (1.4 - 2.6) Ao root diameter (2D) 4.4 cm (2.1 - 3.5) Name Value Normal Range MV E-wave Vmax 0.93 m/sec - MV deceleration time 229 msec - MV A-wave Vmax 0.53 m/sec - MV E:A ratio 1.8 ratio - Name Value Normal Range PV Vmax 0.74 m/sec -
[2018-08-01] MEDS ORDERED: Warfarin TAB(*) 3 MG PO ONE (17:00)
[2018-08-01] MEDS: Atorvastatin* 20 MG TAB PO SCH (20:18)
[2018-08-01] MEDS: Tamsulosin CAP* 0.4 MG PO SCH (20:18)
[2018-08-02] MEDS: Omeprazole CAP* 20 MG PO SCH (04:33)
[2018-08-02] MEDS: traMADol TAB* 50 MG PO PRN ×2 (04:33→21:47)
[2018-08-02 05:00] LABS: INR 1.38 (0.77-1.02)
[2018-08-02 05:01] LABS: ABS Basophils 0 10^3/ul (0-0.2); ABS Eosinophils 0.2 10^3/ul (0-0.6); ABS Lymphocytes 0.6 10^3/ul (1.0-4.8); ABS Monocytes 0.4 10^3/ul (0-0.8); ABS Neutrophils 5.8 10^3/ul (1.5-7.7); ABS Nucleated RBC 0 10^3/ul; Eosinophil % 2.5 % (0-6); Hematocrit 32 % (42-52); Hemoglobin 10.1 g/dl (14.0-18.0); Lymphocyte % 8.6 % (25-47); Mean Corpuscular HGB Conc 32 g/dl (31-36); Mean Corpuscular Hemoglobin 25 pg (27-31); Mean Corpuscular Volume 80 fL (80-94); Mean Platelet Volume 7.4 um3 (7.4-10.4); Nucleated Red Blood Cells % 0.1; Platelet Count 211 10^3/ul (150-450); Red Blood Count 3.99 10^6/ul (4.00-5.40); Red Cell Distribution Width 17 % (10.5-15)
[2018-08-02 05:10] LABS: EGFR Non-African American 27.4 (>60)
--- NOTE | 2018-08-02 05:39 | PN ---
PROGRESS NOTE: DATE OF VISIT: 08/01/2018. PATIENT OF: Luna PopeDANI larkin HISTORY: He has no new complaints. He still notes that his left foot does not dorsiflex or plantarflex. His medications remain unchanged including his p.r.n. medicines, his Flomax, his warfarin for his AFib, his Prilosec, his Proscar, Lipitor, and aspirin. PHYSICAL EXAMINATION: Temperature 97.5, pulse 72, respiration 20, blood pressure 110/50. Moves all extremities with power, but in his left foot he still has just trace strength in his plantar flexion and dorsiflexion of that foot. He still has numbness there. DIAGNOSTIC STUDIES/LAB DATA: I reviewed his CT scan, which is a limited study, but does not show any clear stroke. IMPRESSION AND PLAN: I discussed with him that there is no CT evidence for a stroke that might have been able to be seen on MRI scan, but cannot have it because of both his pacer and his weight. He is on baby aspirin and is on Coumadin now. I would maintain his anticoagulation in a therapeutic range, it is a little bit low as of today, so may need to be adjusted. Physical Therapy should see him. He is on a little bit of a statin for his mildly elevated cholesterol. I have no further recommendations. Thank you for sharing his case. [id number]/[facility] #: [id number] GRETEL
[2018-08-02] MEDS: Mometasone/Formoter 200/5 MDI INH SCH ×2 (08:03→19:14)
[2018-08-02] MEDS: Cholecalciferol TAB* 1000 UNITS PO SCH (08:57)
[2018-08-02] MEDS: Finasteride TAB* 5 MG PO SCH (08:57)
[2018-08-02] MEDS: Aspirin 81 mg CHEW TAB* 81 MG TAB.CHEW PO SCH (08:57)
--- NOTE | 2018-08-02 16:16 | PN ---
Subjective Date of Service: 08/02/18 Interval History: Patient reports he continues to feel better everyday. Denies sob/cough. No fever or chills. Continues to have left foot numbness and unable to move foot independently. Family History: Unchanged from Admission Social History: Unchanged from Admission Past Medical History: Unchanged from Admission Objective Active Medications: Acetaminophen (Tylenol Tab*) 650 mg PO Q4H PRN PRN Reason: FEVER/PAIN Last Admin: 07/31/18 11:05 Dose: 650 mg Albuterol/Ipratropium (Duoneb (Albuterol 2.5 Mg/Ipratropium 0.5 Mg)) 1 neb INH Q4H PRN PRN Reason: SOB/WHEEZING Aspirin (Aspirin 81 Mg Chew Tab*) 81 mg PO DAILY [facility] Last Admin: 08/02/18 08:57 Dose: 81 mg Atorvastatin Calcium (Lipitor*) 20 mg PO 2100 [facility] Last Admin: 08/01/18 20:18 Dose: 20 mg Cholecalciferol (Vitamin D Tab*) 2,000 units PO DAILY [facility] Last Admin: 08/02/18 08:57 Dose: 2,000 units Docusate Sodium (Colace Cap*) 100 mg PO BID PRN PRN Reason: CONSTIPATION Finasteride (Proscar Tab*) 5 mg PO DAILY [facility] Last Admin: 08/02/18 08:57 Dose: 5 mg Mometasone Furoate/Formoterol Fumar (Dulera 200/5 Mdi*) 2 puff INH BID [facility] Last Admin: 08/02/18 08:03 Dose: 2 puff Omeprazole (Prilosec Cap*) 20 mg PO DAILY@0600 [facility] Last Admin: 08/02/18 04:33 Dose: 20 mg Ondansetron HCl (Zofran Inj*) 4 mg IV Q4H PRN PRN Reason: NAUSEA/VOMITING Pharmacy Profile Note (Coumadin Per Pharmacy*) 1 note FOLLOW UP .PER PHARMACY PROTOC [facility]; Protocol Senna (Senokot Tab*) 1 tab PO BID PRN PRN Reason: CONSTIPATION Tamsulosin HCl (Flomax Cap*) 0.4 mg PO BEDTIME [facility] Last Admin: 08/01/18 20:18 Dose: 0.4 mg Tramadol HCl (Ultram*) 50 mg PO Q12H PRN PRN Reason: PAIN Last Admin: 08/02/18 04:33 Dose: 50 mg Warfarin Sodium (Coumadin Tab(*)) 3 mg PO ONCE ONE Stop: 08/02/18 17:01 Vital Signs - 8 hr 08/02/18 08/02/18 11:27 15:46 Temperature 97.7 F 97.7 F Pulse Rate 68 70 Respiratory 16 24 Rate Blood Pressure 100/50 100/48 (mmHg) O2 Sat by Pulse 100 99 Oximetry Oxygen Devices in Use Now: Nasal Cannula Appearance: super morbid obese male laying in bed A+O x3 Eyes: No Scleral Icterus, PERRLA Ears/Nose/Mouth/Throat: NL Teeth, Lips, Gums, Mucous Membranes Moist Neck: NL Appearance and Movements; NL JVP Respiratory: Symmetrical Chest Expansion and Respiratory Effort Cardiovascular: NL Sounds; No Murmurs; No JVD, RRR, No Edema Abdominal: - - obese, soft, nt, Extremities: No Edema, No Clubbing, Cyanosis Skin: No Rash or Ulcers, No Nodules or Sclerosis Neurological: Alert and Oriented x 3, NL Muscle Strength and Tone Lines/Tubes/Other Access: Clean, Dry and Intact Peripheral IV Nutrition: Taking PO's Result Diagrams: 08/02/18 04:42 08/02/18 04:42 Microbiology and Other Data: Microbiology 07/24/18 10:05 Aerobic Blood Culture - Preliminary Blood Venous No Growth Day 4 Anaerobic Blood Culture - Preliminary No Growth Day 4 07/24/18 10:00 Aerobic Blood Culture - Preliminary Blood Venous No Growth Day 4 Anaerobic Blood Culture - Preliminary No Growth Day 4 07/23/18 05:53 Aerobic Blood Culture - Final Blood Venous Not Reportable Anaerobic Blood Culture - Final Not Reportable Blood Culture - Final No Growth Day 5 07/23/18 10:05 Gram Stain - Final Sputum Sputum Culture - Final Normal Tina 07/23/18 01:37 Urine Culture - Final Urine Proteus Mirabilis Enterococcus Faecalis 07/23/18 00:10 Nasal Screen MRSA (PCR) - Final Nasal Mrsa Not Detected Assess/Plan/Problems-Billing Assessment: Patient is a 67yo male with a PMH for CKD, CVA, morbid obesity, COPD, Afib, urinary retention, CHF, Obesity-Hypoventilation who was admitted for acute hypercarbic respiratory failure with intubation and consolidation of the lung along with UTI who is improving slowly on antibiotics and has been transferred out of the ICU. - Patient Problems (1) Paresthesia of left foot Comment: - Appreciate neurology consult - suspect possible CVA. Pt cannot under go MRI d/ t weight. Lipid profile LDL 90 - recommends starting atorvastatin. Repeat CT brain NGT. Continue ASA, coumadin - Differential is pinch nerve? He is not having any back pain. Patient does not want a lumbar CT and is refusing at this time. (2) Acute respiratory failure with hypoxia and hypercarbia Comment: - Resolved. Severely increase pCO2 on admission, required intubation. - Possible pneumonia with infiltrate on CXR - Ampicillin 7 day course - last day 08/02 - Restrictive and obstructive pattern of respiratory failure noted likely due to obesity hypoventilation syndrome and COPD - continue CPAP (3) Urinary tract infection with hematuria Comment: - treated - chronic parekh - changed on admission (4) CHF (congestive heart failure) Comment: Restart Torsemide 20 mg daily (home dose 40 mg) - Hold Spironlactone d/t soft BPs - Daily weights (5) Hemiparesis of right dominant side as late effect of cerebral infarction Comment: - Stable consistent with previous fluctuating deficits - Likely recrudescence of prior CVA in setting of illness - Continue Aspirin and Warfarin (6) Afib Comment: - Pacemaker (tachy-bea syndrome) - History of cardioembolic stroke, 2016. - Continue coumadin (7) BPH (benign prostatic hyperplasia) Comment: - Continue tamsulosin - Chronic parekh for urinary retention (8) CKD (chronic kidney disease) stage 4, GFR 15-29 ml/min Comment: - At baseline (9) TORY (obstructive sleep apnea) Comment: - With chronic hypoxic/hypercarbic respiratory failure, on 3L O2 routinely. - With obesity hypoventilation syndrome. - Continue CPAP (10) Obesity hypoventilation syndrome Comment: - Restrictive lung disease with chronic hypercarbia - CPAP (11) Full code status Comment: (12) DVT prophylaxis Comment: - Warfarin (adjust dose d/t low INR) Status and Disposition: Inpatient, [facility] at discharge - potential DC tomorrow if facility will take him Saturday. Will remove chest wall IV but leave IJ until it is decided when he will be DC back to [facility] d/t difficult access. Patient will require rehab at [facility]. I also recommend a motorized wheelchair as previously patient was able to get around in a wheelchair and scoot himself with his left LE now that is not possible d/t this new left foot paresthesia.
[2018-08-02] MEDS ORDERED: Warfarin TAB(*) 3 MG PO ONE (17:00)
[2018-08-02] MEDS ORDERED: Fluticasone-Salmeterol 250-50* DISKUS INH SCH (21:00)
[2018-08-02] MEDS: Atorvastatin* 20 MG TAB PO SCH (21:47)
[2018-08-02] MEDS: Tamsulosin CAP* 0.4 MG PO SCH (21:47)
[2018-08-03] MEDS: Omeprazole CAP* 20 MG PO SCH (05:07)
[2018-08-03 05:08] LABS: INR 1.47 (0.77-1.02)
[2018-08-03] MEDS: Mometasone/Formoter 200/5 MDI INH SCH ×2 (07:24→19:25)
[2018-08-03] MEDS: Finasteride TAB* 5 MG PO SCH (09:37)
[2018-08-03] MEDS: traMADol TAB* 50 MG PO PRN (09:37)
[2018-08-03] MEDS: Cholecalciferol TAB* 1000 UNITS PO SCH (09:37)
[2018-08-03] MEDS: Aspirin 81 mg CHEW TAB* 81 MG TAB.CHEW PO SCH (09:38)
[2018-08-03] MEDS ORDERED: Furosemide IV* 10 MG/ML VIAL (40 MG) IV ONE (11:45)
--- NOTE | 2018-08-03 15:30 | PN ---
Subjective Date of Service: 08/03/18 Interval History: Mr. Terry reports feeling well this morning. He continues to c/o left foot numbness. He is unable to move his left foot or toes, but is able to bend his knee. He is concerned about his ability to get around in a WC he will be unable to pull himself along with his left foot. He denies SOB. Using 3L NC. Nursing reports intertriginous rashes. No CP, N/V/D, dizziness. Reports he feels at about his baseline. Family History: Unchanged from Admission Social History: Unchanged from Admission Past Medical History: Unchanged from Admission Objective Active Medications: Acetaminophen (Tylenol Tab*) 650 mg PO Q4H PRN Albuterol/Ipratropium (Duoneb (Albuterol 2.5 Mg/Ipratropium 0.5 Mg)) 1 neb INH Q4H PRN Aspirin (Aspirin 81 Mg Chew Tab*) 81 mg PO DAILY [facility] Atorvastatin Calcium (Lipitor*) 20 mg PO 2100 [facility] Cholecalciferol (Vitamin D Tab*) 2,000 units PO DAILY [facility] Docusate Sodium (Colace Cap*) 100 mg PO BID PRN Finasteride (Proscar Tab*) 5 mg PO DAILY [facility] Mometasone Furoate/Formoterol Fumar (Dulera 200/5 Mdi*) 2 puff INH BID [facility] Nystatin (Nystatin Top Powder*) 1 applic TOPICAL TID [facility] Omeprazole (Prilosec Cap*) 20 mg PO DAILY@0600 [facility] Ondansetron HCl (Zofran Inj*) 4 mg IV Q4H PRN Pharmacy Profile Note (Coumadin Per Pharmacy*) 1 note FOLLOW UP .PER PHARMACY PROTOC [facility]; Protocol Senna (Senokot Tab*) 1 tab PO BID PRN Tamsulosin HCl (Flomax Cap*) 0.4 mg PO BEDTIME [facility] Tramadol HCl (Ultram*) 50 mg PO Q12H PRN Warfarin Sodium (Coumadin Tab(*)) 3 mg PO ONCE@1700 [facility] Vital Signs - 8 hr 08/03/18 08/03/18 08/03/18 07:47 08:00 09:37 Temperature 97.6 F Pulse Rate 69 Respiratory 16 20 20 Rate Blood Pressure 111/39 (mmHg) O2 Sat by Pulse 94 Oximetry 08/03/18 08/03/18 08/03/18 11:15 11:16 12:33 Temperature 97.6 F 97.6 F Pulse Rate 59 70 Respiratory 18 16 Rate Blood Pressure 100/46 (mmHg) O2 Sat by Pulse 97 89 97 Oximetry Oxygen Devices in Use Now: Nasal Cannula - 3L NC Appearance: Elderly obses male laying in bed in NAD Eyes: No Scleral Icterus, PERRLA Ears/Nose/Mouth/Throat: NL Teeth, Lips, Gums, Mucous Membranes Moist Neck: NL Appearance and Movements; NL JVP, Trachea Midline Respiratory: Symmetrical Chest Expansion and Respiratory Effort, Clear to Auscultation Cardiovascular: NL Sounds; No Murmurs; No JVD, RRR, No Edema Abdominal: NL Sounds; No Tenderness; No Distention, No Hepatosplenomegaly Extremities: No Edema Skin: - - Intertriginous rashes Neurological: Alert and Oriented x 3, - - No sensation or active ROM to left foot Lines/Tubes/Other Access: Clean, Dry and Intact Central Line Nutrition: Taking PO's Result Diagrams: 08/02/18 04:42 08/02/18 04:42 Assess/Plan/Problems-Billing Assessment: Patient is a 67yo male with a PMH for CKD, CVA, morbid obesity, COPD, Afib, urinary retention, CHF, Obesity-Hypoventilation who was admitted for acute hypercarbic respiratory failure with intubation and consolidation of the lung along with UTI who is improving slowly on antibiotics and has been transferred out of the ICU. - Patient Problems (1) Acute respiratory failure with hypoxia and hypercarbia Current Visit: Yes Status: Acute Priority: High Code(s): J96.01 - ACUTE RESPIRATORY FAILURE WITH HYPOXIA; J96.02 - ACUTE RESPIRATORY FAILURE WITH HYPERCAPNIA SNOMED Code(s): 786662376 Comment: - Resolved, severely increased pCO2 on admission, required intubation - Restrictive and obstructive pattern of respiratory failure noted likely due to obesity hypoventilation syndrome and COPD, possible CHF exacerbation - Continue CPAP at HS (2) CHF (congestive heart failure) Current Visit: Yes Status: Acute Priority: High Code(s): I50.9 - HEART FAILURE, UNSPECIFIED SNOMED Code(s): 90312682 Comment: - ? if a CHF exacerbation contributed to respiratory failure on admission - 40mg lasix IV x1 today - Restart torsemide and spironlactone with hold parameters - Daily weights (3) Paresthesia of left foot Current Visit: Yes Status: Acute Priority: High Code(s): R20.2 - PARESTHESIA OF SKIN SNOMED Code(s): 395938537 Comment: - Appreciate neurology consult - suspect possible CVA. - Cannot under go MRI d/t weight and pacer, repeat CT negative - Continue ASA, coumadin, atorvastatin - Differential is pinched nerve? he is not having any back pain, does not want a lumbar CT (4) Urinary tract infection with hematuria Current Visit: Yes Status: Acute Priority: High Code(s): N39.0 - URINARY TRACT INFECTION, SITE NOT SPECIFIED; R31.9 - HEMATURIA, UNSPECIFIED SNOMED Code(s): 94631798 Comment: - Completed course of abx - Chronic parekh changed on admission (5) Pneumonia Current Visit: Yes Status: Acute Priority: High Code(s): J18.9 - PNEUMONIA , UNSPECIFIED ORGANISM SNOMED Code(s): 214627518 Comment: - Possible pneumonia with infiltrate on CXR - Completed ampicillin 7 day course (6) Obesity hypoventilation syndrome Current Visit: Yes Status: Chronic Priority: High Code(s): E66.2 - MORBID (SEVERE) OBESITY WITH ALVEOLAR HYPOVENTILATION SNOMED Code(s): 382567451 Comment: - Restrictive lung disease with chronic hypercarbia - CPAP (7) Afib Current Visit: Yes Status: Chronic Priority: Medium Code(s): I48.91 - UNSPECIFIED ATRIAL FIBRILLATION SNOMED Code(s): 28140498 Comment: - Pacemaker (tachy-bea syndrome) - History of cardioembolic stroke in 2016 - Continue coumadin (8) TORY (obstructive sleep apnea) Current Visit: Yes Status: Chronic Priority: Medium Code(s): G47.33 - OBSTRUCTIVE SLEEP APNEA (ADULT) (PEDIATRIC) SNOMED Code(s): 68375072 Comment: - With chronic hypoxic/hypercarbic respiratory failure, on 3L O2 at baseline - With obesity hypoventilation syndrome - Continue CPAP (9) Hemiparesis of right dominant side as late effect of cerebral infarction Current Visit: Yes Status: Chronic Priority: Medium Code(s): I69.351 - HEMIPLGA FOLLOWING CEREBRAL INFRC AFF RIGHT DOMINANT SIDE SNOMED Code(s): 854813968 Comment: - Stable consistent with previous fluctuating deficits - Likely recrudescence of prior CVA in setting of illness - Continue Aspirin and Warfarin (10) CKD (chronic kidney disease) stage 4, GFR 15-29 ml/min Current Visit: Yes Status: Chronic Code(s): N18.4 - CHRONIC KIDNEY DISEASE, STAGE 4 (SEVERE) SNOMED Code(s): 371239382 Comment: - At baseline (11) BPH (benign prostatic hyperplasia) Current Visit: Yes Status: Chronic Priority: Medium Code(s): N40.0 - BENIGN PROSTATIC HYPERPLASIA WITHOUT LOWER URINRY TRACT SYMP SNOMED Code(s): 870721344 Comment: - Continue tamsulosin - Chronic parekh for urinary retention (12) Morbid obesity with body mass index of 70 and over in adult Current Visit: Yes Status: Chronic Priority: Medium Code(s): E66.01 - MORBID (SEVERE) OBESITY DUE TO EXCESS CALORIES; Z68.45 - BODY MASS INDEX (BMI) 70 OR GREATER, ADULT SNOMED Code(s): 843188526 Comment: - Supportive care (13) Full code status Current Visit: Yes Status: Acute Priority: High Code(s): Z78.9 - OTHER SPECIFIED HEALTH STATUS SNOMED Code(s): 000001855 (14) DVT prophylaxis Current Visit: Yes Status: Acute Priority: High Code(s): DSN3261 - SNOMED Code(s): 102002625 Comment: - Warfarin, goal INR 2-3 Status and Disposition: Inpatient. [facility] at discharge. Patient will require rehab at [facility]. I also recommend a motorized wheelchair as previously patient was able to get around in a wheelchair and scoot himself with his left LE now that is not possible d/t this new left foot paresthesia.
[2018-08-03] MEDS ORDERED: Warfarin TAB(*) 3 MG PO ONE (17:00)
[2018-08-03] MEDS: Nystatin TOP POWDER* 15 GM BTL TOPICAL SCH ×2 (17:20→21:19)
[2018-08-03] MEDS: Torsemide TAB* 20 MG PO SCH (17:22)
[2018-08-03] MEDS ORDERED: Torsemide TAB* 20 MG PO SCH ×2 (18:00)
[2018-08-03] MEDS: Tamsulosin CAP* 0.4 MG PO SCH (21:07)
[2018-08-03] MEDS: Atorvastatin* 20 MG TAB PO SCH (21:08)
--- NOTE | 2018-08-04 01:23 | PN ---
Hospitalist Progress Note Date of Service: 08/04/18 HOSPITALIST ADDENDUM Called by RN because patient had more numbness on his LLE and more weaknes on RUE. Evaluated at bedside. VSS FS 114 Has proximal RUE weakness, RN is unclear when it started. Complex case with multiple comorbs, prior CVA, on Warfarin, but INR not therapeutic. Code Garcia called - awaiting CT brain and labs.
[2018-08-04 01:31] LABS: ABS Basophils 0 10^3/ul (0-0.2); ABS Eosinophils 0.1 10^3/ul (0-0.6); ABS Lymphocytes 0.5 10^3/ul (1.0-4.8); ABS Monocytes 0.3 10^3/ul (0-0.8); ABS Neutrophils 5.2 10^3/ul (1.5-7.7); ABS Nucleated RBC 0 10^3/ul; Eosinophil % 2.2 % (0-6); Hematocrit 31 % (42-52); Hemoglobin 9.8 g/dl (14.0-18.0); Lymphocyte % 8.4 % (25-47); Mean Corpuscular HGB Conc 32 g/dl (31-36); Mean Corpuscular Hemoglobin 25 pg (27-31); Mean Corpuscular Volume 80 fL (80-94); Mean Platelet Volume 7.6 um3 (7.4-10.4); Nucleated Red Blood Cells % 0.1; Platelet Count 214 10^3/ul (150-450); Red Blood Count 3.85 10^6/ul (4.00-5.40); Red Cell Distribution Width 17 % (10.5-15); White Blood Count 6.2 10^3/ul (3.5-10.8)
[2018-08-04 01:36] LABS: INR 1.54 (0.77-1.02)
--- NOTE | 2018-08-04 01:42 | RAD ---
EXAM: CT Head Without Intravenous Contrast EXAM DATE/TIME: 08/04/2018 1:33 AM CLINICAL HISTORY: 67 years old, male; Signs and symptoms; Weakness, extremity; Right; Additional info: Rue weakness R/O CVA TECHNIQUE: Axial computed tomography images of the head/brain without intravenous contrast. All CT scans at this facility use at least one of these dose optimization techniques: automated exposure control; mA and/or kV adjustment per patient size (includes targeted exams where dose is matched to clinical indication); or iterative reconstruction. COMPARISON: BRAIN WO CT BRAIN WO 08/01/2018 9:17 AM FINDINGS: Brain: Mild periventricular and subcortical low attenuation without adjacent mass effect. No acute ischemic changes, extra axial fluid collections, intraparenchymal hemorrhage, or midline shift. Ventricles: The ventricles and extraventricular CSF spaces are widened although symmetrically positioned along the midline. Bones/joints: Normal. No acute fracture. Sinuses: Normal as visualized. No acute sinusitis. Mastoid air cells: Opacified left mastoid air cells. Associated left middle ear fluid. Right mastoid air cells are clear. Soft tissues: Normal. Vasculature: The vasculature demonstrates diffuse mild atherosclerotic calcification. IMPRESSION: 1. No acute intracranial abnormality. ASPECT = 10. 2. Age-related atrophy and mild chronic small vessel ischemic disease. To contact [facility] with a general question: [facility] - [phone] For direct physician to physician contact: Physician Hotline - [phone] [facility] ([facility] Facility ID #[id number])
[2018-08-04 01:47] LABS: EGFR Non-African American 25.9 (>60)
[2018-08-04] MEDS: traMADol TAB* 50 MG PO PRN ×2 (02:18→18:48)
[2018-08-04] MEDS: Omeprazole CAP* 20 MG PO SCH (05:54)
[2018-08-04 06:32] LABS: INR 1.5 (0.77-1.02)
[2018-08-04] MEDS ORDERED: Furosemide IV* 10 MG/ML VIAL (40 MG) IV ONE (07:26)
[2018-08-04] MEDS: Mometasone/Formoter 200/5 MDI INH SCH ×2 (08:11→20:24)
[2018-08-04] MEDS: Finasteride TAB* 5 MG PO SCH (08:20)
[2018-08-04] MEDS: Aspirin 81 mg CHEW TAB* 81 MG TAB.CHEW PO SCH (08:20)
[2018-08-04] MEDS: Nystatin TOP POWDER* 15 GM BTL TOPICAL SCH ×3 (08:21→22:51)
[2018-08-04] MEDS: Spironolactone TAB* 25 MG PO SCH (08:21)
[2018-08-04] MEDS: Cholecalciferol TAB* 1000 UNITS PO SCH (08:21)
[2018-08-04] MEDS ORDERED: Spironolactone TAB* 25 MG PO SCH (09:00)
--- NOTE | 2018-08-04 12:07 | CONS ---
NEUROLOGY FOLLOWUP NOTE: DATE OF FOLLOWUP: 08/04/18 LOCATION: He is in room 446. HOSPITALIST: Dr. Lundberg. CHIEF COMPLAINT: Weakness. INTERVAL HISTORY: Zac developed some new weakness of his right upper extremity. He has had recurrent episodes of right-sided weakness, which resolved in the past. It was not clear if it was due to his rotator cuff problems or cerebrovascular disease. He had a CAT scan of the brain again last night, which was technically limited due to movement but did not reveal any evidence of hemorrhage or infarction. His INR is 1.5. It was decided not to change his medical regimen. He has been felt not to be a CTA candidate because of his chronic renal insufficiency. He also has a pacemaker and so between his weight and the pacemaker, he is not able to get MRI scan. Today, he feels that his right side is the way it usually is. He has numbness of his left foot, which he says has been since last Saturday. Dr. Palafox saw him for that on 07/30/18. He states he has noticed it since he came out of the intensive care unit. Extensive medication list is reviewed. There have been no changes since yesterday. LABORATORY STUDIES: From today notable for BUN of 53 which is at his historical norms, creatinine 2.49. His CBC is unchanged today. PHYSICAL EXAMINATION: On exam, he is morbidly obese. Temperature 98.4, blood pressure 120/53, heart rate in the 70s. Heart tones are extremely distant but I do not hear any murmurs. He has multiple ecchymoses on his limbs. Facial musculature is symmetric. Eye movements are normal. He has limited range of motion about the right shoulder but good strength distally in the upper extremities and at the proximal left upper extremity. He reports absent discrimination to pin and vibration in the foot from the ankle down including absent vibration at the ankle. He has diminished pin discrimination in the right leg to just above the ankle. He is areflexic. Plantar responses are equivocal on the right, flexor on the left. He is not able to dorsiflex or plantarflex the left foot. He does move it spontaneously but not when asked to formally move it. He seems to have reasonable proximal strength in the left leg at least in terms of being able to flex it and extend it fully. IMPRESSION: High risk for cerebrovascular disease with multiple medical comorbidities. He is already on warfarin, which is still subtherapeutic. He is also on aspirin, which he came in on. He has had numerous episodes of right- sided weakness, which resolve over time. I do not recommend adding any further antiplatelet agents. He is not a candidate for MRI imaging. He did have a carotid ultrasound this admission, which revealed no extracranial carotid stenosis. There are no further interventions likely to be of benefit in terms of further lowering his risk of cerebrovascular disease. His last cholesterol was 128 with an LDL of 90. He is on atorvastatin 20 mg. His blood pressure is adequate. I do not have any additional recommendations at this point in time. [id number]/[facility] #: [id number] GRETEL
--- NOTE | 2018-08-04 12:30 | RAD ---
INDICATION: Congestive heart failure. COMPARISON: Comparison is made with a prior study from July 30, 2018. TECHNIQUE: 3 portable films of the chest were obtained. The exam is significantly limited by the patient's body habitus. FINDINGS: The heart is moderately enlarged and unchanged. There is a transvenous pacemaker present. There are diffuse prominence of the interstitial markings and a small left pleural effusion. The right lung base is cut off on the film further limiting the study. IMPRESSION: 1. LIMITED STUDY. 2. FINDINGS SUGGESTIVE OF CONGESTIVE HEART FAILURE.
--- NOTE | 2018-08-04 14:33 | PN ---
Subjective Date of Service: 08/04/18 Interval History: Mr. Terry feels overall at his baseline this morning. He remembers the episode overnight where there was concern for a CVA. He states that he has had right rotator cuff problems, so there is typically some degree of weakness in his RUE , but he feels slightly weaker than usual. No further slurred speech, though he does remember having slurred speech. Left foot numbness remains the same. He denies CP, SOB, dizziness, N/V/D. Family History: Unchanged from Admission Social History: Unchanged from Admission Past Medical History: Unchanged from Admission Objective Active Medications: Acetaminophen (Tylenol Tab*) 650 mg PO Q4H PRN Albuterol/Ipratropium (Duoneb (Albuterol 2.5 Mg/Ipratropium 0.5 Mg)) 1 neb INH Q4H PRN Aspirin (Aspirin 81 Mg Chew Tab*) 81 mg PO DAILY SOLE Atorvastatin Calcium (Lipitor*) 20 mg PO 2100 SOLE Cholecalciferol (Vitamin D Tab*) 2,000 units PO DAILY SOLE Docusate Sodium (Colace Cap*) 100 mg PO BID PRN Finasteride (Proscar Tab*) 5 mg PO DAILY COUNT INCLUDES THE [facility] Mometasone Furoate/Formoterol Fumar (Dulera 200/5 Mdi*) 2 puff INH BID SOLE Nystatin (Nystatin Top Powder*) 1 applic TOPICAL TID SOLE Omeprazole (Prilosec Cap*) 20 mg PO DAILY@0600 COUNT INCLUDES THE [facility] Ondansetron HCl (Zofran Inj*) 4 mg IV Q4H PRN Pharmacy Profile Note (Coumadin Per Pharmacy*) 1 note FOLLOW UP .PER PHARMACY PROTOC COUNT INCLUDES THE [facility]; Protocol Senna (Senokot Tab*) 1 tab PO BID PRN Spironolactone (Aldactone Tab*) 12.5 mg PO DAILY SOLE Tamsulosin HCl (Flomax Cap*) 0.4 mg PO BEDTIME SOLE Torsemide (Demadex*) 20 mg PO QPM SOLE Tramadol HCl (Ultram*) 50 mg PO Q12H PRN Warfarin Sodium (Coumadin Tab(*)) 6 mg PO ONCE@1700 COUNT INCLUDES THE [facility]; Protocol Vital Signs - 8 hr 08/04/18 08/04/18 08/04/18 08:00 08:03 08:07 Temperature 97.4 F Pulse Rate 69 70 Respiratory 20 16 24 Rate Blood Pressure 104/42 (mmHg) O2 Sat by Pulse 92 98 Oximetry 08/04/18 11:02 Temperature 97.7 F Pulse Rate 70 Respiratory 16 Rate Blood Pressure 100/30 (mmHg) O2 Sat by Pulse 99 Oximetry Oxygen Devices in Use Now: Nasal Cannula - 3L NC Appearance: Elderly obese male laying in bed in NAD Eyes: No Scleral Icterus, PERRLA Ears/Nose/Mouth/Throat: NL Teeth, Lips, Gums, Mucous Membranes Moist Neck: NL Appearance and Movements; NL JVP, Trachea Midline Respiratory: Symmetrical Chest Expansion and Respiratory Effort, Clear to Auscultation Cardiovascular: NL Sounds; No Murmurs; No JVD, RRR, No Edema Abdominal: NL Sounds; No Tenderness; No Distention, No Hepatosplenomegaly Extremities: No Clubbing, Cyanosis Skin: - - Multiple scattered rashes and skin tears to BUE; open wounds to sacrum ; intertriginous rashes Neurological: Alert and Oriented x 3, - - Absent sensation to left foot Lines/Tubes/Other Access: Clean, Dry and Intact Central Line Nutrition: Taking PO's Result Diagrams: 08/04/18 01:19 08/04/18 01:19 Assess/Plan/Problems-Billing Assessment: Patient is a 67yo male with a PMH for CKD, CVA, morbid obesity, COPD, Afib, urinary retention, CHF, Obesity-Hypoventilation who was admitted for acute hypercarbic respiratory failure with intubation and consolidation of the lung along with UTI who is improving slowly on antibiotics and has been transferred out of the ICU. - Patient Problems (1) Acute on chronic respiratory failure with hypoxia and hypercapnia Current Visit: Yes Status: Acute Priority: High Code(s): J96.21 - ACUTE AND CHRONIC RESPIRATORY FAILURE WITH HYPOXIA; J96.22 - ACUTE AND CHRONIC RESPIRATORY FAILURE WITH HYPERCAPNIA SNOMED Code(s): 81100399 Comment: - Resolved, severely increased pCO2 on admission, required intubation - Restrictive and obstructive pattern of respiratory failure noted likely due to obesity hypoventilation syndrome and COPD, possible CHF exacerbation - Continue CPAP at HS (2) Chronic systolic congestive heart failure Current Visit: Yes Status: Chronic Priority: High Code(s): I50.22 - CHRONIC SYSTOLIC (CONGESTIVE) HEART FAILURE SNOMED Code(s): 200973902 Comment: - ? if CHF exacerbation contributed to respiratory failure on admission - Repeat CXR today shows findings suggestive of CHF - 40mg lasix IV x1 today - Continue torsemide and spironlactone with hold parameters - Daily weights (3) Paresthesia of left foot Current Visit: Yes Status: Acute Priority: High Code(s): R20.2 - PARESTHESIA OF SKIN SNOMED Code(s): 899002089 Comment: - Appreciate neurology consult - suspect possible CVA/TIA - Cannot under go MRI d/t weight and pacer, repeat CT negative - Continue ASA, coumadin, atorvastatin - Differential is lumbar origin, patient refusing further imaging (4) Pneumonia Current Visit: Yes Status: Acute Priority: High Code(s): J18.9 - PNEUMONIA , UNSPECIFIED ORGANISM SNOMED Code(s): 383841132 Comment: - Possible pneumonia with infiltrate on CXR - Likely cause of sepsis and subequent need for intubation - Completed ampicillin 7 day course (5) Urinary tract infection with hematuria Current Visit: Yes Status: Acute Priority: High Code(s): N39.0 - URINARY TRACT INFECTION, SITE NOT SPECIFIED; R31.9 - HEMATURIA, UNSPECIFIED SNOMED Code(s): 16489499 Comment: - Catheter related, present on admission - Completed course of abx - Chronic parekh changed on admission (6) Hemiparesis of right dominant side as late effect of cerebral infarction Current Visit: Yes Status: Acute Priority: High Code(s): I69.351 - HEMIPLGA FOLLOWING CEREBRAL INFRC AFF RIGHT DOMINANT SIDE SNOMED Code(s): 947676740 Comment: - Stable consistent with previous fluctuating deficits - Likely recrudescence of prior CVA in setting of illness - Increased RUE weakness overnight likely combination of prior CVA and previous rotator cuff injury, but cannot rule out TIA as etiology - Continue Aspirin and Warfarin (7) Obesity hypoventilation syndrome Current Visit: Yes Status: Chronic Priority: High Code(s): E66.2 - MORBID (SEVERE) OBESITY WITH ALVEOLAR HYPOVENTILATION SNOMED Code(s): 206105070 Comment: - Restrictive lung disease with chronic hypercarbia (8) Afib Current Visit: Yes Status: Chronic Priority: Medium Code(s): I48.91 - UNSPECIFIED ATRIAL FIBRILLATION SNOMED Code(s): 36241523 Comment: - Pacemaker (tachy-bea syndrome) - History of cardioembolic stroke in 2016 - Continue coumadin, goal INR 2-3 (9) TORY (obstructive sleep apnea) Current Visit: Yes Status: Chronic Priority: Medium Code(s): G47.33 - OBSTRUCTIVE SLEEP APNEA (ADULT) (PEDIATRIC) SNOMED Code(s): 51752038 Comment: - With chronic hypoxic/hypercarbic respiratory failure, on 3L O2 at baseline - With obesity hypoventilation syndrome - Continue CPAP (10) CKD (chronic kidney disease) stage 4, GFR 15-29 ml/min Current Visit: Yes Status: Chronic Code(s): N18.4 - CHRONIC KIDNEY DISEASE, STAGE 4 (SEVERE) SNOMED Code(s): 326739656 Comment: - At baseline (11) BPH (benign prostatic hyperplasia) Current Visit: Yes Status: Chronic Priority: Medium Code(s): N40.0 - BENIGN PROSTATIC HYPERPLASIA WITHOUT LOWER URINRY TRACT SYMP SNOMED Code(s): 291499329 Comment: - Continue tamsulosin - Chronic parekh for urinary retention (12) Morbid obesity with body mass index of 70 and over in adult Current Visit: Yes Status: Chronic Priority: Medium Code(s): E66.01 - MORBID (SEVERE) OBESITY DUE TO EXCESS CALORIES; Z68.45 - BODY MASS INDEX (BMI) 70 OR GREATER, ADULT SNOMED Code(s): 737130773 Comment: - Supportive care (13) Full code status Current Visit: Yes Status: Acute Priority: High Code(s): Z78.9 - OTHER SPECIFIED HEALTH STATUS SNOMED Code(s): 545148532 (14) DVT prophylaxis Current Visit: Yes Status: Acute Priority: High Code(s): [id number] - SNOMED Code(s): 711647340 Comment: - Warfarin, goal INR 2-3 Status and Disposition: Inpatient for continued diuresis and to reach therapeutic INR d/t possibility of recurrent TIAs. Patient will require rehab at [facility]. I also recommend a motorized wheelchair as previously patient was able to get around in a wheelchair and scoot himself with his left LE now that is not possible d/t this new left foot paresthesia.
[2018-08-04] MEDS ORDERED: Warfarin TAB(*) 6 MG PO SCH (17:00)
[2018-08-04] MEDS: Torsemide TAB* 20 MG PO SCH (17:08)
[2018-08-04] MEDS: Atorvastatin* 20 MG TAB PO SCH (21:49)
[2018-08-04] MEDS: Tamsulosin CAP* 0.4 MG PO SCH (21:49)
[2018-08-05] MEDS: Acetaminophen TAB* 325 MG PO PRN ×2 (05:46→21:06)
[2018-08-05] MEDS: traMADol TAB* 50 MG PO PRN ×2 (05:46→18:15)
[2018-08-05] MEDS: Omeprazole CAP* 20 MG PO SCH (05:46)
[2018-08-05 06:43] LABS: EGFR Non-African American 24.2 (>60)
[2018-08-05 07:11] LABS: INR 1.52 (0.77-1.02)
[2018-08-05] MEDS: Mometasone/Formoter 200/5 MDI INH SCH ×2 (08:08→20:29)
[2018-08-05] MEDS ORDERED: Furosemide IV* 10 MG/ML VIAL (40 MG) IV ONE (09:07)
[2018-08-05] MEDS: Finasteride TAB* 5 MG PO SCH (09:42)
[2018-08-05] MEDS: Cholecalciferol TAB* 1000 UNITS PO SCH (09:42)
--- NOTE | 2018-08-05 09:42 | PN ---
Subjective Date of Service: 08/05/18 Interval History: Mr. Terry has no complaints this morning. He denies pain. Right arm weakness is improved since yesterday and he was noted to be eating with his right hand without difficulty. Left foot weakness remains the same. No changes in breathing. Denies CP, SOB, N/V/D, dizziness. Chronic parekh with good output. There is some weight discrepancies which I discussed with nursing. Different scales have been used, though yesterday he was 553lbs and today 530lbs both using the bed scale. It is still unclear if this is accurate. Family History: Unchanged from Admission Social History: Unchanged from Admission Past Medical History: Unchanged from Admission Objective Active Medications: Acetaminophen (Tylenol Tab*) 650 mg PO Q4H PRN Albuterol/Ipratropium (Duoneb (Albuterol 2.5 Mg/Ipratropium 0.5 Mg)) 1 neb INH Q4H PRN Aspirin (Aspirin 81 Mg Chew Tab*) 81 mg PO DAILY SOLE Atorvastatin Calcium (Lipitor*) 20 mg PO 2100 SOLE Cholecalciferol (Vitamin D Tab*) 2,000 units PO DAILY [facility] Docusate Sodium (Colace Cap*) 100 mg PO BID PRN Finasteride (Proscar Tab*) 5 mg PO DAILY [facility] Mometasone Furoate/Formoterol Fumar (Dulera 200/5 Mdi*) 2 puff INH BID SOLE Nystatin (Nystatin Top Powder*) 1 applic TOPICAL TID SOLE Omeprazole (Prilosec Cap*) 20 mg PO DAILY@0600 [facility] Ondansetron HCl (Zofran Inj*) 4 mg IV Q4H PRN Pharmacy Profile Note (Coumadin Daily Reminder*) 0 note FOLLOW UP 1700 [facility]; Protocol Senna (Senokot Tab*) 1 tab PO BID PRN Spironolactone (Aldactone Tab*) 12.5 mg PO DAILY SOLE Tamsulosin HCl (Flomax Cap*) 0.4 mg PO BEDTIME SOLE Torsemide (Demadex*) 20 mg PO QPM SOLE Tramadol HCl (Ultram*) 50 mg PO Q12H PRN Vital Signs - 8 hr 08/05/18 08/05/18 08/05/18 05:46 07:12 07:25 Temperature 97.8 F Pulse Rate 70 70 Respiratory 24 16 Rate Blood Pressure 110/50 (mmHg) O2 Sat by Pulse 95 Oximetry 08/05/18 08/05/18 08:11 08:13 Temperature Pulse Rate 67 Respiratory 20 20 Rate Blood Pressure (mmHg) O2 Sat by Pulse 93 Oximetry Oxygen Devices in Use Now: Nasal Cannula - 3L NC Appearance: Elderly obese male laying in bed in NAD Eyes: No Scleral Icterus Ears/Nose/Mouth/Throat: NL Teeth, Lips, Gums, Mucous Membranes Moist Neck: NL Appearance and Movements; NL JVP, Trachea Midline Respiratory: Symmetrical Chest Expansion and Respiratory Effort, Clear to Auscultation Cardiovascular: NL Sounds; No Murmurs; No JVD, RRR, - - +1 pitting edema to thighs and buttocks Abdominal: NL Sounds; No Tenderness; No Distention, No Hepatosplenomegaly Extremities: No Clubbing, Cyanosis Skin: - - Multiple ruptured blisters on BUE, wound to sacrum resulting from ruptured blister, melipex dressings in place Neurological: Alert and Oriented x 3, - - Absent sensation to left foot Lines/Tubes/Other Access: Clean, Dry and Intact Central Line Nutrition: Taking PO's Result Diagrams: 08/04/18 01:19 08/05/18 06:10 Assess/Plan/Problems-Billing Assessment: Patient is a 67yo male with a PMH for CKD, CVA, morbid obesity, COPD, Afib, urinary retention, CHF, Obesity-Hypoventilation who was admitted for acute hypercarbic respiratory failure with intubation and consolidation of the lung along with UTI who is improving slowly on antibiotics and has been transferred out of the ICU, now being diuresed. - Patient Problems (1) Chronic systolic congestive heart failure Current Visit: Yes Status: Chronic Priority: High Code(s): I50.22 - CHRONIC SYSTOLIC (CONGESTIVE) HEART FAILURE SNOMED Code(s): 282505784 Comment: - ? if CHF exacerbation contributed to respiratory failure on admission - Repeat CXR today shows findings suggestive of CHF - 40mg lasix IV x1 again today - Continue torsemide and spironlactone with hold parameters - Daily weights (2) Paresthesia of left foot Current Visit: Yes Status: Acute Priority: High Code(s): R20.2 - PARESTHESIA OF SKIN SNOMED Code(s): 630515199 Comment: - Appreciate neurology consult - suspect possible CVA/TIA - Cannot under go MRI d/t weight and pacer, repeat CT negative - Continue ASA, coumadin, atorvastatin - Differential is lumbar origin, patient refusing further imaging (3) Hemiparesis of right dominant side as late effect of cerebral infarction Current Visit: Yes Status: Acute Priority: High Code(s): I69.351 - HEMIPLGA FOLLOWING CEREBRAL INFRC AFF RIGHT DOMINANT SIDE SNOMED Code(s): 096897812 Comment: - Stable consistent with previous fluctuating deficits - Likely recrudescence of prior CVA in setting of illness - Increased RUE weakness likely combination of prior CVA and previous rotator cuff injury, but cannot rule out TIA as etiology - Continue Aspirin and Warfarin; needs to have therapeutic INR at d/c (4) Friction blisters of the skin Current Visit: Yes Status: Acute Priority: High Code(s): T14.8XXA - OTHER INJURY OF UNSPECIFIED BODY REGION, INITIAL ENCOUNTER SNOMED Code(s): 18747128 Comment: - Multiple ruptured blisters on BUE and sacrum d/t friction and moisture - Appreciate wound consult - Triple abx and optilock to sacrum per recommendation from Dr. Johnson - Mepilex to BUE (5) Acute on chronic respiratory failure with hypoxia and hypercapnia Current Visit: Yes Status: Acute Priority: High Code(s): J96.21 - ACUTE AND CHRONIC RESPIRATORY FAILURE WITH HYPOXIA; J96.22 - ACUTE AND CHRONIC RESPIRATORY FAILURE WITH HYPERCAPNIA SNOMED Code(s): 33131780 Comment: - Resolved, severely increased pCO2 on admission, required intubation - Restrictive and obstructive pattern of respiratory failure noted likely due to obesity hypoventilation syndrome and COPD, possible CHF exacerbation - Continue CPAP at HS (6) Pneumonia Current Visit: Yes Status: Acute Priority: High Code(s): J18.9 - PNEUMONIA , UNSPECIFIED ORGANISM SNOMED Code(s): 376157932 Comment: - Possible pneumonia with infiltrate on CXR - Likely cause of sepsis and subequent need for intubation - Completed ampicillin 7 day course (7) Urinary tract infection with hematuria Current Visit: Yes Status: Acute Priority: High Code(s): N39.0 - URINARY TRACT INFECTION, SITE NOT SPECIFIED; R31.9 - HEMATURIA, UNSPECIFIED SNOMED Code(s): 23206882 Comment: - Catheter related, present on admission - Completed course of abx - Chronic parekh changed on admission (8) Obesity hypoventilation syndrome Current Visit: Yes Status: Chronic Priority: High Code(s): E66.2 - MORBID (SEVERE) OBESITY WITH ALVEOLAR HYPOVENTILATION SNOMED Code(s): 677762448 Comment: - Restrictive lung disease with chronic hypercarbia (9) Afib Current Visit: Yes Status: Chronic Priority: Medium Code(s): I48.91 - UNSPECIFIED ATRIAL FIBRILLATION SNOMED Code(s): 07277920 Comment: - Pacemaker (tachy-bea syndrome) - History of cardioembolic stroke in 2016 - Continue coumadin, goal INR 2-3 (10) TORY (obstructive sleep apnea) Current Visit: Yes Status: Chronic Priority: Medium Code(s): G47.33 - OBSTRUCTIVE SLEEP APNEA (ADULT) (PEDIATRIC) SNOMED Code(s): 05320042 Comment: - With chronic hypoxic/hypercarbic respiratory failure, on 3L O2 at baseline - With obesity hypoventilation syndrome - Continue CPAP (11) CKD (chronic kidney disease) stage 4, GFR 15-29 ml/min Current Visit: Yes Status: Chronic Code(s): N18.4 - CHRONIC KIDNEY DISEASE, STAGE 4 (SEVERE) SNOMED Code(s): 380437707 Comment: - At baseline (12) BPH (benign prostatic hyperplasia) Current Visit: Yes Status: Chronic Priority: Medium Code(s): N40.0 - BENIGN PROSTATIC HYPERPLASIA WITHOUT LOWER URINRY TRACT SYMP SNOMED Code(s): 063943024 Comment: - Continue tamsulosin - Chronic parekh for urinary retention (13) Morbid obesity with body mass index of 70 and over in adult Current Visit: Yes Status: Chronic Priority: Medium Code(s): E66.01 - MORBID (SEVERE) OBESITY DUE TO EXCESS CALORIES; Z68.45 - BODY MASS INDEX (BMI) 70 OR GREATER, ADULT SNOMED Code(s): 537176274 Comment: - Supportive care (14) Full code status Current Visit: Yes Status: Acute Priority: High Code(s): Z78.9 - OTHER SPECIFIED HEALTH STATUS SNOMED Code(s): 808195637 (15) DVT prophylaxis Current Visit: Yes Status: Acute Priority: High Code(s): [id number] - SNOMED Code(s): 224455589 Comment: - Warfarin, goal INR 2-3 Status and Disposition: Inpatient for continued diuresis and to reach therapeutic INR d/t possibility of recurrent TIAs. Patient will require rehab at [facility]. I also recommend a motorized wheelchair as previously patient was able to get around in a wheelchair and scoot himself with his left LE now that is not possible d/t this new left foot paresthesia.
[2018-08-05] MEDS: Aspirin 81 mg CHEW TAB* 81 MG TAB.CHEW PO SCH (09:43)
[2018-08-05] MEDS: Nystatin TOP POWDER* 15 GM BTL TOPICAL SCH ×3 (09:43→21:08)
[2018-08-05] MEDS: Spironolactone TAB* 25 MG PO SCH (09:44)
[2018-08-05] MEDS ORDERED: Warfarin TAB(*) 6 MG PO SCH (17:00)
[2018-08-05] MEDS: Torsemide TAB* 20 MG PO SCH (18:15)
[2018-08-05] MEDS: Tamsulosin CAP* 0.4 MG PO SCH (21:06)
[2018-08-05] MEDS: Atorvastatin* 20 MG TAB PO SCH (21:06)
[2018-08-06] MEDS: Acetaminophen TAB* 325 MG PO PRN (06:22)
[2018-08-06] MEDS: Omeprazole CAP* 20 MG PO SCH (06:22)
[2018-08-06] MEDS: traMADol TAB* 50 MG PO PRN (06:22)
[2018-08-06 07:11] LABS: EGFR Non-African American 25.3 (>60)
[2018-08-06 07:57] VITALS: BP 102/45
[2018-08-06] MEDS: Mometasone/Formoter 200/5 MDI INH SCH (08:18)
[2018-08-06] MEDS: Aspirin 81 mg CHEW TAB* 81 MG TAB.CHEW PO SCH (08:25)
[2018-08-06] MEDS: Finasteride TAB* 5 MG PO SCH (08:25)
[2018-08-06] MEDS: Spironolactone TAB* 25 MG PO SCH (08:25)
[2018-08-06] MEDS: Nystatin TOP POWDER* 15 GM BTL TOPICAL SCH (08:25)
[2018-08-06] MEDS: Cholecalciferol TAB* 1000 UNITS PO SCH (08:25)
--- NOTE | 2018-08-06 12:30 | DS ---
AMENDED REPORT NOW INCLUDES DESIGNATED COSIGNER - ESIGNED BEFORE ADJUSTMENT CC: [facility] * DISCHARGE SUMMARY DATE OF ADMISSION: 07/22/18 DATE OF DISCHARGE: 08/06/18 PRIMARY CARE PROVIDER: [facility] ATTENDING PHYSICIAN: Dr. Johana Christopher * (dictated by Rosmery Knox NP) PRIMARY DIAGNOSES: 1. Acute on chronic respiratory failure with hypoxia and hypercapnia. 2. Pneumonia. 3. Urinary tract infection with hematuria, catheter related. 4. Systolic congestive heart failure. 5. Obesity hypoventilation syndrome. 6. Obstructive sleep apnea. 7. Right-sided hemiparesis as a result of previous cerebrovascular accident. 8. Left foot paresthesia. 9. Friction blisters of the skin. SECONDARY DIAGNOSES: 1. Atrial fibrillation. 2. Chronic kidney disease, stage 4. 3. Benign prostatic hypertrophy. 4. Morbid obesity. 5. History of pacemaker/AICD placement. STUDIES WHILE IN THE HOSPITAL: 1. Chest x-ray on 07/22/18 reads as technically limited study. Cardiomegaly. Pulmonary interstitial edema. Probable left pleural effusion. 2. Chest x-ray on 07/22/18 reads limited study. An endotracheal tube is noted with the tip overlying the trachea at the level of the left clavicle. A gastric is noted. Cardiomegaly. Pulmonary interstitial edema. Probable left pleural effusion with small right pleural effusion. 3. Chest x-ray on 07/23/18 reads as limited study. An endotracheal tube is noted with the tip overlying the trachea between the clavicles and the ryan. A gastric tube is noted with the tip in the left upper quadrant. A right internal jugular venous catheter is noted with the tip overlying the expected location of the superior vena cava. There has been interval development of complete opacification of the left hemithorax which likely presents combination of left pleural effusion and left lung atelectasis. Pulmonary interstitial edema. 4. Chest x-ray on 07/23/18 reads as markedly limited study. Cardiomegaly, pulmonary edema, improved aeration of the left lung apex with persistent air space disease of the left mid and lower lung polk. No appreciable pneumothorax. Again, noted are an endotracheal tube, a gastric tube and a right internal jugular venous catheter, as well as a left-sided AICD. 5. Chest x-ray on 07/24/18 reads as limited study. Lines and tubes as previously noted. Cardiomegaly. Pulmonary interstitial edema. Bilateral pleural effusions. Left lower lung consolidation with improved aeration compared to 01/05. 6. Brain CT on 07/30/18 reads as no acute intracranial pathology. 7. Carotid Doppler study on 07/30/18 reads as no right internal carotid artery stenosis by NASCET criteria. The left internal carotid artery and vertebral artery were not able to be evaluated. 8. Chest x-ray on 07/30/18 reads as markedly limited study. Cardiomegaly, pulmonary interstitial edema, probably left pleural effusion. 9. Transthoracic echocardiogram on 07/31/18 reads as the echo study quality is poor and essentially inconclusive. There is moderate dilation of the aortic root compared to the prior echocardiogram completed 05/19/18. Prior study essentially inconclusive as well despite use of echo enhancement agent. Aortic root reportedly mildly dilated prior. 10. Brain CT on 08/01/18 reads as limited study. Within the limitations of the study there is no acute intracranial pathology. 11. Brain CT on 08/04/18 reads as no acute intracranial abnormality. ASPECTS score is 10. Age related atrophy and mild chronic small vessel ischemic disease. 12. Chest x-ray on 08/04/18 reads as limited study. Findings suggestive of congestive heart failure. PROCEDURES WHILE IN THE HOSPITAL: 1. On 07/22/18 the patient was intubated in the emergency room. 2. On 07/23/18 a central venous catheter was placed for hemodynamic monitoring and intravenous access by Dr. Carlos. CONSULTATIONS WHILE IN THE HOSPITAL: 1. Patient was seen in consultation by Dr. Palafox from Neurology on 07/30/18 for questionable stroke. At that point he noted that patient was not a candidate for tPA. He was out of the time window. He was not a candidate for an MRI due to presence of a pacemaker. He felt that the new findings of left foot weakness could be a stroke, or lumbar nerve root, or lumbar stenosis. He recommended continuing Coumadin. He saw the patient the next day on 07/31/18 at which time he recommended a CT scan for further evaluation. On 08/01/18 he saw the patient again and recommended continuing baby aspirin and Coumadin. He had no further recommendations. 2. Patient was seen in consultation by Dr. Hui from Neurology 08/04/18 at which he noted the patient was high risk for cerebrovascular disease. He did not recommend adding any other antiplatelet agents. He recommended continuing his current medication regimen and had no further recommendations at that time. DISCHARGE MEDICATIONS: New medications: 1. Atorvastatin 20 mg p.o. daily. 2. Nystatin powder 1 application topical t.i.d. Changed home medications: 1. Coumadin 5 mg p.o. daily (previously was 2.5 mg p.o. daily). Continued home medications: 1. Finasteride 5 mg p.o. daily. 2. Spironolactone 12.5 mg p.o. daily. 3. Tamsulosin 0.4 mg p.o. daily. 4. Torsemide 40 mg p.o. daily. 5. Acetaminophen 600 mg p.o. daily at bedtime. 6. Acetaminophen 600 mg p.o. every 8 hours p.r.n. fever or pain. 7. Albuterol nebulizer 2.5 mg inhalation every 2 hours p.r.n. 8. Aspirin 81 mg p.o. daily. 9. Dulcolax suppository 10 mg p.r. p.r.n. 10. Vitamin D 2000 units p.o. daily. 11. Advair Diskus 250-50 one puff b.i.d. 12. Atrovent nebulizer 0.5 mg inhalation every 6 hours p.r.n. 13. Milk of Magnesia 30 mL p.o. daily p.r.n. 14. Oxycodone 5 mg p.o. every 6 hours p.r.n. 15. Oxycodone 5 mg p.o. daily. 16. Senokot S 1 tab p.o. daily. 17. Fleet enema 1 enema p.r. daily p.r.n. constipation. Discontinued home medications: None. HISTORY OF PRESENT ILLNESS AND HOSPITAL COURSE: Mr. Terry is a 67-year-old male with a past medical history of chronic atrial fibrillation on anticoagulation, urinary retention with chronic indwelling Hilario, morbid obesity with hypoventilation syndrome, cardiomegaly, chronic systolic congestive heart failure, CKD stage 4, right-sided hemiparesis secondary to previous CVA, COPD on 3 liters nasal cannula at baseline, obstructive sleep apnea and status post pacemaker/AICD placement, who presented [place] [facility] [place] 07/22/18 from [facility] for altered mental status and respiratory distress. Please see the history and physical by Dr. Meme Faulkner for a complete summary of the events leading up to this hospitalization, but in short, the patient was noted to be short of breath and hypoxic at [facility]. It was also noted he had recently gained weight. In the emergency room he was found to be in hypercapnic respiratory failure and was promptly intubated. He was admitted to the ICU and sedated with a fentanyl drip and Ativan p.r.n. He was also noted to have acute on chronic kidney injury on arrival likely related to sepsis. He presented with a high white count and hypothermia, and was found to have a urinary tract infection, as well as pneumonia. He was started on cefepime and vancomycin. He was admitted and placed under the care of the [facility]. On the patient was placed on Levophed for septic shock. On 07/23/18 the patient also had a bronchoscopy. On 07/24/18 urine cultures resulted with Proteus mirabilis and Enterococcus faecalis. On 07/25/18 the patient was placed on ampicillin after sensitivities were obtained. The patient was ultimately extubated on 07/27/18 and was transferred up to the Telemetry Unit. The patient completed a course of ampicillin which treated both his urinary tract infection and his pneumonia. It was determined that his acute on chronic respiratory failure was likely related to obesity hypoventilation syndrome, COPD, pneumonia and a possible CHF exacerbation. His Hilario catheter was changed on admission. He was diuresed with Lasix from 07/24 through 08/05. It is not clear if his daily weights in the hospital have been accurate due to changes in scales, although on 08/03/18 the patient was noted to be 559 pounds on the bed scale, and as of 08/06/18 he is noted to be 519 pounds on the bed scale. During this hospitalization after being transferred out of the ICU patient also began to experience paresthesias of the left foot. He was evaluated by Neurology as noted above. It is possible that this is related to a new CVA, though we are unable to do an MRI for definitive diagnosis. It was recommended that he continue aspirin, Coumadin and a statin. On the overnight of 08/04/18 there was concern for a CVA due to dysarthria and increased right arm weakness. Imaging was negative as noted above. Again, it is unclear if the patient is having recurrent TIAs or CVA, although Neurology continues to recommend continuing his current medication regimen. During this hospitalization it was also noted that the patient has friction blisters of the skin on the upper extremities, as well as the sacrum. These blisters subsequently ruptured and a Wound Clinic consult was ordered. Recommendation is for triple antibiotic and OptiLock to sacrum and Mepilex to bilateral upper arms as needed. As of the day of discharge the patient has a therapeutic INR of 2.00. He appears to be fully diuresed and denies any shortness of breath or cough. He is at his baseline oxygen requirement of 3 liters. Mr. Terry is stable for discharge today. Vital signs are as follows: Temp 97.8, heart rate 74, respiratory rate 20, oxygen saturation 94% on 3 liters nasal cannula. Blood pressure 102/45. DISCHARGE PLAN: Mr. Terry will be discharged back to [facility]. It is recommended that he receive rehab while there. Activity is as tolerated. Note at this point because of the new onset of left foot weakness, along with his history of hemiparesis of the right side, it is recommended that the patient get a motorized wheelchair as it is unlikely he will be able to roll himself around in a wheelchair as he had been previously. Diet will be heart healthy, no caffeine. Daily weights should be obtained to ensure the patient is not retaining fluid due to his CHF. Per the Wound Clinic it is recommended that the patient receive triple antibiotic and OptiLock to the sacrum, as well as Mepilex to bilateral upper extremity lesions as necessary. It appears as though the ruptured blisters are all healing well at this time and he may only require barrier cream going forward. He should be seen in followup at [facility]. The patient should return to the emergency room or nearest hospital for any worsening of symptoms shortness of breath, lightheadedness, dizziness, chest discomfort, high fevers, chills, night sweats, loss of consciousness or any other worrisome signs or symptoms. This is a summarized report of a very complex medical history and lengthy hospital stay. For further details, please see the entire medical record. TIME SPENT: Approximately 60 minutes were spent on this discharge. Greater than half of that time was spent [id number] with the patient discussing discharge plans and instructions. ROSMERY KNOX, DANI [id number]/[facility] #: [id number] GRETEL
== END 2018-08-06 13:28 | DRG 987 ==
LOC: ED 21:11 → ICU 23:17 → MEDTELE 07-27 12:37
PROVIDERS: ADMIT Pediatrics; ATTEND Hospitalist
PROC: 0B9H8ZX Drainage of Lung Lingula, Via Natural or Artificial Opening Endoscopic, Diagnostic (ICD-10-PCS; principal; 2018-07-23)
PROC: 05HM33Z Insertion of Infusion Device into Right Internal Jugular Vein, Percutaneous Approach (ICD-10-PCS; 2018-07-23)
PROC: B543ZZA Ultrasonography of Right Jugular Veins, Guidance (ICD-10-PCS; 2018-07-23)
PROC: 5A09457 Assistance with Respiratory Ventilation, 24-96 Consecutive Hours, Continuous Positive Airway Pressure (ICD-10-PCS; 2018-07-23)
PROC: 5A1955Z Respiratory Ventilation, Greater than 96 Consecutive Hours (ICD-10-PCS; 2018-07-23)
PROC: 0BH17EZ Insertion of Endotracheal Airway into Trachea, Via Natural or Artificial Opening (ICD-10-PCS; 2018-07-23)
PROC: 0T2BX0Z Change Drainage Device in Bladder, External Approach (ICD-10-PCS; 2018-07-23)
PROC: 3E033XZ Introduction of Vasopressor into Peripheral Vein, Percutaneous Approach (ICD-10-PCS; 2018-07-24)
PROC: 0BP1XDZ Removal of Intraluminal Device from Trachea, External Approach (ICD-10-PCS; 2018-07-27)
DX: T83.511A Infection and inflammatory reaction due to indwelling urethral catheter, initial encounter (principal); A41.9 Sepsis, unspecified organism; J96.22 Acute and chronic respiratory failure with hypercapnia; J18.9 Pneumonia, unspecified organism; R65.21 Severe sepsis with septic shock; J96.21 Acute and chronic respiratory failure with hypoxia; R40.2344 Coma scale, best motor response, flexion withdrawal, 24 hours or more after hospital admission; R40.2114 Coma scale, eyes open, never, 24 hours or more after hospital admission; R40.2214 Coma scale, best verbal response, none, 24 hours or more after hospital admission; I63.9 Cerebral infarction, unspecified; Z68.45 Body mass index [BMI] 70 or greater, adult; I50.22 Chronic systolic (congestive) heart failure; N17.9 Acute kidney failure, unspecified; J44.0 Chronic obstructive pulmonary disease with (acute) lower respiratory infection; I69.951 Hemiplegia and hemiparesis following unspecified cerebrovascular disease affecting right dominant side; N99.820 Postprocedural hemorrhage of a genitourinary system organ or structure following a genitourinary system procedure; E66.2 Morbid (severe) obesity with alveolar hypoventilation; N18.4 Chronic kidney disease, stage 4 (severe); E87.0 Hyperosmolality and hypernatremia; I13.0 Hypertensive heart and chronic kidney disease with heart failure and stage 1 through stage 4 chronic kidney disease, or unspecified chronic kidney disease; N39.0 Urinary tract infection, site not specified; I48.2 Chronic atrial fibrillation; K59.00 Constipation, unspecified; R20.2 Paresthesia of skin; R23.8 Other skin changes; H91.90 Unspecified hearing loss, unspecified ear; R31.9 Hematuria, unspecified; B95.2 Enterococcus as the cause of diseases classified elsewhere; N40.1 Benign prostatic hyperplasia with lower urinary tract symptoms; R33.8 Other retention of urine; R68.0 Hypothermia, not associated with low environmental temperature; M17.10 Unilateral primary osteoarthritis, unspecified knee; Y73.1 Therapeutic (nonsurgical) and rehabilitative gastroenterology and urology devices associated with adverse incidents; Y92.9 Unspecified place or not applicable; B96.4 Proteus (mirabilis) (morganii) as the cause of diseases classified elsewhere; Z79.01 Long term (current) use of anticoagulants; Z99.81 Dependence on supplemental oxygen; Z86.14 Personal history of Methicillin resistant Staphylococcus aureus infection; Z80.0 Family history of malignant neoplasm of digestive organs; Z80.1 Family history of malignant neoplasm of trachea, bronchus and lung; Z87.440 Personal history of urinary (tract) infections; Z82.3 Family history of stroke; Z87.891 Personal history of nicotine dependence; Z23 Encounter for immunization; Z79.82 Long term (current) use of aspirin; Z74.01 Bed confinement status; I69.222 Dysarthria following other nontraumatic intracranial hemorrhage; Z95.0 Presence of cardiac pacemaker
CPT/HCPCS: 31624; 36415; 36600; 70450; 71045; 80048; 80053; 80061; 80202; 81003; 81015; 82306; 82607; 82803; 83605; 83735; 83880; 84100; 84484; 85025; 85027; 85610; 87040; 87070; 87077; 87086; 87186; 87205; 87641; 90686; 93005; 93306; 93880; 94003; 94640; 94660; 99285; A9270-GY; G8978-GP-CM; G8979-GP-CM; G8980-GP-CM; J0692; J0696; J1756; J1940; J2060; J2250; J2405; J2543; J2704; J3010; J3370

== ENCOUNTER 2018-09-02 20:50 | Inpatient (IN) | payer MEDICARE, MEDICAID ==
[2018-09-02] MEDS ORDERED: Propofol* 0 ML ONE (20:53)
--- NOTE | 2018-09-02 20:58 | ED ---
Shortness of Breath - HPI Summary HPI Summary: This patient is a 67 year old M presenting to [facility] from [facility] with a chief complaint of respiratory distress since 1999. Pt was found unresponsive (baseline a/o) by senior care staff, one hour after he was checked on and well-appearing. Pt was found lying on his left side, drooling, and gasping for air. Pt O2 sat at 94 % on non-rebreather mask. Pt is unresponsive, even with sternal rub. PMHx pacemaker, CHF, morbid obesity. Level 5 caveat: Full HPI unobtainable secondary to pt extremis. - History of Current Complaint Hx Obtained From: EMS Hx From Patient Unobtainable Due To: Extremis Onset/Duration: Still Present Timing: Constant Current Severity: Severe Dyspnea At: Rest Aggrevating Factors: Nothing Alleviating Factors: Oxygen Related History: Obesity, Healthcare Acquired Pneumonia: [place] - Allergy/Home Medications Allergies/Adverse Reactions: Allergies Allergy/AdvReac Type Severity Reaction Status Date / Time No Known Allergies Allergy Verified 01/15/18 13:25 PMH/Surg Hx/FS Hx/Imm Hx Endocrine/Hematology History: Denies: Hx Sickle Cell Disease Cardiovascular History: Reports: Hx Congestive Heart Failure, Hx Hypertension, Hx Pacemaker/ICD Respiratory History: Reports: Hx Pneumonia, Hx Pulmonary Edema, Hx Sleep Apnea, Other Respiratory Problems/Disorders - BRONCHOSCOPY 07/23/18. Denies: Hx Asthma, Hx Chronic Obstructive Pulmonary Disease (COPD) History: Reports: Hx Benign Prostatic Hyperplasia, Hx Chronic Renal Failure, Hx Kidney Infection, Other Problems/Disorders - history MRSA in urine Musculoskeletal History: Reports: Hx Arthritis - knee, Other Musculoskeletal History - morbid obesity Sensory History: Reports: Hx Hearing Problem - mild [place] Denies: Hx Contacts or Glasses, Hx Hearing Aid Opthamlomology History: Denies: Hx Contacts or Glasses Neurological History: Reports: Hx CVA Psychiatric History: Denies: Hx Panic Disorder - Surgical History Surgery Procedure, Year, and Place: HERNIA REPAIR, AICD/PACER Hx Anesthesia Reactions: No - Immunization History Date of Tetanus Vaccine: up to date Date of Influenza Vaccine: 2015 Infectious Disease History: Reports: Hx of Known/Suspected MRSA - mrsa neg as of 02/17/17 Denies: Hx Clostridium Difficile - Family History Known Family History: Positive: Other - Stroke Family History: FHx of [place]. No FHx of CVA - Social History Occupation: Disabled Alcohol Use: None Hx Substance Use: No Substance Use Type: Reports: None Hx Tobacco Use: No Smoking Status (MU): Former Smoker Type: Cigarettes Amount Used/How Often: 1 pack per week Length of Time of Smoking/Using Tobacco: 1 year Have You Smoked in the Last Year: No Review of Systems - ROS Summary Review of Systems Summary: Level 5 caveat: Full ROS limited secondary to pt's extremis. Negative: Fever Positive: Shortness Of Breath Positive: no symptoms reported Neurological: Other - unresponsive All Other Systems Reviewed And Are Negative: No Physical Exam - Summary Physical Exam Summary: VITAL SIGNS: Reviewed. GENERAL: Patient is a morbidly obese male who is lying comfortable in the stretcher. Pt is drooling, unresponsive. HEAD AND FACE: No signs of trauma. No ecchymosis, hematomas or skull depressions. No sinus tenderness. EYES: PERRLA, EOMI x 2, No injected conjunctiva, no nystagmus. EARS: Ear canals and tympanic membranes are within normal limits. MOUTH: Oropharynx within normal limits. NECK: Unable to obtain pulses or see veins due to morbid obesity CHEST: Symmetric, no tenderness at palpation LUNGS: Agonal breathing, RR 10, decreased breath sounds with rhonchi bilaterally. CVS: Distant heart sounds ABDOMEN: Soft, non-tender. Obese abd. No rebound, no guarding, and no masses palpated. Bowel sounds are normal. EXTREMITIES: FROM in all major joints, bilateral pedal edema, no cyanosis or clubbing. NEURO: Pt is unresponsive to pain SKIN: Dry and warm Triage Information Reviewed: Yes Vital Signs Reviewed: Yes Completion Of Physical Exam Limited Due To: Extremis - Greg Coma Scale Best Eye Response: 1 - None Best Verbal Response: 1 - None Procedures - Intubation Time of Intubation: 21:04 Intubation Method: orotracheal Tube Size (cm): 7.5 Medications: Succinylcholine - and atomidate Breath Sounds after Intubation: equal Intubation Complications: no complications Post Intubation Xray: Yes Diagnostics - Laboratory Result Diagrams: 09/02/18 21:00 09/02/18 21:00 Lab Statement: Any lab studies that have been ordered have been reviewed, and results considered in the medical decision making process. - Radiology CXR Radiology Interpretation Completed By: ED Physician Summary of Radiographic Findings: Under-penetration, cardiomegaly, poor penetration, ET tube at level of clavicle, bilateral venous congestion. Pending official imaging report. - EKG 2215 Cardiac Rate: NL - 70 ventricular paced Summary of EKG Findings: ventricular paced, no further analysis attempted. Course/Dx - Course Course Of Treatment: A 67-year-old M presents to the ED with a CC of respiratory distress for 1 hour. (+) unresponsive, drooling, gasping. Pt is A/O at baseline. Was found unresponsive by senior care staff lying on his left side , gasping for air, and unresponsive. Pt in room O2 sat is 94% on a non- rebreather mask. PMHx morbid obesity, chronic respiratory failure. A CXR reveals under-penetration, cardiomegaly, poor penetration, ET tube at level of clavicle, bilateral venous congestion.. An EKG reveals ___. In the ED course, pt was given fentanyl, versed, nl saline, piperacillin/tazobactam. Pt labs show Low H&H, low MCH, low MCHC, high RDW, high neut %, low lymph %, low abs lymphs, high INR, high APTT, high K+, low Cl-, high CO2, high BUN ,high creatinine, high BUN/creat ratio, high glucose, high alkaline phosphatase, high CRP, high BNP, low albumin, high globulin, low albumin/globulin ratio, ABG: pH 7.26, pCO2 77, pO2 224, O2 sat 99.6, base xs 6.0. Pt intubated at 2104. Pt intubated immediately upon arrival to ED to protect airways. - Diagnoses Provider Diagnoses: Respiratory failure, CHF (congestive heart failure), Morbid obesity, Respiratory acidosis - Physician Notifications Discussed Care of Patient With: Meme Faulkner Time Discussed With Above Provider: 22:17 Instructed by Provider To: Other - Accepts admission. - Critical Care Time Critical Care Time: 30-74 min - 50 Discharge - Sign-Out/Discharge Documenting (check all that apply): Patient Departure - admit - Discharge Plan Condition: Guarded Disposition: ADMITTED TO [facility] - Attestation Statements Document Initiated by Scribe: Yes Documenting Scribe: Marin Clinton Provider For Whom Scribe is Documenting (Include Credential): Dr. Rod Rush MD Scribe Attestation: I, Marin Bezirganian, scribed for Dr. Rod Rush MD on 09/02/18 at 2301.
[2018-09-02] MEDS ORDERED: Succinylcholine* 20 MG/ML 10 ML VIAL ONE (21:03)
[2018-09-02] MEDS ORDERED: Etomidate* 2 MG/ML 20 ML VIAL (40 MG) ONE (21:03)
[2018-09-02] MEDS ORDERED: NS 0.9% 1000 ML* 1,000 ML IV ONE (21:08)
[2018-09-02] MEDS ORDERED: Piperacillin/Tazobac ADVAN(*) 3.375 GM in NS 0.9% 100 ML* 100 ML IVPB ONE (21:09)
[2018-09-02] MEDS ORDERED: fentaNYL* 50 MCG/ML 2 ML VIAL (100 MCG VIAL) IV SLOW PU ONE (21:10)
[2018-09-02 21:36] LABS: INR 1.73 (0.77-1.02)
[2018-09-02 21:39] LABS: EGFR Non-African American 13.1 (>60)
[2018-09-02 21:40] LABS: ABS Basophils 0.1 10^3/ul (0-0.2); ABS Eosinophils 0 10^3/ul (0-0.6); ABS Lymphocytes 0.3 10^3/ul (1.0-4.8); ABS Monocytes 0.4 10^3/ul (0-0.8); ABS Neutrophils 7.2 10^3/ul (1.5-7.7); ABS Nucleated RBC 0 10^3/ul; Eosinophil % 0.4 % (0-6); Hematocrit 33 % (42-52); Hemoglobin 10.1 g/dl (14.0-18.0); Lymphocyte % 4.3 % (25-47); Mean Corpuscular HGB Conc 30 g/dl (31-36); Mean Corpuscular Hemoglobin 25 pg (27-31); Mean Corpuscular Volume 81 fL (80-94); Mean Platelet Volume 8.5 fL (7.4-10.4); Nucleated Red Blood Cells % 0.1; Platelet Count 207 10^3/ul (150-450); Red Cell Distribution Width 19 % (10.5-15); White Blood Count 7.9 10^3/ul (3.5-10.8)
[2018-09-02] MEDS ORDERED: Midazolam BAG 1 MG/ML* 100 MG/100 ML BAG IV ONE (22:00)
[2018-09-02] MEDS ORDERED: Pantoprazole* 80 mg IN NS 80 MG/250 ML BAG IVPB ONE (22:18)
[2018-09-02] MEDS ORDERED: Vancomycin(*) 1,000 MG in NS 0.9% 250 ML* 250 ML IVPB ONE ×2 (22:20→23:00)
[2018-09-02] MEDS ORDERED: Ondansetron INJ* 2 MG/ML VIAL IV PRN (22:24)
[2018-09-02] MEDS ORDERED: fentaNYL* 50 MCG/ML 2 ML VIAL (100 MCG VIAL) IV SLOW PU PRN (22:34)
[2018-09-02] MEDS ORDERED: Albuterol 2.5 MG/3 ML NEB.SOL* (0.083%) INH PRN (22:35)
[2018-09-02] MEDS ORDERED: Ipratropium 0.5MG/2.5ML NEB* 0.5 MG/2.5 ML NEB.SOLN INH PRN (22:35)
[2018-09-02] MEDS ORDERED: Vancomycin(*) 0 MG in NS 0.9% 250 ML* 250 ML IVPB SCH (23:00)
[2018-09-02] MEDS ORDERED: Zosyn per Pharmacy* NOTE FOLLOW UP SCH (23:00)
[2018-09-02] MEDS ORDERED: Propofol* 500 MG/50 ML BTL IV SCH (23:00)
[2018-09-02] MEDS ORDERED: Vancomycin per Pharmacy* NOTE FOLLOW UP PRN (23:04)
[2018-09-02] MEDS ORDERED: Propofol* 100 ML ONE (23:59)
[2018-09-03 00:28] LABS: Urine Appearance Turbid; Urine Blood 2+ (Negative); Urine Color Yellow; Urine Ketones Negative (Negative); Urine Protein 2+(100 mg/dL) (Negative); Urine Red Blood Cell Trace(0-2/hpf) (Absent); Urine Specific Gravity 1.021 (1.010-1.030); Urine Urobilinogen Negative (Negative); Urine White Blood Cell Trace(0-5/hpf) (Absent)
[2018-09-03] MEDS ORDERED: Vancomycin(*) 1,000 MG in NS 0.9% 250 ML* 250 ML IVPB ONE (00:30)
[2018-09-03] MEDS: Nystatin TOP POWDER* 15 GM BTL TOPICAL SCH ×4 (00:45→20:23)
[2018-09-03 01:52] LABS: Hematocrit 30 % (42-52); Hemoglobin 8.9 g/dl (14.0-18.0)
[2018-09-03] MEDS ORDERED: ZOSYN 3.375 GM Q12H per EXTENDED INFUSION IVPB SCH ×2 (02:00)
[2018-09-03] MEDS: Chlorhexidine MOUTHWASH 0.12%* 15 ML UDC TOPICAL SCH ×7 (05:33→23:47)
[2018-09-03] MEDS: Propofol* 100 ML IV SCH ×5 (05:35→21:57)
--- NOTE | 2018-09-03 06:14 | HP ---
CC: [facility] * HISTORY AND PHYSICAL: DATE OF ADMISSION: 09/02/18 TIME OF EVALUATION: 2200 PRIMARY CARE PHYSICIAN: [facility]. CHIEF COMPLAINT: Altered mental status, somnolence. HISTORY OF PRESENT ILLNESS: History was obtained by the [facility] report and the ER staff. The patient apparently was found unresponsive. He was promptly brought into the emergency room via EMS. He was unresponsive, drooling, respiratory rate from 8 to 10. He did move his extremities to painful stimuli, but he was promptly intubated and sedated. The patient just had a prolonged hospitalization here at [facility] from 07/22/18 to 08/06/18, where he had a similar presentation with unresponsive episode secondary to hypercapnic respiratory failure and a question of a stroke. I did speak to the brother who is the healthcare proxy, David, who states now he had been doing well since his discharge back at [facility], although they were going to try to get him in a motorized wheelchair, they do not think they will be able to find one big enough for him and unfortunately has been bed bound since then. Unable to obtain review of systems due to the patient's altered mental status and sedation. There is a question of the patient being found in emesis as well, but there is no clear documentation that he did vomit. PAST MEDICAL HISTORY: 1. Hospitalization 07/22/18 to 08/06/18 secondary to hypercapnic respiratory failure, requiring intubation. 2. History of morbid obesity with obesity hyperventilation syndrome. 3. Chronic atrial fibrillation. Does not appear that he is on anticoagulation any longer. 4. History of chronic systolic congestive heart failure. 5. Constipation. 6. Dysarthria, following nontraumatic intracranial hemorrhage. 7. History of CKD stage 4. 8. 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 9. COPD on 3 L. 10. History of MRSA. 11. Hypertension. 12. BPH with indwelling Hilario catheter. 13. History of VRE bacteremia. 14. Obstructive sleep apnea, on BiPAP. Though after speaking with the brother , he states he may be noncompliant with this. 15. History of pacemaker, AICD placement. 16. History of pressure ulcers sacrum and upper extremities. MEDICATIONS: 1. Oxycodone 5 mg q.6 hours as needed. 2. Torsemide 40 mg in the evening. 3. Flomax 0.4 mg p.o. at bedtime. 4. Spironolactone 12.5 mg p.o. daily. 5. Feet anemia as needed. 6. Senokot 2 tabs p.o. daily. 7. Milk of Mag 30 mL as needed. 8. Ipratropium q.6 hours as needed. 9. Advair 250-50 one puff inhaled b.i.d. 10. Proscar 5 mg p.o. daily. 11. Vitamin D 2000 units p.o. in the morning. 12. Suppository as needed. 13. Atorvastatin 20 mg p.o. daily. 14. Aspirin 81 mg p.o. daily. 15. Albuterol 2.5 inhaled q.2 p.r.n. 16. Tylenol as needed. ALLERGIES: No known drug allergies. FAMILY HISTORY: Mother from colon cancer. Father from lung cancer. SOCIAL HISTORY: As mentioned, the patient is at [facility]. He is bedbound secondary to his morbid obesity. He is a [place] . His brother David Terry, is his healthcare proxy and did confirm that he is a full code. I discussed this again. He said if he does make it through this then he is going to readdress this which is highly recommended due to his significant comorbidities. He has remote history of smoking and alcohol abuse. He has never been . No children. CODE STATUS: He remains full code. REVIEW OF SYSTEMS: Unable to obtain due to patient's intubation and sedation. PHYSICAL EXAMINATION GENERAL: The patient is intubated and sedated. He is morbidly obese. VITAL SIGNS: Temp is 96.2, pulse rate is 70, respiratory rate is 16, oxygen saturation is 98% on mechanical ventilation, blood pressure is 124/60. HEENT: Head, normocephalic. Pupils are pinpoint and sluggish. His conjunctivae are injected. Oropharynx, the patient has an ET tube and OG tube in place. RESPIRATORY: Diminished breath sounds, rhonchi bilaterally. CARDIAC: Distant heart sounds. Regular rate and rhythm, systolic murmur. ABDOMEN: Morbidly obese, soft, nontender. EXTREMITIES: +2 pretibial edema. DERM: The patient with skin breakdown with erythema in intertriginous regions. He has scattered ecchymosis as well. Indwelling Hilario with dark brown color. LABORATORY DATA: White count 7.9, hemoglobin 10.1, hematocrit 33, MCV is 207, INR is 1.73. Blood gas: PH 7.26, pCO2 77, pO2 224. Sodium 137, potassium 5.4 , chloride 94, bicarb 34, BUN 102, creatinine 4.5, glucose 125. CRP 141, albumin is 3.1, BNP is 340. UA is pending. RADIOGRAPHIC DATA: His chest x-ray is a poor underexposed film due to his morbid obesity shows pulmonary edema bilaterally. ET tube in appropriate position. EKG shows a ventricular paced. ASSESSMENT: This is a 67-year-old male with the past medical history of morbidly obese and chronic hypercapnic respiratory failure on BiPAP at bedtime who presented to emergency room from [facility], found unresponsive. 1. Unresponsive. Assessment: I suspect systemic inflammatory response syndrome secondary to most likely urinary tract infection contributing him to go into acute hypercapnic respiratory failure requiring intubation. The other concern is elevated BUN and creatinine with worsening renal failure and possibility of gastrointestinal bleed as well. No evidence of bloody or black stools, based on nursing report. Question of noncompliance with his BIPAP at [facility]. Plan: We will hold off on any further fluids. He did get a liter of normal saline in the emergency department. We will continue him on Zosyn to cover him for urinary tract infection and possible aspiration pneumonia. We will add vancomycin as he does have a history of enterococcus UTI in the past. We will switch his sedation to propofol and fentanyl as needed. We will place him on a proton pump inhibitor drip. No further IVFs in setting of CHF. Repeat an H and H in a few hours and transfuse as indicated. Adjust vent settings and repeat his blood gas to show improvement in his pCO2. I will also get head CT to rule any intracranial pathology and hold his aspirin until the report is back. Recommend touching base with [facility] to see if he is noncompliant with BiPAP. 2. Chronic medical problems. Benign prostatic hypertrophy with indwelling Hilario: As mentioned we will change out his Hilario catheter. Continue with Flomax. We will hold his Proscar for now. Chronic obstructive pulmonary disease. Continue his inhaler regimen. Heart failure. I will hold his spironolactone as he has worsening hyperkalemia and renal failure. Hold the Demadex for now in the setting of systemic inflammatory response syndrome. 6. Fluids, electrolytes, and nutrition: NPO OG tube in place. In the setting of his acute decompensated heart failure, we will hold IV fluids. 7. DVT prophylaxis: Awaiting head CT. We will order SCDs for now. 8. Code status for now is full code. The brother who is the healthcare proxy agreed to readdress this if he does make it through. I talked about the poor prognosis and high recurrence of this occurring again. TIME SPENT: Greater than 60 minutes spent doing history and physical, more than half the time spent in direct patient contact and critical care time. I did also speak with Dr. Londono regarding this patient's admission. [id number]/CPS #: [id number] GRETEL
[2018-09-03 06:27] LABS: ABS Basophils 0.1 10^3/ul (0-0.2); ABS Eosinophils 0 10^3/ul (0-0.6); ABS Lymphocytes 0.3 10^3/ul (1.0-4.8); ABS Monocytes 0.4 10^3/ul (0-0.8); ABS Neutrophils 6.4 10^3/ul (1.5-7.7); ABS Nucleated RBC 0 10^3/ul; Eosinophil % 0.6 % (0-6); Hematocrit 28 % (42-52); Hemoglobin 8.6 g/dl (14.0-18.0); Mean Corpuscular HGB Conc 31 g/dl (31-36); Mean Corpuscular Hemoglobin 25 pg (27-31); Mean Corpuscular Volume 81 fL (80-94); Nucleated Red Blood Cells % 0.1; Platelet Count 192 10^3/ul (150-450); Red Blood Count 3.43 10^6/ul (4.00-5.40); Red Cell Distribution Width 18 % (10.5-15); White Blood Count 7.2 10^3/ul (3.5-10.8)
[2018-09-03 06:44] LABS: EGFR Non-African American 13.1 (>60)
--- NOTE | 2018-09-03 09:14 | PN ---
Date of Service: 09/03/18 Critical Care Services: 67M with htn, hld, ckd, afib, chf s/p aicd, copd, bud/ohs, bph with chronic indwelling parekh, recurrent UTI, presents with hypercapnic respiratory failure. Intubated in the ER. 09/03: remains intubated. Vital Signs: Temp Pulse Resp BP SpO2 FiO2 97.2 F 70 24 95/61 95 60 09/03/18 08:01 09/03/18 08:01 09/03/18 08:00 09/03/18 08:00 09/03/18 08:01 09/03 08:00 Physical Exam: Gen - Intubated and sedated HEENT - nact, perrl neck - unable to assess jvd, no thyromegaly cv - s1/s2, no murmur lung - dec bs bilaterally abd - soft, nt ext - no cce neuro - unresponisve Fluid Balance (Past 24 Hours): I= O= Net Intake & Output 09/01/18 09/02/18 09/03/18 09/04/18 06:59 06:59 06:59 06:59 Intake Total 2053 Output Total 370 140 Balance 1683 -140 Weight 273 kg Intake: IV Fluids 1102 IVPB 615 ABX - VANCOMYCIN 518 ABX - ZOSYN 97 Medicated IV 336 CC - Propofol/Diprivan 159 GEN - Pantoprazole/ 177 Protonix Output: Parekh 370 140 Labs: Laboratory Results - last 24 hr 09/02/18 09/02/18 09/02/18 21:00 21:00 21:00 WBC 7.9 RBC 4.10 Hgb 10.1 L Hct 33 L MCV 81 MCH 25 L MCHC 30 L RDW 19 H Plt Count 207 MPV 8.5 Neut % (Auto) 90.2 H Lymph % (Auto) 4.3 L Kidder % (Auto) 4.4 Eos % (Auto) 0.4 Baso % (Auto) 0.7 Absolute Neuts (auto) 7.2 Absolute Lymphs (auto) 0.3 L Absolute Monos (auto) 0.4 Absolute Eos (auto) 0 Absolute Basos (auto) 0.1 Absolute Nucleated RBC 0 Nucleated RBC % 0.1 INR (Anticoag Therapy) 1.73 H APTT 37.3 H Patient Temperature ABG pH ABG pH (Temp Correct) ABG pCO2 ABG pCO2 (Temp Corrct ABG pO2 ABG pO2 (Temp Correct ABG HCO3 ABG O2 Saturation ABG Base Excess Respiration Rate O2 Delivery Device Ventilator Type Vent Mode FiO2 Inspiratory Time PEEP Pressure Support Pressure Control EPAP IPAP BiPAP Sodium 137 Potassium 5.4 H Chloride 94 L Carbon Dioxide 34 H Anion Gap 9 BUN 102 H Creatinine 4.50 H Est GFR ( Amer) 15.8 Est GFR (Non-Af Amer) 13.1 BUN/Creatinine Ratio 22.7 H Glucose 125 H POC Glucose (mg/dL) Lactic Acid Calcium 8.6 Total Bilirubin 0.40 AST 13 ALT 11 Alkaline Phosphatase 131 H Total Creatine Kinase 129 CK-MB (CK-2) 5.5 Troponin I 0.03 C-Reactive Protein 141.83 H B-Natriuretic Peptide Total Protein 7.3 Albumin 3.1 L Globulin 4.2 H Albumin/Globulin Ratio 0.7 L Urine Color Urine Appearance Urine pH Ur Specific Elsie Urine Protein Urine Ketones Urine Blood Urine Nitrate Urine Bilirubin Urine Urobilinogen Ur Leukocyte Esterase Urine WBC (Auto) Urine RBC (Auto) Urine Bacteria Urine Glucose Urine Ascorbic Acid 09/02/18 09/02/18 09/02/18 21:00 21:00 21:08 WBC RBC Hgb Hct MCV MCH MCHC RDW Plt Count MPV Neut % (Auto) Lymph % (Auto) Kidder % (Auto) Eos % (Auto) Baso % (Auto) Absolute Neuts (auto) Absolute Lymphs (auto) Absolute Monos (auto) Absolute Eos (auto) Absolute Basos (auto) Absolute Nucleated RBC Nucleated RBC % INR (Anticoag Therapy) APTT Patient Temperature ABG pH ABG pH (Temp Correct) ABG pCO2 ABG pCO2 (Temp Corrct ABG pO2 ABG pO2 (Temp Correct ABG HCO3 ABG O2 Saturation ABG Base Excess Respiration Rate O2 Delivery Device Ventilator Type Vent Mode FiO2 Inspiratory Time PEEP Pressure Support Pressure Control EPAP IPAP BiPAP Sodium Potassium Chloride Carbon Dioxide Anion Gap BUN Creatinine Est GFR ( Amer) Est GFR (Non-Af Amer) BUN/Creatinine Ratio Glucose POC Glucose (mg/dL) 173 H Lactic Acid 0.6 Calcium Total Bilirubin AST ALT Alkaline Phosphatase Total Creatine Kinase CK-MB (CK-2) Troponin I C-Reactive Protein B-Natriuretic Peptide 340 H Total Protein Albumin Globulin Albumin/Globulin Ratio Urine Color Urine Appearance Urine pH Ur Specific Elsie Urine Protein Urine Ketones Urine Blood Urine Nitrate Urine Bilirubin Urine Urobilinogen Ur Leukocyte Esterase Urine WBC (Auto) Urine RBC (Auto) Urine Bacteria Urine Glucose Urine Ascorbic Acid 09/02/18 09/02/18 09/03/18 22:15 23:00 00:45 WBC RBC Hgb Hct MCV MCH MCHC RDW Plt Count MPV Neut % (Auto) Lymph % (Auto) Kidder % (Auto) Eos % (Auto) Baso % (Auto) Absolute Neuts (auto) Absolute Lymphs (auto) Absolute Monos (auto) Absolute Eos (auto) Absolute Basos (auto) Absolute Nucleated RBC Nucleated RBC % INR (Anticoag Therapy) APTT Patient Temperature Not Reportable ABG pH 7.26 L 7.32 L ABG pH (Temp Correct) Not Reportable ABG pCO2 77 H* 66 H ABG pCO2 (Temp Corrct Not Reportable ABG pO2 224 H 124 H ABG pO2 (Temp Correct Not Reportable ABG HCO3 29.6 30.3 ABG O2 Saturation 99.6 H 99.0 H ABG Base Excess 6.0 H 6.9 H Respiration Rate 20 O2 Delivery Device vent Ventilator Type Not Reportable Vent Mode pcv FiO2 60 Inspiratory Time 0.75 PEEP 5 Pressure Support Not Reportable Pressure Control 30 EPAP Not Reportable IPAP Not Reportable BiPAP Not Reportable Sodium Potassium Chloride Carbon Dioxide Anion Gap BUN Creatinine Est GFR ( Amer) Est GFR (Non-Af Amer) BUN/Creatinine Ratio Glucose POC Glucose (mg/dL) Lactic Acid Calcium Total Bilirubin AST ALT Alkaline Phosphatase Total Creatine Kinase CK-MB (CK-2) Troponin I C-Reactive Protein B-Natriuretic Peptide Total Protein Albumin Globulin Albumin/Globulin Ratio Urine Color Yellow Urine Appearance Turbid Urine pH 7.0 Ur Specific Elsie 1.021 Urine Protein 2+(100 mg/dl) A Urine Ketones Negative Urine Blood 2+ A Urine Nitrate Negative Urine Bilirubin Negative Urine Urobilinogen Negative Ur Leukocyte Esterase 1+ A Urine WBC (Auto) Trace(0-5/hpf) Urine RBC (Auto) Trace(0-2/hpf) Urine Bacteria Absent Urine Glucose Negative Urine Ascorbic Acid * A 09/03/18 09/03/18 09/03/18 01:10 01:10 01:10 WBC RBC Hgb 8.9 L Hct 30 L MCV MCH MCHC RDW Plt Count MPV Neut % (Auto) Lymph % (Auto) Kidder % (Auto) Eos % (Auto) Baso % (Auto) Absolute Neuts (auto) Absolute Lymphs (auto) Absolute Monos (auto) Absolute Eos (auto) Absolute Basos (auto) Absolute Nucleated RBC Nucleated RBC % INR (Anticoag Therapy) APTT Patient Temperature ABG pH ABG pH (Temp Correct) ABG pCO2 ABG pCO2 (Temp Corrct ABG pO2 ABG pO2 (Temp Correct ABG HCO3 ABG O2 Saturation ABG Base Excess Respiration Rate O2 Delivery Device Ventilator Type Vent Mode FiO2 Inspiratory Time PEEP Pressure Support Pressure Control EPAP IPAP BiPAP Sodium Potassium Chloride Carbon Dioxide Anion Gap BUN Creatinine Est GFR ( Amer) Est GFR (Non-Af Amer) BUN/Creatinine Ratio Glucose POC Glucose (mg/dL) Lactic Acid 0.6 Calcium Total Bilirubin AST ALT Alkaline Phosphatase Total Creatine Kinase CK-MB (CK-2) Troponin I C-Reactive Protein B-Natriuretic Peptide 268 H Total Protein Albumin Globulin Albumin/Globulin Ratio Urine Color Urine Appearance Urine pH Ur Specific Elsie Urine Protein Urine Ketones Urine Blood Urine Nitrate Urine Bilirubin Urine Urobilinogen Ur Leukocyte Esterase Urine WBC (Auto) Urine RBC (Auto) Urine Bacteria Urine Glucose Urine Ascorbic Acid 09/03/18 09/03/18 05:45 05:45 WBC 7.2 RBC 3.43 L Hgb 8.6 L Hct 28 L MCV 81 MCH 25 L MCHC 31 RDW 18 H Plt Count 192 MPV 8.0 Neut % (Auto) 88.6 H Lymph % (Auto) 4.0 L Kidder % (Auto) 5.7 Eos % (Auto) 0.6 Baso % (Auto) 1.1 Absolute Neuts (auto) 6.4 Absolute Lymphs (auto) 0.3 L Absolute Monos (auto) 0.4 Absolute Eos (auto) 0 Absolute Basos (auto) 0.1 Absolute Nucleated RBC 0 Nucleated RBC % 0.1 INR (Anticoag Therapy) APTT Patient Temperature ABG pH ABG pH (Temp Correct) ABG pCO2 ABG pCO2 (Temp Corrct ABG pO2 ABG pO2 (Temp Correct ABG HCO3 ABG O2 Saturation ABG Base Excess Respiration Rate O2 Delivery Device Ventilator Type Vent Mode FiO2 Inspiratory Time PEEP Pressure Support Pressure Control EPAP IPAP BiPAP Sodium 139 Potassium 4.8 Chloride 98 L Carbon Dioxide 31 Anion Gap 10 BUN 107 H Creatinine 4.49 H Est GFR ( Amer) 15.8 Est GFR (Non-Af Amer) 13.1 BUN/Creatinine Ratio 23.8 H Glucose 86 POC Glucose (mg/dL) Lactic Acid Calcium 8.1 L Total Bilirubin 0.50 AST 11 L ALT 8 Alkaline Phosphatase 115 H Total Creatine Kinase CK-MB (CK-2) Troponin I C-Reactive Protein B-Natriuretic Peptide Total Protein 6.1 L Albumin 2.8 L Globulin 3.3 Albumin/Globulin Ratio 0.8 L Urine Color Urine Appearance Urine pH Ur Specific Elsie Urine Protein Urine Ketones Urine Blood Urine Nitrate Urine Bilirubin Urine Urobilinogen Ur Leukocyte Esterase Urine WBC (Auto) Urine RBC (Auto) Urine Bacteria Urine Glucose Urine Ascorbic Acid Studies: CXR 09/02 IMPRESSION: FINDINGS SUGGESTIVE OF CONGESTIVE HEART FAILURE, RECOMMEND FOLLOW- UP CHEST X-RAYS TO RESOLUTION. CT Head 09/02 Very limited examination secondary to patient positioning, patient body habitus, presence of portion of shoulder within the [id number] the examination, and motion artifact. No definite evidence of midline shift. Cannot assess for presence of intracranial hemorrhage or romero-white matter differentiation. Impression: 67M with htn, hld, ckd, afib, chf s/p aicd, copd, bud/ohs, bph with chronic indwelling parekh, recurrent UTI, presents with hypercapnic respiratory failure. Intubated in the ER. Plan: Neuro - AMS - 2/2 hypercapnea - ct poor study CV - htn, hld, chf, afib - bp borderline - c/w ac with coumadin - restart torsemide when bp improved - c/w statin Pulm - copd, bud/ohs - c/w home laba/ics - nebulizers prn - wean vent - extubate to bipap when ready ID - afebrile - normal wbc count - ua negative - will dc abx GI - ppi Renal - ckd - monitor lytes - strict i/o Heme - anemia - monitor for bleeding Endo - check fs, niss lines - piv, parekh PPx - gi/dvt Full Code Family Updated at bedside Critical Care Time: 55 mins
[2018-09-03] MEDS ORDERED: Vancomycin(*) 1,500 MG in NS 0.9% 250 ML* 250 ML IVPB SCH (12:00)
[2018-09-03] MEDS: Mometasone/Formoter 200/5 MDI INH SCH ×2 (12:54→19:35)
[2018-09-03] MEDS ORDERED: NS 0.9% 1000 ML* 1,000 ML IV ONE (13:39)
[2018-09-03] MEDS ORDERED: Norepinephrine 16MCG/ML IVPRE* 4,000 MCG/250 ML BAG IV ONE (13:54)
[2018-09-03] MEDS: Norepinephrine 16MCG/ML IVPRE* 4,000 MCG/250 ML BAG IV SCH ×2 (14:22→23:45)
--- NOTE | 2018-09-03 14:24 | OP ---
Operative Report - Blank - Operative Report Date of Operation: 09/03/18 Note: Central Venous Catheter (CVC, Central Line) Placement Date: 09/03/18 Time: 2p Indication: Hemodynamic monitoring/Intravenous access Attending: Breanna Segura time-out was completed verifying correct patient, procedure, site, positioning , and special equipment if applicable. The patient was placed in a dependent position appropriate for central line placement based on the vein to be cannulated. The patients right neck was prepped and draped in sterile fashion. 1% Lidocaine was used to anesthetize the surrounding skin area. A triple lumen 7 -Iranian catheter was introduced into the the internal jugular vein using the Seldinger technique and under ultrasound guidance. The catheter was threaded smoothly over the guide wire and appropriate blood return was obtained. Each lumen of the catheter was evacuated of air and flushed with sterile saline. The catheter was then sutured in place to the skin and a sterile dressing applied. Perfusion to the extremity distal to the point of catheter insertion was checked and found to be adequate. Estimated Blood Loss: none The patient tolerated the procedure well and there were no complications.
[2018-09-03] MEDS: fentaNYL* 50 MCG/ML 2 ML VIAL (100 MCG VIAL) IV PRN ×4 (15:31→23:48)
[2018-09-03] MEDS ORDERED: Warfarin TAB(*) 5 MG PO ONE (17:00)
[2018-09-03] MEDS: Tamsulosin CAP* 0.4 MG PO SCH (20:13)
[2018-09-04] MEDS: Propofol* 100 ML IV SCH ×6 (01:23→21:50)
[2018-09-04] MEDS: Norepinephrine 16MCG/ML IVPRE* 4,000 MCG/250 ML BAG IV SCH ×4 (05:11→21:50)
[2018-09-04 05:17] LABS: ABS Basophils 0.1 10^3/ul (0-0.2); ABS Eosinophils 0.2 10^3/ul (0-0.6); ABS Lymphocytes 0.6 10^3/ul (1.0-4.8); ABS Monocytes 0.7 10^3/ul (0-0.8); ABS Neutrophils 11.4 10^3/ul (1.5-7.7); ABS Nucleated RBC 0 10^3/ul; Eosinophil % 1.6 % (0-6); Hematocrit 31 % (42-52); Hemoglobin 9.7 g/dl (14.0-18.0); Lymphocyte % 4.4 % (25-47); Mean Corpuscular HGB Conc 31 g/dl (31-36); Mean Corpuscular Hemoglobin 24 pg (27-31); Mean Corpuscular Volume 78 fL (80-94); Mean Platelet Volume 7.7 fL (7.4-10.4); Nucleated Red Blood Cells % 0.1; Platelet Count 289 10^3/ul (150-450); Red Cell Distribution Width 18 % (10.5-15); White Blood Count 12.9 10^3/ul (3.5-10.8)
[2018-09-04 05:20] LABS: INR 2.45 (0.77-1.02)
[2018-09-04 05:32] LABS: EGFR Non-African American 13.8 (>60)
[2018-09-04] MEDS: Chlorhexidine MOUTHWASH 0.12%* 15 ML UDC TOPICAL SCH ×4 (05:47→20:07)
[2018-09-04] MEDS ORDERED: Albuterol/Ipratropium NEB.SOL* Albuterol 2.5 MG/Ipratropium 0.5 MG 3 ML INH SCH (09:00)
--- NOTE | 2018-09-04 09:10 | PN ---
Date of Service: 09/04/18 Critical Care Services: 67M with htn, hld, ckd, afib, chf s/p aicd, copd, bud/ohs, bph with chronic indwelling parekh, recurrent UTI, presents with hypercapnic respiratory failure. Intubated in the ER. 09/03: remains intubated. 09/04: ET tube migrated out. Advanced via bronchoscope at bedside. Copious secretions throughout airway. Vital Signs: Temp Pulse Resp BP SpO2 FiO2 99.9 F 50 26 111/44 94 40 09/04/18 06:30 09/04/18 06:30 09/04/18 06:00 09/04/18 06:30 09/04/18 06:30 09/04 05:00 Physical Exam: Gen - Intubated and sedated HEENT - nact, perrl neck - unable to assess jvd, no thyromegaly cv - s1/s2, no murmur lung - dec bs bilaterally abd - soft, nt ext - no cce neuro - unresponisve Fluid Balance (Past 24 Hours): I= O= Net Intake & Output 09/02/18 09/03/18 09/04/18 09/05/18 06:59 06:59 06:59 06:59 Intake Total 2053 2874 Output Total 370 1527 Balance 1683 1347 Weight 273 kg Intake: IV Fluids 1102 1053 NS (0.9%) 1053 IVPB 615 7 ABX - VANCOMYCIN 518 ABX - ZOSYN 97 NS (0.9%) 7 Medicated IV 336 1409 CC - Norepinephrine/ 580 Levophed CC - Propofol/Diprivan 159 594 GEN - Pantoprazole/ 177 235 Protonix Tube Feeding 405 Output: Urine 0 Parekh 370 1527 Labs: Laboratory Results - last 24 hr 09/03/18 09/04/18 09/04/18 15:15 05:00 05:00 WBC 12.9 H RBC 4.00 Hgb 9.7 L Hct 31 L MCV 78 L MCH 24 L MCHC 31 RDW 18 H Plt Count 289 MPV 7.7 Neut % (Auto) 87.8 H Lymph % (Auto) 4.4 L Mclean % (Auto) 5.5 Eos % (Auto) 1.6 Baso % (Auto) 0.7 Absolute Neuts (auto) 11.4 H Absolute Lymphs (auto) 0.6 L Absolute Monos (auto) 0.7 Absolute Eos (auto) 0.2 Absolute Basos (auto) 0.1 Absolute Nucleated RBC 0 Nucleated RBC % 0.1 INR (Anticoag Therapy) Patient Temperature ABG pH ABG pH (Temp Correct) ABG pCO2 ABG pCO2 (Temp Corrct ABG pO2 ABG pO2 (Temp Correct ABG HCO3 ABG O2 Saturation ABG Base Excess VBG pH 7.29 L VBG pCO2 56 H VBG pO2 39 VBG HCO3 24.5 VBG O2 Saturation 76.0 VBG Base Excess -0.1 L Respiration Rate Ventilator Type Vent Mode FiO2 Inspiratory Time PEEP Pressure Support Pressure Control EPAP IPAP BiPAP Sodium 139 Potassium 4.3 Chloride 98 L Carbon Dioxide 31 Anion Gap 10 BUN 109 H Creatinine 4.28 H Est GFR ( Amer) 16.7 Est GFR (Non-Af Amer) 13.8 BUN/Creatinine Ratio 25.5 H Glucose 123 H Calcium 8.3 L Phosphorus 5.7 H Magnesium 2.8 H 09/04/18 09/04/18 05:00 05:35 WBC RBC Hgb Hct MCV MCH MCHC RDW Plt Count MPV Neut % (Auto) Lymph % (Auto) Mclean % (Auto) Eos % (Auto) Baso % (Auto) Absolute Neuts (auto) Absolute Lymphs (auto) Absolute Monos (auto) Absolute Eos (auto) Absolute Basos (auto) Absolute Nucleated RBC Nucleated RBC % INR (Anticoag Therapy) 2.45 H Patient Temperature Not Reportable ABG pH 7.35 ABG pH (Temp Correct) Not Reportable ABG pCO2 58 H ABG pCO2 (Temp Corrct Not Reportable ABG pO2 66 L ABG pO2 (Temp Correct Not Reportable ABG HCO3 28.9 ABG O2 Saturation 95.5 ABG Base Excess 5.2 H VBG pH VBG pCO2 VBG pO2 VBG HCO3 VBG O2 Saturation VBG Base Excess Respiration Rate 20 Ventilator Type 450 Vent Mode Not Reportable FiO2 40 Inspiratory Time 0.75 PEEP 10 Pressure Support Not Reportable Pressure Control Not Reportable EPAP Not Reportable IPAP Not Reportable BiPAP Not Reportable Sodium Potassium Chloride Carbon Dioxide Anion Gap BUN Creatinine Est GFR ( Amer) Est GFR (Non-Af Amer) BUN/Creatinine Ratio Glucose Calcium Phosphorus Magnesium Studies: CXR 09/02 IMPRESSION: FINDINGS SUGGESTIVE OF CONGESTIVE HEART FAILURE, RECOMMEND FOLLOW- UP CHEST X-RAYS TO RESOLUTION. CT Head 09/02 Very limited examination secondary to patient positioning, patient body habitus, presence of portion of shoulder within the [id number] the examination, and motion artifact. No definite evidence of midline shift. Cannot assess for presence of intracranial hemorrhage or romero-white matter differentiation. CXR 09/04 IMPRESSION: 1. THE ENDOTRACHEAL TUBE TIP APPEARS SLIGHTLY HIGH IN POSITION. 2. BILATERAL INFILTRATES, UNCHANGED. Impression: 67M with htn, hld, ckd, afib, chf s/p aicd, copd, bud/ohs, bph with chronic indwelling parekh, recurrent UTI, presents with hypercapnic respiratory failure. Intubated in the ER. Plan: Neuro - AMS - 2/2 hypercapnea +/- uremia - ct poor study CV - htn, hld, chf, afib - c/w ac with coumadin for afib - bp dropped due to sedation - started on levophed Pulm - copd, bud/ohs - c/w home laba/ics - nebulizers q4h - wean vent - extubate to bipap when ready ID - afebrile - wbc up slightly - ua negative - gpc in 10/24 blood culture bottles - restart zosyn GI - ppi Renal - ckd, uremia - monitor lytes - strict i/o - if mental status does not improve will discuss with renal about HD for uremia Heme - anemia - monitor for bleeding - hgb stable Endo - check fs, niss lines - tlc, parekh PPx - gi/dvt Full Code Family Updated at bedside Critical Care Time: 45 mins
[2018-09-04] MEDS: Mometasone/Formoter 200/5 MDI INH SCH ×2 (09:14→19:51)
--- NOTE | 2018-09-04 09:15 | OP ---
Operative Report - Blank - Operative Report Date of Operation: 09/04/18 Note: ICU BRONCHOSCOPY PROCEDURE NOTE * USER INTERFACE ARTIST: Breanna * ANESTHETIC: propofol gtt * PROCEDURE: Flexible bronchoscopy * Position: Supine * Intubation site: ETT * INDICATION: et tube migration and advancement * FINDINGS: ET tube advanced using bronchoscope. Copious secretions seen throughout airway. * COMPLICATIONS: None * IMPRESSION: mucus plugging. left > right.
[2018-09-04] MEDS ORDERED: ZOSYN 3.375 GM x ONE DOSE over 30 miuntes IVPB ×2 (09:30)
[2018-09-04] MEDS ORDERED: Zosyn per Pharmacy* NOTE FOLLOW UP SCH (10:00)
[2018-09-04] MEDS: Lansoprazole susp Kit 3 MG/ML (15 MG = 5 ML) PO SCH (10:13)
[2018-09-04] MEDS: Nystatin TOP POWDER* 15 GM BTL TOPICAL SCH ×3 (12:15→20:07)
[2018-09-04] MEDS: fentaNYL* 50 MCG/ML 2 ML VIAL (100 MCG VIAL) IV PRN ×2 (12:15→17:33)
[2018-09-04] MEDS: ZOSYN 3.375 GM Q12H per EXTENDED INFUSION IVPB SCH ×2 (15:13)
[2018-09-04] MEDS: Albuterol/Ipratropium NEB.SOL* Albuterol 2.5 MG/Ipratropium 0.5 MG 3 ML INH SCH ×2 (15:33→19:57)
[2018-09-04] MEDS ORDERED: Warfarin TAB(*) 3 MG PO ONE (17:00)
[2018-09-04] MEDS: Tamsulosin CAP* 0.4 MG PO SCH ×3 (20:07→21:46)
[2018-09-05] MEDS: Albuterol/Ipratropium NEB.SOL* Albuterol 2.5 MG/Ipratropium 0.5 MG 3 ML INH SCH ×7 (00:17→23:07)
[2018-09-05] MEDS: Chlorhexidine MOUTHWASH 0.12%* 15 ML UDC TOPICAL SCH ×7 (01:52→20:43)
[2018-09-05] MEDS: Propofol* 100 ML IV SCH ×7 (01:53→22:43)
[2018-09-05] MEDS: ZOSYN 3.375 GM Q12H per EXTENDED INFUSION IVPB SCH ×4 (01:54→15:25)
[2018-09-05] MEDS: Norepinephrine 16MCG/ML IVPRE* 4,000 MCG/250 ML BAG IV SCH ×3 (02:52→17:49)
[2018-09-05 05:22] LABS: ABS Basophils 0.1 10^3/ul (0-0.2); ABS Eosinophils 0.2 10^3/ul (0-0.6); ABS Lymphocytes 0.8 10^3/ul (1.0-4.8); ABS Monocytes 0.6 10^3/ul (0-0.8); ABS Nucleated RBC 0 10^3/ul; Eosinophil % 2.1 % (0-6); Hematocrit 31 % (42-52); Hemoglobin 9.5 g/dl (14.0-18.0); Mean Corpuscular HGB Conc 31 g/dl (31-36); Mean Corpuscular Hemoglobin 24 pg (27-31); Mean Corpuscular Volume 78 fL (80-94); Mean Platelet Volume 7.3 fL (7.4-10.4); Nucleated Red Blood Cells % 0; Platelet Count 263 10^3/ul (150-450); Red Blood Count 3.89 10^6/ul (4.00-5.40); Red Cell Distribution Width 18 % (10.5-15); White Blood Count 10.8 10^3/ul (3.5-10.8)
[2018-09-05 05:29] LABS: INR 2.55 (0.77-1.02)
[2018-09-05 05:43] LABS: EGFR Non-African American 16.1 (>60)
[2018-09-05] MEDS: Mometasone/Formoter 200/5 MDI INH SCH ×2 (07:43→19:23)
--- NOTE | 2018-09-05 09:12 | PN ---
Date of Service: 09/05/18 Critical Care Services: 67M with htn, hld, ckd, afib, chf s/p aicd, copd, bud/ohs, bph with chronic indwelling parekh, recurrent UTI, presents with hypercapnic respiratory failure. Intubated in the ER. 09/03: remains intubated. 09/04: ET tube migrated out. Advanced via bronchoscope at bedside. Copious secretions throughout airway. 09/05: Remains intubated. zosyn for proteus in urine. Weaning levophed. Vital Signs: Temp Pulse Resp BP SpO2 FiO2 99.3 F 89 22 88/75 95 30 09/05/18 06:32 09/05/18 07:18 09/05/18 07:18 09/05/18 06:32 09/05/18 07:18 09/05 04:00 Physical Exam: Gen - Intubated and sedated HEENT - nact, perrl neck - unable to assess jvd, no thyromegaly cv - s1/s2, no murmur lung - dec bs bilaterally abd - soft, nt ext - no cce neuro - unresponisve Fluid Balance (Past 24 Hours): I= O= Net Intake & Output 09/03/18 09/04/18 09/05/18 09/06/18 06:59 06:59 06:59 06:59 Intake Total 2053 2874 3644 Output Total 370 1527 2150 Balance 1683 1347 1494 Weight 273 kg Intake: IV Fluids 1102 1053 189 ABX - ZOSYN 95 NS (0.9%) 1053 94 IVPB 615 7 222 ABX - VANCOMYCIN 518 ABX - ZOSYN 97 NS (0.9%) 7 222 Medicated IV 336 1409 1789 CC - Norepinephrine/ 580 1166 Levophed CC - Propofol/Diprivan 159 594 623 GEN - Pantoprazole/ 177 235 Protonix Oral 0 Tube Feeding 405 1219 Tube Feeding Flush Amount 100 Parekh Irrigate Amount 125 Output: Urine 0 Parekh 370 1527 2150 Labs: Laboratory Results - last 24 hr 09/05/18 09/05/18 09/05/18 05:10 05:10 05:10 WBC 10.8 RBC 3.89 L Hgb 9.5 L Hct 31 L MCV 78 L MCH 24 L MCHC 31 RDW 18 H Plt Count 263 MPV 7.3 L Neut % (Auto) 83.9 H Lymph % (Auto) 7.0 L [place] % (Auto) 5.8 Eos % (Auto) 2.1 Baso % (Auto) 1.2 Absolute Neuts (auto) 9.0 H Absolute Lymphs (auto) 0.8 L Absolute Monos (auto) 0.6 Absolute Eos (auto) 0.2 Absolute Basos (auto) 0.1 Absolute Nucleated RBC 0 Nucleated RBC % 0 INR (Anticoag Therapy) 2.55 H Sodium 143 Potassium 4.1 Chloride 103 Carbon Dioxide 30 Anion Gap 10 BUN 105 H Creatinine 3.76 H Est GFR ( Amer) 19.4 Est GFR (Non-Af Amer) 16.1 BUN/Creatinine Ratio 27.9 H Glucose 160 H Calcium 8.4 L Phosphorus 5.2 H Magnesium 2.7 Studies: CXR 09/05 IMPRESSION: 1. LIMITED STUDY. 2. FINDINGS MOST CONSISTENT WITH CONGESTIVE HEART FAILURE, UNCHANGED. 3. PROBABLE HERNIA OF A SMALL PORTION OF THE ANTEROLATERAL ASPECT OF THE LEFT LUNG, UNCHANGED. CXR 09/02 IMPRESSION: FINDINGS SUGGESTIVE OF CONGESTIVE HEART FAILURE, RECOMMEND FOLLOW- UP CHEST X-RAYS TO RESOLUTION. CT Head 09/02 Very limited examination secondary to patient positioning, patient body habitus, presence of portion of shoulder within the [id number] the examination, and motion artifact. No definite evidence of midline shift. Cannot assess for presence of intracranial hemorrhage or romero-white matter differentiation. CXR 09/04 IMPRESSION: 1. THE ENDOTRACHEAL TUBE TIP APPEARS SLIGHTLY HIGH IN POSITION. 2. BILATERAL INFILTRATES, UNCHANGED. Impression: 67M with htn, hld, ckd, afib, chf s/p aicd, copd, bud/ohs, bph with chronic indwelling parekh, recurrent UTI, presents with hypercapnic respiratory failure. Intubated in the ER. Plan: Neuro - AMS - 2/2 hypercapnea +/- uremia - ct poor study CV - htn, hld, chf, afib - c/w ac with coumadin for afib - bp dropped due to sedation - weaning levophed Pulm - copd, bud/ohs - c/w home laba/ics - nebulizers q4h - wean vent - extubate to bipap when ready ID - afebrile - proteus in urine - zosyn for 7 days GI - ppi Renal - ckd, uremia - monitor lytes - strict i/o - if mental status does not improve will discuss with renal about HD for uremia Heme - anemia - monitor for bleeding - hgb stable Endo - check fs, niss lines - tlc, parekh PPx - gi/dvt Full Code Critical Care Time: 40 mins
[2018-09-05] MEDS: Lansoprazole susp Kit 3 MG/ML (15 MG = 5 ML) PO SCH (09:22)
[2018-09-05] MEDS: Nystatin TOP POWDER* 15 GM BTL TOPICAL SCH ×3 (09:22→20:43)
[2018-09-05] MEDS ORDERED: Vancomycin Trough Check NOTE FOLLOW UP ONE (11:30)
[2018-09-05] MEDS ORDERED: Warfarin TAB(*) 3 MG PO ONE (18:45)
[2018-09-05] MEDS: Tamsulosin CAP* 0.4 MG PO SCH (20:43)
[2018-09-06] MEDS: Norepinephrine 16MCG/ML IVPRE* 4,000 MCG/250 ML BAG IV SCH ×3 (00:43→12:29)
[2018-09-06] MEDS: Chlorhexidine MOUTHWASH 0.12%* 15 ML UDC TOPICAL SCH ×6 (00:43→21:17)
[2018-09-06] MEDS: Propofol* 100 ML IV SCH ×5 (01:46→22:46)
[2018-09-06] MEDS: ZOSYN 3.375 GM Q12H per EXTENDED INFUSION IVPB SCH ×4 (02:08→13:51)
[2018-09-06] MEDS: Albuterol/Ipratropium NEB.SOL* Albuterol 2.5 MG/Ipratropium 0.5 MG 3 ML INH SCH ×6 (03:36→23:06)
[2018-09-06 05:34] LABS: ABS Basophils 0.1 10^3/ul (0-0.2); ABS Eosinophils 0.4 10^3/ul (0-0.6); ABS Lymphocytes 0.7 10^3/ul (1.0-4.8); ABS Monocytes 0.6 10^3/ul (0-0.8); ABS Neutrophils 7.8 10^3/ul (1.5-7.7); ABS Nucleated RBC 0 10^3/ul; Hematocrit 29 % (42-52); Lymphocyte % 7.3 % (25-47); Mean Corpuscular HGB Conc 32 g/dl (31-36); Mean Corpuscular Hemoglobin 25 pg (27-31); Mean Corpuscular Volume 79 fL (80-94); Mean Platelet Volume 7.2 fL (7.4-10.4); Nucleated Red Blood Cells % 0.1; Platelet Count 254 10^3/ul (150-450); Red Blood Count 3.64 10^6/ul (4.00-5.40); Red Cell Distribution Width 18 % (10.5-15); White Blood Count 9.6 10^3/ul (3.5-10.8)
[2018-09-06 05:40] LABS: INR 2.53 (0.77-1.02)
[2018-09-06 05:51] LABS: EGFR Non-African American 16.5 (>60)
[2018-09-06] MEDS: Mometasone/Formoter 200/5 MDI INH SCH ×2 (07:19→19:42)
[2018-09-06] MEDS: Nystatin TOP POWDER* 15 GM BTL TOPICAL SCH ×3 (08:13→21:17)
[2018-09-06] MEDS: Lansoprazole susp Kit 3 MG/ML (15 MG = 5 ML) PO SCH (08:14)
--- NOTE | 2018-09-06 08:32 | PN ---
Date of Service: 09/06/18 Critical Care Services: 67M with htn, hld, ckd, afib, chf s/p aicd, copd, bud/ohs, bph with chronic indwelling parekh, recurrent UTI, presents with hypercapnic respiratory failure. Intubated in the ER. 09/03: remains intubated. 09/04: ET tube migrated out. Advanced via bronchoscope at bedside. Copious secretions throughout airway. 09/05: Remains intubated. zosyn for proteus in urine. Weaning levophed. 09/06: low grade temp overnight. renal function improving slowly. Vital Signs: Temp Pulse Resp BP SpO2 FiO2 100.8 F 77 22 105/50 96 40 09/06/18 08:01 09/06/18 08:01 09/06/18 08:00 09/06/18 08:00 09/06/18 08:01 09/06 07:33 Physical Exam: Gen - Intubated and sedated HEENT - nact, perrl neck - unable to assess jvd, no thyromegaly cv - s1/s2, no murmur lung - dec bs bilaterally abd - soft, nt ext - no cce neuro - unresponisve Fluid Balance (Past 24 Hours): I= O= Net Intake & Output 09/04/18 09/05/18 09/06/18 09/07/18 06:59 06:59 06:59 06:59 Intake Total 2874 3644 4050 129 Output Total 1527 2150 2555 340 Balance 1347 1494 1495 -211 Weight 235.7 kg Intake: IV Fluids 1053 189 154 ABX - ZOSYN 95 NS (0.9%) 1053 94 154 IVPB 7 222 234 ABX - ZOSYN 220 NS (0.9%) 7 222 14 Medicated IV 1409 1789 2174 CC - Norepinephrine/ 580 1166 1525 Levophed CC - Propofol/Diprivan 594 623 649 GEN - Pantoprazole/ 235 Protonix Oral 0 0 Tube Feeding 405 1219 1198 129 Tube Feeding Flush Amount 100 290 Parekh Irrigate Amount 125 Output: Urine 0 Praekh 1527 2150 2555 340 Labs: Laboratory Results - last 24 hr 09/06/18 09/06/18 09/06/18 05:20 05:20 05:20 WBC 9.6 RBC 3.64 L Hgb 9.0 L Hct 29 L MCV 79 L MCH 25 L MCHC 32 RDW 18 H Plt Count 254 MPV 7.2 L Neut % (Auto) 80.9 Lymph % (Auto) 7.3 L [place] % (Auto) 6.5 Eos % (Auto) 4.0 Baso % (Auto) 1.3 Absolute Neuts (auto) 7.8 H Absolute Lymphs (auto) 0.7 L Absolute Monos (auto) 0.6 Absolute Eos (auto) 0.4 Absolute Basos (auto) 0.1 Absolute Nucleated RBC 0 Nucleated RBC % 0.1 INR (Anticoag Therapy) 2.53 H Sodium 147 H Potassium 4.4 Chloride 107 Carbon Dioxide 33 H Anion Gap 7 BUN 105 H Creatinine 3.67 H Est GFR ( Amer) 20.0 Est GFR (Non-Af Amer) 16.5 BUN/Creatinine Ratio 28.6 H Glucose 133 H Calcium 8.4 L Phosphorus 5.7 H Magnesium 3.0 H Studies: CXR 09/05 IMPRESSION: 1. LIMITED STUDY. 2. FINDINGS MOST CONSISTENT WITH CONGESTIVE HEART FAILURE, UNCHANGED. 3. PROBABLE HERNIA OF A SMALL PORTION OF THE ANTEROLATERAL ASPECT OF THE LEFT LUNG, UNCHANGED. CXR 09/02 IMPRESSION: FINDINGS SUGGESTIVE OF CONGESTIVE HEART FAILURE, RECOMMEND FOLLOW- UP CHEST X-RAYS TO RESOLUTION. CT Head 09/02 Very limited examination secondary to patient positioning, patient body habitus, presence of portion of shoulder within the irgci-je-oswm the examination, and motion artifact. No definite evidence of midline shift. Cannot assess for presence of intracranial hemorrhage or romero-white matter differentiation. Impression: 67M with htn, hld, ckd, afib, chf s/p aicd, copd, bud/ohs, bph with chronic indwelling parekh, recurrent UTI, presents with hypercapnic respiratory failure. Intubated in the ER. Plan: Neuro - AMS - 2/2 hypercapnea +/- uremia - ct poor study CV - htn, hld, chf, afib - c/w ac with coumadin for afib - bp dropped due to sedation - weaning levophed Pulm - copd, bud/ohs - c/w home laba/ics - nebulizers q4h - wean vent - extubate to bipap when ready ID - low grade temp overnight - proteus in urine - strep mitis in 1/4 blood cultures - zosyn for 7 days GI - ppi Renal - ckd, uremia - monitor lytes - strict i/o - if mental status does not improve will discuss with renal about HD for uremia Heme - anemia - monitor for bleeding - hgb stable Endo - check fs, niss lines - tlc, parekh PPx - gi/dvt Full Code Critical Care Time: 45 mins
[2018-09-06] MEDS: fentaNYL* 50 MCG/ML 2 ML VIAL (100 MCG VIAL) IV PRN (09:47)
[2018-09-06] MEDS ORDERED: Vancomycin per Pharmacy* NOTE FOLLOW UP SCH (11:00)
[2018-09-06] MEDS ORDERED: Vancomycin(*) 2,000 MG in NS 0.9% 500 ML* 500 ML IVPB ONE (12:00)
[2018-09-06] MEDS: Acetaminophen ADULT LIQ* 650 MG/20.3 ML UDC PO PRN (12:19)
[2018-09-06] MEDS ORDERED: Warfarin TAB(*) 3 MG PO ONE (17:00)
[2018-09-06] MEDS ORDERED: NS 0.9% 250 ML* 246 ML with Norepinephrine VIAL* 4 MG IV SCH ×2 (17:30)
[2018-09-06] MEDS: Norepinephrine VIAL* 4 MG in NS 0.9% 250 ML* 246 ML IVPB SCH ×2 (17:48→23:30)
[2018-09-06] MEDS: Tamsulosin CAP* 0.4 MG PO SCH (21:17)
[2018-09-07] MEDS: Acetaminophen ADULT LIQ* 650 MG/20.3 ML UDC PO PRN (00:32)
[2018-09-07] MEDS: ZOSYN 3.375 GM Q12H per EXTENDED INFUSION IVPB SCH ×4 (01:29→13:54)
[2018-09-07] MEDS: Chlorhexidine MOUTHWASH 0.12%* 15 ML UDC TOPICAL SCH ×6 (01:29→19:53)
[2018-09-07] MEDS: Propofol* 100 ML IV SCH ×4 (02:13→23:02)
[2018-09-07] MEDS: Norepinephrine VIAL* 4 MG in NS 0.9% 250 ML* 246 ML IVPB SCH ×2 (04:58→19:33)
[2018-09-07] MEDS: Albuterol/Ipratropium NEB.SOL* Albuterol 2.5 MG/Ipratropium 0.5 MG 3 ML INH SCH ×5 (05:45→19:45)
[2018-09-07 05:47] LABS: ABS Basophils 0.1 10^3/ul (0-0.2); ABS Eosinophils 0.4 10^3/ul (0-0.6); ABS Lymphocytes 0.6 10^3/ul (1.0-4.8); ABS Monocytes 0.7 10^3/ul (0-0.8); ABS Neutrophils 8.1 10^3/ul (1.5-7.7); ABS Nucleated RBC 0 10^3/ul; Eosinophil % 3.7 % (0-6); Hematocrit 31 % (42-52); Hemoglobin 9.5 g/dl (14.0-18.0); INR 2.61 (0.77-1.02); Lymphocyte % 6.3 % (25-47); Mean Corpuscular HGB Conc 31 g/dl (31-36); Mean Corpuscular Hemoglobin 25 pg (27-31); Mean Corpuscular Volume 80 fL (80-94); Mean Platelet Volume 7.2 fL (7.4-10.4); Nucleated Red Blood Cells % 0.1; Platelet Count 243 10^3/ul (150-450); Red Blood Count 3.86 10^6/ul (4.00-5.40); Red Cell Distribution Width 19 % (10.5-15); White Blood Count 9.8 10^3/ul (3.5-10.8)
[2018-09-07] MEDS ORDERED: Vancomycin Random Level* NOTE FOLLOW UP ONE (06:00)
[2018-09-07] MEDS: Mometasone/Formoter 200/5 MDI INH SCH ×2 (07:08→19:47)
[2018-09-07] MEDS: Lansoprazole susp Kit 3 MG/ML (15 MG = 5 ML) PO SCH (08:04)
[2018-09-07] MEDS: Nystatin TOP POWDER* 15 GM BTL TOPICAL SCH ×3 (08:04→19:53)
[2018-09-07] MEDS ORDERED: Vancomycin(*) 1,500 MG in NS 0.9% 250 ML* 250 ML IVPB ONE (08:30)
--- NOTE | 2018-09-07 08:48 | PN ---
Date of Service: 09/07/18 Critical Care Services: 67M with htn, hld, ckd, afib, chf s/p aicd, copd, bud/ohs, bph with chronic indwelling parekh, recurrent UTI, presents with hypercapnic respiratory failure. Intubated in the ER. 09/03: remains intubated. 09/04: ET tube migrated out. Advanced via bronchoscope at bedside. Copious secretions throughout airway. 09/05: Remains intubated. zosyn for proteus in urine. Weaning levophed. 09/06: low grade temp overnight. renal function improving slowly. 09/07: febrile yesterday. on vanc/zosyn. cxr slighly better. did not tolerate sbt today. Vital Signs: Temp Pulse Resp BP SpO2 FiO2 100.9 F 80 23 137/60 96 50 09/07/18 08:01 09/07/18 08:01 09/07/18 08:00 09/07/18 08:01 09/07/18 08:01 09/07 07:47 Physical Exam: Gen - Intubated and sedated HEENT - nact, perrl neck - unable to assess jvd, no thyromegaly cv - s1/s2, no murmur lung - dec bs bilaterally abd - soft, nt ext - no cce neuro - unresponisve Fluid Balance (Past 24 Hours): I= O= Net Intake & Output 09/05/18 09/06/18 09/07/18 09/08/18 06:59 06:59 06:59 06:59 Intake Total 3644 4050 3833 100 Output Total 2150 2555 2570 260 Balance 1494 1495 1263 -160 Weight 235.7 kg 238.5 kg Intake: IV Fluids 189 154 811 ABX - ZOSYN 95 NS (0.9%) 94 154 811 IVPB 222 234 198 ABX - ZOSYN 220 198 NS (0.9%) 222 14 Medicated IV 1789 2174 1750 CC - Norepinephrine/ 1166 1525 1112 Levophed CC - Propofol/Diprivan 623 649 638 Oral 0 0 Tube Feeding 1219 1198 944 Tube Feeding Flush Amount 100 290 130 100 Parekh Irrigate Amount 125 Output: Parekh 2150 2555 2570 260 Other: Date of Last Bowel 09/07/2018 Movement # Bowel Movements 1 Estimated Stool Amount Large Labs: Laboratory Results - last 24 hr 09/07/18 09/07/18 09/07/18 05:30 05:30 05:30 WBC 9.8 RBC 3.86 L Hgb 9.5 L Hct 31 L MCV 80 MCH 25 L MCHC 31 RDW 19 H Plt Count 243 MPV 7.2 L Neut % (Auto) 82.2 Lymph % (Auto) 6.3 L [place] % (Auto) 6.6 Eos % (Auto) 3.7 Baso % (Auto) 1.2 Absolute Neuts (auto) 8.1 H Absolute Lymphs (auto) 0.6 L Absolute Monos (auto) 0.7 Absolute Eos (auto) 0.4 Absolute Basos (auto) 0.1 Absolute Nucleated RBC 0 Nucleated RBC % 0.1 INR (Anticoag Therapy) 2.61 H Sodium 149 H Potassium 4.2 Chloride 109 Carbon Dioxide 32 Anion Gap 8 BUN 96 H Creatinine 3.40 H Est GFR ( Amer) 21.8 Est GFR (Non-Af Amer) 18.0 BUN/Creatinine Ratio 28.2 H Glucose 139 H Calcium 8.4 L Phosphorus 5.0 Magnesium 3.0 H Random Vancomycin 18.5 Studies: CXR 09/05 IMPRESSION: 1. LIMITED STUDY. 2. FINDINGS MOST CONSISTENT WITH CONGESTIVE HEART FAILURE, UNCHANGED. 3. PROBABLE HERNIA OF A SMALL PORTION OF THE ANTEROLATERAL ASPECT OF THE LEFT LUNG, UNCHANGED. CXR 09/02 IMPRESSION: FINDINGS SUGGESTIVE OF CONGESTIVE HEART FAILURE, RECOMMEND FOLLOW- UP CHEST X-RAYS TO RESOLUTION. CT Head 09/02 Very limited examination secondary to patient positioning, patient body habitus, presence of portion of shoulder within the hcrbv-[id number] the examination, and motion artifact. No definite evidence of midline shift. Cannot assess for presence of intracranial hemorrhage or romero-white matter differentiation. Impression: 67M with htn, hld, ckd, afib, chf s/p aicd, copd, bud/ohs, bph with chronic indwelling parekh, recurrent UTI, presents with hypercapnic respiratory failure. Intubated in the ER. Plan: Neuro - AMS - 2/2 hypercapnea +/- uremia - ct poor study CV - htn, hld, chf, afib - c/w ac with coumadin for afib - bp dropped due to sedation - weaning levophed Pulm - copd, bud/ohs - c/w home laba/ics - nebulizers q4h - wean vent - failed sbt today - extubate to bipap when ready ID - hcap? - proteus in urine - strep mitis in 1/4 blood cultures - on vanc/zosyn - f/u cultures GI - ppi Renal - ckd, uremia, hypernatremia - monitor lytes - strict i/o - kidney function slowly improving - free water added for hypernatremia Heme - anemia - monitor for bleeding - hgb stable Endo - check fs, niss lines - tlc, parekh PPx - gi/dvt Full Code Critical Care Time: 50 mins
[2018-09-07] MEDS: fentaNYL* 50 MCG/ML 2 ML VIAL (100 MCG VIAL) IV PRN ×2 (11:15→13:53)
[2018-09-07] MEDS ORDERED: Warfarin TAB(*) 3 MG PO ONE (17:00)
[2018-09-07] MEDS: Tamsulosin CAP* 0.4 MG PO SCH (19:53)
[2018-09-07] MEDS: Norepinephrine VIAL* 8 MG in NS 0.9% 500 ML* 492 ML IVPB SCH (23:02)
[2018-09-08] MEDS: Chlorhexidine MOUTHWASH 0.12%* 15 ML UDC TOPICAL SCH ×6 (00:05→20:04)
[2018-09-08] MEDS: Albuterol/Ipratropium NEB.SOL* Albuterol 2.5 MG/Ipratropium 0.5 MG 3 ML INH SCH ×3 (01:16→12:49)
[2018-09-08] MEDS: ZOSYN 3.375 GM Q12H per EXTENDED INFUSION IVPB SCH ×4 (02:02→15:11)
[2018-09-08] MEDS: Propofol* 100 ML IV SCH ×4 (03:24→20:24)
[2018-09-08 05:01] LABS: ABS Basophils 0.1 10^3/ul (0-0.2); ABS Eosinophils 0.4 10^3/ul (0-0.6); ABS Lymphocytes 0.7 10^3/ul (1.0-4.8); ABS Monocytes 0.6 10^3/ul (0-0.8); ABS Neutrophils 7.2 10^3/ul (1.5-7.7); ABS Nucleated RBC 0 10^3/ul; Eosinophil % 4.5 % (0-6); Hematocrit 28 % (42-52); Hemoglobin 8.6 g/dl (14.0-18.0); Lymphocyte % 7.5 % (25-47); Mean Corpuscular HGB Conc 31 g/dl (31-36); Mean Corpuscular Hemoglobin 25 pg (27-31); Mean Corpuscular Volume 80 fL (80-94); Mean Platelet Volume 7.5 fL (7.4-10.4); Nucleated Red Blood Cells % 0; Platelet Count 186 10^3/ul (150-450); Red Blood Count 3.49 10^6/ul (4.00-5.40); Red Cell Distribution Width 19 % (10.5-15)
[2018-09-08 05:05] LABS: INR 2.44 (0.77-1.02)
[2018-09-08] MEDS ORDERED: Vancomycin Random Level* NOTE FOLLOW UP ONE (06:00)
[2018-09-08] MEDS: Mometasone/Formoter 200/5 MDI INH SCH ×2 (08:02→19:56)
--- NOTE | 2018-09-08 08:35 | PN ---
Date of Service: 09/08/18 Critical Care Services: 67M with htn, hld, ckd, afib, chf s/p aicd, copd, bud/ohs, bph with chronic indwelling parekh, recurrent UTI, presents with hypercapnic respiratory failure. Intubated in the ER. 09/03: remains intubated. 09/04: ET tube migrated out. Advanced via bronchoscope at bedside. Copious secretions throughout airway. 09/05: Remains intubated. zosyn for proteus in urine. Weaning levophed. 09/06: low grade temp overnight. renal function improving slowly. 09/07: febrile yesterday. on vanc/zosyn. cxr slighly better. did not tolerate sbt today. 09/08: Sodium 151 today. Cr stable. On PS 15/5 and doing ok. Excessive secretions. Vital Signs: Temp Pulse Resp BP SpO2 FiO2 98.8 F 99 23 101/49 97 50 09/08/18 08:00 09/08/18 08:03 09/08/18 08:03 09/08/18 07:30 09/08/18 08:03 09/08 08:03 Physical Exam: Gen - Intubated and sedated HEENT - nact, perrl neck - unable to assess jvd, no thyromegaly cv - s1/s2, no murmur lung - dec bs bilaterally abd - soft, nt ext - no cce neuro - arousable to physical stimuli Fluid Balance (Past 24 Hours): I= O= Net Intake & Output 09/06/18 09/07/18 09/08/18 09/09/18 06:59 06:59 06:59 06:59 Intake Total 4050 3833 3628.6 Output Total 2555 2570 1850 230 Balance 1495 1263 1778.6 -230 Weight 235.7 kg 238.5 kg 234 kg Intake: IV Fluids 154 811 347.6 ABX - VANCOMYCIN 53 ABX - ZOSYN 199.6 NS (0.9%) 154 811 95 IVPB 234 198 301 ABX - VANCOMYCIN 301 ABX - ZOSYN 220 198 NS (0.9%) 14 Medicated IV 2174 1750 707 CC - Norepinephrine/ 1525 1112 298 Levophed CC - Propofol/Diprivan 649 638 409 Oral 0 0 Tube Feeding 1446 011 5180 Tube Feeding Flush Amount 290 130 200 NG Tube Irrigate Amount 203 Output: Parekh 2555 2570 1850 230 Other: Date of Last Bowel 09/07/2018 Movement # Bowel Movements 1 Estimated Stool Amount Large Labs: Laboratory Results - last 24 hr 09/08/18 09/08/18 09/08/18 04:40 04:40 04:40 WBC 9.0 RBC 3.49 L Hgb 8.6 L Hct 28 L MCV 80 MCH 25 L MCHC 31 RDW 19 H Plt Count 186 MPV 7.5 Neut % (Auto) 80.6 Lymph % (Auto) 7.5 L [place] % (Auto) 6.5 Eos % (Auto) 4.5 Baso % (Auto) 0.9 Absolute Neuts (auto) 7.2 Absolute Lymphs (auto) 0.7 L Absolute Monos (auto) 0.6 Absolute Eos (auto) 0.4 Absolute Basos (auto) 0.1 Absolute Nucleated RBC 0 Nucleated RBC % 0 INR (Anticoag Therapy) 2.44 H Sodium 151 H Potassium 4.0 Chloride 111 Carbon Dioxide 31 Anion Gap 9 BUN 103 H Creatinine 3.41 H Est GFR ( Amer) 21.8 Est GFR (Non-Af Amer) 18.0 BUN/Creatinine Ratio 30.2 H Glucose 138 H Calcium 8.3 L Phosphorus 5.4 H Magnesium 3.0 H Random Vancomycin 23.5 Studies: CXR 09/05 IMPRESSION: 1. LIMITED STUDY. 2. FINDINGS MOST CONSISTENT WITH CONGESTIVE HEART FAILURE, UNCHANGED. 3. PROBABLE HERNIA OF A SMALL PORTION OF THE ANTEROLATERAL ASPECT OF THE LEFT LUNG, UNCHANGED. CXR 09/02 IMPRESSION: FINDINGS SUGGESTIVE OF CONGESTIVE HEART FAILURE, RECOMMEND FOLLOW- UP CHEST X-RAYS TO RESOLUTION. CT Head 09/02 Very limited examination secondary to patient positioning, patient body habitus, presence of portion of shoulder within the [id number]-[id number] the examination, and motion artifact. No definite evidence of midline shift. Cannot assess for presence of intracranial hemorrhage or romero-white matter differentiation. Impression: 67M with htn, hld, ckd, afib, chf s/p aicd, copd, bud/ohs, bph with chronic indwelling parekh, recurrent UTI, presents with hypercapnic respiratory failure. Intubated in the ER. Plan: Neuro - AMS - 2/2 hypercapnea +/- uremia - ct poor study CV - htn, hld, chf, afib - c/w ac with coumadin for afib - bp dropped due to sedation - weaning levophed Pulm - copd, bud/ohs - c/w home laba/ics - nebulizers q4h - wean vent - tolerating PS 15/5. - extubate to bipap when ready ID - hcap? - proteus in urine - strep mitis in 10/24 blood cultures - on vanc/zosyn - f/u cultures GI - ppi Renal - ckd, uremia, hypernatremia - monitor lytes - strict i/o - kidney function slowly improving - free water added for hypernatremia Heme - anemia - monitor for bleeding - hgb stable Endo - check fs, niss lines - tlc, parekh PPx - gi/dvt Full Code Critical Care Time: 40 mins
[2018-09-08] MEDS: Nystatin TOP POWDER* 15 GM BTL TOPICAL SCH ×3 (09:01→20:24)
[2018-09-08] MEDS: Lansoprazole susp Kit 3 MG/ML (15 MG = 5 ML) PO SCH (09:06)
[2018-09-08] MEDS ORDERED: Vancomycin(*) 1,000 MG in NS 0.9% 250 ML* 250 ML IVPB ONE (10:00)
[2018-09-08] MEDS ORDERED: Albuterol/Ipratropium NEB.SOL* Albuterol 2.5 MG/Ipratropium 0.5 MG 3 ML INH PRN (17:27)
[2018-09-08] MEDS: Warfarin TAB(*) 3 MG PO SCH (18:23)
[2018-09-08] MEDS: Norepinephrine VIAL* 4 MG in NS 0.9% 250 ML* 246 ML IVPB SCH (19:59)
[2018-09-08] MEDS: Tamsulosin CAP* 0.4 MG PO SCH (20:04)
[2018-09-08] MEDS: Norepinephrine VIAL* 8 MG in NS 0.9% 500 ML* 492 ML IVPB SCH (20:24)
[2018-09-09] MEDS: Chlorhexidine MOUTHWASH 0.12%* 15 ML UDC TOPICAL SCH ×6 (00:10→20:03)
[2018-09-09] MEDS: Propofol* 100 ML IV SCH ×5 (00:10→21:56)
[2018-09-09] MEDS: ZOSYN 3.375 GM Q12H per EXTENDED INFUSION IVPB SCH ×6 (02:03→21:05)
[2018-09-09 04:02] LABS: ABS Basophils 0.1 10^3/ul (0-0.2); ABS Eosinophils 0.6 10^3/ul (0-0.6); ABS Lymphocytes 0.7 10^3/ul (1.0-4.8); ABS Monocytes 0.5 10^3/ul (0-0.8); ABS Neutrophils 6.9 10^3/ul (1.5-7.7); ABS Nucleated RBC 0 10^3/ul; Eosinophil % 7.1 % (0-6); Hematocrit 29 % (42-52); Hemoglobin 8.9 g/dl (14.0-18.0); Lymphocyte % 7.5 % (25-47); Mean Corpuscular HGB Conc 31 g/dl (31-36); Mean Corpuscular Hemoglobin 25 pg (27-31); Mean Corpuscular Volume 80 fL (80-94); Mean Platelet Volume 7.5 fL (7.4-10.4); Nucleated Red Blood Cells % 0; Platelet Count 204 10^3/ul (150-450); Red Blood Count 3.63 10^6/ul (4.00-5.40); Red Cell Distribution Width 19 % (10.5-15); White Blood Count 8.8 10^3/ul (3.5-10.8)
[2018-09-09 04:20] LABS: EGFR Non-African American 20.2 (>60)
[2018-09-09 04:25] LABS: INR 2.1 (0.77-1.02)
--- NOTE | 2018-09-09 08:19 | PN ---
Date of Service: 09/09/18 Critical Care Services: 67M with htn, hld, ckd, afib, chf s/p aicd, copd, bud/ohs, bph with chronic indwelling parekh, recurrent UTI, presents with hypercapnic respiratory failure. Intubated in the ER. 09/03: remains intubated. 09/04: ET tube migrated out. Advanced via bronchoscope at bedside. Copious secretions throughout airway. 09/05: Remains intubated. zosyn for proteus in urine. Weaning levophed. 09/06: low grade temp overnight. renal function improving slowly. 09/07: febrile yesterday. on vanc/zosyn. cxr slighly better. did not tolerate sbt today. 09/08: Sodium 151 today. Cr stable. On PS 15/5 and doing ok. Excessive secretions. 09/09: OGT removed overnight. Creatinine down to 3.1. Vital Signs: Temp Pulse Resp BP SpO2 FiO2 97.3 F 70 20 111/63 100 40 09/09/18 07:16 09/09/18 07:16 09/09/18 06:00 09/09/18 07:15 09/09/18 07:16 09/09 04:00 Physical Exam: Gen - Intubated and sedated HEENT - nact, perrl neck - unable to assess jvd, no thyromegaly cv - s1/s2, no murmur lung - dec bs bilaterally abd - soft, nt ext - no cce neuro - arousable to physical stimuli Fluid Balance (Past 24 Hours): I= O= Net Intake & Output 09/07/18 09/08/18 09/09/18 09/10/18 06:59 06:59 06:59 06:59 Intake Total 3833 3628.6 3988 Output Total 2570 1850 2042 Balance 1263 1778.6 1946 Weight 238.5 kg 234 kg 230.4 kg Intake: IV Fluids 811 347.6 1450 ABX - VANCOMYCIN 53 ABX - ZOSYN 199.6 205 LR 1245 NS (0.9%) 811 95 IVPB 198 301 ABX - VANCOMYCIN 301 ABX - ZOSYN 198 Medicated IV 6272 338 8443 CC - Norepinephrine/ 1112 298 709 Levophed CC - Propofol/Diprivan 638 409 517 Oral 0 0 Tube Feeding 944 1870 1072 Tube Feeding Flush Amount 130 200 100 NG Tube Irrigate Amount 203 140 Output: Parekh 2570 1850 2042 Other: Date of Last Bowel 09/07/2018 09/09/18 Movement # Bowel Movements 1 1 Estimated Stool Amount Large Large Labs: Laboratory Results - last 24 hr 09/09/18 09/09/18 09/09/18 03:50 03:50 03:50 WBC 8.8 RBC 3.63 L Hgb 8.9 L Hct 29 L MCV 80 MCH 25 L MCHC 31 RDW 19 H Plt Count 204 MPV 7.5 Neut % (Auto) 78.7 Lymph % (Auto) 7.5 L [place] % (Auto) 5.4 Eos % (Auto) 7.1 H Baso % (Auto) 1.3 Absolute Neuts (auto) 6.9 Absolute Lymphs (auto) 0.7 L Absolute Monos (auto) 0.5 Absolute Eos (auto) 0.6 Absolute Basos (auto) 0.1 Absolute Nucleated RBC 0 Nucleated RBC % 0 INR (Anticoag Therapy) 2.10 H Sodium 150 H Potassium 3.9 Chloride 112 H Carbon Dioxide 31 Anion Gap 7 BUN 95 H Creatinine 3.09 H Est GFR ( Amer) 24.4 Est GFR (Non-Af Amer) 20.2 BUN/Creatinine Ratio 30.7 H Glucose 119 H Calcium 8.4 L Magnesium 3.1 H Studies: CXR 09/05 IMPRESSION: 1. LIMITED STUDY. 2. FINDINGS MOST CONSISTENT WITH CONGESTIVE HEART FAILURE, UNCHANGED. 3. PROBABLE HERNIA OF A SMALL PORTION OF THE ANTEROLATERAL ASPECT OF THE LEFT LUNG, UNCHANGED. CXR 09/02 IMPRESSION: FINDINGS SUGGESTIVE OF CONGESTIVE HEART FAILURE, RECOMMEND FOLLOW- UP CHEST X-RAYS TO RESOLUTION. CT Head 09/02 Very limited examination secondary to patient positioning, patient body habitus, presence of portion of shoulder within the fsnmc-[id number]-cdrc the examination, and motion artifact. No definite evidence of midline shift. Cannot assess for presence of intracranial hemorrhage or ormero-white matter differentiation. Impression: 67M with htn, hld, ckd, afib, chf s/p aicd, copd, bud/ohs, bph with chronic indwelling parekh, recurrent UTI, presents with hypercapnic respiratory failure. Intubated in the ER. Plan: Neuro - AMS - 2/2 hypercapnea +/- uremia - ct poor study CV - htn, hld, chf, afib - c/w ac with coumadin for afib - bp dropped due to sedation - weaning levophed Pulm - copd, bud/ohs - c/w home laba/ics - nebulizers q4h - wean vent - tolerating PS 15/5. - extubate to bipap when ready ID - hcap? - proteus in urine - strep mitis in 10/24 blood cultures - on vanc/zosyn - f/u cultures GI - ppi Renal - ckd, uremia, hypernatremia - monitor lytes - strict i/o - kidney function slowly improving - free water added for hypernatremia Heme - anemia - monitor for bleeding - hgb stable Endo - check fs, niss lines - tlc, parekh PPx - gi/dvt Full Code Critical Care Time: 40 mins
[2018-09-09] MEDS ORDERED: D5W 500 ML BAG* 500 ML IV SCH (09:00)
[2018-09-09] MEDS: Nystatin TOP POWDER* 15 GM BTL TOPICAL SCH ×3 (09:17→20:03)
[2018-09-09] MEDS: Mometasone/Formoter 200/5 MDI INH SCH ×2 (09:47→20:21)
[2018-09-09] MEDS ORDERED: Vancomycin Random Level* NOTE FOLLOW UP ONE (10:00)
[2018-09-09] MEDS: Norepinephrine VIAL* 8 MG in NS 0.9% 500 ML* 492 ML IVPB SCH ×2 (10:59→13:25)
[2018-09-09] MEDS: Lansoprazole susp Kit 3 MG/ML (15 MG = 5 ML) PO SCH (10:59)
[2018-09-09] MEDS ORDERED: Vancomycin(*) 1,000 MG in NS 0.9% 250 ML* 250 ML IVPB ONE (14:00)
[2018-09-09] MEDS: Warfarin TAB(*) 3 MG PO SCH (17:22)
[2018-09-09] MEDS: Tamsulosin CAP* 0.4 MG PO SCH (20:03)
[2018-09-10] MEDS: Propofol* 100 ML IV SCH ×5 (01:20→23:35)
[2018-09-10] MEDS: Chlorhexidine MOUTHWASH 0.12%* 15 ML UDC TOPICAL SCH ×7 (01:20→23:38)
[2018-09-10 04:34] LABS: ABS Basophils 0.1 10^3/ul (0-0.2); ABS Eosinophils 0.5 10^3/ul (0-0.6); ABS Lymphocytes 0.6 10^3/ul (1.0-4.8); ABS Monocytes 0.4 10^3/ul (0-0.8); ABS Neutrophils 6.2 10^3/ul (1.5-7.7); ABS Nucleated RBC 0 10^3/ul; Eosinophil % 6.5 % (0-6); Hematocrit 28 % (42-52); Hemoglobin 8.8 g/dl (14.0-18.0); Lymphocyte % 8.3 % (25-47); Mean Corpuscular HGB Conc 31 g/dl (31-36); Mean Corpuscular Hemoglobin 25 pg (27-31); Mean Corpuscular Volume 81 fL (80-94); Mean Platelet Volume 7.6 fL (7.4-10.4); Nucleated Red Blood Cells % 0; Platelet Count 186 10^3/ul (150-450); Red Blood Count 3.52 10^6/ul (4.00-5.40); Red Cell Distribution Width 19 % (10.5-15); White Blood Count 7.8 10^3/ul (3.5-10.8)
[2018-09-10 04:38] LABS: INR 2.11 (0.77-1.02)
[2018-09-10 04:48] LABS: EGFR Non-African American 20.8 (>60)
[2018-09-10] MEDS: Norepinephrine VIAL* 8 MG in NS 0.9% 500 ML* 492 ML IVPB SCH ×2 (05:39→16:56)
[2018-09-10] MEDS: Lansoprazole susp Kit 3 MG/ML (15 MG = 5 ML) PO SCH (10:24)
[2018-09-10] MEDS: Nystatin TOP POWDER* 15 GM BTL TOPICAL SCH ×3 (13:03→20:20)
[2018-09-10] MEDS ORDERED: Furosemide IV* 10 MG/ML VIAL (40 MG) ONE (14:13)
[2018-09-10] MEDS ORDERED: Furosemide IV* 10 MG/ML VIAL (40 MG) IV ONE ×2 (14:45→20:00)
[2018-09-10] MEDS: Mometasone/Formoter 200/5 MDI INH SCH (15:23)
[2018-09-10] MEDS: Warfarin TAB(*) 3 MG PO SCH (17:07)
--- NOTE | 2018-09-10 17:08 | PN ---
Date of Service: 09/10/18 Critical Care Services: Patient continues on ventilator (Day 8) - attempts to wean have been unsuccessful. Vital Signs: Temp Pulse Resp BP SpO2 FiO2 97.0 F 69 23 89/55 99 40 Physical Exam: Gen:Eyes open but does not follow verbal commands Lungs:BS very distant Extremities:3-4+ edema. Multiple epidermal fluid-filled blisters Fluid Balance (Past 24 Hours): 09/09/18 09/10/18 09/11/18 06:59 06:59 06:59 Intake Total 3988 1991.4 863.8 Output Total 2041 1984 4090 Balance 1946 6.4 -3226.2 Weight 507 lb 511 lb Intake: IV Fluids 1450 476.4 42.3 ABX - VANCOMYCIN ABX - ZOSYN 205 81.4 D5W 42.3 LR 1245 395 NS (0.9%) IVPB 400 ABX - VANCOMYCIN 300 ABX - ZOSYN 100 Medicated IV 1226 905 185.5 CC - Norepinephrine/ 709 406 76.5 Levophed CC - Propofol/Diprivan 517 499 109 Oral 0 0 0 Tube Feeding 1072 511 Tube Feeding Flush Amount 100 160 125 NG Tube Irrigate Amount 140 Hilario Irrigate Amount 50 Output: Hilario 2041 1984 2490 Residual 1600 Coude 18 Fr 1600 Other: Date of Last Bowel 09/09/18 09/10/18 Movement # Bowel Movements 1 1 Estimated Stool Amount Large Medium Labs: 09/10/18 09/10/18 09/10/18 04:20 04:20 04:20 WBC 7.8 RBC 3.52 L Hgb 8.8 L Hct 28 L MCV 81 MCH 25 L MCHC 31 RDW 19 H Plt Count 186 MPV 7.6 Neut % (Auto) 79.3 Lymph % (Auto) 8.3 L [place] % (Auto) 4.7 Eos % (Auto) 6.5 H Baso % (Auto) 1.2 Absolute Neuts (auto) 6.2 Absolute Lymphs (auto) 0.6 L Absolute Monos (auto) 0.4 Absolute Eos (auto) 0.5 Absolute Basos (auto) 0.1 Absolute Nucleated RBC 0 Nucleated RBC % 0 INR (Anticoag Therapy) 2.11 H Sodium 155 H Potassium 3.8 Chloride 111 Carbon Dioxide 31 Anion Gap 13 H BUN 85 H Creatinine 3.01 H Est GFR ( Amer) 25.1 Est GFR (Non-Af Amer) 20.8 BUN/Creatinine Ratio 28.2 H Glucose 115 H Calcium 8.3 L Magnesium 3.0 H Studies: None today Nutrition: Nepro at 60 cc/hr Impression: Is ventilator dependent due to Obesity-Hypoventilation Syndrome and massive fluid overload. Plan: Aggressive diuresis. I have spoken with family about tracheostomy, which might be necessary if patient not weaning, and would also help with the patients obstructive sleep apnea. Critical Care Time: 40 minutes
[2018-09-11] MEDS: Norepinephrine VIAL* 8 MG in NS 0.9% 500 ML* 492 ML IVPB SCH ×3 (01:54→17:08)
[2018-09-11] MEDS: Propofol* 100 ML IV SCH ×7 (03:07→22:56)
[2018-09-11] MEDS: Chlorhexidine MOUTHWASH 0.12%* 15 ML UDC TOPICAL SCH ×5 (04:45→20:17)
[2018-09-11 05:33] LABS: Hematocrit 29 % (42-52); Hemoglobin 9.2 g/dl (14.0-18.0); Mean Corpuscular HGB Conc 32 g/dl (31-36); Mean Corpuscular Hemoglobin 25 pg (27-31); Mean Corpuscular Volume 79 fL (80-94); Platelet Count 182 10^3/ul (150-450); Red Blood Count 3.68 10^6/ul (4.00-5.40); Red Cell Distribution Width 18 % (10.5-15)
[2018-09-11 05:45] LABS: EGFR Non-African American 20.2 (>60)
[2018-09-11] MEDS: Famotidine TAB* 20 MG PO SCH (08:55)
[2018-09-11] MEDS: Nystatin TOP POWDER* 15 GM BTL TOPICAL SCH ×3 (08:56→20:17)
[2018-09-11] MEDS: Furosemide IV* 10 MG/ML VIAL (40 MG) IV SCH (08:56)
--- NOTE | 2018-09-11 12:36 | PN ---
Date of Service: 09/11/18 Critical Care Services: Continues on ventilator. Has diuresed over 4 liters in past 24 hours. Vital Signs: Temp Pulse Resp BP SpO2 FiO2 97.0 F 65 20 76/42 95 20 09/10/18 11:16 09/11/18 09:46 09/11/18 08:00 09/11/18 09:46 09/11/18 09:46 09/11 08:00 Physical Exam: Gen:Unresponsive (on propofol) HEENT:OT and OG tubes in place Lungs:Scattered rhonchi Extremities:3-4+ edema. Multiple vesicular lesions on all limbs and on back. Fluid Balance (Past 24 Hours): 09/09/18 09/10/18 09/11/18 06:59 06:59 06:59 Intake Total 3988 1991.4 1215.8 Output Total 2041 1984 5650 Balance 1946 6.4 -4434.2 Weight 507 lb 511 lb 512 lb Intake: IV Fluids 1450 476.4 42.3 ABX - ZOSYN 205 81.4 D5W 42.3 LR 1245 395 IVPB 400 ABX - VANCOMYCIN 300 ABX - ZOSYN 100 Medicated IV 1226 905 537.5 CC - Norepinephrine/ 709 406 92.5 Levophed CC - Propofol/Diprivan 517 499 445 Oral 0 0 0 Tube Feeding 1072 511 Tube Feeding Flush Amount 100 160 125 NG Tube Irrigate Amount 140 Hilario Irrigate Amount 50 Output: Urine 175 Hilario 2041 1984 3875 Residual 1600 Coude 18 Fr 1600 Other: Date of Last Bowel 09/09/18 09/10/18 Movement # Bowel Movements 1 1 Estimated Stool Amount Large Medium Labs: 09/10/18 09/11/18 09/11/18 17:20 05:10 05:10 Sodium 152 H Potassium 3.6 Chloride 114 H Carbon Dioxide 32 Anion Gap 6 BUN 85 H Creatinine 3.08 H Glucose 111 H Calcium 8.3 L B-Natriuretic Peptide 260 H U Sodium Concentration 95 09/11/18 09/11/18 05:10 05:10 WBC 6.0 RBC 3.68 L Hgb 9.2 L Hct 29 L MCV 79 L MCH 25 L MCHC 32 RDW 18 H Plt Count 182 MPV 8.0 INR (Anticoag Therapy) 2.00 Sodium Potassium Chloride Carbon Dioxide Anion Gap BUN Creatinine Est GFR ( Amer) Est GFR (Non-Af Amer) BUN/Creatinine Ratio Glucose Calcium B-Natriuretic Peptide U Sodium Concentration Studies: NONE Nutrition: Tube feedings with Nepro at about 1200 sharon/day Impression: No change in clinical status, but is diuresing satisfactorily. Plan: Continue aggressive diuresis in an attempt to wean from the ventilator. If not successful, will proceed with tracheostomy (if family agrees). Critical Care Time: 40 minutes
[2018-09-11] MEDS ORDERED: Furosemide IV* 10 MG/ML VIAL (40 MG) IV ONE (12:39)
[2018-09-11] MEDS: Warfarin TAB(*) 3 MG PO SCH (16:51)
[2018-09-11] MEDS ORDERED: Acetaminophen ADULT LIQ* 650 MG/20.3 ML UDC PO ONE (20:40)
[2018-09-12] MEDS: Chlorhexidine MOUTHWASH 0.12%* 15 ML UDC TOPICAL SCH ×7 (00:03→23:41)
[2018-09-12] MEDS: Propofol* 100 ML IV SCH ×7 (01:46→23:39)
[2018-09-12 06:40] LABS: EGFR Non-African American 20.6 (>60)
[2018-09-12] MEDS ORDERED: Furosemide IV* 10 MG/ML VIAL (40 MG) IV ONE (08:26)
[2018-09-12] MEDS: Famotidine TAB* 20 MG PO SCH (09:22)
[2018-09-12] MEDS: Norepinephrine VIAL* 8 MG in NS 0.9% 500 ML* 492 ML IVPB SCH ×2 (09:22→19:50)
[2018-09-12] MEDS: Furosemide IV* 10 MG/ML VIAL (40 MG) IV SCH (09:22)
[2018-09-12] MEDS: Nystatin TOP POWDER* 15 GM BTL TOPICAL SCH ×3 (09:25→23:03)
[2018-09-12] MEDS ORDERED: Alteplase (CATHFLO)* 2 MG VIAL IV ONE (09:44)
[2018-09-12] MEDS: Warfarin TAB(*) 3 MG PO SCH (16:47)
--- NOTE | 2018-09-12 17:35 | PN ---
Date of Service: 09/12/18 Critical Care Services: Continued attempts to diurese patient. Wean attempt today was unsuccessful. Vital Signs: Temp Pulse Resp BP SpO2 FiO2 98.3 F 74 18 115/42 94 21 Physical Exam: Gen: On propofol. Eyes open but does not follow commands. Lungs:BS distant. Scattered rhonchi Extremities:2-3+ edema. No cyanosis Fluid Balance (Past 24 Hours): 09/10/18 09/11/18 09/12/18 09/13/18 06:59 06:59 06:59 06:59 Intake Total 1991.4 1215.8 2717.4 635.1 Output Total 1985 5650 3374 1885 Balance 6.4 -4434.2 -656.6 -1249.9 Weight 511 lb 512 lb 511 lb Intake: IV Fluids 476.4 42.3 ABX - ZOSYN 81.4 D5W 42.3 LR 395 IVPB 400 ABX - VANCOMYCIN 300 ABX - ZOSYN 100 Medicated IV 905 537.5 985.4 515.1 CC - Norepinephrine/ 406 92.5 190.4 95.1 Levophed CC - Propofol/Diprivan 499 445 795 420 Oral 0 0 0 Tube Feeding 511 1131 60 Tube Feeding Flush Amount 160 125 601 NG Tube Irrigate Amount 60 Hilario Irrigate Amount 50 Output: Urine 175 Hilario 1985 3875 3374 1885 Residual 1600 Coude 18 Fr 1600 Other: Date of Last Bowel 09/10/18 Movement # Bowel Movements 1 Estimated Stool Amount Medium Labs: 09/12/18 06:00 Sodium 151 H Potassium 3.6 Chloride 113 H Carbon Dioxide 32 Anion Gap 6 BUN 85 H Creatinine 3.03 H Est GFR ( Amer) 24.9 Est GFR (Non-Af Amer) 20.6 BUN/Creatinine Ratio 28.1 H Glucose 119 H Calcium 8.5 L Magnesium 2.9 H Studies: None today Nutrition: As before Impression: Diuresis continues, but still unable to wean. Plan: Same as before. If diuresis does not allow weaning, will proceed with tracheostomy.
[2018-09-13] MEDS: Propofol* 100 ML IV SCH ×5 (03:15→18:47)
[2018-09-13] MEDS: Chlorhexidine MOUTHWASH 0.12%* 15 ML UDC TOPICAL SCH ×5 (04:48→21:17)
[2018-09-13 05:52] LABS: INR 1.55 (0.77-1.02)
[2018-09-13] MEDS: Famotidine TAB* 20 MG PO SCH (09:14)
[2018-09-13] MEDS: Norepinephrine VIAL* 8 MG in NS 0.9% 500 ML* 492 ML IVPB SCH (09:14)
[2018-09-13] MEDS: Furosemide IV* 10 MG/ML VIAL (40 MG) IV SCH (09:14)
[2018-09-13] MEDS: Nystatin TOP POWDER* 15 GM BTL TOPICAL SCH ×3 (09:15→21:17)
[2018-09-13] MEDS ORDERED: Furosemide IV* 10 MG/ML VIAL (40 MG) IV ONE (15:04)
[2018-09-13] MEDS: Warfarin TAB(*) 3 MG PO SCH (17:04)
--- NOTE | 2018-09-13 17:14 | PN ---
Date of Service: 09/13/18 Critical Care Services: Remains on ventilator - Clinical status unchanged Vital Signs: Temp Pulse Resp BP SpO2 FiO2 98 F 70 18 95/53 96 25 Physical Exam: Gen:On propofol Lungs:BS distant Extremities: 2+ edema Fluid Balance (Past 24 Hours): I= O= Net Intake & Output 09/11/18 09/12/18 09/13/18 06:59 06:59 06:59 Intake Total 1215.8 2717.4 1066.1 Output Total 5650 3374 2965 Balance -4434.2 -656.6 -1898.9 Weight 512 lb 509 lb Intake: IV Fluids 42.3 D5W 42.3 Medicated IV 537.5 985.4 946.1 CC - Norepinephrine/ 92.5 190.4 95.1 Levophed CC - Propofol/Diprivan 445 795 851 Oral 0 0 Tube Feeding 511 1131 60 Tube Feeding Flush Amount 125 601 NG Tube Irrigate Amount 60 Output: Urine 175 Hilario 3875 3374 2965 Residual 1600 Coude 18 Fr 1600 Labs: 09/13/18 09/13/18 05:30 05:30 INR (Anticoag Therapy) 1.55 H Sodium 150 Potassium 3.5 Chloride 112 Carbon Dioxide 33 H BUN 84 H Creatinine 2.98 H Glucose 121 H Calcium 8.4 L Studies: None Nutrition: Tube feedings Impression: No change in clinical status Plan: Trach if unable to wean. Continue aggressive diuresis.
[2018-09-14] MEDS: Chlorhexidine MOUTHWASH 0.12%* 15 ML UDC TOPICAL SCH ×7 (00:42→23:15)
[2018-09-14] MEDS: Propofol* 100 ML IV SCH ×3 (00:42→17:56)
[2018-09-14] MEDS: Furosemide IV* 10 MG/ML VIAL (40 MG) IV SCH (08:52)
[2018-09-14] MEDS: Famotidine TAB* 20 MG PO SCH (08:52)
[2018-09-14] MEDS: Nystatin TOP POWDER* 15 GM BTL TOPICAL SCH ×3 (09:03→20:45)
--- NOTE | 2018-09-14 16:01 | PN ---
Date of Service: 09/14/18 Critical Care Services: No change in clinical status - Still uable to wean (tidal volumes less than 100 ml during spontaneous breathing trial). Vital Signs: Temp Pulse Resp BP SpO2 FiO2 97.6 F 69 16 93/51 95 25 Physical Exam: Gen:Eyes open but does not follow verbal commands Lungs:BS distant Extremities:2-3+edema Fluid Balance (Past 24 Hours): 09/12/18 09/13/18 09/14/18 06:59 06:59 06:59 Intake Total 2717.4 1066.1 3889 Output Total 3374 2965 3450 Balance -656.6 -1898.9 439 Weight 509 lb 500 lb Intake: Medicated IV 985.4 946.1 408 CC - Norepinephrine/ 190.4 95.1 Levophed CC - Propofol/Diprivan 795 851 408 Oral 0 Tube Feeding 1131 60 1831 Tube Feeding Flush Amount 601 1650 NG Tube Irrigate Amount 60 Output: Hilario 3374 2965 3450 Labs: 09/14/18 04:15 Sodium 149 H Potassium 3.5 Chloride 109 Carbon Dioxide 32 BUN 85 H Creatinine 2.98 H Glucose 116 H Calcium 8.5 L Studies: None Nutrition: Same as yesterday Impression: Still unable to wean despite attempts at aggressive diuresis. Plan: Will proceed with tracheostomy, although I feel the prognosis here is very poor. I have spoken with the brother (the one who is the health care proxy) again today about withdrawal of care (considering the poor prognosis), and he will discuss with family and get back to me.
[2018-09-14] MEDS: Warfarin TAB(*) 3 MG PO SCH (17:15)
[2018-09-15] MEDS: Propofol* 100 ML IV SCH (04:00)
[2018-09-15] MEDS: Chlorhexidine MOUTHWASH 0.12%* 15 ML UDC TOPICAL SCH ×2 (04:25→09:13)
[2018-09-15 06:01] LABS: EGFR Non-African American 21.7 (>60)
[2018-09-15] MEDS: Furosemide IV* 10 MG/ML VIAL (40 MG) IV SCH (09:13)
[2018-09-15] MEDS: Famotidine TAB* 20 MG PO SCH (09:13)
[2018-09-15] MEDS: Nystatin TOP POWDER* 15 GM BTL TOPICAL SCH (09:14)
[2018-09-15] MEDS ORDERED: Morphine PCA ADULT* 5 MG/ML 30 ML ONE (10:34)
[2018-09-15 10:51] VITALS: BP 93/50
[2018-09-15] MEDS ORDERED: LORazepam INJ* 2 MG/ML 1 ML VIAL ONE (10:52)
[2018-09-15] MEDS ORDERED: LORazepam INJ* 2 MG/ML 1 ML VIAL IV PUSH PRN (11:00)
[2018-09-15] MEDS ORDERED: LORazepam INJ* 2 MG/ML 1 ML VIAL IV PUSH ONE (11:00)
[2018-09-15] MEDS ORDERED: Morphine PCA 5 MG/ML * Titrate per Protocol PCA SCH (11:30)
[2018-09-15] MEDS ORDERED: Morphine VIAL* 10 MG/ML 1 ML VIAL ONE (11:55)
--- NOTE | 2018-09-16 06:37 | DS ---
SUMMARY: DATE OF ADMISSION: 09/02/18 DATE OF : 09/15/18 HOSPITAL COURSE: This is a 67-year-old male with morbid obesity and multiple admissions in the past for hypercapnic respiratory failure, who was admitted on 09/02, for the same, and was intubated and placed on mechanical ventilation. Multiple attempts to remove the patient from the ventilator were unsuccessful and there was no reversible cause for ventilator-dependance. After discussions with the family, the patient was placed on "comfort measures only" care and was extubated and removed from ventilatory support. The patient was pronounced at 12:10 on 09/15/18. Family was present at the bedside and autopsy was denied. FINAL DISCHARGE DIAGNOSES: 1. Morbid obesity. 2. Hypercapnic respiratory failure. 3. Atrial fibrillation. 4. Congestive heart failure. 5. Obstructive sleep apnea. [id number] #: [id number] MTDD
== END 2018-09-15 12:37 | disposition expired | DRG 207 ==
LOC: ED 20:50 → ICU 22:30
PROVIDERS: ADMIT Pediatrics; ATTEND Internal Medicine Critical Care Medicine
PROC: 5A1955Z Respiratory Ventilation, Greater than 96 Consecutive Hours (ICD-10-PCS; principal; 2018-09-02)
PROC: 05HM33Z Insertion of Infusion Device into Right Internal Jugular Vein, Percutaneous Approach (ICD-10-PCS; 2018-09-03)
PROC: B543ZZA Ultrasonography of Right Jugular Veins, Guidance (ICD-10-PCS; 2018-09-03)
PROC: 0BH18EZ Insertion of Endotracheal Airway into Trachea, Via Natural or Artificial Opening Endoscopic (ICD-10-PCS; 2018-09-04)
PROC: 3E033XZ Introduction of Vasopressor into Peripheral Vein, Percutaneous Approach (ICD-10-PCS; 2018-09-04)
PROC: 0BP1XDZ Removal of Intraluminal Device from Trachea, External Approach (ICD-10-PCS; 2018-09-15)
DX: J96.92 Respiratory failure, unspecified with hypercapnia (principal); E66.2 Morbid (severe) obesity with alveolar hypoventilation; N18.4 Chronic kidney disease, stage 4 (severe); I13.0 Hypertensive heart and chronic kidney disease with heart failure and stage 1 through stage 4 chronic kidney disease, or unspecified chronic kidney disease; N39.0 Urinary tract infection, site not specified; Z68.44 Body mass index [BMI] 60.0-69.9, adult; I50.42 Chronic combined systolic (congestive) and diastolic (congestive) heart failure; I69.354 Hemiplegia and hemiparesis following cerebral infarction affecting left non-dominant side; I48.2 Chronic atrial fibrillation; K59.00 Constipation, unspecified; J44.9 Chronic obstructive pulmonary disease, unspecified; N40.0 Benign prostatic hyperplasia without lower urinary tract symptoms; E87.5 Hyperkalemia; M17.10 Unilateral primary osteoarthritis, unspecified knee; I69.322 Dysarthria following cerebral infarction; Z99.81 Dependence on supplemental oxygen; Z86.14 Personal history of Methicillin resistant Staphylococcus aureus infection; Z95.810 Presence of automatic (implantable) cardiac defibrillator; Z80.1 Family history of malignant neoplasm of trachea, bronchus and lung; Z80.0 Family history of malignant neoplasm of digestive organs; Z82.3 Family history of stroke; Z87.891 Personal history of nicotine dependence; Z51.81 Encounter for therapeutic drug level monitoring; Z79.01 Long term (current) use of anticoagulants
CPT/HCPCS: 31622; 36415; 36600; 70450; 71045; 80048; 80053; 80202; 81003; 81015; 82550; 82553; 82803; 83605; 83735; 83880; 84100; 84300; 84484; 85014; 85018; 85025; 85027; 85610; 85730; 86140; 87040; 87070; 87077; 87086; 87186; 87205; 93005; 94003; 94640; 99285; A9270-GY; J0330; J1940; J2060; J2250; J2270; J2543; J2704; J2997; J3010; J3370